=== PATIENT | female | born 1960 | race Caucasian/White ===

== ENCOUNTER 2020-09-16 17:49 | Emergency (ER) | payer MEDICARE, MEDICAID, SELFPAY ==
[2020-09-16 17:51] VITALS: BP 173/99; PULSE 93; RESP 20; TEMP 37; O2SAT 99; BMI 177.1
--- NOTE | 2020-09-16 18:15 | XR_ITS ---
PROCEDURE INFORMATION: Exam: XR Left Foot Exam date and time: 09/16/2020 6:15 PM Age: 60 years old Clinical indication: Injury or trauma; Other: Dog bite to left heel. ; Bleeding/hemorrhage and blunt trauma; Additional info: Pain TECHNIQUE: Imaging protocol: XR Left foot. Views: 3 or more views. COMPARISON: No relevant prior studies available. FINDINGS: Bones/joints: Normal anatomic alignment. There is no evidence of acutely displaced fractures. There is no evidence of dislocation. No aggressive osseous lesions. Soft tissues: There is no significant soft tissue swelling. There is no evidence of a radio-opaque foreign body. IMPRESSION: Negative for acute skeletal pathology.
--- NOTE | 2020-09-16 18:37 | HMH.EDANIB ---
ED Disposition Clinical Impression: Dog bite Qualifiers: Encounter type: initial encounter Qualified Code(s): W54.0XXA - Bitten by dog, initial encounter Disposition: Home, Self-Care Condition on Discharge: Good Instructions: Animal Bites Prescriptions: Hydrocod/Acet 5/325 mg [[place] 5/325mg tablet] 1 tab PO Q6HP PRN #6 tab PRN Reason: Moderate Pain Transmission Status: Received by [facility] #[id number] Amoxicillin/Potassium Clav [Amox-Clav 875-125 mg Tablet] 1 tab PO BID #20 tab Transmission Status: Pending to [facility] #[id number] Referrals: Alberto Carter [Primary Care Provider] - - Critical Care Critical Care Time: No Attestation: On 09/16/20, the high probability of a clinically significant, sudden or life threatening deterioration of the following system(s) required my full and direct attention, intervention and personal management. The time I documented below is in addition to time spent performing reported procedures but includes the following listed in this critical care notation. Medical Decision Making - Medical Records Medical records reviewed: Yes: I reviewed the patient's medical records. - Jose F Inquiry Pt receiving controlled substance: Yes Jose F was queried for this patient: No Reason not queried -: Emergent pt cond-no time Risks and benefits of using a controlled substance: were discussed with pt by me Vital Signs: 09/16/20 17:51 Temperature 98.6 F Temperature Source Oral Pulse Rate [Right] 93 H Respiratory Rate 20 Blood Pressure [Right Arm] 173/99 H Blood Pressure Mean [Right Arm] 123 02 Sat by Pulse Oximetry 99 Orders (Tests/Meds): ED MEDICATIONS Discontinued Medications Generic Name Dose Route Start Last Admin Trade Name Freq PRN Reason Stop Dose Admin Hydrocodone Bitart/Acetaminophen 2 tab 09/16/20 18:15 09/16/20 18:23 Hydrocodone/Apap 5/325 Mg Tablet PO 09/16/20 18:16 2 tab ONCE ONE Administration ORDERS Category Date Time Status XR foot LT min 3V Stat Exams 09/16/20 18:15 Taken - Radiology Data #1 Image(s): Foot/Toes Image Reviewed: Yes I reviewed the patient's radiology results, Yes I reviewed the patient's radiology image Preliminary Findings: Normal/NAD - Reevaluation(s) Time: 18:41 Reevaluation #1: On reevaluation patient is feeling much better. There is no evidence of foreign body. Wound was thoroughly irrigated. Patient was given strict return precautions. Verbalized understanding. Medical Decision Narrative: 60-year-old female presenting after dog bite yesterday. The dog has been observed and is fully vaccinated for rabies and other diseases. Patient is up-to-date on tetanus. Imaging obtained. Analgesics provided. Animal Bite HPI - General Chief Complaint: Animal Bite Stated Complaint: Dog Bite in left leg in heel Time Seen by Provider: 09/16/20 17:55 Mode of Arrival: Family Vehicle Limitations: No Limitations Description of Symptoms (Recalled from ER Triage Doc. by RN): PT REPORTS SHE WAS BIT BY HER NEIGHBORS DOG YESTERDAY. PT REPORTS IT IS AN INSIDE DOG AND DOGS SHOTS ARE UP TO DATE. PT REPORTS SHE WAS BIT IN HER LEFT HEEL AND HAS SOME REDNESS TO THE AREA. - History of Present Illness HPI narrative: 60-year-old female presented to the emergency department after he sustained a dog bite yesterday. Patient was bit on the heel by her neighbors dog. It was a provoked attack. The dog has been monitored and is up-to-date on all immunizations. Is been on the back of the left heel. She is complaining of some pain in the area. Patient did thoroughly irrigate the wound and has been keeping it clean. She denies any other injuries. She is up-to-date on tetanus. No chest pain or shortness of breath. No abdominal pain or vomiting. No headache or change in vision. - Related Data Previous Rx's Medication Instructions Recorded Amoxicillin/Potassium Clav 1 tab PO BID #20 tab 09/16/20 [Amox
--- NOTE | 2020-09-16 18:47 | PC.NURSE ---
DOG BITE PROCEDURE REPORTING FAXED TO THE HEALTH DEPARTMENT PER HOSPITAL POLICY
[2020-09-16 18:56] VITALS: BP 110/71; PULSE 78; RESP 18; TEMP 36.8; O2SAT 99
== END 2020-09-16 18:55 | disposition home or self-care (01) ==
PROVIDERS: Emergency Provider Emergency Medicine; PCP Pediatrics
DX: S91.332A Puncture wound without foreign body, left foot, initial encounter (principal); W54.0XXA Bitten by dog, initial encounter
CPT/HCPCS: 73630; 99282

== ENCOUNTER → 2021-04-15 15:43 | Outpatient (CLI) | payer MEDICARE, MEDICAID, SELFPAY ==
[2021-04-15 15:54] LABS: Basophils % 0.4 % (0.1-2.0); Eosinophils # 0.1 K/mm3 (0.0-0.4); Eosinophils % 0.9 % (0.1-12.0); Hematocrit 48.5 % (37.0-47.0); Hemoglobin 15.8 g/dL (12.2-16.2); Lymphocytes # 1.4 K/mm3 (0.7-4.5); Lymphocytes % 27.1 % (10-50); Mean Corpuscular HGB Conc 32.6 g/dL (31.8-35.4); Mean Corpuscular Hemoglobin 33.6 pg (27.0-31.2); Mean Corpuscular Volume 103.2 fl (81-99); Mean Platelet Volume 8.7 fl (7.4-10.4); Monocytes # 0.3 K/mm3 (0.1-1.0); Neutrophils # 3.4 K/mm3 (1.8-7.8); Neutrophils % 65.6 % (37.0-80.0); Platelet Count 344 K/mm3 (142-424); Red Cell Distribution Width 13.4 % (11.5-17.5); White Blood Count 5.2 K/mm3 (4.8-10.8)
[2021-04-15 16:26] LABS: Chloride 98 mmol/L (98-107); Potassium 4.7 mmoL/L (3.5-5.1); Sodium 138 mmol/L (136-145)
[2021-04-15 16:29] LABS: Alanine Aminotransferase 15 U/L (12-78); Albumin Level 4.9 g/dl (3.5-5.0); Albumin/Globulin Ratio 1.5 (1.1-1.8); Alkaline Phosphatase 142 U/L (38-126); Anion Gap 14.7 mEq/L (5-15); Aspartate Amino Transferase 38 U/L (14-36); Bilirubin,Total 0.2 mg/dl (0.2-1.3); Blood Urea Nitrogen 9 mg/dl (7-17); Calcium 10.9 mg/dl (8.4-10.2); Carbon Dioxide 30 mmol/L (22.0-30.0); Cholesterol 299 mg/dl (140-200); Estimated Glomerular Filt Rate 102 ml/min (>60); GFR (African American) 123 ML/MIN (>60); Globulin 3.3 g/dL (1.3-3.2); Glucose 134 mg/dl (74-100); Total Protein,Serum 8.2 g/dl (6.3-8.2); Triglycerides 96 mg/dl (30-150); VLDL Cholesterol 19 mg/dL (0-40)
[2021-04-15 16:41] LABS: Direct LDL Cholesterol 129.02 mg/dL (100-129)
[2021-04-15 16:46] LABS: Chol/HDL Ratio 1.8 (1-3.5); Free T4 (Free Thyroxine) 1.03 ng/dl (0.78-2.19); HDL Cholesterol 163 mg/dl (40-60)
[2021-04-15 16:47] LABS: 25-OH Vitamin D, Total 38.8 ng/mL (30-100)
[2021-04-15 17:00] LABS: Thyroid Stimulating Hormone 2.32 uIU/mL (0.465-4.68)
== END ==
PROVIDERS: Visit Provider Emergency Medicine
DX: R53.83 Other fatigue (principal); W54.0XXA Bitten by dog, initial encounter; E78.5 Hyperlipidemia, unspecified; E55.9 Vitamin D deficiency, unspecified
CPT/HCPCS: 80053; 80061; 82306; 84439; 84443; 85025

== ENCOUNTER → 2022-01-03 09:18 | Outpatient (CLI) | payer MEDICARE, MEDICAID, SELFPAY ==
[2022-01-03 15:30] LABS: Amphetamine/Metha Screen,Urine Negative ng/ml (<1000); Benzodiazepines Screen,Urine Negative ng/ml (<200)
[2022-01-03 15:31] LABS: Barbiturates Screen,Urine Negative ng/ml (<200)
[2022-01-03 15:32] LABS: Cannabinoid Screen,Urine Negative ng/ml (<50); Cocaine Screen,Urine Negative ng/ml (<300)
[2022-01-03 15:33] LABS: Methadone Screen,Urine Negative ng/ml (<300); Opiate Screen,Urine Negative ng/ml (<300)
[2022-01-03 15:34] LABS: Phencyclidine Screen,Urine Negative ng/ml (<25)
== END ==
PROVIDERS: PCP Emergency Medicine; Visit Provider Emergency Medicine
DX: M51.36 Other intervertebral disc degeneration, lumbar region (principal)
CPT/HCPCS: 80305

== ENCOUNTER → 2022-01-31 08:58 | Outpatient (CLI) | payer MEDICARE, MEDICAID, SELFPAY | PROVIDERS: PCP Emergency Medicine; Visit Provider Emergency Medicine | DX: Z87.891 Personal history of nicotine dependence (principal) ==

== ENCOUNTER → 2022-01-31 09:44 | Outpatient (CLI) | payer MEDICARE, MEDICAID, SELFPAY ==
--- NOTE | 2022-01-31 09:49 | CT_ITS ---
FINAL REPORT CLINICAL HISTORY: lung cancer screening smoker, 1 ppd x 40 years family hx of lung cancer FINDINGS: Low-Dose Chest CT CTDI vol (mGy): 2.90 DLP (mGy-cm): 107.33 Axial images were obtained from the lung apex to the mid abdomen by computed tomography. Low-dose protocol was utilized. FINDINGS: CHEST: There is no axillary adenopathy. There is no hilar or mediastinal adenopathy. The heart is proper size. There is no pericardial or pleural effusion. Limited images of the upper abdomen are unremarkable. Lung window images demonstrate mild scarring. There are multiple less than 5 mm bilateral pulmonary nodules. On image 28 is a 3 mm nodule in the lateral left upper lobe. On image 43 is a 3 mm nodule in the left lower lobe. A calcified granuloma is seen in the right upper lobe. IMPRESSION: Lung RADS category 2. Recommend 12 month follow-up low-dose chest CT. Reviewed, Interpreted and Dictated by Alex Heck III, MD Transcribed by Chino Garcia Authenticated and . [facility]
[2022-01-31 19:20] LABS: Amphetamine/Metha Screen,Urine Negative ng/ml (<1000)
[2022-01-31 19:21] LABS: Barbiturates Screen,Urine Negative ng/ml (<200)
[2022-01-31 19:23] LABS: Benzodiazepines Screen,Urine Negative ng/ml (<200); Cannabinoid Screen,Urine Positive ng/ml (<50)
[2022-01-31 19:24] LABS: Cocaine Screen,Urine Negative ng/ml (<300)
[2022-01-31 19:25] LABS: Methadone Screen,Urine Positive ng/ml (<300)
[2022-01-31 19:26] LABS: Opiate Screen,Urine Negative ng/ml (<300)
[2022-01-31 19:27] LABS: Phencyclidine Screen,Urine Negative ng/ml (<25)
== END ==
PROVIDERS: PCP Emergency Medicine; Visit Provider Emergency Medicine
DX: Z87.891 Personal history of nicotine dependence (principal); Z79.899 Other long term (current) drug therapy; Z12.2 Encounter for screening for malignant neoplasm of respiratory organs
CPT/HCPCS: 71271; 80305

== ENCOUNTER → 2022-07-14 10:30 | Outpatient (CLI) | payer MEDICARE, MEDICAID, SELFPAY ==
[2022-07-14 16:09] LABS: Basophils % 0.6 % (0.1-2.0); Eosinophils # 0.1 K/mm3 (0.0-0.4); Hematocrit 41.8 % (37.0-47.0); Hemoglobin 13.7 g/dL (12.2-16.2); Lymphocytes # 1.3 K/mm3 (0.7-4.5); Lymphocytes % 19.1 % (10-50); Mean Corpuscular HGB Conc 32.7 g/dL (31.8-35.4); Mean Corpuscular Hemoglobin 33.2 pg (27.0-31.2); Mean Corpuscular Volume 101.4 fl (81-99); Mean Platelet Volume 8.8 fl (7.4-10.4); Monocytes # 0.6 K/mm3 (0.1-1.0); Neutrophils % 71.4 % (37.0-80.0); Platelet Count 307 K/mm3 (142-424); Red Blood Count 4.12 M/mm3 (4.20-5.40); Red Cell Distribution Width 13.5 % (11.5-17.5)
[2022-07-14 16:22] LABS: Alanine Aminotransferase 15 U/L (12-78); Albumin Level 4.1 g/dl (3.5-5.0); Albumin/Globulin Ratio 1.4 (1.1-1.8); Alkaline Phosphatase 125 U/L (38-126); Anion Gap 6.9 mEq/L (5-15); Aspartate Amino Transferase 30 U/L (14-36); Bilirubin,Total 0.4 mg/dl (0.2-1.3); Blood Urea Nitrogen 12 mg/dl (7-17); Carbon Dioxide 28 mmol/L (22.0-30.0); Chloride 102 mmol/L (98-107); Chol/HDL Ratio 2.1 (1-3.5); Cholesterol 212 mg/dl (140-200); Estimated Glomerular Filt Rate 85 ml/min (>60); GFR (African American) 103 ML/MIN (>60); Glucose 68 mg/dl (74-100); HDL Cholesterol 103 mg/dl (40-60); Potassium 3.9 mmoL/L (3.5-5.1); Sodium 133 mmol/L (136-145); Total Protein,Serum 7.1 g/dl (6.3-8.2); Triglycerides 71 mg/dl (30-150); VLDL Cholesterol 14 mg/dL (0-40)
[2022-07-14 16:33] LABS: Direct LDL Cholesterol 77.04 mg/dL (100-129)
[2022-07-14 16:39] LABS: 25-OH Vitamin D, Total 28.2 ng/mL (30-100); Free T4 (Free Thyroxine) 1.13 ng/dl (0.78-2.19)
[2022-07-14 16:53] LABS: Thyroid Stimulating Hormone 0.93 uIU/mL (0.465-4.68)
== END ==
PROVIDERS: PCP Emergency Medicine; Visit Provider Emergency Medicine
DX: E05.90 Thyrotoxicosis, unspecified without thyrotoxic crisis or storm (principal); E66.9 Obesity, unspecified; M54.9 Dorsalgia, unspecified; E55.9 Vitamin D deficiency, unspecified
CPT/HCPCS: 80053; 80061; 82306; 84439; 84443; 85025

== ENCOUNTER 2024-05-13 14:51 | Outpatient (CLI) | payer MEDICARE, MEDICAID, SELFPAY ==
--- NOTE | 2024-05-13 14:52 | CT_ITS ---
FINAL REPORT TECHNIQUE: Axial images were obtained from the lung apex to the mid abdomen by computed tomography. This study was performed with techniques to keep radiation doses as low as reasonably achievable (ALARA). Individualized dose reduction techniques using automated exposure control or adjustment of mA and/or kV according to the patient's size were employed. CLINICAL HISTORY: lung cancer screening SMOKES 1 PK PER DAY X 50 YRS COMPARISON: 01/31/2022 FINDINGS: CHEST CT LOW DOSE CTDI vol (mGy): 2.90 DLP (mGy-cm): 105.77 There is no axillary adenopathy. There is no hilar or mediastinal adenopathy. There is moderate calcification of the aortic arch. There is significant thoracolumbar scoliosis convex to the right centered on the upper lumbar spine. The heart is normal in size. There is no pericardial or pleural effusion. Multiple noncalcified nodules are again identified. There is a 3 mm left upper lobe nodule well-seen on image 31 of series 4. There is a 3 mm anterior left upper lobe nodule seen on image 38 of series 4. There is a 3 mm nodule in the anterior left lower lobe well-seen on image 42 of series 4. There is a 3 mm nodule in the periphery of the right lower lobe well-seen on image 56 of series 4. Pulmonary nodules are all stable. Limited images of the upper abdomen are unremarkable. IMPRESSION: Stable pulmonary nodules. Lung RADS category 2. Recommend 12 month follow-up low-dose chest CT. Reviewed, Interpreted and Dictated by Colt Gonzalez MD Transcribed by Xiao Núñez Authenticated and [facility]
== END 2024-05-13 23:59 | disposition home or self-care (01) ==
LOC: RAD 14:52
PROVIDERS: PCP Family Medicine; Visit Provider Family Medicine
DX: F17.210 Nicotine dependence, cigarettes, uncomplicated (principal); R91.8 Other nonspecific abnormal finding of lung field
CPT/HCPCS: 71271

== ENCOUNTER 2024-06-27 09:38 | Emergency (ER) | payer MEDICARE, MEDICAID, SELFPAY ==
[2024-06-27] VITALS (7 sets, daily range): BP systolic 151–164; BP diastolic 78–90; PULSE 66–91; RESP 16–18; TEMP 36.6–36.8; O2SAT 97–98; BMI 18.6
--- NOTE | 2024-06-27 10:31 | HMH.EDGENADL ---
Discharge Plan Disposition Chief Complaint: Extremity Problem,Nontraumatic Prescriptions Prescriptions: No Action ibuprofen 200 mg capsule 200 mg PO Q6H PRN (Reason: Arthritis) omeprazole 40 mg capsule,delayed release(DR/EC) 40 mg PO DAILY Qty: 90 3RF ondansetron HCl 4 mg tablet 4 mg PO TID PRN (Reason: nausea and vomiting) Qty: 60 2RF naproxen [EC-Naprosyn] 500 mg tablet,delayed release (DR/EC) 500 mg PO BID Qty: 60 2RF hydrocodone-acetaminophen 5-325 mg tablet 1 tab PO BID PRN (Reason: pain) Qty: 60 0RF Referrals Follow up/Referrals: Zia Joseph MD [Primary Care Provider] - See instructions Clinical Impressions Clinical Impression: Cellulitis of leg, right Print Language Print Language: Nepali Discharge ED Provider: Johana Shane General Adult HPI General Chief complaint: Extremity Problem,Nontraumatic Stated complaint: R ankle swollen Time Seen by Provider: 06/27/24 10:23 Mode of Arrival: Ambulatory Source of Information: Patient Limitations: No Limitations Description of Symptoms (Recalled from ER Triage Doc. by RN): Pt c/o R ankle pain since Thursday. pt reports her pain is 5/10 but increases to 10/10 with weight bearing. pt states the pain starts in her R ankle and radiates distal to her foot and proximal to mid schwarz. From mid schwarz distal to the R foot it is edematous with erythema and hot. +pedal pulses. pt denies injury. pt took 600mg of ibuprofen /. History of Present Illness HPI narrative: 63-year-old female presents today with right lower extremity swelling erythema and pain. Nontraumatic no definitive skin breakdown or injury that she is aware of. No fluctuance from historical standpoint no fevers or chills or systemic illness. She denies any significant past medical history. Related Data Home Medications ?Medication ?Instructions ?Recorded ?Confirmed ibuprofen 200 mg capsule 200 mg PO Q6H PRN Arthritis 06/26/23 06/27/24 Previous Rx's ?Medication ?Instructions ?Recorded naproxen 500 mg tablet,delayed 500 mg PO BID #60 tabs 03/22/24 release (EC-Naprosyn) omeprazole 40 mg capsule,delayed 40 mg PO DAILY #90 caps 12/11/24 release ondansetron HCl 4 mg tablet 4 mg PO TID PRN nausea and 04/27/24 vomiting #60 tabs hydrocodone 5 mg-acetaminophen 325 1 tab PO BID PRN pain #60 tabs 06/02/24 mg tablet Allergies Allergy/AdvReac Type Severity Reaction Status Date / Time chocolate flavor Allergy Intermediate rash Verified 04/27/24 15:09 Penicillins Allergy Intermediate Rash Verified 04/27/24 15:09 Influenza Virus Vaccines Allergy Blister Verified 06/27/24 10:02 morphine Allergy Unknown Verified 06/27/24 10:02 allergy reaction [facility] Disclaimer: The information contained in this section may have been updated after the patient was seen, as this information can be updated by other users. Medical History GERD (gastroesophageal reflux disease) Lumbar spinal stenosis Lumbar radicular pain DDD (degenerative disc disease), lumbar Surgical History No history of previous surgery Family History No significant family history Social History Smoking Status: Current every day smoker tobacco type: cigarettes packs per day: 2 alcohol intake: current alcohol intake frequency: a few times a month substance use type: former substance user current occupational status: disabled Travel in the last 8 weeks: None Have you lived/traveled outside [place] in past 30 days?: No Contact w/someone who lives/traveled outside US past 30 days?: No Exposure to someone with infectious disease in past 14 days?: No Do you have a fever (greater than 100.4 F or 38 C)?: No Have you tested positive for COVID-19: No Exposed to someone with COVID-19 in past 14 days?: No Do you have a sore throat?: No Do you have a cough?: No Do you have any weakness?: No Do you have any diarrhea?: No Are you experiencing any unusual bleeding?: No Do you have any muscle aches/pain?: No Do you have any abdominal pain?: No Are you experiencing loss of taste or smell?: No Other Medical History Have you received the Flu Vaccine for this season: No Have you received the Pneumonia Vaccine: No ROS Obtained: Yes All systems reviewed & no additional complaints except as documented Physical Exam General General appearance: alert Respiratory Respiratory exam: Present normal lung sounds bilaterally Cardiovascular Cardiovascular exam: Present regular rate Extremities Exam Extremities exam: Present other (Erythema circumferentially around the foot ankle and tib-fib area extending up to the proximal mid tib-fib location neurovascular tact no focal fluctuance normal range of motion no skin breakdown) Neurological Exam Neurological exam: Present alert and oriented X3 Medical Decision Making Medical Records Screening: Per USPSTF and CDC recommendations, given the prevalence of disease in our region, it is our hospital?s policy to screen for HIV and viral Hepatitis for all patients aged 18 and over and those with ongoing risk factors. Jose F Inquiry Pt receiving controlled substance: No Vital Signs: 06/27/24 09:45 06/27/24 09:52 06/27/24 10:00 Temperature 98.2 F Temperature Source Oral Pulse Rate 91 H 83 Pulse Rate [Left] 86 Respiratory Rate 16 Blood Pressure 164/78 H 158/85 H Blood Pressure [Right Arm] 164/78 H Blood Pressure Mean 109 Blood Pressure Mean [Right Arm] 106 Blood Pressure Source [Right Arm] Automatic Cuff Blood Pressure Position [Right Arm] Sitting 02 Sat by Pulse Oximetry 97 97 98 Oxygen Delivery Method Room Air Room Air Room Air 06/27/24 10:22 06/27/24 11:00 Temperature Temperature Source Pulse Rate 84 Pulse Rate [Left] Respiratory Rate Blood Pressure 159/86 H 157/90 H Blood Pressure [Right Arm] Blood Pressure Mean 112 Blood Pressure Mean [Right Arm] Blood Pressure Source [Right Arm] Blood Pressure Position [Right Arm] 02 Sat by Pulse Oximetry 97 97 Oxygen Delivery Method Room Air Room Air Lab Data Lab results reviewed: Yes I reviewed the patient's lab results. Lab Results 06/27/24 10:48: WBC 8.4, RBC 4.11 L, Hgb 13.2, Hct 39.1, MCV 95.1, MCH 32.1 H, MCHC 33.8, RDW 13.7, Plt Count 238, MPV 9.7, Neut % (Auto) 74.5, Lymph % (Auto) 16.0, Marshall % (Auto) 8.2, Eos % (Auto) 0.7, Baso % (Auto) 0.2, Neut # (Auto) 6.3, Lymph # (Auto) 1.4, Marshall # (Auto) 0.7, Eos # (Auto) 0.1, Baso # (Auto) 0.0, Sodium 134 L, Potassium 3.9, Chloride 96 L, Carbon Dioxide 30, Anion Gap 11.9, BUN 17, Creatinine 0.90, Estimated Creat Clear 43, Estimated GFR 63, Est GFR ( Amer) 76, Glucose 102 H, Calcium 9.4, Total Bilirubin 0.5, AST 41 H, ALT 18, Alkaline Phosphatase 163 H, C-Reactive Protein 88.6 H, Total Protein 8.1, Albumin 4.5, Globulin 3.6 H, Albumin/Globulin Ratio 1.3 06/27/24 10:48 06/27/24 10:48 Orders (Tests/Meds): ED MEDICATIONS Discontinued Medications Generic Name Dose Route Start Last Admin Trade Name Freq PRN Reason Stop Dose Admin Dalbavancin 1,500 mg/ Dextrose 250 mls @ 500 mls/hr 06/27/24 10:29 06/27/24 10:53 IV 06/27/24 10:30 500 mls/hr ONCE ONE Administration ORDERS Category Date Time Status Ankle XR -Right minimum 3 Views [XR ankle RT min 3V] Exams 06/27/24 10:32 Completed Stat POCUS Point of Care (ER Only) Stat Exams 06/27/24 10:24 Completed CBC w/Auto Diff [Complete Blood Count Auto Diff] Stat Lab 06/27/24 10:48 Completed CMP [Comprehensive Metabolic Panel] Stat Lab 06/27/24 10:48 Completed CRP [C-Reactive Protein] Stat Lab 06/27/24 10:48 Completed HIV Combo Stat Lab 06/27/24 10:48 Received Hepatitis C Ab Qual. W/ RFX Stat Lab 06/27/24 10:48 Received Blood Culture Stat Micro 06/27/24 10:48 Received Medical Decision Narrative: 63-year-old clinically with cellulitis that is significant but systemically appears well. Limited bedside ultrasound was performed which did not demonstrate any localized fluid collection but rather is consistent with cellulitis. Given its extent we will give dalbavancin. Also get a plain film and basic blood work I do not suspect a necrotizing soft tissue infection but it is on the differential. Will reassess shortly. X-ray performed which I personally interpreted shows no evidence of subcutaneous gas. Labs show significant elevated CRP which is to be expected at this point I am not clinically concerned about necrotizing soft tissue infection. Dalbavancin has been administered return precautions emphasized patient discharged in stable condition. She is been advised to follow-up with primary care doctor in 48 to 72 hours and return with any significant worsening after that time. Procedures Miscellaneous Procedure Procedure Performed: Limited soft tissue ultrasound Indication: Soft tissue swelling and redness and pain Identified structures: Location: Right lower extremity Findings: No localize drainable fluid collection but there is extensive cobblestoning consistent with cellulitis Impression: Right lower extremity cellulitis Images were saved to permanent archive The study was technically adequate Soft Tissue CPT Codes: CPT Neck: 61455-38 CPT Upper extremity: 12614-98 CPT Axilla: 65579-93 CPT Chest wall: 34947-23 CPT Breast: 14676-82-WW/LT (complete), 60507-32-TG/LT (limited), CPT Upper Back: 38544-11 CPT Lower Back: 91545-77 CPT Abdominal Wall: 57949-59 CPT Pelvic Wall: 83235-60 CPT Lower Extremity: 41437-50 CPT Other Soft Tissue: 97591-15 This study was performed by me, and I personally interpreted all images/videos. Based on my clinical judgement, these images were adequate and did not necessitate further imaging. Critical Care Critical Care Time Critical Care Time: No
--- NOTE | 2024-06-27 10:32 | XR_ITS ---
FINAL REPORT CLINICAL HISTORY: infection, r/o gas FINDINGS: RIGHT ANKLE 3 views of the right ankle were obtained. There is no acute fracture or dislocation. The mortise is intact. Visualized joint spaces are normally aligned. There is no foreign body or gas in the soft tissues IMPRESSION: No acute bony abnormality. Reviewed, Interpreted and Dictated by Chito Madrid MD Transcribed by Iva Glass Authenticated and . [facility]
--- NOTE | 2024-06-27 10:38 | PC.NURSE ---
XR AT BEDSIDE
--- NOTE | 2024-06-27 10:39 | PC.NURSE ---
1st blood culture sent to lab
[2024-06-27] MEDS: DALBAVANCIN HCL 1,500 MG in DEXTROSE 5 % IN WATER 250 ML 500 MG IV (10:53)
[2024-06-27 11:01] LABS: Basophils % 0.2 % (0.1-2.0); Eosinophils # 0.1 K/mm3 (0.0-0.4); Eosinophils % 0.7 % (0.1-12.0); Hematocrit 39.1 % (37.0-47.0); Hemoglobin 13.2 g/dL (12.2-16.2); Lymphocytes # 1.4 K/mm3 (0.7-4.5); Mean Corpuscular HGB Conc 33.8 g/dL (31.8-35.4); Mean Corpuscular Hemoglobin 32.1 pg (27.0-31.2); Mean Corpuscular Volume 95.1 fl (81-99); Mean Platelet Volume 9.7 fl (7.4-10.4); Monocytes # 0.7 K/mm3 (0.1-1.0); Monocytes % 8.2 % (1.7-9.3); Neutrophils # 6.3 K/mm3 (1.8-7.8); Neutrophils % 74.5 % (37.0-80.0); Platelet Count 238 K/mm3 (142-424); Red Blood Count 4.11 M/mm3 (4.20-5.40); Red Cell Distribution Width 13.7 % (11.5-17.5); White Blood Count 8.4 K/mm3 (4.8-10.8)
[2024-06-27 11:12] LABS: Albumin Level 4.5 g/dl (3.5-5.0); Chloride 96 mmol/L (98-107)
[2024-06-27 11:13] LABS: Potassium 3.9 mmoL/L (3.5-5.1); Sodium 134 mmol/L (136-145)
[2024-06-27 11:15] LABS: Alanine Aminotransferase 18 U/L (12-78); Albumin/Globulin Ratio 1.3 (1.1-1.8); Alkaline Phosphatase 163 U/L (38-126); Anion Gap 11.9 mEq/L (5-15); Aspartate Amino Transferase 41 U/L (14-36); Bilirubin,Total 0.5 mg/dl (0.2-1.3); Blood Urea Nitrogen 17 mg/dl (7-17); Carbon Dioxide 30 mmol/L (22.0-30.0); Creatinine Clearance Estimated 43 mL/min (50-200); Estimated Glomerular Filt Rate 63 ml/min (>60); GFR (African American) 76 ML/MIN (>60); Globulin 3.6 g/dL (1.3-3.2); Total Protein,Serum 8.1 g/dl (6.3-8.2)
[2024-06-27 11:16] LABS: Calcium 9.4 mg/dl (8.4-10.2); Glucose 102 mg/dl (74-100)
[2024-06-27 11:21] LABS: C-Reactive Protein 88.6 mg/L (0-4)
[2024-06-27 12:12] LABS: HIV Combo NEGATIVE (Negative)
[2024-06-27 12:20] LABS: Hepatitis C Ab Qual. W/ RFX NEGATIVE (Negative)
== END 2024-06-27 12:04 | disposition home or self-care (01) ==
PROVIDERS: Emergency Provider Student in an Organized Health Care Education/Training Program; PCP Family Medicine
DX: L03.115 Cellulitis of right lower limb (principal); M25.571 Pain in right ankle and joints of right foot; M79.671 Pain in right foot; R22.41 Localized swelling, mass and lump, right lower limb; F17.210 Nicotine dependence, cigarettes, uncomplicated
CPT/HCPCS: 73610; 80053; 85025; 86140; 86803; 87040; 87389; 96374; 99284; J0875; J7060

== ENCOUNTER 2024-10-03 14:34 | Inpatient (IN) | payer MEDICARE, MEDICAID, SELFPAY ==
[2024-10-03 14:48] VITALS: BP 136/97; PULSE 88; RESP 18; TEMP 36.6; O2SAT 96; BMI 16.8
--- NOTE | 2024-10-03 15:05 | CT_ITS ---
FINAL REPORT TECHNIQUE: After the administration of intravenous contrast, axial images were obtained through the abdomen and pelvis by computed tomography. Coronal and sagittal reconstructed images were obtained and reviewed. The study was performed with techniques to keep radiation dose as low as reasonably achievable, (ALARA). Individual dose reduction techniques using automated exposure control or adjustment of mA and/or kV according to the patient's size were employed. CLINICAL HISTORY: Diffuse pain, takes 20 ibuprofen a day COMPARISON: None FINDINGS: Abdomen: The lung bases are clear. There is moderate intra and extrahepatic biliary ductal dilatation. The gallbladder appears to be present. There are multitude of fluid-filled abnormally distended loops of small bowel measuring up to 2.8 cm in diameter. The terminal ileum is difficult to identify. There is a large amount of stool throughout the colon. There are extensive vascular calcifications throughout the abdominal aorta and iliac vessels, greater than expected for the patient's age. There is significant tortuosity of the abdominal aorta. There is lumbar scoliosis measuring 30 degrees. Pelvis: The appendix is not identified. The urinary bladder is decompressed. There is no free fluid or adenopathy. IMPRESSION: Multitude of abnormally distended fluid-filled loops of small bowel, diffuse ileus versus distal small bowel obstruction. Moderate intra and extrahepatic biliary ductal dilatation without a discrete obstructing focus identified. Lumbar scoliosis. Extensive vascular calcifications. Reviewed, Interpreted and Dictated by Colt Gonzalez MD Transcribed by Minerva Garcia Authenticated and [facility]
[2024-10-03 15:12] LABS: Microscopic, Urine URINE MICROSCOPIC (MICROSCOPIC)
--- NOTE | 2024-10-03 15:13 | ED_ITS ---
Discharge Plan Disposition Patient Disposition: Admitted Chief Complaint: Abdominal Pain Prescriptions Prescriptions: No Action naproxen [EC-Naprosyn] 500 mg tablet,delayed release (DR/EC) 500 mg PO BID Qty: 60 2RF omeprazole 40 mg capsule,delayed release(DR/EC) 40 mg PO DAILY Qty: 90 3RF ibuprofen 200 mg capsule 200 mg PO Q6H PRN (Reason: Arthritis) hydrocodone-acetaminophen 5-325 mg tablet 1 tab PO BID PRN (Reason: pain) Qty: 60 0RF ondansetron HCl 4 mg tablet 4 mg PO TID PRN (Reason: nausea and vomiting) Qty: 60 2RF hydrocodone-acetaminophen 7.5-325 mg tablet 1 tab PO BID PRN (Reason: pain) Qty: 60 0RF doxycycline hyclate 100 mg tablet 100 mg PO BID Qty: 20 0RF ondansetron HCl 8 mg tablet 8 mg PO Q8H Qty: 90 0RF Referrals Follow up/Referrals: Zia Joseph MD [Primary Care Provider] - See instructions Clinical Impressions Clinical Impression: Bowel obstruction Instructions Patient Instructions: DI for Acute Abdominal Pain Print Language Print Language: Maldivian Discharge ED Provider: Griffin Dias General Adult HPI General Chief complaint: Abdominal Pain Stated complaint: abd pain bloating vomiting 7+days lightheaded Time Seen by Provider: 10/03/24 15:04 Mode of Arrival: Ambulatory Source of Information: Patient and Relative Description of Symptoms (Recalled from ER Triage Doc. by RN): Pt presents for evaluation of abdominal pain and bloating and n/v. Pt states she has progressively become more bloated over the last week, pt has not had a BM in 2 days. Pt states she drinks 1-2 beers in the evening per week. Pt states she also takes 15-20 ibuprofen per day. History of Present Illness HPI narrative: Patient is 64-year-old female with past medical history of tobacco use who presents to the emergency department for evaluation of abdominal pain. Patient takes 15-20 ibuprofen a day for her osteoarthritis. She had abdominal pain over the last week that is diffuse. She has never had endoscopy before. No abdominal surgical history. No chest pain. No vomiting although she does have some nausea. Last bowel movement 2 days ago nonbloody. No reports of dysuria. No other acute complaints at this time. Please note that above description of symptoms, in this electronic medical record under categorization of recalled from ER triage doctor by RN are reflective of an initial nursing assessment, however, is not reflective of my full history and physical exam that was personally taken and clarified. Consequentially, this preceding description of symptoms, which may include the patient's categorized chief complaint in the EMR, do not reflect my personal clinical impression, and the ultimate description of history of present illness and patient stated complaints should be deferred to this section of the note. Unless stated otherwise or congruent with this section of the note, additional signs, symptoms, or incongruence should be interpreted as inaccurate with my clinical impression. Related Data Home Medications ?Medication ?Instructions ?Recorded ?Confirmed ibuprofen 200 mg capsule 200 mg PO Q6H PRN Arthritis 06/26/23 07/04/24 Previous Rx's ?Medication ?Instructions ?Recorded hydrocodone 5 mg-acetaminophen 325 1 tab PO BID PRN pain #60 tabs 06/02/24 mg tablet naproxen 500 mg tablet,delayed 500 mg PO BID #60 tabs 07/04/24 release (EC-Naprosyn) omeprazole 40 mg capsule,delayed 40 mg PO DAILY #90 caps 07/04/24 release ondansetron HCl 4 mg tablet 4 mg PO TID PRN nausea and 08/04/24 vomiting #60 tabs hydrocodone 7.5 mg-acetaminophen 1 tab PO BID PRN pain #60 tabs 09/08/24 325 mg tablet doxycycline hyclate 100 mg tablet 100 mg PO BID #20 tabs 09/14/24 ondansetron HCl 8 mg tablet 8 mg PO Q8H #90 tabs 09/29/24 Allergies Allergy/AdvReac Type Severity Reaction Status Date / Time chocolate flavor Allergy Intermediate rash Verified 07/04/24 15:29 Penicillins Allergy Intermediate Rash Verified 07/04/24 15:29 Influenza Virus Vaccines Allergy Blister Verified 07/04/24 15:29 morphine Allergy Unknown Verified 07/04/24 15:29 allergy reaction PFSH PFSH Disclaimer: The information contained in this section may have been updated after the patient was seen, as this information can be updated by other users. Medical History GERD (gastroesophageal reflux disease) Lumbar spinal stenosis Lumbar radicular pain DDD (degenerative disc disease), lumbar Surgical History No history of previous surgery Family History Other No significant family history Social History Smoking Status: Current every day smoker tobacco type: cigarettes packs per day: 2 alcohol intake: current alcohol intake frequency: a few times a month substance use type: former substance user current occupational status: disabled Travel in the last 8 weeks?: None Have you lived/traveled outside US in past 30 days?: No Contact w/someone who lives/traveled outside US past 30 days?: No Exposure to someone with infectious disease in past 14 days?: No Do you have a fever (greater than 100.4 F or 38 C)?: No Have you tested positive for COVID-19?: No Exposed to someone with COVID-19 in past 14 days?: No Do you have a sore throat?: No Do you have a cough?: No Do you have any weakness?: No Do you have any diarrhea?: No Are you experiencing any unusual bleeding?: No Do you have any muscle aches/pain?: No Do you have any abdominal pain?: Yes Are you experiencing loss of taste or smell?: No Other Medical History Have you received the Flu Vaccine for this season: No Have you received the Pneumonia Vaccine: No ROS Obtained: Yes Systems reviewed as appropriate & no additional complaints except as documented Physical Exam General General appearance: alert and in no apparent distress Head Head exam: atraumatic and normocephalic Eye Eye exam: Present PERRL and EOMI ENT ENT exam: Present mucous membranes moist Neck Neck exam: Present normal inspection Chest Chest inspection: Present normal inspection and symmetric chest wall rise Respiratory Respiratory exam: Present normal lung sounds bilaterally; Absent respiratory distress Cardiovascular Cardiovascular exam: Present regular rate and normal rhythm Abdominal Exam Abdominal exam: Present distention (Firm abdomen but not rigid) and tenderness (Diffuse); Absent soft Extremities Exam Extremities exam: Present normal inspection Neurological Exam Neurological exam: Present alert Psychiatric Psychiatric exam: Present normal affect Skin Skin exam: Present warm and dry Medical Decision Making Medical Records Screening: Per USPSTF and CDC recommendations, given the prevalence of disease in our region, it is our hospital?s policy to screen for HIV and viral Hepatitis for all patients aged 18 and over and those with ongoing risk factors. Jose F Inquiry Pt receiving controlled substance: No Vital Signs: 10/03/24 14:48 10/03/24 16:00 Temperature 98 F Temperature Source Oral Pulse Rate 74 Pulse Rate [Right] 88 Respiratory Rate 18 Blood Pressure 148/86 H Blood Pressure [Right Arm] 136/97 H Blood Pressure Mean [Right Arm] 110 Blood Pressure Source [Right Arm] Automatic Cuff Blood Pressure Position [Right Arm] Sitting 02 Sat by Pulse Oximetry 96 97 Oxygen Delivery Method Room Air Room Air Lab Data Lab Results 10/03/24 14:48: Urine Color Dark yellow, Urine Appearance Sl cloudy, Urine pH 6.0, Ur Specific [place] 1.025, Urine Protein Trace, Urine Glucose (UA) Negative, Urine Ketones Trace, Urine Blood Negative, Urine Nitrate Negative, U rine Bilirubin 1+ A, Urine Urobilinogen 1.0, Ur Leukocyte Esterase Negative, Urine RBC None, Urine WBC 3-5, Ur Squamous Epith Cells 10-20, Urine Bacteria 3+, Urine Yeast Occasional 10/03/24 15:34: WBC 2.6 L, RBC 3.91 L, Hgb 12.3, Hct 35.7 L, MCV 91.3, MCH 31.5 H, MCHC 34.5, RDW 14.8, Plt Count 278, MPV 9.3, Neut % (Auto) 56.9, Lymph % (Auto) 28.6, [place] % (Auto) 12.6 H, Eos % (Auto) 1.5, Baso % (Auto) 0.4, Neut # (Auto) 1.5 L, Lymph # (Auto) 0.8, [place] # (Auto) 0.3, Eos # (Auto) 0.0, Baso # (Auto) 0.0, Sodium 129 L, Potassium 3.8, Chloride 88 L, Carbon Dioxide 33 H, Anion Gap 11.8, BUN 24 H, Creatinine 1.60 H, Estimated Creat Clear 24, Estimated GFR 32 L, Est GFR ( Amer) 39 L, Glucose 143 H, Calcium 9.7, Total Bilirubin 0.3, AST 45 H, ALT 21, Alkaline Phosphatase 118, Troponin I < 0.01, Total Protein 7.8, Albumin 4.4, Globulin 3.4 H, Albumin/Globulin Ratio 1.3, L ipase 21 L, Plasma/Serum Alcohol < 10 05/19/25 15:34: Plasma/Serum Alcohol < 10 10/03/24 15:34 10/03/24 15:34 Orders (Tests/Meds): ED MEDICATIONS Generic Name Dose Route Start Last Admin Trade Name Frederic PRN Reason Stop Dose Admin Ondansetron HCl 4 mg 10/03/24 18:06 Ondansetron 4mg/2ml Vial IV 11/02/24 18:05 Q6HP PRN Nausea And Vomiting Pantoprazole Sodium 40 mg 10/03/24 21:00 Pantoprazole 40mg Vial IV 11/02/24 20:59 HS YOU Discontinued Medications Generic Name Dose Route Start Last Admin Trade Name Freq PRN Reason Stop Dose Admin Hydromorphone HCl 0.5 mg 10/03/24 16:55 10/03/24 17:07 Hydromorphone 2mg/Ml Syringe IV 10/03/24 16:56 0.5 mg ONCE ONE Administration Cefepime HCl 2 gm/ Sodium 100 mls @ 200 mls/hr 10/03/24 16:29 10/03/24 16:42 Chloride IV 10/03/24 16:58 200 mls/hr ONCE ONE Administration Metronidazole 500 mg in 100 mls @ 100 mls/hr 10/03/24 16:29 10/03/24 16:41 Flagyl 500mg/100ml Ivpb IV 10/03/24 17:28 100 mls/hr ONCE ONE Administration Lactated Ringer's 1,000 mls @ 999 mls/hr 10/03/24 16:37 10/03/24 16:43 Lactated Ringer's 1000 Ml Bag IV 10/03/24 17:37 999 mls/hr .Q1H1M ONE Administration Iopamidol 75 ml 10/03/24 15:44 10/03/24 15:45 Iopamidol-370 (76%);100ml Bottle IV 10/03/24 15:45 75 ml ONCE ONE Administration Sodium Chloride 10 ml 10/03/24 15:44 10/03/24 15:45 Sodium Chloride 0.9% 10ml Syr (Rad Only) IV 10/03/24 15:45 10 ml ONCE ONE Administration Sodium Chloride 50 ml 10/03/24 15:44 10/03/24 15:45 0.9 % Sodium Chloride 50 Ml Vial IV 10/03/24 15:45 Not Given ONCE ONE ORDERS Category Date Time Status CT abdomen pelvis w con Stat Cat Scan 10/03/24 15:05 Completed Surgery Consult (on-call) [Consult to On-Call Gen'l Cons 10/04/24 07:05 Ordered Surgeon] [CONS] Routine CBC w/Auto Diff [Complete Blood Count Auto Diff] Stat Lab 10/03/24 15:34 Completed CMP [Comprehensive Metabolic Panel] Stat Lab 10/03/24 15:34 Completed Complete Blood Count Auto Diff AMLAB Lab 10/04/24 06:00 Ordered Comprehensive Metabolic Panel AMLAB Lab 10/04/24 06:00 Ordered Ethanol [Ethyl Alcohol] Stat Lab 10/03/24 15:34 Completed Ethanol [Ethyl Alcohol] Stat Lab 10/03/24 15:34 Completed Lipase Stat Lab 10/03/24 15:34 Completed Magnesium AMLAB Lab 10/04/24 06:00 Ordered Trop I [Troponin I] Stat Lab 10/03/24 15:34 Completed Urinalysis and Microscopic Stat Lab 10/03/24 14:48 Completed Urine Culture Stat Micro 10/03/24 14:48 Received ECG Data Tracing #1: Independently interpreted by me rate is 86, rhythm is regular, axis is normal, no ST elevation in anatomical contiguous leads, QTc 413. Medical Decision Narrative: In summary patient is a 64-year-old female with past medical history described above who presents emergency department for evaluation of abdominal pain. Patient is hemodynamically stable nontoxic-appearing upon arrival, firm abdomen, diffusely tender, no involuntary guarding but my concern for intra-abdominal pathology is high. Patient will go immediately to CAT scan. Workup will be conducted with hematologic labs and urinalysis as differential includes perforated hollow viscus, gastritis, atypical ACS, pancreatitis, malignancy, among others. Initial inventions include IV Tylenol, morphine, Zofran. Initial workup reviewed by me, leukopenia, hyponatremia, ADAM initial troponin undetectably low. Patient was volume resuscitated with 1 L crystalloid, sepsis bolus fluids will be deferred given that she appears intravascularly only mildly hypovolemic. Urinalysis interpreted by me and not consistent with infection. CT imaging informally visualized by me there appears to be multiple dilated loops of bowel and possible free air for which cefepime metronidazole be administered. Formal read shows diffuse ileus versus distal small bowel obstruction with extensive vascular calcifications. NG was attempted to be anchored but was unsuccessful due to nasal anatomy. I discussed case with surgery regarding management they agree observation will be beneficial. No acute surgical intervention. Case was discussed with hospital medicine who admit the patient to her service for continued evaluation at this time. Critical Care Critical Care Time Critical Care Time: No
--- NOTE | 2024-10-03 15:20 | ECG_ITS ---
APPROVED REPORT Exam: Resting ECG HR:86 bpm ECG Measurements Heart Rate 86 AXES OH 155 P 70 QRSd 97 QRS 66 QT 369 T 72 QTc 413 Conclusion SINUS RHYTHM NORMAL ECG UNCONFIRMED REPORT Electronically signed by : Socorro Castillo, 10/03/2024 17:00:01
[2024-10-03 15:22] LABS: Appearance,Urine SL CLOUDY (Clear); Blood, Urine Negative (Negative); Glucose,Urine (UA) Negative (Negative); Ketones,Urine TRACE (Negative); Leukocyte Esterase,Urine Negative (Negative); Nitrate,Urine Negative (Negative); Protein,Urine TRACE (Negative); Specific Gravity, Urine 1.025 (1.005-1.030)
[2024-10-03 15:29] LABS: Bilirubin,Urine 1+ (Negative); Color,Urine Dark Yellow (Yellow)
[2024-10-03] MEDS: SODIUM CHLORIDE 0.9% 10ML SYR (RAD ONLY) 10 ML IV (15:45)
[2024-10-03] MEDS: IOPAMIDOL-370 (76%);100ML BOTTLE 75 ML IV (15:45)
[2024-10-03 15:50] LABS: Basophils % 0.4 % (0.1-2.0); Eosinophils % 1.5 % (0.1-12.0); Hematocrit 35.7 % (37.0-47.0); Hemoglobin 12.3 g/dL (12.2-16.2); Immature Granulocytes # 0 10^3uL; Immature Granulocytes % 0 %; Lymphocytes # 0.8 K/mm3 (0.7-4.5); Lymphocytes % 28.6 % (10-50); Mean Corpuscular HGB Conc 34.5 g/dL (31.8-35.4); Mean Corpuscular Hemoglobin 31.5 pg (27.0-31.2); Mean Corpuscular Volume 91.3 fl (81-99); Mean Platelet Volume 9.3 fl (7.4-10.4); Monocytes # 0.3 K/mm3 (0.1-1.0); Monocytes % 12.6 % (1.7-9.3); Neutrophils # 1.5 K/mm3 (1.8-7.8); Neutrophils % 56.9 % (37.0-80.0); Nucleated Red Blood Cells # 0 10^3/uL; Nucleated Red Blood Cells % 0 %; Platelet Count 278 K/mm3 (142-424); Red Blood Count 3.91 M/mm3 (4.20-5.40); Red Cell Distribution Width 14.8 % (11.5-17.5); Red Cell Distribution Width-SD 49.4 fL; White Blood Count 2.6 K/mm3 (4.8-10.8)
[2024-10-03 15:53] LABS: Chloride 88 mmol/L (98-107)
[2024-10-03 15:54] LABS: Albumin Level 4.4 g/dl (3.5-5.0); Potassium 3.8 mmoL/L (3.5-5.1); Sodium 129 mmol/L (136-145)
[2024-10-03 15:57] LABS: Alanine Aminotransferase 21 U/L (12-78); Albumin/Globulin Ratio 1.3 (1.1-1.8); Alkaline Phosphatase 118 U/L (38-126); Anion Gap 11.8 mEq/L (5-15); Aspartate Amino Transferase 45 U/L (14-36); Bilirubin,Total 0.3 mg/dl (0.2-1.3); Blood Urea Nitrogen 24 mg/dl (7-17); Calcium 9.7 mg/dl (8.4-10.2); Carbon Dioxide 33 mmol/L (22.0-30.0); Creatinine Clearance Estimated 24 mL/min (50-200); Estimated Glomerular Filt Rate 32 ml/min (>60); GFR (African American) 39 ML/MIN (>60); Globulin 3.4 g/dL (1.3-3.2); Glucose 143 mg/dl (74-100); Lipase 21 U/L (23-300); Total Protein,Serum 7.8 g/dl (6.3-8.2)
[2024-10-03 15:58] LABS: Bacteria,Urine 3+ /lpf; Yeast,Urine Occasional /lpf
[2024-10-03 16:00] VITALS: BP 148/86; PULSE 74; O2SAT 97
[2024-10-03 16:04] LABS: Ethyl Alcohol < 10 mg/dl (0-10)
[2024-10-03 16:12] LABS: Troponin I < 0.01 ng/ml (0.00-0.034)
[2024-10-03] MEDS: METRONIDAZ/SOD CHL 500 MG/100 ML PIGGYBACK 100 MG IV (16:41)
[2024-10-03] MEDS: CEFEPIME HCL 2 GM in 0.9 % SODIUM CHLORIDE 100 ML IV (16:42)
[2024-10-03] MEDS: LACTATED RINGERS 1000ML 1,000 ML 999 ML IV (16:43)
[2024-10-03] MEDS: HYDROMORPHONE 2MG/ML SYRINGE 0.5 MG IV ×3 (17:07→23:56)
--- NOTE | 2024-10-03 17:23 | PC.NURSE ---
Larissa RICHMOND notified that NG is unable to be passed due to patient's anatomy
[2024-10-03 18:02] LABS: Ethyl Alcohol < 10 mg/dl (0-10)
--- NOTE | 2024-10-03 18:07 | P.HP_ITS ---
<Statement entered by Valentín Ni MD - 10/04/24 14:35> Rounded on patient shortly before nurse practitioner. Personally examined and interviewed patient. Agree with exam findings and care plan as documented. History of Present Illness *Admission Date: 10/03/24 *Reason for visit:: Abdominal pain *History of present illness: This is a 64-year-old female with a past medical history of tobacco abuse, generative disc disease, lumbar stenosis, GERD who presents emerged department with complaints of 1 week history of abdominal pain and bloating. She reports no surgical history. States that she takes up to 20 mg ibuprofen a day for osteoarthritis. She also endorses prior hydrocodone usage. She reports 2-day history of constipation. States she normally has a bowel movement every couple days and has become distended. Denies any nausea vomiting diarrhea. Emergency department workup notable for white blood cell count of 2.6, creatinine of 1.6, lipase of 21 urinalysis with +[address] imaging with abnormally distended fluid-filled loops of small bowel with diffuse ileus versus small bowel obstruction. Urinary surgery was consulted and recommended NG tube. Multiple attempts at placing NG tube unsuccessful likely secondary to patient's severe scoliosis. Per general surgery, medical management at this time but may require surgical intervention at a later date. Currently she is nontoxic-appearing. Will provide pain medicine sparingly given can cause worse bowel obstruction. She is admitted to hospital service [facility] Disclaimer: The information contained in this section may have been updated after the patient was seen, as this information can be updated by other users. Medical History GERD (gastroesophageal reflux disease) Lumbar spinal stenosis Lumbar radicular pain DDD (degenerative disc disease), lumbar Surgical History No history of previous surgery Family History Other No significant family history Social History (Updated 10/03/24 @ 21:27 by Apryl Grier RN) Smoking Status: Current every day smoker tobacco type: cigarettes packs per day: 2 alcohol intake: current alcohol intake frequency: a few times a month substance use type: former substance user current occupational status: disabled Travel in the last 8 weeks?: None Have you lived/traveled outside US in past 30 days?: No Contact w/someone who lives/traveled outside [place] past 30 days?: No Exposure to someone with infectious disease in past 14 days?: No Do you have a fever (greater than 100.4 F or 38 C)?: No Have you tested positive for COVID-19?: No Exposed to someone with COVID-19 in past 14 days?: No Do you have a sore throat?: No Do you have a cough?: No Do you have any weakness?: No Do you have any diarrhea?: No Are you experiencing any unusual bleeding?: No Do you have any muscle aches/pain?: No Do you have any abdominal pain?: Yes Are you experiencing loss of taste or smell?: No Other Medical History Have you received the Flu Vaccine for this season: No Have you received the Pneumonia Vaccine: No Review of Systems Review of Systems Review of systems:: pertinent systems reviewed and negative unless documented below Review of systems (narrative): Negative except for HPI Meds Home Medications and Allergies Home Medications ?Medication ?Instructions ?Recorded ?Confirmed ?Type ondansetron HCl 8 mg tablet 8 mg PO Q8H #90 tabs 09/29/24 10/03/24 Rx New Prescriptions to Start Prescriptions: Allergies Allergy/AdvReac Type Severity Reaction Status Date / Time chocolate flavor Allergy Intermediate rash Verified 07/04/24 15:29 Penicillins Allergy Intermediate Rash Verified 07/04/24 15:29 Influenza Virus Vaccines Allergy Blister Verified 07/04/24 15:29 morphine Allergy Unknown Verified 07/04/24 15:29 allergy reaction Exam Data for Last 24 hours Vital signs and Labs for Last 24 Hours: Temp Pulse Resp BP Pulse Ox O2 Del Method 98 F 74 18 148/86 H 97 Room Air 10/03/24 14:48 10/03/24 16:00 10/03/24 14:48 10/03/24 16:00 10/03/24 16:00 10/03/24 16:00 Laboratory Results - last 24 hr 10/03/24 14:48: Urine Color Dark yellow, Urine Appearance Sl cloudy, Urine pH 6.0, Ur Specific [place] 1.025, Urine Protein Trace, Urine Glucose (UA) Negative, Urine Ketones Trace, Urine Blood Negative, Urine Nitrate Negative, Urine Bilirubin 1+ A, Urine Urobilinogen 1.0, Ur Leukocyte Esterase Negative, Urine RBC None, Urine WBC 3-5, Ur Squamous Epith Cells 10-20, Urine Bacteria 3+, Urine Yeast Occasional 10/03/24 15:34: WBC 2.6 L, RBC 3.91 L, Hgb 12.3, Hct 35.7 L, MCV 91.3, MCH 31.5 H, MCHC 34.5, RDW 14.8, Plt Count 278, MPV 9.3, Neut % (Auto) 56.9, Lymph % (Auto) 28.6, [place] % (Auto) 12.6 H, Eos % (Auto) 1.5, Baso % (Auto) 0.4, Neut # (Auto) 1.5 L, Lymph # (Auto) 0.8, [place] # (Auto) 0.3, Eos # (Auto) 0.0, Baso # (Auto) 0.0, Sodium 129 L, Potassium 3.8, Chloride 88 L, Carbon Dioxide 33 H, Anion Gap 11.8, BUN 24 H, Creatinine 1.60 H, Estimated Creat Clear 24, Estimated GFR 32 L, Est GFR ( Amer) 39 L, Glucose 143 H, Calcium 9.7, Total Bilirubin 0.3, AST 45 H, ALT 21, Alkaline Phosphatase 118, Troponin I < 0.01, Total Protein 7.8, Albumin 4.4, Globulin 3.4 H, Albumin/Globulin Ratio 1.3, Lipase 21 L, Plasma/Serum Alcohol < 10 10/03/24 15:34: Plasma/Serum Alcohol < 10 I & O for Last 24 hours: Intake & Output 09/30/24 10/01/24 10/02/24 10/03/24 23:59 23:59 23:59 23:59 Weight 43.091 kg Constitutional Constitutional: no acute distress *Routine HEENT Exam Head: Present normocephalic Eye: Present EOMI and PERRL ENT: Present mucous membranes moist *Routine Neck Exam Neck: Present supple; Absent lymphadenopathy *Routine Respiratory Exam Respiratory: Present CTA bilaterally *Routine Cardiovascular Exam Cardiovascular: Present RRR *Routine Abdominal Exam Abdominal: Present tenderness and distended; Absent soft (Nonperitonitic but not easily compressible) or normoactive bowel sounds (Hypoactive bowel sounds) *Routine Rectal Exam Rectal:: deferred *Routine Genitalia Exam Genitalia:: deferred *Routine Extremities Exam Extremities: Absent cyanosis, clubbing or edema *Routine Skin Exam Skin: Present warm; Absent rash *Routine Neurological Exam Neurological: Present alert and oriented X3 Assessment and Plan *Assessment and plan (1) Bowel obstruction: Status: Acute Qualifiers: Intestinal obstruction type: unspecified Intestinal obstruction extent: unspecified extent Qualified Code(s): K56.609 - Unspecified intestinal obstruction, unspecified as to partial versus complete obstruction Category: Medical Code(s): K56.609 - Unspecified intestinal obstruction, unspecified as to partial versus complete obstruction (2) GERD (gastroesophageal reflux disease): Status: Acute Category: Medical Code(s): K21.9 - Gastro-esophageal reflux disease without esophagitis (3) ADAM (acute kidney injury): Status: Acute Category: Medical Code(s): N17.9 - Acute kidney failure, unspecified Plan #Bowel obstruction versus ileus General Surgery consulted, n.p.o. for now with maintenance IV fluids. Use narcotics sparingly given could potentially worsen ileus Monitor abdominal exam for worsening clinical course Low threshold for CT scan Continue empiric antibiotics with cefepime and Flagyl #ADAM Continue maintenance IV fluids, likely prerenal nature #Acute cystitis Bacteria and white blood cells noted. Continue cefepime
--- NOTE | 2024-10-03 18:30 | P.CONS_ITS ---
History of Present Illness *Admission Date: 10/03/24 *Reason for visit:: Abdominal pain *History of present illness: Patient is a 64-year-old female from [facility], BMI 16 (5 foot 3 inches, 95 pounds), with history of tobacco abuse, degenerative disc disease with lumbar spinal stenosis and radicular pain, GERD, tobacco abuse who presented to the emergency department with about a 1 week history of progressive abdominal bloating. She has never had any prior surgery. Patient takes 20 ibuprofen daily for her osteoarthritis for as long as I can remember . She takes hydrocodone, Naprosyn, and ibuprofen as stated, omeprazole, ondansetron. She has never had any prior abdominal surgery. She has a 2-day history of obstipation. Upon presentation to the emergency department patient appeared nontoxic with distended diffusely tender abdomen. She underwent thorough workup and was found to have a white blood cell count of 2600 with normal differential. She has a sodium of 129, chloride 88, BUN 24 with a creatinine of 1.6 which is up from her baseline recently of 17 and 0.9. Her AST slightly above normal at 45. ALT, alkaline phosphatase, and bilirubin are normal. CT scan revealed a multitude of abnormally distended fluid-filled loops of small bowel, diffuse ileus versus distal small bowel obstruction. Moderate intra and extrahepatic biliary ductal dilatation without a discrete obstructing focus identified. Lumbar scoliosis. Extensive vascular calcifications. There was also noted to be a large stool burden present. Attempts were made to place nasogastric tube without success. Surgery was contacted. Patient states that she did have some vomiting a couple of days ago. She has never had a prior colonoscopy. . [facility] Disclaimer: The information contained in this section may have been updated after the patient was seen, as this information can be updated by other users. Medical History GERD (gastroesophageal reflux disease) Lumbar spinal stenosis Lumbar radicular pain DDD (degenerative disc disease), lumbar Surgical History No history of previous surgery Family History Other No significant family history Social History Smoking Status: Current every day smoker tobacco type: cigarettes packs per day: 2 alcohol intake: current alcohol intake frequency: a few times a month substance use type: former substance user current occupational status: disabled Travel in the last 8 weeks?: None Have you lived/traveled outside US in past 30 days?: No Contact w/someone who lives/traveled outside US past 30 days?: No Exposure to someone with infectious disease in past 14 days?: No Do you have a fever (greater than 100.4 F or 38 C)?: No Have you tested positive for COVID-19?: No Exposed to someone with COVID-19 in past 14 days?: No Do you have a sore throat?: No Do you have a cough?: No Do you have any weakness?: No Do you have any diarrhea?: No Are you experiencing any unusual bleeding?: No Do you have any muscle aches/pain?: No Do you have any abdominal pain?: Yes Are you experiencing loss of taste or smell?: No Meds Home Medications and Allergies Home Medications ?Medication ?Instructions ?Recorded ?Confirmed ?Type ibuprofen 200 mg capsule 200 mg PO Q6H PRN Arthritis 06/26/23 07/04/24 History hydrocodone 5 mg-acetaminophen 325 1 tab PO BID PRN pain #60 tabs 06/02/24 07/04/24 Rx mg tablet naproxen 500 mg tablet,delayed 500 mg PO BID #60 tabs 07/04/24 07/04/24 Rx release (EC-Naprosyn) omeprazole 40 mg capsule,delayed 40 mg PO DAILY #90 caps 07/04/24 07/04/24 Rx release ondansetron HCl 4 mg tablet 4 mg PO TID PRN nausea and 08/04/24 Rx vomiting #60 tabs hydrocodone 7.5 mg-acetaminophen 1 tab PO BID PRN pain #60 tabs 09/08/24 Rx 325 mg tablet doxycycline hyclate 100 mg tablet 100 mg PO BID #20 tabs 09/14/24 Rx ondansetron HCl 8 mg tablet 8 mg PO Q8H #90 tabs 09/29/24 Rx New Prescriptions to Start Prescriptions: Allergies Allergy/AdvReac Type Severity Reaction Status Date / Time chocolate flavor Allergy Intermediate rash Verified 07/04/24 15:29 Penicillins Allergy Intermediate Rash Verified 07/04/24 15:29 Influenza Virus Vaccines Allergy Blister Verified 07/04/24 15:29 morphine Allergy Unknown Verified 07/04/24 15:29 allergy reaction Exam (Inpt) Vital signs and Labs for Last 24 Hours: Temp Pulse Resp BP Pulse Ox O2 Del Method 98 F 74 18 148/86 H 97 Room Air 10/03/24 14:48 10/03/24 16:00 10/03/24 14:48 10/03/24 16:00 10/03/24 16:00 10/03/24 16:00 Laboratory Results - last 24 hr 10/03/24 14:48: Urine Color Dark yellow, Urine Appearance Sl cloudy, Urine pH 6.0, Ur Specific [place] 1.025, Urine Protein Trace, Urine Glucose (UA) Negative, Urine Ketones Trace, Urine Blood Negative, Urine Nitrate Negative, U rine Bilirubin 1+ A, Urine Urobilinogen 1.0, Ur Leukocyte Esterase Negative, Urine RBC None, Urine WBC 3-5, Ur Squamous Epith Cells 10-20, Urine Bacteria 3+, Urine Yeast Occasional 10/03/24 15:34: WBC 2.6 L, RBC 3.91 L, Hgb 12.3, Hct 35.7 L, MCV 91.3, MCH 31.5 H, MCHC 34.5, RDW 14.8, Plt Count 278, MPV 9.3, Neut % (Auto) 56.9, Lymph % (Auto) 28.6, [place] % (Auto) 12.6 H, Eos % (Auto) 1.5, Baso % (Auto) 0.4, Neut # (Auto) 1.5 L, Lymph # (Auto) 0.8, [place] # (Auto) 0.3, Eos # (Auto) 0.0, Baso # (Auto) 0.0, Sodium 129 L, Potassium 3.8, Chloride 88 L, Carbon Dioxide 33 H, Anion Gap 11.8, BUN 24 H, Creatinine 1.60 H, Estimated Creat Clear 24, Estimated GFR 32 L, Est GFR ( Amer) 39 L, Glucose 143 H, Calcium 9.7, Total Bilirubin 0.3, AST 45 H, ALT 21, Alkaline Phosphatase 118, Troponin I < 0.01, Total Protein 7.8, Albumin 4.4, Globulin 3.4 H, Albumin/Globulin Ratio 1.3, L ipase 21 L, Plasma/Serum Alcohol < 10 05/19/25 15:34: Plasma/Serum Alcohol < 10 I & O for Labs for Last 24 Hours: Intake & Output 10/01/24 10/02/24 10/03/24 10/04/24 11:59 11:59 11:59 11:59 Weight 95 lb Constitutional: no acute distress and thin Head: Present normocephalic Respiratory: Present CTA bilaterally GI: Present distention and tenderness; Absent guarding or rebound Comments:: Abdomen markedly distended. Mild tenderness mostly in the left abdomen. No guarding or rebound. Results Labs 10/03/24 15:34 10/03/24 15:34 Labs: Laboratory Results - last 24 hr 10/03/24 14:48: Urine Color Dark yellow, Urine Appearance Sl cloudy, Urine pH 6.0, Ur Specific [place] 1.025, Urine Protein Trace, Urine Glucose (UA) Negative, Urine Ketones Trace, Urine Blood Negative, Urine Nitrate Negative, U rine Bilirubin 1+ A, Urine Urobilinogen 1.0, Ur Leukocyte Esterase Negative, Urine RBC None, Urine WBC 3-5, Ur Squamous Epith Cells 10-20, Urine Bacteria 3+, Urine Yeast Occasional 10/03/24 15:34: WBC 2.6 L, RBC 3.91 L, Hgb 12.3, Hct 35.7 L, MCV 91.3, MCH 31.5 H, MCHC 34.5, RDW 14.8, Plt Count 278, MPV 9.3, Neut % (Auto) 56.9, Lymph % (Auto) 28.6, [place] % (Auto) 12.6 H, Eos % (Auto) 1.5, Baso % (Auto) 0.4, Neut # (Auto) 1.5 L, Lymph # (Auto) 0.8, [place] # (Auto) 0.3, Eos # (Auto) 0.0, Baso # (Auto) 0.0, Sodium 129 L, Potassium 3.8, Chloride 88 L, Carbon Dioxide 33 H, Anion Gap 11.8, BUN 24 H, Creatinine 1.60 H, Estimated Creat Clear 24, Estimated GFR 32 L, Est GFR ( Amer) 39 L, Glucose 143 H, Calcium 9.7, Total Bilirubin 0.3, AST 45 H, ALT 21, Alkaline Phosphatase 118, Troponin I < 0.01, Total Protein 7.8, Albumin 4.4, Globulin 3.4 H, Albumin/Globulin Ratio 1.3, L ipase 21 L, Plasma/Serum Alcohol < 10 10/03/24 15:34: Plasma/Serum Alcohol < 10 Assessment and Plan *Assessment and plan (1) Bowel obstruction: Status: Acute Category: Medical Code(s): K56.609 - Unspecified intestinal obstruction, unspecified as to partial versus complete obstruction Plan Patient with findings suggestive of appreciable bowel obstruction of uncertain etiology. Recommendation for attempted nonoperative management at this time. However with her significant distention she may require surgery. I feel that the patient would benefit from nasogastric tube however, unfortunately there has been no success in placement of nasogastric tube as her stomach is markedly distended with gas with appreciable gaseous and fluid distention of proximal small bowel.
--- NOTE | 2024-10-03 20:36 | PC.NURSE ---
Patient arrived to floor via wheelchair from ED at 20:36.
[2024-10-03 20:42] VITALS: BP 00/00; PULSE 0; RESP 0; TEMP -17.7; TEMP 0; O2SAT 0
[2024-10-03 20:57] VITALS: BP 137/71; PULSE 89; RESP 17; TEMP 36.6; O2SAT 97; BMI 19.3
[2024-10-03 21:00] VITALS: O2SAT 97
[2024-10-03] MEDS: PANTOPRAZOLE 40MG VIAL 40 MG IV (21:00)
[2024-10-03] MEDS: BISACODYL 10MG SUPP 10 MG RC (23:58)
[2024-10-04] VITALS: BP 149/90; PULSE 80; RESP 16; TEMP 36.8; O2SAT 94
--- NOTE | 2024-10-04 02:06 | EXP.HP ---
History of Present Illness *Admission Date: 10/03/24 *Reason for visit:: Abdominal pain *History of present illness: Patient is a 64-year-old female from [facility], BMI 16 (5 foot 3 inches, 95 pounds), with history of tobacco abuse, degenerative disc disease with lumbar spinal stenosis and radicular pain, GERD, tobacco abuse who presented to the emergency department with about a 1 week history of progressive abdominal bloating. She has never had any prior surgery. Patient takes 20 ibuprofen daily for her osteoarthritis for as long as I can remember . She takes hydrocodone, Naprosyn, and ibuprofen as stated, omeprazole, ondansetron. She has never had any prior abdominal surgery. She has a 2-day history of obstipation. Upon presentation to the emergency department patient appeared nontoxic with distended diffusely tender abdomen. She underwent thorough workup and was found to have a white blood cell count of 2600 with normal differential. She has a sodium of 129, chloride 88, BUN 24 with a creatinine of 1.6 which is up from her baseline recently of 17 and 0.9. Her AST slightly above normal at 45. ALT, alkaline phosphatase, and bilirubin are normal. CT scan revealed a multitude of abnormally distended fluid-filled loops of small bowel, diffuse ileus versus distal small bowel obstruction. Moderate intra and extrahepatic biliary ductal dilatation without a discrete obstructing focus identified. Lumbar scoliosis. Extensive vascular calcifications. There was also noted to be a large stool burden present. Attempts were made to place nasogastric tube without success. Surgery was contacted. Patient states that she did have some vomiting a couple of days ago. She has never had a prior colonoscopy. . [facility] Disclaimer: The information contained in this section may have been updated after the patient was seen, as this information can be updated by other users. Medical History GERD (gastroesophageal reflux disease) Lumbar spinal stenosis Lumbar radicular pain DDD (degenerative disc disease), lumbar Surgical History No history of previous surgery Family History Other No significant family history Social History (Updated 10/03/24 @ 21:27 by Apryl Grier, RN) Smoking Status: Current every day smoker tobacco type: cigarettes packs per day: 2 alcohol intake: current alcohol intake frequency: a few times a month substance use type: former substance user current occupational status: disabled Travel in the last 8 weeks?: None Have you lived/traveled outside US in past 30 days?: No Contact w/someone who lives/traveled outside US past 30 days?: No Exposure to someone with infectious disease in past 14 days?: No Do you have a fever (greater than 100.4 F or 38 C)?: No Have you tested positive for COVID-19?: No Exposed to someone with COVID-19 in past 14 days?: No Do you have a sore throat?: No Do you have a cough?: No Do you have any weakness?: No Do you have any diarrhea?: No Are you experiencing any unusual bleeding?: No Do you have any muscle aches/pain?: No Do you have any abdominal pain?: Yes Are you experiencing loss of taste or smell?: No Other Medical History Have you received the Flu Vaccine for this season: No Have you received the Pneumonia Vaccine: Yes Review of Systems Review of Systems Review of systems:: pertinent systems reviewed and negative unless documented below Review of systems (narrative): Negative except for HPI Meds Home Medications and Allergies Home Medications ?Medication ?Instructions ?Recorded ?Confirmed ?Type ondansetron HCl 8 mg tablet 8 mg PO Q8H #90 tabs 09/29/24 10/03/24 Rx New Prescriptions to Start Prescriptions: Allergies Allergy/AdvReac Type Severity Reaction Status Date / Time chocolate flavor Allergy Intermediate rash Verified 07/04/24 15:29 Penicillins Allergy Intermediate Rash Verified 07/04/24 15:29 Influenza Virus Vaccines Allergy Blister Verified 07/04/24 15:29 morphine Allergy Unknown Verified 07/04/24 15:29 allergy reaction Exam Data for Last 24 hours Vital signs and Labs for Last 24 Hours: Temp Pulse Resp BP Pulse Ox O2 Del Method 98.3 F 80 16 149/90 H 94 L Room Air 10/04/24 00:00 10/04/24 00:00 10/04/24 00:00 10/04/24 00:00 10/04/24 00:00 10/04/24 00:00 Laboratory Results - last 24 hr 10/03/24 14:48: Urine Color Dark yellow, Urine Appearance Sl cloudy, Urine pH 6.0, Ur Specific [place] 1.025, Urine Protein Trace, Urine Glucose (UA) Negative, Urine Ketones Trace, Urine Blood Negative, Urine Nitrate Negative, Urine Bilirubin 1+ A, Urine Urobilinogen 1.0, Ur Leukocyte Esterase Negative, Urine RBC None, Urine WBC 3-5, Ur Squamous Epith Cells 10-20, Urine Bacteria 3+, Urine Yeast Occasional 10/03/24 15:34: WBC 2.6 L, RBC 3.91 L, Hgb 12.3, Hct 35.7 L, MCV 91.3, MCH 31.5 H, MCHC 34.5, RDW 14.8, Plt Count 278, MPV 9.3, Neut % (Auto) 56.9, Lymph % (Auto) 28.6, [place] % (Auto) 12.6 H, Eos % (Auto) 1.5, Baso % (Auto) 0.4, Neut # (Auto) 1.5 L, Lymph # (Auto) 0.8, [place] # (Auto) 0.3, Eos # (Auto) 0.0, Baso # (Auto) 0.0, Sodium 129 L, Potassium 3.8, Chloride 88 L, Carbon Dioxide 33 H, Anion Gap 11.8, BUN 24 H, Creatinine 1.60 H, Estimated Creat Clear 24, Estimated GFR 32 L, Est GFR ( Amer) 39 L, Glucose 143 H, Calcium 9.7, Total Bilirubin 0.3, AST 45 H, ALT 21, Alkaline Phosphatase 118, Troponin I < 0.01, Total Protein 7.8, Albumin 4.4, Globulin 3.4 H, Albumin/Globulin Ratio 1.3, Lipase 21 L, Plasma/Serum Alcohol < 10 10/03/24 15:34: Plasma/Serum Alcohol < 10 I & O for Last 24 hours: Intake & Output 10/01/24 10/02/24 10/03/24 10/04/24 23:59 23:59 23:59 23:59 Output Total 0 / 0 Balance 0 / 0 Weight 49.578 kg
[2024-10-04] MEDS: 0.9 % SODIUM CHLORIDE 1000ML 1,000 ML 100 ML IV (02:35)
[2024-10-04 04:00] VITALS: BP 135/78; PULSE 80; RESP 17; TEMP 37.3; O2SAT 94; BMI 19.3
[2024-10-04] MEDS: METRONIDAZ/SOD CHL 500 MG/100 ML PIGGYBACK 100 MG IV ×2 (04:02→15:59)
[2024-10-04] MEDS: HYDROMORPHONE 2MG/ML SYRINGE 0.5 MG IV (05:12)
[2024-10-04 06:57] LABS: Basophils % 0.8 % (0.1-2.0); Eosinophils # 0.1 Kmm3 (0.0-0.4); Eosinophils % 2.9 % (0.1-12.0); Hematocrit 31.2 % (37.0-47.0); Immature Granulocytes # 0 10^3uL; Immature Granulocytes % 0 %; Lymphocytes # 0.7 K/mm3 (0.7-4.5); Lymphocytes % 29.5 % (10-50); Mean Corpuscular HGB Conc 35.3 g/dL (31.8-35.4); Mean Corpuscular Hemoglobin 31.6 pg (27.0-31.2); Mean Corpuscular Volume 89.7 fl (81-99); Mean Platelet Volume 9.5 fl (7.4-10.4); Monocytes # 0.4 K/mm3 (0.1-1.0); Monocytes % 16.2 % (1.7-9.3); Neutrophils # 1.2 K/mm3 (1.8-7.8); Neutrophils % 50.6 % (37.0-80.0); Nucleated Red Blood Cells # 0 10^3/uL; Nucleated Red Blood Cells % 0 %; Platelet Count 244 K/mm3 (142-424); Red Blood Count 3.48 M/mm3 (4.20-5.40); Red Cell Distribution Width 14.6 % (11.5-17.5); Red Cell Distribution Width-SD 48.2 fL; White Blood Count 2.4 K/mm3 (4.8-10.8)
[2024-10-04 07:05] LABS: Alanine Aminotransferase 14 U/L (12-78); Albumin Level 3.6 g/dl (3.5-5.0); Albumin/Globulin Ratio 1.3 (1.1-1.8); Alkaline Phosphatase 98 U/L (38-126); Anion Gap 7.3 mEq/L (5-15); Aspartate Amino Transferase 35 U/L (14-36); Bilirubin,Total 0.4 mg/dl (0.2-1.3); Blood Urea Nitrogen 16 mg/dl (7-17); Calcium 8.7 mg/dl (8.4-10.2); Carbon Dioxide 28 mmol/L (22.0-30.0); Chloride 96 mmol/L (98-107); Creatinine Clearance Estimated 44 mL/min (50-200); Estimated Glomerular Filt Rate 72 ml/min (>60); GFR (African American) 87 ML/MIN (>60); Globulin 2.8 g/dL (1.3-3.2); Glucose 85 mg/dl (74-100); Magnesium 1.7 mg/dl (1.6-2.3); Potassium 3.3 mmoL/L (3.5-5.1); Sodium 128 mmol/L (136-145); Total Protein,Serum 6.4 g/dl (6.3-8.2)
[2024-10-04 07:07] LABS: Lactic Acid < 0.5 mmol/L (0.7-2.1)
--- NOTE | 2024-10-04 07:27 | EXP.SURG.PN ---
Subjective Patient reports: no new complaints, feels better and bowel movement Narrative: The patient states that she had a decent bowel movement last night . Per nursing she had a small bowel movement . No emesis. She remains slightly nauseous but states it is better . She remains somewhat distended but states that it is also better . Pain has improved versus emergency department evaluation. The patient states that he is extremely thirsty . Exam Data for Last 24 hours Vital signs and Labs for Last 24 Hours: Temp Pulse Resp BP Pulse Ox O2 Del Method 99.1 F 80 17 135/78 94 L Room Air 10/04/24 04:00 10/04/24 04:00 10/04/24 04:00 10/04/24 04:00 10/04/24 04:00 10/04/24 06:55 Laboratory Results - last 24 hr 10/03/24 14:48: Urine Color Dark yellow, Urine Appearance Sl cloudy, Urine pH 6.0, Ur Specific [place] 1.025, Urine Protein Trace, Urine Glucose (UA) Negative, Urine Ketones Trace, Urine Blood Negative, Urine Nitrate Negative, Urine Bilirubin 1+ A, Urine Urobilinogen 1.0, Ur Leukocyte Esterase Negative, Urine RBC None, Urine WBC 3-5, Ur Squamous Epith Cells 10-20, Urine Bacteria 3+, Urine Yeast Occasional 10/03/24 15:34: WBC 2.6 L, RBC 3.91 L, Hgb 12.3, Hct 35.7 L, MCV 91.3, MCH 31.5 H, MCHC 34.5, RDW 14.8, Plt Count 278, MPV 9.3, Neut % (Auto) 56.9, Lymph % (Auto) 28.6, [place] % (Auto) 12.6 H, Eos % (Auto) 1.5, Baso % (Auto) 0.4, Neut # (Auto) 1.5 L, Lymph # (Auto) 0.8, [place] # (Auto) 0.3, Eos # (Auto) 0.0, Baso # (Auto) 0.0, Sodium 129 L, Potassium 3.8, Chloride 88 L, Carbon Dioxide 33 H, Anion Gap 11.8, BUN 24 H, Creatinine 1.60 H, Estimated Creat Clear 24, Estimated GFR 32 L, Est GFR ( Amer) 39 L, Glucose 143 H, Calcium 9.7, Total Bilirubin 0.3, AST 45 H, ALT 21, Alkaline Phosphatase 118, Troponin I < 0.01, Total Protein 7.8, Albumin 4.4, Globulin 3.4 H, Albumin/Globulin Ratio 1.3, Lipase 21 L, Plasma/Serum Alcohol < 10 10/03/24 15:34: Plasma/Serum Alcohol < 10 10/04/24 06:27: Sodium 128 L, Potassium 3.3 L, Chloride 96 L, Carbon Dioxide 28, Anion Gap 7.3, BUN 16 D, Creatinine 0.80 D, Estimated Creat Clear 44, Estimated GFR 72, Est GFR ( Amer) 87 D, Glucose 85 D, Lactate < 0.5 L, Calcium 8.7, Magnesium 1.7, Total Bilirubin 0.4, AST 35, ALT 14 D, Alkaline Phosphatase 98, Total Protein 6.4, Albumin 3.6 D, Globulin 2.8, Albumin/Globulin Ratio 1.3 I & O for Last 24 hours: Intake & Output 10/01/24 10/02/24 10/03/24 10/04/24 11:59 11:59 11:59 11:59 Intake Total 1200 / 1200 Output Total 0 / 0 Balance 1200 / 1200 Weight 109 lb 4.8 oz Constitutional Constitutional: no acute distress *Routine Respiratory Exam Respiratory: Absent respiratory distress *Routine Cardiovascular Exam Cardiovascular: Absent tachycardia *Routine Abdominal Exam Abdominal: Present soft, tenderness (Somewhat tender globally but better per patient) and distended (Fairly significant distention but better per patient) Progress Note: A&P Assessment and plan (1) Bowel obstruction: Status: Acute Assessment and plan: Bowel movement overnight per patient (confirmed by nursing). Patient reports improvement but remains somewhat distended. Very limited clear liquids as directed per nursing (no tray) Continue serial abdominal exams
--- NOTE | 2024-10-04 07:34 | PC.NURSE ---
Pt. was admitted overnight for possible bowel obstruction. Pt. c/o abdominal pain and bloating. Abd. is distended and tender to palpate. Pt. refused NG tube. Pt. is alert and orientated x 4. Pt. on room air. Pt. medicated x 3 for abd. pain. IV fluids infusing. Pt. NPO and has been requesting something to drink. It was explained to pt. reason why NPO until the surgeon evaluates her. Pt. has a Ducolax suppistory and had a small formed BM. Pt. feels a little better. Pt. told this RN if she was not allowed to drink she would call her son and have him sneek in something for her to drink. she did not care that this could worsen her condition. Personal item and call couch in reach.
[2024-10-04 07:46] LABS: Hemoglobin 11.1 g/dL (12.2-16.2)
[2024-10-04 08:00] VITALS: BP 149/91; PULSE 80; RESP 16; TEMP 37.1; O2SAT 96
[2024-10-04] MEDS: CEFEPIME HCL 2 GM in 0.9 % SODIUM CHLORIDE 100 ML IV (10:13)
--- NOTE | 2024-10-04 13:55 | PC.NURSE ---
Addendum entered by Kym Calderon RN 10/04/24 14:05: PT CAME OUT OF THE ROOM AND STATED SHE WOULD TAKE A NICOTINE PATCH. Original Note: PT'S SON CALLED AND STATED HE FELT LIKE PT WAS IN PAIN AND WAS NOT SAYING ANYTHING TO THE NURSES AND WANTED TO MAKE SURE THAT HIS MOTHERS PAIN IS BEING TAKEN CARE OF. PT WAS ASKED FROM NURSING STAFF IF SHE WAS IN PAIN AND SHE STATED I AM NOT IN ANY PAIN . PT MENTIONED THAT SHE HAS ALREADY HAD 2 BOWEL MOVEMENTS AND FEELS IF SHE IS GETTING BETTER AND DOES NOT WANT ANY PAIN MEDICATION. PT STATED SHE WANTED TO GO HOME AND SHE HAS INSISTED ON LEAVING THE FLOOR TO SMOKE. PT HAS BEEN OFFERED A NICOTINE PATCH AND RESPECTIVELY REFUSED.
[2024-10-04] MEDS: NICOTINE 21MG/24HR PATCH 21 MG TD (14:30)
[2024-10-04 16:00] VITALS: BP 145/82; PULSE 71; RESP 16; TEMP 36.8; O2SAT 100
--- NOTE | 2024-10-04 17:17 | EXP.PN ---
Subjective *Date: 10/04/24 *Time: 17:17 Interval history: Patient feeling significant better today, has had 2 bowel movements. Distention improved. Surgery started on clear limited clear liquid diet. Exam Data for Last 24 hours Vital signs and Labs for Last 24 Hours: Temp Pulse Resp BP Pulse Ox O2 Del Method 98.8 F 80 16 149/91 H 96 Room Air 10/04/24 08:00 10/04/24 08:00 10/04/24 08:00 10/04/24 08:00 10/04/24 08:00 10/04/24 16:58 Laboratory Results - last 24 hr 10/03/24 15:34: Plasma/Serum Alcohol < 10 10/04/24 06:27: WBC 2.4 L, RBC 3.48 L, Hgb 11.1 L, Hct 31.2 L, MCV 89.7, MCH 31.6 H, MCHC 35.3, RDW 14.6, Plt Count 244, MPV 9.5, Neut % (Auto) 50.6, Lymph % (Auto) 29.5, [place] % (Auto) 16.2 H, Eos % (Auto) 2.9, Baso % (Auto) 0.8, Neut # (Auto) 1.2 L, Lymph # (Auto) 0.7, [place] # (Auto) 0.4, Eos # (Auto) 0.1, Baso # (Auto) 0.0, Sodium 128 L, Potassium 3.3 L, Chloride 96 L, Carbon Dioxide 28, Anion Gap 7.3, BUN 16 D, Creatinine 0.80 D, Estimated Creat Clear 44, Estimated GFR 72, Est GFR ( Amer) 87 D, Glucose 85 D, Lactate < 0.5 L, Calcium 8.7, Magnesium 1.7, Total Bilirubin 0.4, AST 35, ALT 14 D, Alkaline Phosphatase 98, Total Protein 6.4, Albumin 3.6 D, Globulin 2.8, Albumin/Globulin Ratio 1.3 I & O for Last 24 hours: Intake & Output 10/01/24 10/02/24 10/03/24 10/04/24 23:59 23:59 23:59 23:59 Intake Total 2296 / 2297 Output Total 0 / 0 0 / 0 Balance 0 / 1200 7 / 229 Weight 49.578 kg 49.578 kg Constitutional Constitutional: no acute distress *Routine HEENT Exam Head: Present normocephalic Eye: Present EOMI and PERRL ENT: Present mucous membranes moist *Routine Neck Exam Neck: Present supple; Absent lymphadenopathy *Routine Respiratory Exam Respiratory: Present CTA bilaterally *Routine Cardiovascular Exam Cardiovascular: Present RRR *Routine Abdominal Exam Abdominal: Present soft, normoactive bowel sounds and distended; Absent tenderness *Routine Extremities Exam Extremities: Absent cyanosis, clubbing or edema *Routine Skin Exam Skin: Present warm; Absent rash *Routine Neurological Exam Neurological: Present alert and oriented X3 Assessment and Plan *Assessment and plan (1) Bowel obstruction: Status: Acute Qualifiers: Intestinal obstruction extent: unspecified extent Intestinal obstruction type: unspecified Qualified Code(s): K56.609 - Unspecified intestinal obstruction, unspecified as to partial versus complete obstruction Category: Medical Code(s): K56.609 - Unspecified intestinal obstruction, unspecified as to partial versus complete obstruction (2) GERD (gastroesophageal reflux disease): Status: Acute Category: Medical Code(s): K21.9 - Gastro-esophageal reflux disease without esophagitis (3) ADAM (acute kidney injury): Status: Acute Category: Medical Code(s): N17.9 - Acute kidney failure, unspecified Plan Ginette Salazar is a 64-year-old female who presented with abdominal pain, distention and was admitted for concern of SBO versus ileus. #Partial SBO versus ileus ? SBO versus ileus seen on CT abdomen/pelvis on admission. ? Patient has had 2 bowel movements since admission. Distention has improved. ? General Surgery following, recommended advancing diet to limited clear liquid today which patient is tolerating well. ? Anticipate further advancement in diet if patient continues to be stable tomorrow. ? Continue IV NS at 100 ml/h. ? Of note, patient has recently been started on hydrocodone for chronic low back pain. Potential culprit in ileus versus SBO. May benefit from localized therapy including spinal stimulation, pain pump, etc. Will refer to pain management clinic on discharge. ? Discontinued cefepime, Flagyl as low concern for infection. #Intra-/extrahepatic ductal dilatation ? Follow-up RUQ in the morning. LFTs normal. #UTI ? UA grossly abnormal, UCx pending. ? Continue ceftriaxone daily pending cultures. #ADAM ? Initial creatinine 1.6, improved to 0.8 with IV fluid resuscitation. Full code DVT prophylaxis: Lovenox 40 mg
[2024-10-04] MEDS: ONDANSETRON 4MG/2ML VIAL 4 MG IV (18:39)
[2024-10-04 19:41] VITALS: BP 137/86; PULSE 71; RESP 18; TEMP 36.8; O2SAT 99
[2024-10-04] MEDS: PANTOPRAZOLE 40MG VIAL 40 MG IV (20:14)
[2024-10-04] MEDS: KETOROLAC 30MG/ML VIAL 30 MG IV (20:15)
[2024-10-05] VITALS: BP 158/87; PULSE 73; RESP 16; TEMP 37; O2SAT 97
[2024-10-05 04:00] VITALS: BP 149/92; PULSE 77; RESP 16; TEMP 36.8; O2SAT 95; BMI 19.7
[2024-10-05] MEDS: ONDANSETRON 4MG/2ML VIAL 4 MG IV ×2 (04:51→17:45)
--- NOTE | 2024-10-05 05:08 | PC.NURSE ---
Pt A&OX4 and has tolerated room air. Lung sounds clear and bowel sounds active. Abdomen tender and distended. She has complained of nausea once and back pain and was medicated per MAR. She has ambulated room independently. No complaints at this time, call light within reach.
[2024-10-05] MEDS: KETOROLAC 30MG/ML VIAL 30 MG IV ×2 (05:14→17:45)
--- NOTE | 2024-10-05 06:00 | US_ITS ---
FINAL REPORT TECHNIQUE: Multiple transverse and longitudinal images CLINICAL HISTORY: Ductal dilatation on CT FINDINGS: The gallbladder shows no wall thickening, distention or stone disease. There is biliary ductal dilatation measuring 8 mm. Trace free fluid is seen. Limited portions of the right liver are unremarkable. Limited portions of the right kidney are unremarkable. IMPRESSION: Unremarkable appearance of the liver. Mild biliary ductal dilatation. Consider MRCP follow-up. Trace free fluid. Reviewed, Interpreted and Dictated by Chito Madrid MD Transcribed by Xiao Núñez Authenticated and [facility]
[2024-10-05 08:00] VITALS: BP 86/64; PULSE 108; RESP 25; TEMP 36.5; O2SAT 95
--- NOTE | 2024-10-05 08:15 | XR_ITS ---
FINAL REPORT CLINICAL HISTORY: Ileus versus SBO COMPARISON: CT dated 10/03/2024 FINDINGS: The lungs are grossly clear. There is no evidence of effusion, pneumothorax or other significant pleural disease. The mediastinum is unremarkable. The heart size is normal. There is moderate diffuse small bowel distention. Gastric distention is also identified. The overall pattern is similar to recent CT topogram. There is minimal gas in large bowel. No free air is identified. IMPRESSION: Stable small bowel distention which could be due to distal small bowel obstruction or ileus. No free air. Reviewed, Interpreted and Dictated by Chito Madrid MD Transcribed by Xiao Núñez Authenticated and [facility]
[2024-10-05] MEDS: HYDROMORPHONE 2MG/ML SYRINGE 1 MG IV (08:16)
--- NOTE | 2024-10-05 08:30 | EXP.SURG.PN ---
Subjective Patient reports: still having pain and flatus Narrative: She states that she feels about the same . She is currently undergoing right upper quadrant ultrasound as ordered per primary service. She states that she has not had an additional bowel movement since yesterday morning but does note passing a lot of gas overnight . Exam Data for Last 24 hours Vital signs and Labs for Last 24 Hours: Temp Pulse Resp BP Pulse Ox O2 Del Method 98.3 F 77 16 149/92 H 95 Room Air 10/05/24 04:00 10/05/24 04:00 10/05/24 04:00 10/05/24 04:00 10/05/24 04:00 10/05/24 06:41 I & O for Last 24 hours: Intake & Output 10/02/24 10/03/24 10/04/24 10/05/24 11:59 11:59 11:59 11:59 Intake Total 1200 / 1200 1197 / 1197 Output Total 0 / 0 0 / 0 Balance 1200 / 1200 1197 / 1197 Weight 109 lb 4.8 oz 111 lb 3 oz Constitutional Constitutional: no acute distress *Routine Respiratory Exam Respiratory: Absent respiratory distress *Routine Cardiovascular Exam Cardiovascular: Absent tachycardia *Routine Abdominal Exam Comments: Deferred (patient undergoing ultrasound) Progress Note: A&P Assessment and plan (1) Bowel obstruction: Status: Acute Assessment and plan: Bowel movement yesterday and significant flatus overnight per patient. Cautiously advance to clear liquids without carbonation Continue serial abdominal exams
[2024-10-05] MEDS: CEFTRIAXONE 1 GM 1 GM in 0.9 % SODIUM CHLORIDE 50 ML IV (08:51)
[2024-10-05] MEDS: NICOTINE 21MG/24HR PATCH 21 MG TD (10:01)
[2024-10-05] MEDS: APAP/HYDROCODONE 325MG/7.5MG TAB 1 TAB PO ×2 (10:02→21:20)
[2024-10-05] MEDS: 0.9 % SODIUM CHLORIDE 1000ML 1,000 ML 100 ML IV (11:14)
[2024-10-05 12:00] VITALS: BP 112/85; PULSE 98; RESP 18; O2SAT 99
[2024-10-05 16:00] VITALS: BP 98/74; PULSE 104; RESP 26; TEMP 36.6; O2SAT 98
--- NOTE | 2024-10-05 18:13 | PC.NURSE ---
notified of blood pressure 86/64 at 0800, no new orders. blood pressure improved through out shift
--- NOTE | 2024-10-05 19:02 | EXP.PN ---
Subjective *Date: 10/05/24 *Time: 19:02 Interval history: Patient states she is doing well today, but became emotional after not being able to see her dog at home. Wanted to leave AMA initially. Her service dog was brought in for a few hours by son, patient was a lot more content. Having bowel movements, passing flatus. Distention slightly improving. Having bowel sounds. Advanced to clear liquid diet. Exam Data for Last 24 hours Vital signs and Labs for Last 24 Hours: Temp Pulse Resp BP Pulse Ox O2 Del Method 97.9 F 104 H 26 H 98/74 L 98 Room Air 10/05/24 16:00 10/05/24 16:00 10/05/24 16:00 10/05/24 16:00 10/05/24 16:00 10/05/24 18:42 I & O for Last 24 hours: Intake & Output 10/02/24 10/03/24 10/04/24 10/05/24 23:59 23:59 23:59 23:59 Intake Total 2297 / 2397 460 / 460 Output Total 0 / 0 0 / 0 0 / 0 Balance 0 / 1200 2297 / 2397 460 / 460 Weight 49.578 kg 49.578 kg 50.434 kg Microbiology Reports for the Last 24 Hours: Microbiology 10/03/24 14:48 Urine,Clean Catch Urine Culture - Final Multiple organisms, suggests contamination. Constitutional Constitutional: no acute distress *Routine Respiratory Exam Respiratory: Absent respiratory distress *Routine Cardiovascular Exam Cardiovascular: Absent tachycardia *Routine Abdominal Exam Comments: Deferred (patient undergoing ultrasound) Assessment and Plan *Assessment and plan (1) Bowel obstruction: Status: Acute Qualifiers: Intestinal obstruction extent: unspecified extent Intestinal obstruction type: unspecified Qualified Code(s): K56.609 - Unspecified intestinal obstruction, unspecified as to partial versus complete obstruction Category: Medical Code(s): K56.609 - Unspecified intestinal obstruction, unspecified as to partial versus complete obstruction (2) GERD (gastroesophageal reflux disease): Status: Acute Category: Medical Code(s): K21.9 - Gastro-esophageal reflux disease without esophagitis (3) ADAM (acute kidney injury): Status: Acute Category: Medical Code(s): N17.9 - Acute kidney failure, unspecified Plan Ginette Salazar is a 64-year-old female who presented with abdominal pain, distention and was admitted for concern of SBO versus ileus. #Partial SBO versus ileus ? SBO versus ileus seen on CT abdomen/pelvis on admission. ? Patient has had 2 bowel movements since admission. No bowel movement today. Distention is slowly improving ? General Surgery following, recommended advancing diet to clear liquid today which patient is tolerating well. ? Anticipate further advancement in diet if patient continues to be stable tomorrow. ? Continue IV NS at 100 ml/h. ? Of note, patient has recently been started on hydrocodone for chronic low back pain. Potential culprit in ileus versus SBO. May benefit from localized therapy including spinal stimulation, pain pump, etc. Will refer to pain management clinic on discharge. ? Discontinued cefepime, Flagyl as low concern for infection. #Intra-/extrahepatic ductal dilatation ? RUQ ultrasound shows mild biliary ductal dilatation. Will need further evaluation outpatient. LFTs normal. #UTI ? UA grossly abnormal, UCx pending. ? Continue ceftriaxone daily pending cultures. #ADAM ? Initial creatinine 1.6, improved to 0.8 with IV fluid resuscitation. Full code DVT prophylaxis: Lovenox 40 mg
[2024-10-05 20:00] VITALS: BP 133/84; PULSE 94; RESP 16; TEMP 37; O2SAT 96
[2024-10-05] MEDS: GLYCERIN ADULT 3GM SUPP 3 GM RC (20:06)
[2024-10-05] MEDS: PANTOPRAZOLE 40MG VIAL 40 MG IV (21:11)
[2024-10-05] MEDS: hydrOXYzine pamoate 25MG CAPSULE 50 MG PO (22:09)
[2024-10-05] MEDS: OLANZapine 5 MG ODT TABLET 10 MG SL (22:10)
[2024-10-06] VITALS: BP 103/43; BP 142/79; PULSE 68; PULSE 86; RESP 16; TEMP 36.4; TEMP 36.6; O2SAT 90; O2SAT 96; BMI 19.7
[2024-10-06 04:09] VITALS: BMI 19.5
[2024-10-06 04:14] VITALS: BP 146/81; PULSE 69; RESP 16; TEMP 36.4; O2SAT 95
--- NOTE | 2024-10-06 05:28 | PC.NURSE ---
Pt. is alert and orientated x 4. Pt. is on room air. Pt. very anxious the beginning of the shift. Pt. having disagreements with her son while on the phone. Pt. having abdominal pain. She requested a suppistory . Glycerine suppistory given. Pt. up pacing around the room. Pt. crying and upset, Kameron Hamilton APRN was notified and pt was medicated for anxiety and something for sleep. Pt. was medicated x 1 for abdominal pain. Pt. refused IV fluids overnight. She was off fluids while pacing in the room. Post medicating pt. for anxiety and sleep. Pt. slept well. Pt. arouses with vitals but goes back to sleep. Abdomen has some mild distension and feels tense. pt. states she has had a small BM. Personal items and call couch in reach.
--- NOTE | 2024-10-06 07:03 | EXP.SURG.PN ---
Subjective Patient reports: flatus and bowel movement Narrative: The patient states that she feels better and wants to go home . Exam Data for Last 24 hours Vital signs and Labs for Last 24 Hours: Temp Pulse Resp BP Pulse Ox O2 Del Method 97.5 F L 69 16 146/81 H 95 Room Air 10/06/24 04:14 10/06/24 04:14 10/06/24 04:14 10/06/24 04:14 10/06/24 04:14 10/06/24 06:50 I & O for Last 24 hours: Intake & Output 10/03/24 10/04/24 10/05/24 10/06/24 11:59 11:59 11:59 11:59 Intake Total 1200 / 1200 1197 / 1197 674 / 674 Output Total 0 / 0 0 / 0 0 / 0 Balance 1200 / 1200 1197 / 1197 674 / 674 Weight 109 lb 4.8 oz 111 lb 3 oz 110 lb 7 oz Microbiology Reports for the Last 24 Hours: Microbiology 10/03/24 14:48 Urine,Clean Catch Urine Culture - Final Multiple organisms, suggests contamination. Constitutional Constitutional: no acute distress *Routine Respiratory Exam Respiratory: Absent respiratory distress *Routine Cardiovascular Exam Cardiovascular: Absent tachycardia *Routine Abdominal Exam Abdominal: Present soft and distended Comments: Fairly significant distention remains; however, improved versus prior Progress Note: A&P Assessment and plan (1) Bowel obstruction: Status: Acute Assessment and plan: The patient continues to pass flatus and has continued to have bowel movements; however, she remains fairly distended. She has expressed significant interest in being discharged home. Full liquid diet ordered Possibly discharge home soon with instructions for slow advancement of diet at home and close outpatient follow-up (2) GERD (gastroesophageal reflux disease): Status: Acute (3) ADAM (acute kidney injury): Status: Acute
[2024-10-06] MEDS: APAP/HYDROCODONE 325MG/7.5MG TAB 1 TAB PO (07:30)
[2024-10-06] MEDS: ONDANSETRON 4MG/2ML VIAL 4 MG IV (07:30)
[2024-10-06] MEDS: CEFTRIAXONE 1 GM 1 GM in 0.9 % SODIUM CHLORIDE 50 ML IV (07:33)
[2024-10-06] MEDS: NICOTINE 21MG/24HR PATCH 21 MG TD (07:42)
[2024-10-06 08:00] VITALS: BP 129/74; PULSE 79; RESP 14; TEMP 37; O2SAT 93
--- NOTE | 2024-10-06 08:13 | EXP.DC.SUM ---
General Admission date:: 10/03/24 Discharge date: 10/06/24 HPI HPI HPI: This is a 64-year-old female with a past medical history of tobacco abuse, generative disc disease, lumbar stenosis, GERD who presents emerged department with complaints of 1 week history of abdominal pain and bloating. She reports no surgical history. States that she takes up to 20 mg ibuprofen a day for osteoarthritis. She also endorses prior hydrocodone usage. She reports 2-day history of constipation. States she normally has a bowel movement every couple days and has become distended. Denies any nausea vomiting diarrhea. Emergency department workup notable for white blood cell count of 2.6, creatinine of 1.6, lipase of 21 urinalysis with +[address] imaging with abnormally distended fluid-filled loops of small bowel with diffuse ileus versus small bowel obstruction. Urinary surgery was consulted and recommended NG tube. Multiple attempts at placing NG tube unsuccessful likely secondary to patient's severe scoliosis. Per general surgery, medical management at this time but may require surgical intervention at a later date. Currently she is nontoxic-appearing. Will provide pain medicine sparingly given can cause worse bowel obstruction. She is admitted to hospital service Hospital Course Hospital Course Hospital Course: Ginette Salazar is a 64-year-old female who presented with abdominal pain, distention and was admitted for concern of SBO versus ileus. Showed gradual improvement. Began passing gas and having bowel movements. Able to advance to full liquid diet. Multiple bowel movements on day of discharge after MiraLAX and an enema. [place] much better with improvement in distention. Stable discharge home with close follow-up as an outpatient. Problems addressed as follows: #Partial SBO versus ileus ? SBO versus ileus seen on CT abdomen/pelvis on admission. Medicine consulted for admission. Admitted with bowel rest. Surgery evaluated, proceeded with conservative management. Had 2 bowel movements since admission, passing gas. Able to advance diet to full liquids. Given her improvement, stable to discharge home. Of note, patient has recently been started on hydrocodone for chronic low back pain. Potential culprit in ileus versus SBO. May benefit from localized therapy including spinal stimulation, pain pump, etc. consider referral to pain management as an outpatient. In the meantime, initiate bowel regimen with MiraLAX and senna daily. Conservative use of pain medication. #Intra-/extrahepatic ductal dilatation ? RUQ ultrasound shows mild biliary ductal dilatation. Will need further evaluation outpatient. LFTs normal. #UTI, ruled out ? UA grossly abnormal, UCx negative. Had mixed raquel concerning for contamination. Treated with ceftriaxone during admission. No indication for further antibiotics at discharge #ADAM ? Initial creatinine 1.6, improved to 0.8 with IV fluid resuscitation. Total time spent on discharge 32 minutes in counseling, documentation, chart review, and direct care with patient. Exam Data for Last 24 hours Vital signs and Labs for Last 24 Hours: Temp Pulse Resp BP Pulse Ox O2 Del Method 97.5 F L 69 16 146/81 H 95 Room Air 10/06/24 04:14 10/06/24 04:14 10/06/24 04:14 10/06/24 04:14 10/06/24 04:14 10/06/24 06:50 I & O for Last 24 hours: Intake & Output 10/03/24 10/04/24 10/05/24 10/06/24 23:59 23:59 23:59 23:59 Intake Total 2297 / 2397 460 / 774 314 / 314 Output Total 0 / 0 0 / 0 0 / 0 0 / 0 Balance 0 / 1200 2297 / 2397 460 / 774 314 / 314 Weight 49.578 kg 49.578 kg 50.434 kg 50.094 kg Microbiology Reports for the Last 24 Hours: Microbiology 10/03/24 14:48 Urine,Clean Catch Urine Culture - Final Multiple organisms, suggests contamination. Constitutional Constitutional: no acute distress, thin, chronically ill appearing and cooperative *Routine Neck Exam Neck: Absent supple Comments: Head leans to the right secondary to scoliosis *Routine Respiratory Exam Respiratory: Absent respiratory distress, rhonchi, wheezes or crackles *Routine Cardiovascular Exam Cardiovascular: Present RRR; Absent tachycardia *Routine Abdominal Exam Abdominal: Present soft, normoactive bowel sounds, tenderness (Improving, nonfocal) and distended; Absent rebound or guarding Comments: Deferred (patient undergoing ultrasound) *Routine Rectal Exam Patient deferred: visual exam *Routine Exam Patient deferred: external exam *Routine Extremities Exam Extremities: Absent cyanosis, clubbing or edema *Routine Skin Exam Skin: Present intact *Routine Neurological Exam Neurological: Present alert, oriented X3 and moving all extremities; Absent altered mental status DS: Diagnosis Discharge Diagnosis (1) Bowel obstruction: Status: Acute Code(s): K56.609 - Unspecified intestinal obstruction, unspecified as to partial versus complete obstruction Qualifiers: Intestinal obstruction extent: unspecified extent Intestinal obstruction type: unspecified Qualified Code(s): K56.609 - Unspecified intestinal obstruction, unspecified as to partial versus complete obstruction (2) GERD (gastroesophageal reflux disease): Status: Acute Code(s): K21.9 - Gastro-esophageal reflux disease without esophagitis (3) ADAM (acute kidney injury): Status: Acute Code(s): N17.9 - Acute kidney failure, unspecified Meds Home Medications and Allergies Home Medications ?Medication ?Instructions ?Recorded ?Confirmed ?Type ondansetron HCl 4 mg tablet 4 mg PO TIDP PRN Nausea 10/04/24 10/04/24 History hydrocodone 7.5 mg-acetaminophen 1 tab PO BIDP PRN Moderate Pain 10/05/24 10/05/24 History 325 mg tablet (Scale Score 5-6) polyethylene glycol 3350 17 gram 17 g PO DAILY 30 days #30 ea 10/06/24 Rx oral powder packet (HealthyLax) sennosides 8.6 mg tablet (Senna 8.6 mg PO HS #30 tabs 10/06/24 Rx Lax) New Prescriptions to Start Prescriptions: polyethylene glycol 3350 [HealthyLax] Valentín Ni sennosides [Senna Lax] Valentín Ni Allergies Allergy/AdvReac Type Severity Reaction Status Date / Time chocolate flavor Allergy Intermediate rash Verified 07/04/24 15:29 Penicillins Allergy Intermediate Rash Verified 07/04/24 15:29 Influenza Virus Vaccines Allergy Blister Verified 07/04/24 15:29 morphine Allergy Unknown Verified 07/04/24 15:29 allergy reaction Discharge Plan Disposition Patient Disposition: Home, Self-Care Condition: Fair Discharge Order Discharge Orders: Discharge Order (Routine); Ordered 10/06/24 Ordered By: Valentín Ni Follow up Plan Follow up with: Zia Joseph MD [Primary Care Provider] - 10/14/24 11:20 am Zen Cintron MD [Staff Physician] - 10/19/24 9:15 am Prescriptions/Medication Reconciliation: New polyethylene glycol 3350 [HealthyLax] 17 gram Powder In Packet 17 g PO DAILY 30 Days Qty: 30 0RF sennosides [Senna Lax] 8.6 mg tablet 8.6 mg PO HS Qty: 30 0RF Continued ondansetron HCl 4 mg tablet 4 mg PO TIDP PRN (Reason: Nausea) hydrocodone-acetaminophen 7.5-325 mg tablet 1 tab PO BIDP PRN (Reason: Moderate Pain (Scale Score 5-6)) Patient Comments: TAKE 1 TABLET BY MOUTH TWICE DAILY NEEDED FOR PAIN. Problem Reconciliation Problems Reviewed?: Yes Patient Discharge Instructions ACTIVITY: Continue current activity and Ambulate as tolerated DIET: continue same diet and advance to your usual diet Patient Instructions: DI for Small Bowel Obstruction Print Language: Dutch Providers Primary Care Provider: Zia Joseph Admit Provider: Valentín Ni Attending Provider: Valentín Ni
[2024-10-06 08:59] LABS: Basophils % 0.9 % (0.1-2.0); Eosinophils # 0.1 Kmm3 (0.0-0.4); Eosinophils % 1.7 % (0.1-12.0); Hematocrit 37.7 % (37.0-47.0); Hemoglobin 12.9 g/dL (12.2-16.2); Immature Granulocytes # 0.02 10^3uL; Immature Granulocytes % 0.4 %; Lymphocytes # 0.9 K/mm3 (0.7-4.5); Lymphocytes % 20.3 % (10-50); Mean Corpuscular HGB Conc 34.2 g/dL (31.8-35.4); Mean Corpuscular Hemoglobin 30.9 pg (27.0-31.2); Mean Corpuscular Volume 90.4 fl (81-99); Mean Platelet Volume 9.1 fl (7.4-10.4); Monocytes # 0.8 K/mm3 (0.1-1.0); Monocytes % 17.2 % (1.7-9.3); Neutrophils # 2.7 K/mm3 (1.8-7.8); Neutrophils % 59.5 % (37.0-80.0); Nucleated Red Blood Cells # 0 10^3/uL; Nucleated Red Blood Cells % 0 %; Platelet Count 297 K/mm3 (142-424); Red Blood Count 4.17 M/mm3 (4.20-5.40); Red Cell Distribution Width 14.5 % (11.5-17.5); Red Cell Distribution Width-SD 48.5 fL; White Blood Count 4.6 K/mm3 (4.8-10.8)
[2024-10-06] MEDS: POLYETHYLENE GLYCOL 3350 17 GM PACKET PO (09:24)
[2024-10-06 10:28] LABS: Albumin Level 4.2 g/dl (3.5-5.0); Chloride 91 mmol/L (98-107); Potassium 3.6 mmoL/L (3.5-5.1); Sodium 130 mmol/L (136-145)
[2024-10-06 10:30] LABS: Blood Urea Nitrogen 22 mg/dl (7-17); Creatinine Clearance Estimated 40 mL/min (50-200); Estimated Glomerular Filt Rate 50 ml/min (>60); GFR (African American) 60 ML/MIN (>60)
[2024-10-06 10:31] LABS: Alanine Aminotransferase 17 U/L (12-78); Albumin/Globulin Ratio 1.4 (1.1-1.8); Alkaline Phosphatase 103 U/L (38-126); Anion Gap 13.6 mEq/L (5-15); Aspartate Amino Transferase 43 U/L (14-36); Bilirubin,Total 0.4 mg/dl (0.2-1.3); Calcium 10.3 mg/dl (8.4-10.2); Carbon Dioxide 29 mmol/L (22.0-30.0); Globulin 2.9 g/dL (1.3-3.2); Glucose 112 mg/dl (74-100); Total Protein,Serum 7.1 g/dl (6.3-8.2)
[2024-10-06] MEDS: KETOROLAC 30MG/ML VIAL 30 MG IV (11:02)
[2024-10-06 12:00] VITALS: BP 124/77; PULSE 72; RESP 16; TEMP 37.1; O2SAT 97
[2024-10-06] MEDS: SODIUM PHOS/BIPHOSPHATE FLEET 133ML ENEMA 133 ML RC (12:50)
--- NOTE | 2024-10-11 14:17 | CARE MANAGER ---
Patient states she is fine. She is weak, but is having bowel movements. She is aware of follow up appointments, but is in a keys to get off the phone. MARY Pabon
== END 2024-10-06 13:58 | disposition home or self-care (01) | DRG 389 ==
LOC: ER 18:18 → 2ND 20:04
PROVIDERS: Nurse Practitioner Acute Care; Student in an Organized Health Care Education/Training Program; Admitting Provider Internal Medicine Adolescent Medicine; Emergency Provider Emergency Medicine; PCP Family Medicine; Visit Provider Internal Medicine Adolescent Medicine
DX: K56.609 Unspecified intestinal obstruction, unspecified as to partial versus complete obstruction (principal); N17.9 Acute kidney failure, unspecified; K56.7 Ileus, unspecified; K83.8 Other specified diseases of biliary tract; M54.16 Radiculopathy, lumbar region; M48.061 Spinal stenosis, lumbar region without neurogenic claudication; M19.90 Unspecified osteoarthritis, unspecified site; F17.210 Nicotine dependence, cigarettes, uncomplicated; M41.9 Scoliosis, unspecified; K21.9 Gastro-esophageal reflux disease without esophagitis; Z91.018 Allergy to other foods; Z88.5 Allergy status to narcotic agent; Z88.0 Allergy status to penicillin; Z88.7 Allergy status to serum and vaccine; Z79.899 Other long term (current) drug therapy; Z79.891 Long term (current) use of opiate analgesic
CPT/HCPCS: 36415; 74021; 74177; 76705; 80053; 80320; 81001; 83605; 83690; 83735; 84484; 85025; 87086; 93005; 99285; J0696; J1171; J1885; J2405; J2470; J7030; J7120; Q9967

== ENCOUNTER 2024-10-13 14:43 | Inpatient (IN) | payer MEDICARE, MEDICAID, SELFPAY ==
[2024-10-13] VITALS (17 sets, daily range): BP systolic 122–165; BP diastolic 66–136; PULSE 58–76; RESP 9–18; TEMP 36.8–37; O2SAT 93–98; BMI 17.6; BMI 18.9
--- NOTE | 2024-10-13 14:47 | ECG_ITS ---
APPROVED REPORT Exam: Resting ECG HR:76 bpm ECG Measurements Heart Rate 76 AXES UT 174 P 47 QRSd 90 QRS 34 QT 393 T 44 QTc 424 Conclusion SINUS RHYTHM NORMAL ECG Electronically signed by : ADDIE DONOVAN, 10/15/2024 13:20:09
--- NOTE | 2024-10-13 15:02 | CT_ITS ---
FINAL REPORT TECHNIQUE: Postcontrast images of the pelvis and extremities were performed by computed tomography. Extensive 3-D reconstruction images were performed. A CTA was performed. This study was performed with techniques to keep radiation doses as low as reasonably achievable (ALARA). Individualized dose reduction techniques using automated exposure control or adjustment of mA and/or kV according to the patient''s size were employed. CLINICAL HISTORY: cold LLE, doppled pulses only pt states right lower extremity weakness FINDINGS: The abdomen is not completely imaged on this exam. The gallbladder is present. There is a relative lack of intra-abdominal fat. The bowel loops are closely opposed. There is a large amount of stool throughout the colon. CTA: Dense vascular calcifications are noted of the abdominal aortic and iliac vessels. There is stenosis of the origin of the right common iliac artery measuring less than 50%. There is also stenosis of the origin of the left common iliac artery measuring less than 50%. The iliac arteries are otherwise patent. RIGHT lower extremity: States vascular calcifications in the right common femoral artery with stenosis measuring less than 50%. The SFA is patent. There is mild calcification at the adductor canal. The popliteal artery is patent. There is three-vessel runoff to the foot. Posterior tibial artery is the dominant runoff vessel. LEFT lower extremity: There is vascular calcification at the common femoral artery with stenosis measuring approximately 60%, best seen on image 78 of series 8. There is scattered calcification within the adductor canal. The popliteal artery is continuous and patent. There is a patent trifurcation. Three-vessel runoff is noted to the foot. The posterior tibial is dominant runoff vessel. Incidental note is made of a right popliteal cyst measuring 7 cm in craniocaudal dimension. There are advanced changes of degenerative disc disease at L5-S1 with high-grade bilateral neuroforaminal narrowing. 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 Three-vessel runoff to both feet. Relative absence of abdominal fat. Advanced changes of degenerative disc disease lower lumbar spine. Reviewed, Interpreted and Dictated by Colt Gonzalez MD Transcribed by Jackie Escalera Authenticated and . [facility]
--- NOTE | 2024-10-13 15:13 | ED_ITS ---
Discharge Plan Disposition Patient Disposition: Admitted Clinical Impressions Clinical Impression: Right leg weakness, Acute lacunar stroke Vazquez cyst Qualifiers: Laterality: right Qualified Code(s): M71.21 - Synovial cyst of popliteal space [Vazquez], right knee Discharge ED Provider: Wang Quintana General Adult HPI <Madison Ambrosenarda, FUNMILAYO - Last Filed: 10/13/24 19:40> General Chief complaint: Weakness Stated complaint: Poss stroke Time Seen by Provider: 10/13/24 14:54 History of Present Illness HPI narrative: Ginette Salazar is a 64-year-old female who has a past medical history significant for GERD, tobacco usewho present emergency room today with complaints of questionable right-sided weakness and lethargy. LKW was 0800 this morning. Ms. Salazar's son is at bedside and reports that she woke up this morning around 8 AM and appeared to not be using her right side normally. He reports that she had some right-sided weakness. Patient tells me that she has no right-sided weakness. Denies any facial droop, no unilateral weakness, numbness, tingling. Patient able to move all 4 extremities symmetrically. No confusion reported by either constitution party in the room. Patient told me that she was just admitted last week for a bowel obstruction. Bowel obstruction was resolved without surgical intervention. Did have a mild ADAM as well at time of admission but resolved with IV fluid resuscitation. Patient does not take any blood thinners. No history of stents anywhere in her body. No history of blood clots or DVTs in her lower extremities. No history of clotting disorders. No complaints at this time Please note that the above description of symptoms, and this electronic medical record under categorization of recalled from ER triage doctor by RN are reflective of an initial nursing assessment, however, is not reflective of my full history and physical exam that was personally taken and clarified. Consequentially, this proceeding description of symptoms, which may include the patient's cauterized chief complaint in the EMR, do not reflect my personal clinical impression, and the ultimate description of the history of present illness stated complaints should be deferred to this section of this note. Unless stated otherwise were congruent with the section of the note, additional signs, symptoms, or incongruence can be interpreted as in or accurate with my clinical impression. Related Data Home Medications ?Medication ?Instructions ?Recorded ?Confirmed ondansetron HCl 4 mg tablet 4 mg PO TIDP PRN Nausea 10/07/24 Previous Rx's ?Medication ?Instructions ?Recorded polyethylene glycol 3350 17 gram 17 g PO DAILY 30 days #30 ea 10/06/24 oral powder packet (HealthyLax) gabapentin 300 mg capsule 300 mg PO BID #60 caps 10/07 hydrocodone 7.5 mg-acetaminophen 1 tab PO ONCE PRN Mod erate Pain 10/07/24 325 mg tablet (Scale Score 5-6) #30 tabs sennosides 8.6 mg tablet (Senna 8.6 mg PO HS #30 tabs 10/07/24 Lax) Allergies Allergy/AdvReac Type Severity Reaction Status Date / Time chocolate flavor Allergy Intermediate rash Verified 10/07/24 13:49 Penicillins Allergy Intermediate Rash Verified 10/07/24 13:49 Influenza Virus Vaccines Allergy Blister Verified 10/07/24 13:49 morphine Allergy Unknown Verified 10/07/24 13:49 allergy reaction [facility] <Madison Campos, [employer]ER - Last Filed: 10/13/24 19:40> [facility] Disclaimer: The information contained in this section may have been updated after the patient was seen, as this information can be updated by other users. Medical History (Updated 10/13/24 @ 22:04 by Teresa Gee RN) Fibromyalgia GERD (gastroesophageal reflux disease) Lumbar spinal stenosis Lumbar radicular pain DDD (degenerative disc disease), lumbar Surgical History No history of previous surgery Family History Other No significant family history Social History Smoking Status: Current every day smoker tobacco type: cigarettes packs per day: 2 alcohol intake: current alcohol intake frequency: a few times a month substance use type: former substance user current occupational status: disabled Travel in the last 8 weeks?: None Have you lived/traveled outside [place] in past 30 days?: No Contact w/someone who lives/traveled outside US past 30 days?: No Exposure to someone with infectious disease in past 14 days?: No Do you have a fever (greater than 100.4 F or 38 C)?: No Have you tested positive for COVID-19?: No Exposed to someone with COVID-19 in past 14 days?: No Do you have a sore throat?: No Do you have a cough?: No Do you have any weakness?: No Do you have any diarrhea?: No Are you experiencing any unusual bleeding?: No Do you have any muscle aches/pain?: No Do you have any abdominal pain?: No Are you experiencing loss of taste or smell?: No Other Medical History Have you received the Flu Vaccine for this season: No Have you received the Pneumonia Vaccine: No <Madison Campos APRN - Last Filed: 10/13/24 19:40> ROS Obtained: Yes Systems reviewed as appropriate & no additional complaints except as documented Physical Exam <Madison Campos APRN - Last Filed: 10/13/24 19:40> General General appearance: alert and in no apparent distress Head Head exam: atraumatic and normocephalic Eye Eye exam: Present PERRL and EOMI Chest Chest inspection: Present symmetric chest wall rise Respiratory Respiratory exam: Present normal lung sounds bilaterally Cardiovascular Cardiovascular exam: Present regular rate and normal rhythm Abdominal Exam Abdominal exam: Present soft and normal bowel sounds; Absent tenderness Extremities Exam Extremities exam: Present full ROM Expanded Lower Extremity Exam Right: Comment: Right lower extremity below the knee is significantly cooler to the touch than the left side, pulses are not palpable, were able to Doppler PT and DP pulses. Foot is more pale than the left foot. Sensation intact Neurological Exam Neurological exam: Present alert and oriented X3 Skin Skin exam: Present warm, dry and intact <Wang Quintana MD - Last Filed: 10/13/24 23:26> Extremities Exam Extremities exam: Present other (2+ pitting edema of right lower extremity below the knee. Dopplerable bilateral DP and PT pulses. Right lower extremity appeals more cool compared to the left. Sensation intact. Motor function intact.) Medical Decision Making <Madison Campos APRN - Last Filed: 10/13/24 19:40> Medical Records Screening: Per USPSTF and CDC recommendations, given the prevalence of disease in our region, it is our hospital?s policy to screen for HIV and viral Hepatitis for all patients aged 18 and over and those with ongoing risk factors. Jose F Inquiry Pt receiving controlled substance: No Vital Signs: 10/13/24 14:48 10/13/24 15:03 10/13/24 15:05 Temperature 98.6 F Temperature Source Oral Pulse Rate 60 62 Pulse Rate [Left] 62 Respiratory Rate 13 18 18 Blood Pressure 157/98 H 137/80 Blood Pressure [Left Arm] 137/80 Blood Pressure Mean Blood Pressure Mean [Left Arm] 99 02 Sat by Pulse Oximetry 95 96 94 L Oxygen Delivery Method Room Air Room Air Room Air 10/13/24 15:45 10/13/24 16:30 10/13/24 16:59 Temperature Temperature Source Pulse Rate 68 68 59 L Pulse Rate [Left] Respiratory Rate 16 Blood Pressure 162/89 H 152/84 H 164/88 H Blood Pressure [Left Arm] Blood Pressure Mean 106 Blood Pressure Mean [Left Arm] 02 Sat by Pulse Oximetry 93 L 96 94 L Oxygen Delivery Method Room Air Room Air Room Air 10/13/24 17:00 10/13/24 18:00 10/13/24 18:30 Temperature Temperature Source Pulse Rate 58 L 58 L 68 Pulse Rate [Left] Respiratory Rate Blood Pressure 122/105 H 143/75 H 149/85 H Blood Pressure [Left Arm] Blood Pressure Mean Blood Pressure Mean [Left Arm] 02 Sat by Pulse Oximetry 94 L 96 95 Oxygen Delivery Method Room Air Room Air Room Air 10/13/24 19:00 10/13/24 19:04 10/13/24 19:31 Temperature Temperature Source Pulse Rate 69 64 Pulse Rate [Left] Respiratory Rate 13 Blood Pressure 162/104 H 165/92 H 157/68 H Blood Pressure [Left Arm] Blood Pressure Mean 116 Blood Pressure Mean [Left Arm] 02 Sat by Pulse Oximetry 95 95 Oxygen Delivery Method Room Air 10/13/24 20:00 10/13/24 20:30 10/13/24 20:43 Temperature Temperature Source Pulse Rate 76 Pulse Rate [Left] Respiratory Rate 11 L 9 L 16 Blood Pressure 154/136 H 152/89 H 134/66 Blood Pressure [Left Arm] Blood Pressure Mean Blood Pressure Mean [Left Arm] 02 Sat by Pulse Oximetry 97 Oxygen Delivery Method Lab Data Lab Results 10/13/24 14:22: WBC 8.8, RBC 3.60 L, Hgb 11.1 L, Hct 33.4 L, MCV 92.8, MCH 30.8, MCHC 33.2, RDW 15.2, Plt Count 347, MPV 9.2, Neut % (Auto) 61.6, Lymph % (Auto) 26.7, [place] % (Auto) 9.5 H, Eos % (Auto) 1.6, Baso % (Auto) 0.3, Neut # (Auto) 5.4, Lymph # (Auto) 2.3, [place] # (Auto) 0.8, Eos # (Auto) 0.1, Baso # (Auto) 0.0, Sodium 134 L, Potassium 3.8, Chloride 98, Carbon Dioxide 33 H, Anion Gap 6.8, BUN 13, Creatinine 0.70, Estimated Creat Clear 40, Estimated GFR 84, Est GFR ( Amer) 102, Glucose 84, Calcium 8.8, Total Bilirubin 0.3, AST 39 H, ALT 20, Alkaline Phosphatase 93, Total Protein 6.7, Albumin 3.6, Globulin 3.1, Albumin/Globulin Ratio 1.2 10/13/24 16:51: Urine Color Yellow, Urine Appearance Clear, Urine pH 7.0, Ur Specific [place] 1.010, Urine Protein Negative, Urine Glucose (UA) Negative, Urine Ketones Negative, Urine Blood Negative, Urine Nitrate Negative, Urine Bilirubin Negative, Urine Urobilinogen 0.2, Ur Leukocyte Esterase Negative, Urine RBC Occasional, Urine WBC Occasional, Ur Squamous Epith Cells 10-20, Urine Bacteria 1+ 10/13/24 14:22 10/13/24 21:43 Orders (Tests/Meds): ED MEDICATIONS Generic Name Dose Route Start Last Admin Trade Name Freq PRN Reason Stop Dose Admin Acetaminophen 650 mg 10/13/24 19:40 Acetaminophen 325mg Tab PO 11/12/24 19:39 Q4HP PRN Fever or Mild Pain (1-3) Hydrocodone Bitart/Acetaminophen 1 tab 10/13/24 19:40 10/13/24 21:29 Hydrocodone/Apap 5/325 Mg Tablet PO 11/12/24 19:39 1 tab Q4HP PRN Administration Mild to Moderate Pain (1-6) Aspirin 325 mg 10/13/24 20:40 10/13/24 21:29 Aspirin 325mg Tablet PO 10/13/24 20:41 325 mg ONCE ONE Administration Aspirin 81 mg 10/14/24 09:00 Aspirin 81mg Chewable Tablet PO 11/13/24 08:59 DAILY YOU Atorvastatin Calcium 80 mg 10/13/24 21:00 10/13/24 21:29 Atorvastatin 40mg Tablet PO 11/12/24 20:59 80 mg HS YOU Administration Clopidogrel Bisulfate 75 mg 10/14/24 09:00 Clopidogrel 75mg Tab PO 11/13/24 08:59 DAILY YOU Lorazepam 1 mg 10/13/24 23:17 Lorazepam 2mg/Ml Vial IV 11/12/24 23:16 Q4HP PRN Anxiety Ondansetron HCl 4 mg 10/13/24 19:40 Ondansetron 4mg/2ml Vial IV 11/12/24 19:39 Q8HP PRN Nausea Pantoprazole Sodium 40 mg 10/13/24 19:40 Pantoprazole 40mg Tablet PO 11/12/24 20:59 HS PRN Acid Reflux Discontinued Medications Generic Name Dose Route Start Last Admin Trade Name Freq PRN Reason Stop Dose Admin Sodium Chloride 1,000 mls @ 999 mls/hr 10/13/24 17:04 10/13/24 17:41 Sod Chlor 0.9% 1000ml Bag IV 10/13/24 18:04 999 mls/hr .Q1H1M ONE Administration Iopamidol 120 ml 10/13/24 15:27 10/13/24 15:29 Iopamidol-370 (76%);100ml Bottle IV 10/13/24 15:28 120 ml ONCE ONE Administration Iopamidol 70 ml 10/13/24 17:24 10/13/24 17:24 Iopamidol-370 (76%);100ml Bottle IV 10/13/24 17:25 70 ml ONCE ONE Administration Ketorolac Tromethamine 15 mg 10/13/24 19:28 10/13/24 19:39 Ketorolac 30mg/Ml Vial IV 10/13/24 19:29 15 mg ONCE ONE Administration Sodium Chloride 10 ml 10/13/24 15:27 10/13/24 15:28 Sodium Chloride 0.9% 10ml Syr (Rad Only) IV 10/13/24 15:28 10 ml ONCE ONE Administration Sodium Chloride 100 ml 10/13/24 15:27 10/13/24 15:28 0.9 % Sodium Chloride 50 Ml Vial IV 10/13/24 15:28 100 ml ONCE ONE Administration Sodium Chloride 10 ml 10/13/24 17:24 10/13/24 17:24 Sodium Chloride 0.9% 10ml Syr (Rad Only) IV 10/13/24 17:25 10 ml ONCE ONE Administration Sodium Chloride 50 ml 10/13/24 17:24 10/13/24 17:24 0.9 % Sodium Chloride 50 Ml Vial IV 10/13/24 17:25 50 ml ONCE ONE Administration ORDERS Category Date Time Status CT angio LE BI Stat Cat Scan 10/13/24 15:[address] angio head Stat Cat Scan 10/13/24 17:[address] angio neck Stat Cat Scan 10/13/24 17:[address] head/brain wo con Stat Cat Scan 10/13/24 17:[address] lumbar spine wo con Stat Cat Scan 10/13/24 17:03 Completed Consult to Case Management [CONS] Routine Cons 10/13/24 19:40 Active CBC w/Auto Diff [Complete Blood Count Auto Diff] Stat Lab 10/13/24 14:22 Completed CMP [Comprehensive Metabolic Panel] Stat Lab 10/13/24 14:22 Completed Complete Blood Count Auto Diff AMLAB Lab 10/14/24 06:00 Ordered Hemoglobin A1C AMLAB Lab 10/14/24 06:00 Ordered Lipid Panel AMLAB Lab 10/14/24 06:00 Ordered Magnesium AMLAB Lab 10/14/24 06:00 Ordered Phosphorous AMLAB Lab 10/14/24 06:00 Ordered Prothrombin Time INR AMLAB Lab 10/14/24 06:00 Ordered UA [Urinalysis and Microscopic] Stat Lab 10/13/24 16:51 Completed CARLITOS [US Art. Lower Ext Rest (CARLITOS)] Routine Ultrasound 10/13/24 20:49 Ordered CA echo doppler complete Routine Y 10/13/24 19:40 Ordered CA venous doppler LE RT Stat Y 10/13/24 15:35 Completed Medical Decision Narrative: In summary patient is an 64-year-old female who presents emergency department for evaluation of questionable right-sided weakness and a cool right lower extremity. Patient is accompanied by her son who is at bedside. Son states that she woke up at 8:00 this morning and he thought she was having some weakness on the right. Patient was seen and examined by myself at 14:55. Last known well was at 8:00 this morning. Patient reports that she is not having any right-sided weakness at this time. Reports no facial droop, no difficulty with speech, no blurred or double vision. Patient is hemodynamically stable upon arrival, afebrile. Physical exam remarkable for some very mild right lower extremity weakness. Patient without drift in her upper extremities. No sensory changes, no facial droop, able to answer questions and follow commands appropriately. Right lower extremity does appear a bit weaker but patient is able to hold her right lower extremity off the bed without drift. Patient does have a cool right lower extremity, significantly different than her left lower extremity below the knee and foot. Pulses are nonpalpable, DP and PT pulses are dopplerable. Differential diagnosis includes DVT, arterial clot, CVA. Initial workup will be conducted with hematologic labs, CT angio of the lower extremities, Doppler of the lower extremity to rule out DVT. Patient and son called myself back into the room to discuss the patient has indeed been having some right-sided weakness. Again last known well was 8:00 this morning. Patient states that she fell 3-4 times earlier at home before presenting to the emergency room. Patient now appears to have a bit of worsening right lower extremity weakness. Strength is a 3/5 in her hip flexion and knee flexion, 5/5 with knee extension, dorsiflexion, EHL. She was a max to assist to get up to the bedside commode. Will order a CT angio of the head and neck as well as a CT of the lumbar spine without. Will give her some IV fluids and she will have a another dose of contrast. Initial workup reviewed by me For patient was a max to assist CTA of the lower extremities showed a 60% stenosis of the left common femoral artery. Ultrasound of the right lower extremity was negative for DVT, did show a Vazquez's cyst at the knee. CTA of the head and neck did not show any LVO. CT of the L-spine was essentially unremarkable. CT of the head without was nonactionable. Upon repeat evaluation, Patient was a max two-person assist to get up to the bedside commode. Patient and son are adamant that they do not feel safe taking her home as she is unable to walk. Given this hospitalist contacted for admission, gracious separate consult for management of this patient. <Wang Quintana MD - Last Filed: 10/13/24 23:26> Vital Signs: 10/13/24 14:48 10/13/24 15:03 10/13/24 15:05 Temperature 98.6 F Temperature Source Oral Pulse Rate 60 62 Pulse Rate [Left] 62 Respiratory Rate 13 18 18 Blood Pressure 157/98 H 137/80 Blood Pressure [Left Arm] 137/80 Blood Pressure Mean Blood Pressure Mean [Left Arm] 99 02 Sat by Pulse Oximetry 95 96 94 L Oxygen Delivery Method Room Air Room Air Room Air 10/13/24 15:45 10/13/24 16:30 10/13/24 16:59 Temperature Temperature Source Pulse Rate 68 68 59 L Pulse Rate [Left] Respiratory Rate 16 Blood Pressure 162/89 H 152/84 H 164/88 H Blood Pressure [Left Arm] Blood Pressure Mean 106 Blood Pressure Mean [Left Arm] 02 Sat by Pulse Oximetry 93 L 96 94 L Oxygen Delivery Method Room Air Room Air Room Air 10/13/24 17:00 10/13/24 18:00 10/13/24 18:30 Temperature Temperature Source Pulse Rate 58 L 58 L 68 Pulse Rate [Left] Respiratory Rate Blood Pressure 122/105 H 143/75 H 149/85 H Blood Pressure [Left Arm] Blood Pressure Mean Blood Pressure Mean [Left Arm] 02 Sat by Pulse Oximetry 94 L 96 95 Oxygen Delivery Method Room Air Room Air Room Air 10/13/24 19:00 10/13/24 19:04 10/13/24 19:31 Temperature Temperature Source Pulse Rate 69 64 Pulse Rate [Left] Respiratory Rate 13 Blood Pressure 162/104 H 165/92 H 157/68 H Blood Pressure [Left Arm] Blood Pressure Mean 116 Blood Pressure Mean [Left Arm] 02 Sat by Pulse Oximetry 95 95 Oxygen Delivery Method Room Air 10/13/24 20:00 10/13/24 20:30 10/13/24 20:43 Temperature Temperature Source Pulse Rate 76 Pulse Rate [Left] Respiratory Rate 11 L 9 L 16 Blood Pressure 154/136 H 152/89 H 134/66 Blood Pressure [Left Arm] Blood Pressure Mean Blood Pressure Mean [Left Arm] 02 Sat by Pulse Oximetry 97 Oxygen Delivery Method Lab Data Lab Results 10/13/24 14:22: WBC 8.8, RBC 3.60 L, Hgb 11.1 L, Hct 33.4 L, MCV 92.8, MCH 30.8, MCHC 33.2, RDW 15.2, Plt Count 347, MPV 9.2, Neut % (Auto) 61.6, Lymph % (Auto) 26.7, [place] % (Auto) 9.5 H, Eos % (Auto) 1.6, Baso % (Auto) 0.3, Neut # (Auto) 5.4, Lymph # (Auto) 2.3, [place] # (Auto) 0.8, Eos # (Auto) 0.1, Baso # (Auto) 0.0, Sodium 134 L, Potassium 3.8, Chloride 98, Carbon Dioxide 33 H, Anion Gap 6.8, BUN 13, Creatinine 0.70, Estimated Creat Clear 40, Estimated GFR 84, Est GFR ( Amer) 102, Glucose 84, Calcium 8.8, Total Bilirubin 0.3, AST 39 H, ALT 20, Alkaline Phosphatase 93, Total Protein 6.7, Albumin 3.6, Globulin 3.1, Albumin/Globulin Ratio 1.2 10/13/24 16:51: Urine Color Yellow, Urine Appearance Clear, Urine pH 7.0, Ur Specific [place] 1.010, Urine Protein Negative, Urine Glucose (UA) Negative, Urine Ketones Negative, Urine Blood Negative, Urine Nitrate Negative, Urine Bilirubin Negative, Urine Urobilinogen 0.2, Ur Leukocyte Esterase Negative, Urine RBC Occasional, Urine WBC Occasional, Ur Squamous Epith Cells 10-20, Urine Bacteria 1+ Orders (Tests/Meds): ED MEDICATIONS Generic Name Dose Route Start Last Admin Trade Name Kashmirq PRN Reason Stop Dose Admin Acetaminophen 650 mg 10/13/24 19:40 Acetaminophen 325mg Tab PO 11/12/24 19:39 Q4HP PRN Fever or Mild Pain (1-3) Hydrocodone Bitart/Acetaminophen 1 tab 10/13/24 19:40 10/13/24 21:29 Hydrocodone/Apap 5/325 Mg Tablet PO 11/12/24 19:39 1 tab Q4HP PRN Administration Mild to Moderate Pain (1-6) Aspirin 325 mg 10/13/24 20:40 10/13/24 21:29 Aspirin 325mg Tablet PO 10/13/24 20:41 325 mg ONCE ONE Administration Aspirin 81 mg 10/14/24 09:00 Aspirin 81mg Chewable Tablet PO 11/13/24 08:59 DAILY YOU Atorvastatin Calcium 80 mg 10/13/24 21:00 10/13/24 21:29 Atorvastatin 40mg Tablet PO 11/12/24 20:59 80 mg HS YOU Administration Clopidogrel Bisulfate 75 mg 10/14/24 09:00 Clopidogrel 75mg Tab PO 11/13/24 08:59 DAILY YOU Lorazepam 1 mg 10/13/24 23:17 Lorazepam 2mg/Ml Vial IV 11/12/24 23:16 Q4HP PRN Anxiety Ondansetron HCl 4 mg 10/13/24 19:40 Ondansetron 4mg/2ml Vial IV 11/12/24 19:39 Q8HP PRN Nausea Pantoprazole Sodium 40 mg 10/13/24 19:40 Pantoprazole 40mg Tablet PO 11/12/24 20:59 HS PRN Acid Reflux Discontinued Medications Generic Name Dose Route Start Last Admin Trade Name Freq PRN Reason Stop Dose Admin Sodium Chloride 1,000 mls @ 999 mls/hr 10/13/24 17:04 10/13/24 17:41 Sod Chlor 0.9% 1000ml Bag IV 10/13/24 18:04 999 mls/hr .Q1H1M ONE Administration Iopamidol 120 ml 10/13/24 15:27 10/13/24 15:29 Iopamidol-370 (76%);100ml Bottle IV 10/13/24 15:28 120 ml ONCE ONE Administration Iopamidol 70 ml 10/13/24 17:24 10/13/24 17:24 Iopamidol-370 (76%);100ml Bottle IV 10/13/24 17:25 70 ml ONCE ONE Administration Ketorolac Tromethamine 15 mg 10/13/24 19:28 10/13/24 19:39 Ketorolac 30mg/Ml Vial IV 10/13/24 19:29 15 mg ONCE ONE Administration Sodium Chloride 10 ml 10/13/24 15:27 10/13/24 15:28 Sodium Chloride 0.9% 10ml Syr (Rad Only) IV 10/13/24 15:28 10 ml ONCE ONE Administration Sodium Chloride 100 ml 10/13/24 15:27 10/13/24 15:28 0.9 % Sodium Chloride 50 Ml Vial IV 10/13/24 15:28 100 ml ONCE ONE Administration Sodium Chloride 10 ml 10/13/24 17:24 10/13/24 17:24 Sodium Chloride 0.9% 10ml Syr (Rad Only) IV 10/13/24 17:25 10 ml ONCE ONE Administration Sodium Chloride 50 ml 10/13/24 17:24 10/13/24 17:24 0.9 % Sodium Chloride 50 Ml Vial IV 10/13/24 17:25 50 ml ONCE ONE Administration ORDERS Category Date Time Status CT angio LE BI Stat Cat Scan 10/13/24 15:[address] angio head Stat Cat Scan 10/13/24 17:[address] angio neck Stat Cat Scan 10/13/24 17:[address] head/brain wo con Stat Cat Scan 10/13/24 17:[address] lumbar spine wo con Stat Cat Scan 10/13/24 17:03 Completed Consult to Case Management [CONS] Routine Cons 10/13/24 19:40 Active CBC w/Auto Diff [Complete Blood Count Auto Diff] Stat Lab 10/13/24 14:22 Completed CMP [Comprehensive Metabolic Panel] Stat Lab 10/13/24 14:22 Completed Complete Blood Count Auto Diff AMLAB Lab 10/14/24 06:00 Ordered Hemoglobin A1C AMLAB Lab 10/14/24 06:00 Ordered Lipid Panel AMLAB Lab 10/14/24 06:00 Ordered Magnesium AMLAB Lab 10/14/24 06:00 Ordered Phosphorous AMLAB Lab 10/14/24 06:00 Ordered Prothrombin Time INR AMLAB Lab 10/14/24 06:00 Ordered UA [Urinalysis and Microscopic] Stat Lab 10/13/24 16:51 Completed CARLITOS [US Art. Lower Ext Rest (CARLITOS)] Routine Ultrasound 10/13/24 20:49 Ordered CA echo doppler complete Routine Y 10/13/24 19:40 Ordered CA venous doppler LE RT Stat Y 10/13/24 15:35 Completed ECG Data Tracing #1: I reviewed this ECG and interpreted as documented below: Normal sinus rhythm at a rate of 76, normal axis, QTc 424, no STEMI Medical Decision Narrative: In summary patient is an 64-year-old female who presents emergency department for evaluation of questionable right-sided weakness and a cool right lower extremity. Patient is accompanied by her son who is at bedside. Son states that she woke up at 8:00 this morning and he thought she was having some weakness on the right. Patient was seen and examined by myself at 14:55. Last known well was at 8:00 this morning. Patient reports that she is not having any right-sided weakness at this time. Reports no facial droop, no difficulty with speech, no blurred or double vision. Patient is hemodynamically stable upon arrival, afebrile. Physical exam remarkable for some very mild right lower extremity weakness. Patient without drift in her upper extremities. No sensory changes, no facial droop, able to answer questions and follow commands appropriately. Right lower extremity does appear a bit weaker but patient is able to hold her right lower extremity off the bed without drift. Patient does have a cool right lower extremity, significantly different than her left lower extremity below the knee and foot. Pulses are nonpalpable, DP and PT pulses are dopplerable. Differential diagnosis includes DVT, arterial clot, CVA. Initial workup will be conducted with hematologic labs, CT angio of the lower extremities, Doppler of the lower extremity to rule out DVT. Patient and son called myself back into the room to discuss the patient has indeed been having some right-sided weakness. Again last known well was 8:00 this morning. Patient states that she fell 3-4 times earlier at home before presenting to the emergency room. Patient now appears to have a bit of worsening right lower extremity weakness. Strength is a 3/5 in her hip flexion and knee flexion, 5/5 with knee extension, dorsiflexion, EHL. She was a max to assist to get up to the bedside commode. Will order a CT head, CT angio of the head and neck as well as a CT of the lumbar spine without. Will give her some IV fluids and she will have a another dose of contrast. Initial workup reviewed by me For patient was a max to assist CTA of the lower extremities showed a 60% stenosis of the left common femoral artery. Ultrasound of the right lower extremity was negative for DVT, did show a Vazquez's cyst at the knee. CTA of the head and neck did not show any LVO. CT of the L-spine was essentially unremarkable. CT of the head without was nonactionable. Upon repeat evaluation, Patient was a max two-person assist to get up to the bedside commode. Patient and son are adamant that they do not feel safe taking her home as she is unable to walk. Given this hospitalist contacted for admission, gracious separate consult for management of this patient. JAXOSN attestation I was consulted by the JAXSON, and we discussed the complexity of problems being addressed. I approved the treatment and management plan for this patient's care in the emergency department, thus performing a substantial portion of the medical decision making. I also personally examined the patient at bedside. On my initial examination, she did not have any objective weakness to her right lower extremity however it was more cool compared to the left and edematous. Primary concern was DVT. Venous duplex of right lower extremity ultrasound was independently interpreted by me revealing no evidence of DVT however she did have a Vazquez's cyst which was likely compressing her venous return resulting in edema. CTA of her bilateral lower extremities was also independently interpreted by me revealing of intact signals throughout bilateral lower extremities. I was then notified that patient was having difficulty with standing due to weakness in her right lower extremity as described above. She was significantly weak with flexion at the hip and flexion at the knee. CT head and CTAs of the head and neck were obtained at this time revealing of a possible lacunar infarct. No large vessel occlusion. Noninterventional possible stroke. Patient was ultimately admitted to the hospital for MRI and PT/OT. Wang Quintana MD Critical Care <Madison Campos APRN - Last Filed: 10/13/24 19:40> Critical Care Time Critical Care Time: No
[2024-10-13 15:23] LABS: Basophils % 0.3 % (0.1-2.0); Eosinophils # 0.1 Kmm3 (0.0-0.4); Eosinophils % 1.6 % (0.1-12.0); Hematocrit 33.4 % (37.0-47.0); Hemoglobin 11.1 g/dL (12.2-16.2); Immature Granulocytes # 0.03 10^3uL; Immature Granulocytes % 0.3 %; Lymphocytes # 2.3 K/mm3 (0.7-4.5); Lymphocytes % 26.7 % (10-50); Mean Corpuscular HGB Conc 33.2 g/dL (31.8-35.4); Mean Corpuscular Hemoglobin 30.8 pg (27.0-31.2); Mean Corpuscular Volume 92.8 fl (81-99); Mean Platelet Volume 9.2 fl (7.4-10.4); Monocytes # 0.8 K/mm3 (0.1-1.0); Monocytes % 9.5 % (1.7-9.3); Neutrophils # 5.4 K/mm3 (1.8-7.8); Neutrophils % 61.6 % (37.0-80.0); Nucleated Red Blood Cells # 0 10^3/uL; Nucleated Red Blood Cells % 0 %; Platelet Count 347 K/mm3 (142-424); Red Cell Distribution Width 15.2 % (11.5-17.5); Red Cell Distribution Width-SD 51.6 fL; White Blood Count 8.8 K/mm3 (4.8-10.8)
[2024-10-13 15:26] LABS: Alanine Aminotransferase 20 U/L (12-78); Albumin Level 3.6 g/dl (3.5-5.0); Albumin/Globulin Ratio 1.2 (1.1-1.8); Alkaline Phosphatase 93 U/L (38-126); Anion Gap 6.8 mEq/L (5-15); Aspartate Amino Transferase 39 U/L (14-36); Bilirubin,Total 0.3 mg/dl (0.2-1.3); Blood Urea Nitrogen 13 mg/dl (7-17); Calcium 8.8 mg/dl (8.4-10.2); Carbon Dioxide 33 mmol/L (22.0-30.0); Chloride 98 mmol/L (98-107); Creatinine Clearance Estimated 40 mL/min (50-200); Estimated Glomerular Filt Rate 84 ml/min (>60); GFR (African American) 102 ML/MIN (>60); Globulin 3.1 g/dL (1.3-3.2); Glucose 84 mg/dl (74-100); Potassium 3.8 mmoL/L (3.5-5.1); Sodium 134 mmol/L (136-145); Total Protein,Serum 6.7 g/dl (6.3-8.2)
[2024-10-13] MEDS: SODIUM CHLORIDE 0.9% 10ML SYR (RAD ONLY) 10 ML IV ×2 (15:28→17:24)
[2024-10-13] MEDS: 0.9 % SODIUM CHLORIDE 50 ML VIAL 100 ML IV (15:28)
[2024-10-13] MEDS: IOPAMIDOL-370 (76%);100ML BOTTLE 120 ML IV (15:29)
--- NOTE | 2024-10-13 15:31 | PC.NURSE ---
PT ARRIVED BACK TO ROOM
--- NOTE | 2024-10-13 15:31 | PC.NURSE ---
Pt returns from CT
--- NOTE | 2024-10-13 15:35 | CA_ITS ---
FINAL REPORT TECHNIQUE: Multiple transverse and longitudinal images were performed of the right femoral-popliteal deep venous system with augmentation and compression maneuvers. CLINICAL HISTORY: PAIN RLE,DECREASED PULSES RLE,COLOR CHANGE RLE FINDINGS: Right lower extremity duplex ultrasound demonstrates normal flow in the deep venous system. There is no abnormal echogenicity to suggest thrombus. There is normal compression and augmentation. There is a popliteal cyst measuring 3.5 cm in greatest dimension. IMPRESSION: No evidence of right DVT. Reviewed, Interpreted and Dictated by Colt Gonzalez MD Transcribed by Xiao Núñez Authenticated and [facility]
--- NOTE | 2024-10-13 16:38 | PC.NURSE ---
PT called out for needs to use the restroom. [place] in place. PT denies further needs or concerns at this time.
[2024-10-13 17:02] LABS: Microscopic, Urine URINE MICROSCOPIC (MICROSCOPIC)
--- NOTE | 2024-10-13 17:03 | CT_ITS ---
PROCEDURE INFORMATION: Exam: CTA Neck With Contrast Exam date and time: 10/13/2024 5:23 PM Age: 64 years old Clinical indication: Pain; Other: Lle weakness TECHNIQUE: Imaging protocol: Computed tomographic angiography of the neck with contrast. Exam focused on the cervical segments of the vasculature. 3D rendering (Not supervised by radiologist): MIP and/or 3D reconstructed images were created by the technologist. Radiation optimization: All CT scans at this facility use at least one of these dose optimization techniques: automated exposure control; mA and/or kV adjustment per patient size (includes targeted exams where dose is matched to clinical indication); or iterative reconstruction. Contrast material: ISOVUE; Contrast volume: 70 ml; Contrast route: INTRAVENOUS (IV); COMPARISON: CT LUNG SCREENING 05/13/2024 2:55 PM FINDINGS: Right common carotid artery: Distal right common carotid artery calcified atherosclerosis causing mild, approximate 30-40% stenosis. Right internal carotid artery: Mild proximal right ICA calcified atherosclerosis does not contribute to stenosis. Right external carotid artery: Proximal right ECA calcified atherosclerosis causing mild stenosis. Left common carotid artery: Mild distal left common carotid artery atherosclerosis does not contribute to stenosis. Left internal carotid artery: Proximal left ICA calcified atherosclerosis does not contribute to stenosis. Left external carotid artery: Calcified atherosclerosis at the origin of the left ECA does not contribute to significant stenosis. Right vertebral artery: No stenosis. No dissection or occlusion. Left vertebral artery: No stenosis. No dissection or occlusion. Thyroid: An 8 mm right thyroid nodule. Teeth: The patient is edentulous. Soft tissues: See Bones/joints finding. Bones/joints: A fracture dislocation of the right mandible, presumably chronic. Reversal of the cervical lordosis. Levoconvex scoliosis. Grade 1 degenerative anterolisthesis of C3 on C4, C4 on C5 and C5 on C6. Severe cervical spine degenerative changes, in particular degenerative disc disease from C3-C4 through C6-C7 and advanced multilevel facet arthropathy. There are erosive changes in the right C3-C4 and C4-C5 articular facets. Prominent adjacent soft tissue density is present. Findings could reflect advanced osteoarthritis, inflammatory arthropathy or septic facet joint synovitis. Moderate central spinal canal stenosis at C3-C4. Multilevel foraminal stenoses due to uncovertebral and facet arthropathy, high-grade at multiple levels. Lungs: A calcified granuloma in the right upper lobe. IMPRESSION: 1. Distal right common carotid artery calcified atherosclerosis causing mild, approximate 30-40% stenosis. 2. 0% right ICA stenosis. 3. 0% left ICA stenosis. 4. Patent cervical vertebral arteries. 5. Severe cervical spine degenerative changes. There are right C3-C4 and C4-C5 articular facet erosions with suspected periarticular pannus/edema. Please correlate with the clinical scenario. The appearance could reflect advanced facet arthropathy, inflammatory arthropathy or facet joint synovitis. COMMENTS: Consistent with the [employer]'s Incidental Findings Committee white paper (J Am Baylee Radiol 2015): In patients aged 35 years and older with an incidental thyroid nodule equal to or greater than 1.[address], MRI or extrathyroidal US, further evaluation with dedicated thyroid US is recommended for patients with normal life expectancy and without comorbidities. For smaller nodules without suspicious features, no further evaluation or follow up is recommended. REFERENCES: NASCET CRITERIA. The degree of stenosis in the cervical segment of the internal carotid artery is based on NASCET criteria. Normal is no stenosis. Mild is less than 50% stenosis. Moderate is 50-69% stenosis. Severe is 70% to 99% stenosis. Total occlusion is no detectable patent lumen.
--- NOTE | 2024-10-13 17:03 | CT_ITS ---
PROCEDURE INFORMATION: Exam: CTA Head With Contrast, Arteriography Exam date and time: 10/13/2024 5:23 PM Age: 64 years old Clinical indication: Pain; Other: Rle weakness TECHNIQUE: Imaging protocol: Computed tomographic angiography of the head with contrast. Exam focused on the arteries. 3D rendering (Not supervised by radiologist): MIP and/or 3D reconstructed images were created by the technologist. Radiation optimization: All CT scans at this facility use at least one of these dose optimization techniques: automated exposure control; mA and/or kV adjustment per patient size (includes targeted exams where dose is matched to clinical indication); or iterative reconstruction. Contrast material: ISOVUE; Contrast volume: 70 ml; Contrast route: INTRAVENOUS (IV); COMPARISON: CT ANGIO NECK 10/13/2024 5:23 PM FINDINGS: ANTERIOR CIRCULATION: Right internal carotid artery: The right ICA demonstrates calcified atherosclerosis not contributing to significant stenosis. No aneurysm. Right middle cerebral artery: No occlusion or significant stenosis. No aneurysm. Right anterior cerebral artery: No occlusion or significant stenosis. No aneurysm. Left internal carotid artery: The left ICA demonstrates calcified atherosclerosis not contributing to significant stenosis. No aneurysm. Left middle cerebral artery: No occlusion or significant stenosis. No aneurysm. Left anterior cerebral artery: No occlusion or significant stenosis. No aneurysm. POSTERIOR CIRCULATION: Right vertebral artery: No occlusion or significant stenosis. No aneurysm. Left vertebral artery: No occlusion or significant stenosis. No aneurysm. Basilar artery: No occlusion or significant stenosis. No aneurysm. Right posterior cerebral artery: No occlusion or significant stenosis. No aneurysm. Left posterior cerebral artery: No occlusion or significant stenosis. No aneurysm. Brain: No precontrast study is available for review. The brain demonstrates diffuse volume loss. White matter hypodensities most consistent with chronic small vessel ischemic change. No visible evolving territorial infarct. No obvious hemorrhage. Bilateral thalamic lacunar infarcts, probably chronic. Cerebral ventricles: The ventricles are enlarged in keeping with volume loss. Bones/joints: Unremarkable. No acute fracture. Soft tissues: Unremarkable. IMPRESSION: No proximal intracranial arterial occlusion seen.
--- NOTE | 2024-10-13 17:03 | CT_ITS ---
PROCEDURE INFORMATION: Exam: CT Lumbar Spine Without Contrast Exam date and time: 10/13/2024 5:21 PM Age: 64 years old Clinical indication: Low back pain; Additional info: Lle weakness TECHNIQUE: Imaging protocol: Computed tomography of the lumbar spine without contrast. Radiation optimization: All CT scans at this facility use at least one of these dose optimization techniques: automated exposure control; mA and/or kV adjustment per patient size (includes targeted exams where dose is matched to clinical indication); or iterative reconstruction. COMPARISON: CT ABDOMEN PELVIS W CON 10/03/2024 3:45 PM FINDINGS: Bones/joints: No evidence of acute fracture or traumatic subluxation. Mild-moderate SI joint osteoarthritic change bilaterally. T12-L1: No change. Severe disc space narrowing and vacuum disc formation with moderate endplate sclerosis and erosive changes. Moderate anterior spurring. Broad-based posterior annular disc bulge and spondylotic ridge with chronic right paracentral to foraminal annular protrusion measuring 5 mm AP with moderate right foraminal stenosis. L1-L2: No change. Severe disc space narrowing and vacuum disc formation with moderate endplate sclerosis and marginal spurring. 5 mm left lateral listhesis and slight retrolisthesis. Broad-based posterior annular disc bulge measuring up to 4.5 mm AP. Mild central canal stenosis. Moderate left and mild-moderate right foraminal stenosis. L2-L3: No change. Severe disc space narrowing and vacuum disc formation with moderate marginal spurring and endplate sclerosis/erosion. 7 mm left lateral listhesis. Slight retrolisthesis. Posterior annular disc bulge and spondylotic ridge measuring 4 mm AP. Severe left and mild right osteoarthritic facet hypertrophy. Severe left lateral recess stenosis. Severe left foraminal stenosis. Mild right foraminal stenosis. L3-L4: No change. Severe disc space narrowing and vacuum disc formation with endplate sclerosis/erosion and moderate marginal spurring. 6 mm rightward lateral listhesis and 3 mm anterolisthesis. Severe left and moderate right osteoarthritic facet hypertrophy. Broad-based posterior annular disc bulge and spondylotic ridge measuring up to 5 mm AP. Mild-moderate central canal stenosis. Severe left and mild right lateral recess stenosis. Severe left foraminal stenosis. Left-sided broad extraforaminal annular protrusion produces mass effect on the extraforaminal L3 root. L4-L5: No change. Moderate disc space narrowing. Vacuum disc formation. 6 mm rightward lateral listhesis. Mild marginal spurring. Broad-based annular disc bulge measuring 4 mm AP. Moderate-severe bilateral osteoarthritic facet hypertrophy. Mild-moderate central canal stenosis. Severe right and moderate left lateral recess stenosis. Moderate bilateral foraminal stenosis. L5-S1: No change. Severe disc space narrowing and vacuum disc formation. Endplate sclerosis and erosive changes. Moderate marginal spurring. 5 mm disc bulge. Moderate bilateral osteoarthritic facet hypertrophy. No canal stenosis. Moderate left and moderate-severe right foraminal stenosis. Vasculature: Severe calcific atherosclerosis. Soft tissues: Visualized paraspinal soft tissues are normal. IMPRESSION: 1. No evidence of acute fracture or traumatic subluxation. No gross change from recent CT 10/03/2024. 2. Osteopenia and osteoarthritic changes with canal and foraminal stenoses detailed above.
[2024-10-13 17:11] LABS: Appearance,Urine CLEAR (Clear); Bilirubin,Urine Negative (Negative); Blood, Urine Negative (Negative); Color,Urine YELLOW (Yellow); Glucose,Urine (UA) Negative (Negative); Ketones,Urine Negative (Negative); Leukocyte Esterase,Urine Negative (Negative); Nitrate,Urine Negative (Negative); Protein,Urine Negative (Negative); Urobilinogen,Urine 0.2 EU/dl (0.2)
[2024-10-13] MEDS: 0.9 % SODIUM CHLORIDE 50 ML VIAL IV (17:24)
[2024-10-13] MEDS: IOPAMIDOL-370 (76%);100ML BOTTLE 70 ML IV (17:24)
[2024-10-13 17:30] LABS: Bacteria,Urine 1+ /lpf; RBC,Urine Occasional #/hpf (0-3); WBC,Urine Occasional #/hpf (0-3)
[2024-10-13] MEDS: 0.9 % SODIUM CHLORIDE 1000ML 1,000 ML 999 ML IV (17:41)
--- NOTE | 2024-10-13 17:46 | CT_ITS ---
PROCEDURE INFORMATION: Exam: CT Head Without Contrast Exam date and time: 10/13/2024 6:09 PM Age: 64 years old Clinical indication: Other: Stroke eval TECHNIQUE: Imaging protocol: Computed tomography of the head without contrast. Radiation optimization: All CT scans at this facility use at least one of these dose optimization techniques: automated exposure control; mA and/or kV adjustment per patient size (includes targeted exams where dose is matched to clinical indication); or iterative reconstruction. COMPARISON: CT ANGIO HEAD 10/13/2024 5:[address] ANGIO NECK 10/13/2024 5:23 PM FINDINGS: Brain: The brain demonstrates diffuse volume loss. White matter hypodensities most consistent with chronic small vessel ischemic change. No visible evolving territorial infarct. No hemorrhage. Bilateral thalamic lacunar infarcts are probably chronic. A small focus of left thalamus capsular enhancement, image 49 series 3, image 38 series 1001, possibly a subacute lacunar infarct. Cerebral ventricles: The ventricles are enlarged in keeping with volume loss. Paranasal sinuses: Trace right ethmoid fluid. Mastoid air cells: Visualized mastoid air cells are well aerated. Bones: Unremarkable. No acute fracture. Soft tissues: Unremarkable. IMPRESSION: 1. Limited sensitivity of the study for detecting recent infarct or bleed given the presence of contrast from a recent CTA exam. 2. No obvious recent transcortical territorial infarct or bleed. 3. A focus of left thalamocapsular enhancement, potentially a subacute lacunar infarct. An MRI of the brain could be obtained for further characterization, as needed.
--- NOTE | 2024-10-13 19:28 | PC.NURSE ---
PT called out to use the restroom. PT continent of urine. Transfer x2 to bed side commode.
[2024-10-13] MEDS: KETOROLAC 30MG/ML VIAL 15 MG IV (19:39)
--- NOTE | 2024-10-13 19:47 | EXP.HP ---
History of Present Illness *Admission Date: 10/13/24 *Reason for visit:: leg weakness *History of present illness: 64-year-old female present emergency room today with complaints of questionable right-sided weakness and lethargy. LKW was 0800 this morning. son is at bedside and reports that she woke up this morning around 8 AM and appeared to not be using her right side normally. He reports that she had some right-sided weakness. denies any facial droop, no unilateral weakness, numbness, tingling. No confusion . Patient told me that she was just admitted last week for a bowel obstruction. Bowel obstruction was resolved without surgical intervention. Did have a mild ADAM as well at time of admission but resolved with IV fluid resuscitation. No history of blood clots or DVTs in her lower extremities. No history of clotting disorders. EKG normal sinus. Mildly hypertensive in the emergency department systolics 150s. CTA head with no proximal artery occlusion. CTA neck Distal right common carotid artery calcified atherosclerosis causing mild, approximate 30-40% stenosis. CT head A focus of left thalamocapsular enhancement, potentially a subacute lacunar infarct. Discussed admission for further evaluation with MRI and additionally further diagnostic testing for secondary prevention. Patient is agreeable. Does not take any medications. History independently obtained. Diagnostic and laboratory evaluations independently interpreted. Prior records reviewed. Discussed case with ER physician. [facility] Disclaimer: The information contained in this section may have been updated after the patient was seen, as this information can be updated by other users. Medical History GERD (gastroesophageal reflux disease) Lumbar spinal stenosis Lumbar radicular pain DDD (degenerative disc disease), lumbar Surgical History No history of previous surgery Family History Other No significant family history Social History Smoking Status: Current every day smoker tobacco type: cigarettes packs per day: 2 alcohol intake: current alcohol intake frequency: a few times a month substance use type: former substance user current occupational status: disabled Travel in the last 8 weeks?: None Have you lived/traveled outside [place] in past 30 days?: No Contact w/someone who lives/traveled outside US past 30 days?: No Exposure to someone with infectious disease in past 14 days?: No Do you have a fever (greater than 100.4 F or 38 C)?: No Have you tested positive for COVID-19?: No Exposed to someone with COVID-19 in past 14 days?: No Do you have a sore throat?: No Do you have a cough?: No Do you have any weakness?: No Do you have any diarrhea?: No Are you experiencing any unusual bleeding?: No Do you have any muscle aches/pain?: No Do you have any abdominal pain?: No Are you experiencing loss of taste or smell?: No Other Medical History Have you received the Flu Vaccine for this season: No Have you received the Pneumonia Vaccine: No Review of Systems Review of Systems Review of systems:: pertinent systems reviewed and negative unless documented below Constitutional Constitutional: Reports system reviewed and no additional complaints, except as documented Eyes Eyes: Reports system reviewed and no additional complaints, except as documented ENT Ears, Nose, Mouth, and Throat: Reports system reviewed and no additional complaints, except as documented *Cardiovascular Cardiovascular: Reports system reviewed and no additional complaints, except as documented *Respiratory Respiratory: Reports system reviewed and no additional complaints, except as documented *Gastrointestinal Gastrointestinal: Reports system reviewed and no additional complaints, except as documented *Genitourinary Genitourinary: Reports system reviewed and no additional complaints, except as documented *Musculoskeletal Musculoskeletal: Reports system reviewed and no additional complaints, except as documented *Neurologic Neurologic: Reports as per [facility] Meds Home Medications and Allergies Home Medications ?Medication ?Instructions ?Recorded ?Confirmed ?Type ondansetron HCl 4 mg tablet 4 mg PO TIDP PRN Nausea 10/04/24 10/07/24 History polyethylene glycol 3350 17 gram 17 g PO DAILY 30 days #30 ea 10/06/24 10/07/24 Rx oral powder packet (HealthyLax) gabapentin 300 mg capsule 300 mg PO BID #60 caps 10/07/24 10/07/24 Rx hydrocodone 7.5 mg-acetaminophen 1 tab PO ONCE PRN Moderate Pain 10/07/24 10/07/24 Rx 325 mg tablet (Scale Score 5-6) #30 tabs sennosides 8.6 mg tablet (Senna 8.6 mg PO HS #30 tabs 10/07/24 10/07/24 Rx Lax) New Prescriptions to Start Prescriptions: Allergies Allergy/AdvReac Type Severity Reaction Status Date / Time chocolate flavor Allergy Intermediate rash Verified 10/07/24 13:49 Penicillins Allergy Intermediate Rash Verified 10/07/24 13:49 Influenza Virus Vaccines Allergy Blister Verified 10/07/24 13:49 morphine Allergy Unknown Verified 10/07/24 13:49 allergy reaction Exam Data for Last 24 hours Vital signs and Labs for Last 24 Hours: Temp Pulse Resp BP Pulse Ox O2 Del Method 98.6 F 69 16 165/92 H 95 Room Air 10/13/24 15:05 10/13/24 19:00 10/13/24 15:45 10/13/24 19:04 10/13/24 19:00 10/13/24 19:00 Laboratory Results - last 24 hr 10/13/24 14:22: WBC 8.8, RBC 3.60 L, Hgb 11.1 L, Hct 33.4 L, MCV 92.8, MCH 30.8, MCHC 33.2, RDW 15.2, Plt Count 347, MPV 9.2, Neut % (Auto) 61.6, Lymph % (Auto) 26.7, [place] % (Auto) 9.5 H, Eos % (Auto) 1.6, Baso % (Auto) 0.3, Neut # (Auto) 5.4, Lymph # (Auto) 2.3, [place] # (Auto) 0.8, Eos # (Auto) 0.1, Baso # (Auto) 0.0, Sodium 134 L, Potassium 3.8, Chloride 98, Carbon Dioxide 33 H, Anion Gap 6.8, BUN 13, Creatinine 0.70, Estimated Creat Clear 40, Estimated GFR 84, Est GFR ( Amer) 102, Glucose 84, Calcium 8.8, Total Bilirubin 0.3, AST 39 H, ALT 20, Alkaline Phosphatase 93, Total Protein 6.7, Albumin 3.6, Globulin 3.1, Albumin/Globulin Ratio 1.2 10/13/24 16:51: Urine Color Yellow, Urine Appearance Clear, Urine pH 7.0, Ur Specific [place] 1.010, Urine Protein Negative, Urine Glucose (UA) Negative, Urine Ketones Negative, Urine Blood Negative, Urine Nitrate Negative, Urine Bilirubin Negative, Urine Urobilinogen 0.2, Ur Leukocyte Esterase Negative, Urine RBC Occasional, Urine WBC Occasional, Ur Squamous Epith Cells 10-20, Urine Bacteria 1+ I & O for Last 24 hours: Intake & Output 10/10/24 10/11/24 10/12/24 10/13/24 23:59 23:59 23:59 23:59 Weight 45.359 kg Constitutional Constitutional: no acute distress *Routine HEENT Exam Head: Present normocephalic Eye: Present EOMI and PERRL ENT: Present mucous membranes moist *Routine Neck Exam Neck: Present supple; Absent lymphadenopathy *Routine Respiratory Exam Respiratory: Present CTA bilaterally *Routine Cardiovascular Exam Cardiovascular: Present RRR *Routine Abdominal Exam Abdominal: Present soft and normoactive bowel sounds; Absent tenderness *Routine Rectal Exam Rectal:: deferred *Routine Genitalia Exam Genitalia:: deferred *Routine Extremities Exam Extremities: Absent cyanosis, clubbing or edema *Routine Skin Exam Skin: Present warm; Absent rash *Routine Neurological Exam Neurological: Present alert, oriented X3, motor deficit and normal tone; Absent altered mental status Comments: Bilateral lower extremity weakness, right worse than left. Assessment and Plan *Assessment and plan (1) Acute lacunar stroke: Status: Acute Category: Medical Code(s): I63.81 - Other cerebral infarction due to occlusion or stenosis of small artery (2) Vazquez cyst: Status: Acute Qualifiers: Laterality: right Qualified Code(s): M71.21 - Synovial cyst of popliteal space [Vazquez], right knee Category: Medical Code(s): M71.20 - Synovial cyst of popliteal space [Vazquez], unspecified knee (3) GERD (gastroesophageal reflux disease): Status: Acute Category: Medical Code(s): K21.9 - Gastro-esophageal reflux disease without esophagitis (4) Hypertension: Status: Acute Category: Medical Code(s): I10 - Essential (primary) hypertension Plan Acute lacunar stroke - Echo - Continuous telemetry - Brain MRI with and without - High intensity statin, atorvastatin 80 mg now - Antiplatelet therapy: Aspirin 325 now, 81 daily, clopidogrel 90 days - Risk factor modification for secondary prevention - Lipid panel LDL goal less than 55 - lp(a) can be done outpatient as it appears to be send out - High-sensitivity CRP, can be done outpatient as it appears to be send out - Smoking cessation PAD - severe aortic calcification on LDCT - no observable CAC - CARLITOS prior to discharge ( class 1 rec asymptomatic pt >65 with >1risk factors) - Risk factor modification for secondary prevention Incidental osteopenia - Osteopenia and osteoarthritic changes with canal and foraminal stenoses per CT report - Outpatient eval normocytic anemia - monitor
--- NOTE | 2024-10-13 20:45 | PC.NURSE ---
called report at 2010 to MARY Velazquez. Follow up call for report at 2044.
--- NOTE | 2024-10-13 20:59 | PC.NURSE ---
Patient arrived to floor via wheelchair from ED at 20:56.
[2024-10-13] MEDS: ASPIRIN 325MG TABLET 325 MG PO (21:29)
[2024-10-13] MEDS: HYDROCODONE/APAP 5/325 MG TABLET 1 TAB PO (21:29)
[2024-10-13] MEDS: ATORVASTATIN 40MG TABLET 80 MG PO (21:29)
[2024-10-13 22:02] LABS: Chloride 101 mmol/L (98-107); Potassium 3.6 mmoL/L (3.5-5.1); Sodium 137 mmol/L (136-145)
[2024-10-13 22:05] LABS: Anion Gap 12.6 mEq/L (5-15); Blood Urea Nitrogen 11 mg/dl (7-17); Carbon Dioxide 27 mmol/L (22.0-30.0); Creatinine Clearance Estimated 40 mL/min (50-200); Estimated Glomerular Filt Rate 100 ml/min (>60); GFR (African American) 121 ML/MIN (>60); Glucose 114 mg/dl (74-100)
[2024-10-13] MEDS: LORazepam 2MG/ML VIAL 1 MG IV (23:22)
[2024-10-14] VITALS: PULSE 50
[2024-10-14 04:00] VITALS: BP 143/84; PULSE 50; PULSE 60; RESP 16; TEMP 36.8; O2SAT 93
--- NOTE | 2024-10-14 06:00 | CA_ITS ---
APPROVED REPORT EXAM: Comprehensive 2D, Doppler, and color-flow Echocardiogram News Cameraman: FRANCK Zee, RVS Ht: 5 ft 2 in Wt: 108lbs BSA: 1.47 BP: 165/92 mmHg Indications: TIA? Smoker, pad, Fibromyalgia, Spinal stenosis, DDD, GERD, Murmur 2D Dimensions Left Atrium 3.56 cm LA Volume 60.80 mL LA Volume Index [id number] mL/m2 (M/F) 16-34 M-Mode Dimensions RVDd 2.77 cm (0.9-2.6) LA Diam 4.27 cm (1.9-4.0) LVDd 4.63 cm (3.5-5.7) LVDs 2.81 cm (3.5-5.7) IVSd 0.87 cm (0.6-1.1) PWd 0.83 cm (0.6-1.1) EF (Teich) 69.80% EPSs 0.34 cm FS 39.30% EDV (Teich) 98.80 mL TAPSE 2.18 (<1.7) ESV (Teich) 29.80 mL LV Diastology E Decel Time 267 (160-240 msec) E/A Ratio 0.77 MED A' 10.60 cm/s LAT A' 13.10 cm/s Aortic Valve NEYMAR Index 1.52 cm2/m2 AoV Peak Igor. 116.0 (50-130 cm/s) AO Peak GR. 5.40 mmHg AO Mean GR. 2.70 (<5 mmHg) AO VTI 26.4 (18-25 cm) NEYMAR (VTI) 2.30 (2.5-4.5 cm2) Mitral Valve MV A Velocity 65.0 (40-130 cm/s) E/A Ratio 0.77 Tricuspid Valve TR P. Velocity 257.00 cm/s RAP Estimate 10.00 mmHg RVSP 36.50 mmHg Left Ventricle The left ventricle is normal size. The left ventricular systolic function is normal. The left ventricular ejection fraction is within the normal range. Proximal septal thickening is present. There is normal LV segmental wall motion. Diastolic function is indeterminate. LVEF is 55%. Right Ventricle The right ventricle is normal size. The right ventricular systolic function is normal. Atria Left atrium is mildly dilated. The right atrium size is normal. There is no Doppler evidence of interatrial shunt. Aortic Valve The aortic valve is mildly thickened. There is no aortic valvular stenosis. Trace aortic regurgitation. Mitral Valve The mitral valve is normal in structure. No evidence of mitral valve stenosis. Trace mitral regurgitation. Tricuspid Valve Tricuspid valve is grossly normal in structure and function. Mild to moderate tricuspid regurgitation. RVSP is 25-30 mmHg. Pulmonic Valve The pulmonary valve is normal in structure. Trace pulmonic regurgitation. Great Vessels The aortic root is normal in size. IVC is normal in size and collapses >50% with inspiration. Pericardium There is no pericardial effusion. Other Information Study Quality: Fair Conclusion Normal biventricular systolic function. Mild LA dilation. Mild to moderate TR. Electronically signed by : Diana Hewitt MD 10/15/2024 20:44:26
--- NOTE | 2024-10-14 06:30 | MR_ITS ---
FINAL REPORT CLINICAL HISTORY: cva vs tia R/O STROKE RIGHT SIDED WEAKNESS COMPARISON: None FINDINGS: Multiplanar MR imaging of the brain was performed without and with contrast. The midline structures are intact. There is mild atrophy. Multiple foci of abnormal signal are seen throughout the periventricular white matter. There is a localized focal abnormality of restricted diffusion in the superior thalamus seen on image 19 of series 3.2 consistent with localized acute ischemia. No abnormal contrast enhancement is seen. There is moderate abnormal signal in the mastoid air cells bilaterally consistent with chronic mastoiditis. IMPRESSION: Acute ischemic lacunar infarct superior left thalamus. Deep white matter signal changes greater than expected for patient age. Reviewed, Interpreted and Dictated by Colt Gonzalez MD Transcribed by Jackie Escalera Authenticated and [facility]
[2024-10-14 06:47] LABS: Basophils % 0.5 % (0.1-2.0); Eosinophils # 0.2 Kmm3 (0.0-0.4); Eosinophils % 2.9 % (0.1-12.0); Hematocrit 33.6 % (37.0-47.0); Hemoglobin 11.3 g/dL (12.2-16.2); Immature Granulocytes # 0.02 10^3uL; Immature Granulocytes % 0.3 %; Lymphocytes # 1.3 K/mm3 (0.7-4.5); Lymphocytes % 16.4 % (10-50); Mean Corpuscular HGB Conc 33.6 g/dL (31.8-35.4); Mean Corpuscular Hemoglobin 31.4 pg (27.0-31.2); Mean Corpuscular Volume 93.3 fl (81-99); Monocytes # 0.7 K/mm3 (0.1-1.0); Neutrophils # 5.6 K/mm3 (1.8-7.8); Neutrophils % 70.9 % (37.0-80.0); Nucleated Red Blood Cells # 0 10^3/uL; Nucleated Red Blood Cells % 0 %; Platelet Count 359 K/mm3 (142-424); Red Cell Distribution Width 15.6 % (11.5-17.5); Red Cell Distribution Width-SD 53.3 fL; White Blood Count 7.9 K/mm3 (4.8-10.8)
[2024-10-14 06:54] LABS: INR 1.02 (0.9-1.1); Prothrombin Time 11.3 seconds (10.1-12.5)
[2024-10-14 06:56] LABS: Chol/HDL Ratio 1.8 (1-3.5); Cholesterol 122 mg/dl (140-200); HDL Cholesterol 67 mg/dl (40-60); Magnesium 1.6 mg/dl (1.6-2.3); Phosphorous 3.5 mg/dl (2.5-4.5); Triglycerides 81 mg/dl (30-150); VLDL Cholesterol 16 mg/dL (0-40)
[2024-10-14 07:06] LABS: Direct LDL Cholesterol 50.11 mg/dL (100-129)
[2024-10-14 08:00] VITALS: PULSE 70
[2024-10-14] MEDS: CLOPIDOGREL 75MG TAB 75 MG PO (08:33)
[2024-10-14] MEDS: ASPIRIN 81MG CHEWABLE TABLET 81 MG PO (08:34)
[2024-10-14] MEDS: HYDROCODONE/APAP 5/325 MG TABLET 1 TAB PO ×2 (08:54→13:07)
[2024-10-14] MEDS: SODIUM CHLORIDE 0.9% 10ML SYR (RAD ONLY) 10 ML IV (09:19)
[2024-10-14] MEDS: GADOTERIDOL INJ 10ML SYRINGE 10 ML IV (09:19)
[2024-10-14 10:06] LABS: Hemoglobin A1C 4.8 % (4.0-6.0)
--- NOTE | 2024-10-14 10:41 | HMH.PTEV ---
Physical Therapy Evaluation Rehab PT IP Evaluation Start: 10/13/24 19:40 Freq: ONCE Status: Active Protocol: Document 10/14/24 10:33 ZAKI (Rec: 10/14/24 10:41 ZAKI [id number]) Subjective/History History History Per H&P: 64-year-old female present emergency room today with complaints of questionable right-sided weakness and lethargy. LKW was 0800 this morning. son is at bedside and reports that she woke up this morning around 8 AM and appeared to not be using her right side normally. He reports that she had some right-sided weakness. denies any facial droop, no unilateral weakness, numbness, tingling. No confusion. Subjective Subjective Despite verbal cueing, sternal rub, and encouragement, pt did not wake for PT evaluation. Pt unable to follow commands or answer questions despite max cueing. Confirm social history with CM. New diagnosis of No cancer in past 12 months? [facility] How much help from another person do you currently need... Turning from your Total back to your side while in a flat bed without using bedrails? Moving from lying on Total back to sitting on the side of a flat bed without using bedrails? Moving to and from a Total bed to a chair ( including a wheelchair)? Standing up from a Total chair using your arms? (e.g., wheelchair, bedside chair) Walking in hospital Total room? Climbing 3-5 steps Total with a railing? Mobility Score 6 Mobility Level [facility] Mobility 2 Bed activities/dependent transfer Mobility Calculator Rehab PT IP Eval Objective Appearance Patient Behavior Fatigued,Asleep Difficulty following moderate instructions Speech Pattern Delayed Ambulation Patient Able to No Ambulate Balance Ability to Arise Unable Sitting Balance Leans or slides in chair Rehab PT IP prob,goals,plan Problems Date of Evaluation: 10/14/24 PT IP Problems Bed Mobility,Transfers,Gait,Balance,Self care,Safety Rehab Potential Rehab Potential Fair Plan PT Intervention Plan Bed Mobility,Transfers,Gait,Balance,Self care,Safety, Therapeutic Exercise Other Intervention 1-2 times Plan PT Plan Frequency Daily Duration LOS Discharge Goals Bed Transfer Ability Moderate x 1 (50% assist) Sit to Stand Chair Maximum x 1 (75% assist) Transfer Ability Discharge Plan PT Discharge Plan Initial physical therapy evaluation performed. Patient presents below baseline at this time in functional mobility, transfers, and strength. Pt was DEP assist for supine<>sit EOB and for static sitting balance at this time. When requesting for pt to sit up, pt reports I am however was not able to hold self up when assistance was removed. Pt not safe to return home at this time d/t current level of functional mobility. PT recommending short-term rehabilitation stay upon d/c from [facility]. Pt would benefit from skilled PT while at [facility] to prevent further functional decline and maximize safety with mobility. Eval Complexity Eval Charge Codes 68197 - Moderate Complexity PHYSICIAN CERTIFICATION: I certify the specified therapy services for Ginette Salazar are required, authorized, and reviewed every 30 days.
[2024-10-14 12:00] VITALS: BP 136/80; PULSE 66; RESP 18; TEMP 37.1; O2SAT 94
--- NOTE | 2024-10-14 12:32 | PC.NURSE ---
pt is insistent on sitting on the side of the bed, despite being educated on her safety and fall risk related to right sided weakness. pt also refuses to have her door left open for closer monitoring. pt angry at this time, being resistive to care and cursing at staff members.
--- NOTE | 2024-10-14 12:45 | EXP.DC.SUM ---
General Admission date:: 10/13/24 Discharge date: 10/14/24 HPI HPI HPI: 64-year-old female present emergency room today with complaints of questionable right-sided weakness and lethargy. LKW was 0800 this morning. son is at bedside and reports that she woke up this morning around 8 AM and appeared to not be using her right side normally. He reports that she had some right-sided weakness. denies any facial droop, no unilateral weakness, numbness, tingling. No confusion . Patient told me that she was just admitted last week for a bowel obstruction. Bowel obstruction was resolved without surgical intervention. Did have a mild ADAM as well at time of admission but resolved with IV fluid resuscitation. No history of blood clots or DVTs in her lower extremities. No history of clotting disorders. EKG normal sinus. Mildly hypertensive in the emergency department systolics 150s. CTA head with no proximal artery occlusion. CTA neck Distal right common carotid artery calcified atherosclerosis causing mild, approximate 30-40% stenosis. CT head A focus of left thalamocapsular enhancement, potentially a subacute lacunar infarct. Discussed admission for further evaluation with MRI and additionally further diagnostic testing for secondary prevention. Patient is agreeable. Does not take any medications. History independently obtained. Diagnostic and laboratory evaluations independently interpreted. Prior records reviewed. Discussed case with ER physician. Hospital Course Hospital Course Hospital Course: Ginette Salazar is a 64-year-old female who presented with weakness on her right side. Found to have glucose in our stroke on CT and MRI. Admitted for management overnight and imaging. Therapy evaluated, recommended placement. Patient right refused placement and home health. Will discharge home with son. Initiated on goal-directed therapy. Problems addressed as follows: Acute lacunar stroke Right-sided deficit -Presented with acute onset of right sided deficits. Present for about 12 hours. Outside the window for intervention. CT gave concern for possible lacunar infarct but contrast impacted quality of the image. Admitted for monitoring overnight along with PT and OT evals. MRI obtained in the morning. MRI with acute ischemic lacunar infarct in the superior left thalamus. Deep white matter signal changes greater than expected for age. Echo obtained with preserved EF. Still awaiting formal read on possible PFO. Not appreciated initially on preliminary read however. Initiated on high intensity statin with Lipitor 80 mg daily. Continue aspirin 81 mg daily. Will initiate Plavix 75 mg for dual antiplatelet therapy for 21 days. Continue aspirin daily thereafter. - Encouraged smoking cessation. Recommended speech eval, patient declined and bedside eval by nursing was performed with no difficulty. Tolerating regular food. PAD: severe aortic calcification on LDCT. no observable CAC. Continue risk factor modification with smoking cessation, high intensity statin. Incidental osteopenia: Osteopenia and osteoarthritic changes with canal and foraminal. Stenoses per CT report. Recommend outpatient evaluation and treatment. normocytic anemia: Hemoglobin stable at 11.3. Chronic pain: Resume home medications of gabapentin 300 mg twice daily, hydrocodone 1 tab daily as needed. Continue medication for constipation likely due to pain medication including MiraLAX and senna. Total time spent on discharge 35 minutes in counseling, documentation, chart review, and direct care with patient. Exam Data for Last 24 hours Vital signs and Labs for Last 24 Hours: Temp Pulse Resp BP Pulse Ox O2 Del Method 98.7 F 66 18 136/80 94 L Room Air 10/14/24 12:00 10/14/24 12:00 10/14/24 12:00 10/14/24 12:00 10/14/24 12:00 10/14/24 12:00 Laboratory Results - last 24 hr 10/13/24 14:22: WBC 8.8, RBC 3.60 L, Hgb 11.1 L, Hct 33.4 L, MCV 92.8, MCH 30.8, MCHC 33.2, RDW 15.2, Plt Count 347, MPV 9.2, Neut % (Auto) 61.6, Lymph % (Auto) 26.7, [place] % (Auto) 9.5 H, Eos % (Auto) 1.6, Baso % (Auto) 0.3, Neut # (Auto) 5.4, Lymph # (Auto) 2.3, [place] # (Auto) 0.8, Eos # (Auto) 0.1, Baso # (Auto) 0.0, Sodium 134 L, Potassium 3.8, Chloride 98, Carbon Dioxide 33 H, Anion Gap 6.8, BUN 13, Creatinine 0.70, Estimated Creat Clear 40, Estimated GFR 84, Est GFR ( Amer) 102, Glucose 84, Calcium 8.8, Total Bilirubin 0.3, AST 39 H, ALT 20, Alkaline Phosphatase 93, Total Protein 6.7, Albumin 3.6, Globulin 3.1, Albumin/Globulin Ratio 1.2 10/13/24 16:51: Urine Color Yellow, Urine Appearance Clear, Urine pH 7.0, Ur Specific [place] 1.010, Urine Protein Negative, Urine Glucose (UA) Negative, Urine Ketones Negative, Urine Blood Negative, Urine Nitrate Negative, Urine Bilirubin Negative, Urine Urobilinogen 0.2, Ur Leukocyte Esterase Negative, Urine RBC Occasional, Urine WBC Occasional, Ur Squamous Epith Cells 10-20, Urine Bacteria 1+ 10/13/24 21:43: Sodium 137, Potassium 3.6, Chloride 101, Carbon Dioxide 27, Anion Gap 12.6, BUN 11, Creatinine 0.60, Estimated Creat Clear 40, Estimated GFR 100, Est GFR ( Amer) 121, Glucose 114 H D, Calcium 9.0 10/14/24 06:20: WBC 7.9, RBC 3.60 L, Hgb 11.3 L, Hct 33.6 L, MCV 93.3, MCH 31.4 H, MCHC 33.6, RDW 15.6, Plt Count 359, MPV 9.0, Neut % (Auto) 70.9, Lymph % (Auto) 16.4, [place] % (Auto) 9.0, Eos % (Auto) 2.9, Baso % (Auto) 0.5, Neut # (Auto) 5.6, Lymph # (Auto) 1.3, [place] # (Auto) 0.7, Eos # (Auto) 0.2, Baso # (Auto) 0.0, PT 11.3, INR 1.02, Hemoglobin A1c 4.8, Phosphorus 3.5, Magnesium 1.6, Triglycerides 81, Cholesterol 122 L, LDL Cholesterol Direct 50.11 L, VLDL Cholesterol 16, HDL Cholesterol 67 H, Cholesterol/HDL Ratio 1.8 I & O for Last 24 hours: Intake & Output 10/11/24 10/12/24 10/13/24 10/14/24 23:59 23:59 23:59 23:59 Intake Total 900 / 900 Output Total 0 / 0 Balance 900 / 900 Weight 48.534 kg 51.256 kg Constitutional Constitutional: no acute distress, thin, chronically ill appearing and cooperative *Routine HEENT Exam Head: Present normocephalic and atraumatic Eye: Present EOMI ENT: Present mucous membranes moist *Routine Neck Exam Neck: Absent supple Comments: Head leans to the right secondary to scoliosis *Routine Respiratory Exam Respiratory: Absent respiratory distress, rhonchi, wheezes or crackles *Routine Cardiovascular Exam Cardiovascular: Present RRR; Absent tachycardia *Routine Abdominal Exam Abdominal: Present soft, normoactive bowel sounds, tenderness (Improving, nonfocal) and distended; Absent rebound or guarding Comments: Deferred (patient undergoing ultrasound) *Routine Rectal Exam Patient deferred: visual exam *Routine Exam Patient deferred: external exam *Routine Extremities Exam Extremities: Absent cyanosis, clubbing or edema *Routine Skin Exam Skin: Present intact *Routine Neurological Exam Neurological: Present alert, oriented X3, motor deficit and moving all extremities; Absent altered mental status Comments: Weak in the right arm with pronation and elevation of right arm. Weak in right leg. Strength 4/5 in right upper and lower extremities. Results Data Completed and Pending Labs on day of discharge: Labs from last 24 hours 10/14/24 10/13/24 10/13/24 06:20 21:43 16:51 WBC 7.9 RBC 3.60 L Hgb 11.3 L Hct 33.6 L MCV 93.3 MCH 31.4 H MCHC 33.6 RDW 15.6 Plt Count 359 MPV 9.0 Neut % (Auto) 70.9 Lymph % (Auto) 16.4 [place] % (Auto) 9.0 Eos % (Auto) 2.9 Baso % (Auto) 0.5 Neut # (Auto) 5.6 Lymph # (Auto) 1.3 [place] # (Auto) 0.7 Eos # (Auto) 0.2 Baso # (Auto) 0.0 PT 11.3 INR 1.02 Sodium 137 Potassium 3.6 Chloride 101 Carbon Dioxide 27 Anion Gap 12.6 BUN 11 Creatinine 0.60 Estimated Creat Clear 40 Estimated GFR 100 Est GFR ( Amer) 121 Glucose 114 H D Hemoglobin A1c 4.8 Calcium 9.0 Phosphorus 3.5 Magnesium 1.6 Total Bilirubin AST ALT Alkaline Phosphatase Total Protein Albumin Globulin Albumin/Globulin Ratio Triglycerides 81 Cholesterol 122 L LDL Cholesterol Direct 50.11 L VLDL Cholesterol 16 HDL Cholesterol 67 H Cholesterol/HDL Ratio 1.8 Urine Color Yellow Urine Appearance Clear Urine pH 7.0 Ur Specific [place] 1.010 Urine Protein Negative Urine Glucose (UA) Negative Urine Ketones Negative Urine Blood Negative Urine Nitrate Negative Urine Bilirubin Negative Urine Urobilinogen 0.2 Ur Leukocyte Esterase Negative Urine RBC Occasional Urine WBC Occasional Ur Squamous Epith Cells 10-20 Urine Bacteria 1+ 10/13/24 14:22 WBC 8.8 RBC 3.60 L Hgb 11.1 L Hct 33.4 L MCV 92.8 MCH 30.8 MCHC 33.2 RDW 15.2 Plt Count 347 MPV 9.2 Neut % (Auto) 61.6 Lymph % (Auto) 26.7 [place] % (Auto) 9.5 H Eos % (Auto) 1.6 Baso % (Auto) 0.3 Neut # (Auto) 5.4 Lymph # (Auto) 2.3 [place] # (Auto) 0.8 Eos # (Auto) 0.1 Baso # (Auto) 0.0 PT INR Sodium 134 L Potassium 3.8 Chloride 98 Carbon Dioxide 33 H Anion Gap 6.8 BUN 13 Creatinine 0.70 Estimated Creat Clear 40 Estimated GFR 84 Est GFR ( Amer) 102 Glucose 84 Hemoglobin A1c Calcium 8.8 Phosphorus Magnesium Total Bilirubin 0.3 AST 39 H ALT 20 Alkaline Phosphatase 93 Total Protein 6.7 Albumin 3.6 Globulin 3.1 Albumin/Globulin Ratio 1.2 Triglycerides Cholesterol LDL Cholesterol Direct VLDL Cholesterol HDL Cholesterol Cholesterol/HDL Ratio Urine Color Urine Appearance Urine pH Ur Specific [place] Urine Protein Urine Glucose (UA) Urine Ketones Urine Blood Urine Nitrate Urine Bilirubin Urine Urobilinogen Ur Leukocyte Esterase Urine RBC Urine WBC Ur Squamous Epith Cells Urine Bacteria DS: Diagnosis Discharge Diagnosis (1) Acute lacunar stroke: Status: Acute Code(s): I63.81 - Other cerebral infarction due to occlusion or stenosis of small artery (2) Vazquez cyst: Status: Acute Code(s): M71.20 - Synovial cyst of popliteal space [Vazquez], unspecified knee Qualifiers: Laterality: right Qualified Code(s): M71.21 - Synovial cyst of popliteal space [Vazquez], right knee (3) GERD (gastroesophageal reflux disease): Status: Acute Code(s): K21.9 - Gastro-esophageal reflux disease without esophagitis (4) Hypertension: Status: Acute Code(s): I10 - Essential (primary) hypertension Meds Home Medications and Allergies Home Medications ?Medication ?Instructions ?Recorded ?Confirmed ?Type polyethylene glycol 3350 17 gram 17 g PO DAILY 30 days #30 ea 05/22/25 05/30/25 Rx oral powder packet (HealthyLax) gabapentin 300 mg capsule 300 mg PO BID #60 caps 10/07/24 10/14/24 Rx sennosides 8.6 mg tablet (Senna 8.6 mg PO HS #30 tabs 10/07/24 10/14/24 Rx Lax) aspirin 81 mg chewable tablet 81 mg PO DAILY 30 days #30 tabs 10/14/24 Rx atorvastatin 40 mg tablet 80 mg (2 x 40 mg) PO HS 30 days 10/14/24 Rx #60 tabs clopidogrel 75 mg tablet 75 mg PO DAILY 21 days #21 tabs 10/14/24 Rx hydrocodone 7.5 mg-acetaminophen 1 tab PO DAILYP PRN Moderate Pain 10/14/24 10/14/24 History 325 mg tablet (Scale Score 5-6) New Prescriptions to Start Prescriptions: aspirin Last,Valentín atorvastatin Last,Valentín clopidogrel Last,Valentín Allergies Allergy/AdvReac Type Severity Reaction Status Date / Time chocolate flavor Allergy Intermediate rash Verified 10/07/24 13:49 Penicillins Allergy Intermediate Rash Verified 10/07/24 13:49 Influenza Virus Vaccines Allergy Blister Verified 10/07/24 13:49 morphine Allergy Unknown Verified 10/07/24 13:49 allergy reaction Discharge Plan Disposition Patient Disposition: Home Health Service Condition: Fair Discharge Order Discharge Orders: Discharge Order (Routine); Ordered 10/14/24 Ordered By: Valentín Ni Follow up Plan Prescriptions/Medication Reconciliation: New atorvastatin 40 mg Tablet 80 mg PO HS 30 Days Qty: 60 0RF clopidogrel 75 mg Tablet 75 mg PO DAILY 21 Days Qty: 21 0RF aspirin 81 mg Tablet,Chewable 81 mg PO DAILY 30 Days Qty: 30 0RF Continued sennosides [Senna Lax] 8.6 mg tablet 8.6 mg PO HS Qty: 30 10RF gabapentin 300 mg capsule 300 mg PO BID Qty: 60 3RF hydrocodone-acetaminophen 7.5-325 mg tablet 1 tab PO DAILYP PRN (Reason: Moderate Pain (Scale Score 5-6)) polyethylene glycol 3350 [HealthyLax] 17 gram Powder In Packet 17 g PO DAILY 30 Days Qty: 30 0RF Problem Reconciliation Problems Reviewed?: Yes Patient Discharge Instructions ACTIVITY: Continue current activity DIET: continue same diet Patient Instructions: Strokes: Prevention (Alternative Therapy), DI for Stroke-Ischemic Print Language: German Providers Primary Care Provider: Zia Joseph Admit Provider: Valentín Ni Attending Provider: Valentín Ni
--- NOTE | 2024-10-14 12:48 | SW/DCPLANNER ---
Addendum entered by Nereyda Jolly RN 10/17/24 07:38: [facility] has accepted the patient for services. Addendum entered by Nereyda Jolyl RN 10/14/24 15:56: Patient's home address in actually in [facility]. Referral packet faxed to [facility] as well. Awaiting reply. Addendum entered by Radha Salcedo 10/14/24 15:31: Una michelle/ [facility] accepted patient for services. Addendum entered by Nereyda Jolly RN 10/14/24 15:05: I spoke with patient and her son regarding discharge planning. Both are agreeable to Home Health services and a quad cane. Patient Choice signed for no preference for and [facility]. La plans to deliver cane to bedside prior to discharge home today. Referral faxed to [facility] . Original Note: I spoke w/ patient and her son regarding plans once medically stable for discharge. PT evaluated patient and recommended SNF level of care. I attempted to speak w/ patient regarding placement and she stated don't you ever mention rehab placement to me again . Patient also stated that she is not interested in home health or outpatient therapy at this time. I informed patient that CM will be completing a follow up phone call after discharge and ask if she is interested in services. Per MD patient will discharge home today.
--- NOTE | 2024-10-14 13:46 | PC.NURSE ---
pt discharge order was placed. when entering the pt room to do discharge education, pt and son in an argument. son verbalized that he would not be able to care for her at home and that she was not ready to be discharged. . zheng the family welfare social work professor talked extensively with son and pt about plans for discharge earlier today and pt refused any home health or rehab. pt now saying that she is agreeable to [facility] home or home health. spoke to fuad in care management to update about pt thoughts about discharge. requested for zheng to come see pt again in regards to dc plan. pt and son updated.
--- NOTE | 2024-10-14 14:15 | PC.NURSE ---
found pt lying in her bed frantically patting the sheets and reaching at the bedside table. asked the pt what she was looking for and she stated, there is a little medicine bottle that is clear in here that my son brought. i need my pain medicine . educated pt that she cannot have any outside medications unless they have been ordered by the provider and approved by pharmacy. pt has been treated per mar with pain medication this shift. this rn spoke with the son about not being able to bring in any outside medication. son denies bringing any medication into the hospital. no medication bottle was found in the pt bed, on the side table, or in the room.
--- NOTE | 2024-10-14 15:47 | HMH.OTEV ---
OT Inpatient Evaluation Rehab OT IP Evaluation Start: 10/14/24 07:05 Freq: ONCE Status: Discharge Protocol: Document 10/14/24 15:36 KHADRA (Rec: 10/14/24 15:47 KHADRA [id number]) Rehab OT IP Assessment Subjective History 64-year-old female present emergency room today with complaints of questionable right-sided weakness and lethargy. LKW was 0800 this morning. son is at bedside and reports that she woke up this morning around 8 AM and appeared to not be using her right side normally. He reports that she had some right-sided weakness. denies any facial droop, no unilateral weakness, numbness, tingling. No confusion . Subjective Pt unable to actively engage due to lethargic state; difficult to arouse. Pt poor historian at this time, not answering any questions. Just leave me alone. i am sitting up. Objective Right Upper Not Tested Extremity Gross ROM Left Upper Extremity Not Tested Gross ROM Bed Mobility bed mobility - supine/sit Assist Level Total/Dependent (100%) Bathing Ability Unable/dependent Decrease in Yes Endurance Rehab OT IP prob,goals,plan Problems Date of Evaluation: 10/14/24 OT IP Problems Bed Mobility,Transfers,Gait,Balance,Self care,Safety, Other Rehab Potential Rehab Potential Good Plan OT intervention Plan Bed Mobility,Transfers,Gait,Balance,Self care,Safety, Therapeutic Exercise,Other OT Plan Frequency Daily Duration LOS Discharge Goals Bed Mobility Ability Assistance x1,Total Dependance Sit to Stand Chair Maximum x 1 (75% assist) Transfer Ability Chair Transfer Maximum x 1 (75% assist) Ability Chair Transfer Rolling Walker Assistive Devices Feeding Ability Assist with Tray Set Up Lower Body Dressing Moderate Assistance Ability Upper Body Dressing Moderate Assistance Ability Performing Toilet Moderate Assistance Hygiene Ability Overall Commode/ Moderate Assistance Toilet Transfer Ability Discharge Plan OT Discharge Plan Initial OT eval performed; pt is most appropriate for rehab placement due to current functional impairment with ADL. She would greatly benefit from skilled OT services in order to address the aforementioned areas of deficit. Eval Complexity Eval Charge Codes 03069 - Moderate Complexity PHYSICIAN CERTIFICATION: I certify the specified therapy services for Ginette Salazar are required, authorized, and reviewed every 30 days.
[2024-10-14 16:57] LABS: POC Glucose,Bedside 148 (70-110)
--- NOTE | 2024-10-14 20:49 | US_ITS ---
FINAL REPORT CLINICAL HISTORY: > 64 with risk factors, Smoker, PAD-CTA 10/13/24 FINDINGS: COMPLETE ANKLE/BRACHIAL INDICES BILATERAL Ankle-brachial indices was obtained bilaterally. The right CARLITOS is 1.1. The left CARLITOS is 1.0. IMPRESSION: ABIs are within normal limits. Reviewed, Interpreted and Dictated by Colt Gonzalez MD Transcribed by Xiao Núñez Authenticated and . [facility]
--- NOTE | 2024-10-17 14:59 | CARE MANAGER ---
Spoke with son as patient is staying with her sister. He states she is ok, but continues to have issues with mobility. Home health has called, but he hasn't called them back but he states he will. He denies any other questions at this time.
== END 2024-10-14 15:35 | disposition home or self-care (01) | DRG 65 ==
LOC: ER 19:40 → 2ND 19:58
PROVIDERS: Nurse Practitioner Acute Care; Student in an Organized Health Care Education/Training Program; Admitting Provider Internal Medicine Adolescent Medicine; Emergency Provider Student in an Organized Health Care Education/Training Program; PCP Family Medicine; Visit Provider Internal Medicine Adolescent Medicine
DX: I63.81 Other cerebral infarction due to occlusion or stenosis of small artery (principal); G81.91 Hemiplegia, unspecified affecting right dominant side; M71.21 Synovial cyst of popliteal space [Baker], right knee; K21.9 Gastro-esophageal reflux disease without esophagitis; I10 Essential (primary) hypertension; M85.80 Other specified disorders of bone density and structure, unspecified site; M79.7 Fibromyalgia; F17.210 Nicotine dependence, cigarettes, uncomplicated; M48.061 Spinal stenosis, lumbar region without neurogenic claudication; M51.16 Intervertebral disc disorders with radiculopathy, lumbar region; Z79.899 Other long term (current) drug therapy
CPT/HCPCS: 36415; 70450; 70496; 70498; 70553; 72131; 73706; 80048; 80053; 80061; 81001; 82962; 83036; 83735; 84100; 85025; 85610; 93005; 93306; 93923; 93971; 97162; 97166; 99285; A9576; J1885; J2060; J7030; Q9967

== ENCOUNTER 2024-10-30 15:56 | Emergency (ER) | payer MEDICARE, MEDICAID, SELFPAY ==
--- OUTSIDE RECORDS SUMMARY | 2024-10-22 20:00 | XMS_ITS | Clinical Summary ---
Author Organization Unknown Care Team Providers Care Boring Machine Set Up Operator Jig Name Role Phone SOFIYA RICHMOND, NICHO Unavailable Unavailable ARIANNE PT, ADILSON Unavailable Unavailable NICHOLAS INSTRUMENT MAN, AMANDA Unavailable Unavailable CLOS OT, RJ Unavailable Unavailable EGLIAN LAURA/PIERCE, NGUYEN Unavailable Unavaila ble Payers Payer Name Policy Type Policy Number Effective Date Expira tion Date CARELON.RITIKA.NARENDRAAUTH [id number] KEVEN.NARENDRAAUTH [id number] Problems Condition Name Condition Details Condition Category Status Onset Date Resolution Date Last Treatment Date Treating Clinician Comments 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 Active 10-13 00:00: 00 Allergies, Adverse Reactions, Alerts Allergy Name Allergy Type Status Severity Reaction(s) Onset Date Inactive Date Treating Clinician Comments PENICILLINS Propensity to adverse reactions Active 10-18 21:09: 38 Vital Signs Vital Name Observation Time Observation Value Commen ts Temperature 2024-10-18 11:18:00.000 97.4 [degF] BMI (%) 2024-10-18 11:18:00.000 17 kg/m2 Height 2024-10-18 11:18:00.000 63 [in_us] Pulse 2024-10-18 11:18:00.000 76 /min Respirations 2024-10-18 11:18:00.000 17 /min Weight (lbs) 2024-10-18 11:18:00.000 97 [lb_av] Systolic Blood Pressure 2024-10-18 11:18:00.000 138 mm [Hg] Diastolic Blood Pressure 2024-10-18 11:18:00.000 86 mm [Hg] Plan of Treatment Planned Activity Planned Date Details Comments Future Scheduled Test AGENCY MAY PERFORM A RESUMPTION OF CARE VISIT FOLLOWING ANY HOSPITAL ADMISSION. OT TO EVALUATE, OBSERVE / ASSESS, AND MONITOR, LAURA TO OBSERVE AND MONITOR, PROVIDE SKILLED THERAPEUTIC INTERVENTION, ACTIVITY, EDUCATION, AND TRAINING TO ADDRESS; [code = AGENCY MAY PERFORM A RESUMPTION OF CARE VISIT FOLLOWING ANY HOSPITAL ADMISSION. OT TO EVALUATE, OBSERVE / ASSESS, AND MONITOR, [employer] RE[employer]UE OFFICER TO OBSERVE AND MONITOR, PROVIDE SKILLED THERAPEUTIC INTERVENTION, ACTIVITY, EDUCATION, AND TRAINING TO ADDRESS;] Future Scheduled Test ACTIVITIES OF DAILY LIVING (OT/LAURA) [code = ACTIVITIES OF DAILY LIVING (OT/[employer] REVENUE OFFICER)] Future Scheduled Test MEAL PREPA RATION AND CLEANUP (OT/U[employer] REVENUE OFFICER) [code = MEAL PREPARATION AND CLEANUP (OT/LAURA)] Future Scheduled Test TOILET TRA NSFER (OT/LAURA) [code = TOILET TRANSFER (OT/U[employer] REVENUE OFFICER)] Future Scheduled Test BATH/SHOWE R TRANSFER (OT/LAURA) [code = BATH/SHOWER TRANSFER (OT/[employer] REVENUE OFFICER)] Future Scheduled Test ADAPTIVE E QUIPMENT/DURABLE MEDICAL EQUIPMENT MANAGEMENT(OT/U[employer] REVENUE OFFICER) [code = ADAPTIVE EQUIPMENT/DURABLE MEDICAL EQUIPMENT MANAGEMENT(OT/U[employer] REVENUE OFFICER)] Future Scheduled Test POSTURAL C ONTROL/BALANCE (OT/LAURA) [code = POSTURAL CONTROL/BALANCE (OT/LAURA)] Future Scheduled Test THERAPEUTI C EXERCISE (OT/LAURA) [code = THERAPEUTIC EXERCISE (OT/LAURA)] Future Scheduled Test OT / LAURA T O IDENTIFY FALL RISK FACTORS; EDUCATE THE PATIENT/CAREGIVER ON WAYS TO REDUCE FALL RISK FACTORS AND ESTABLISH HOME EXERCISE PROGRAM TO MINIMIZE FALL RISK. MAY TEACH THE PATIENT FLOOR RECOVERY WHEN CLINICALLY APPROPRIATE. [code = OT / [employer] REVENUE OFFICER TO IDENTIFY FALL RISK FACTORS; EDUCATE THE PATIENT/CAREGIVER ON WAYS TO REDUCE FALL RISK FACTORS AND ESTABLISH HOME EXERCISE PROGRAM TO MINIMIZE FALL RISK. MAY TEACH THE PATIENT FLOOR RECOVERY WHEN CLINICALLY APPROPRIATE.] Future Scheduled Test OT / LAURA T O EDUCATE ON CVA SELF-MANAGEMENT [code = OT / LAURA TO EDUCATE ON CVA SELF-MANAGEMENT] Future Scheduled Test OT/[employer] REVENUE OFFICER TO MONITOR FOR SIGNS AND SYMPTOMS OF UTI AND EDUCATE PATIENT/CAREGIVER TO MINIMIZE RISK OF DEVELOPING A UTI. [code = OT/LAURA TO MONITOR FOR SIGNS AND SYMPTOMS OF UTI AND EDUCATE PATIENT/CAREGIVER TO MINIMIZE RISK OF DEVELOPING A UTI.] Future Scheduled Test OT/U[employer] REVENUE OFFICER TO INSTRUCT PATIENT/CAREGIVER ON RISK FOR HOSPITALIZATION/EMERGENCY ROOM VISITS, TEACH SIGNS AND SYMPTOMS THAT PUT PATIENT AT RISK, WHEN TO NOTIFY NURSE/PHYSICIAN OF COMPLICATIONS/DECLINE, AND WHEN TO CALL 911. [code = OT/LAURA TO INSTRUCT PATIENT/CAREGIVER ON RISK FOR HOSPITALIZATION/EMERGENCY ROOM VISITS, TEACH SIGNS AND SYMPTOMS THAT PUT PATIENT AT RISK, WHEN TO NOTIFY NURSE/PHYSICIAN OF COMPLICATIONS/DECLINE, AND WHEN TO CALL 911.] Goal 2024-10-23 Patient Goal - T O TAKE CARE OF SELF AND GET BACK TO NORMAL Goal Provider Goal - OPTIMIZE SAFETY AND IND WITH ADLS AND SELF CARE MGMT TASK DUE TO DECLINE THROUGH DME AND AE NEEDS AND TRAINING, FUNCTIONAL BALANCE TRAINING, NEURO RE EDU, UB STRENGTHENING AND HEP, CVA EDU, AND FALL RISK REDUCTION EDU Goal Provider Goal - OT LTG: PATIENT WILL DEMONSTRATE IMPROVEMENT IN MODIFIED NOAM INDEX SCORE FROM 51 TO 72 INDICATING DECREASED DEPENDENCY ON CAREGIVER ASSISTANCE WITH ACTIVITIES OF DAILY LIVING WITHIN 9 WKS Goal Provider Goal - OT STG: PATIENT WILL DEMONSTRATE SAFE ITEM RETRIEVAL FROM CABINETS , DRAWERS AND REFRIGERATOR IN KITCHEN FROM UNABLE TO MIN A AND MIN VCS WITHIN 5 WEEKS. OT LTG: PATIENT WILL DEMONSTRATE THE ABILITY TO COMPLETE MEAL PREPARATION AND CLEANUP TO REDUCE CAREGIVER BURDEN FROM UNABLE TO SUP AND OCCASIONAL SAFETY REMINDERS WITHIN 9 WEEKS. Goal Provider Goal - OT STG: PATIENT WILL DEMONSTRATE IMPROVED SAFETY WITH TOILET TXR FROM MOD A TO SBA WITHIN 5 WEEKS. OT LTG: PATIENT WILL DEMONSTRATE IMPROVED ABILITY TO PERFORM TOILET TRANSFERS TO REDUCE FALL RISK AND RISK OF INCONTINENCE AND UTI DEVELOPMENT FROM MOD A TO MODIFED IND WITHIN 8 WKS Goal Provider Goal - OT LTG: PATIENT WILL DEMONSTRATE IMPROVED ABILITY AND SAFETY TO PERFORM BATH/SHOWER TRANSFER FROM UNABLE TO CGA WITHIN 6 WKS. Goal Provider Goal - OT LTG: PATIENT WILL DEMONSTRATE IMPROVED ABILITY TO MANAGE DME, AD, AND AE DURING SELF-CARE FROM MAX A TO SUP AND OCCASIONAL REMINDERS WITHIN 9 WKS IN ORDER TO IMPROVE SAFETY AND IND. Goal Provider Goal - OT LTG: PATIENT WILL DEMONSTRATE IMPROVED POSTURAL CONTROL AND DECREASED FALL RISK EVIDENCED BY AN IMPROVEMENT IN FUNCTIONAL REACH SCORE FROM UNABLE TO 8 INCHES WITHIN 8 WKS Goal Provider Goal - OT LTG: PATIENT WILL DEMONSTRATE IMPROVED RUE MUSCLE STRENGTH EVIDENCED BY AN IMPROVEMENT IN MMT/FUNCTIONAL STRENGTH FROM 3+/5 TO 4/5 WITHIN 9 WKS Goal Provider Goal - OT LTG: PATIENT/CAREGIVER WILL BE ABLE TO IMPLEMENT RECOMMENDATIONS SPECIFIC TO FALL REDUCTION FOR IMPROVED ADL/IADL COMPLETION AND HOME SAFETY BY END OF EPISODE. OT LTG: PATIENT WILL BE INDEPENDENT WITH IMPLEMENTATION OF HEP WITHIN 9 WKS Goal Provider Goal - OT GOAL: PATIENT/CAREGIVER WILL BE VERBALIZE UNDERSTANDING OF A CVA, SIGNS/SYMPTOMS TO REPORT, WELL SELF-MANAGEMENT AND LIFE-STYLE CHANGES BY END OF EPISODE. Goal Provider Goal - OT GOAL: PATIENT WILL NOT EXHIBIT SIGNS AND SYMPTOMS OF UTI THROUGHOUT THE EPISODE OF CARE. Goal Provider Goal - PATIENT/CAREGIVER WILL VERBALIZE UNDERSTANDING OF SIGNS AND SYMPTOMS THAT PUT THE PATIENT AT RISK FOR HOSPITALIZATION /EMERGENCY ROOM VISITS, WHEN TO NOTIFY NURSE/PHYSICIAN OF COMPLICATIONS/DECLINE AND WHEN TO CALL 911. Reason for Visit ACQUSITION - TRANSFER TO [facility] Encounters Start Date/Time End Date/Time Encounter Type Admission Type Attending [facility] Care Department Encounter ID Discharge Date Discharge Status Discharge Condition Discharge Reason Percent Goals Met 2024-10-18 00:00:00 2024-10-23 00:00:00 Outpatient NEW ADMISSION ADILSON ACU[facility] [id number] 2024-10-23 00:00:00 DISCHARGE TO HOME OR SELF CARE ACQUSITION - TRANSFER TO [facility] HH ONLY - OTHER (PROVIDE DETAILS IN COORD NOTE)
--- OUTSIDE RECORDS SUMMARY | 2024-10-30 16:09 | XMS_ITS | Clinical Summary ---
Author Organization [facility] Address [address] [place] [address] Phone Care Team Providers Care Facsimile Operator Name Role Phone Unavailable Unavailable Conditions or Problems No information available. Medications No information available. Medications Administered No information available. Allergies, Adverse Reactions, Alerts No information available. Results No information available. Plan of Care No information available. Procedures No information available. Vital Signs No information available. Immunizations No information available. Advance Directives No information available.
--- OUTSIDE RECORDS SUMMARY | 2024-10-30 16:09 | XMS_ITS | Clinical Summary ---
Author Organization [facility] Address [address] [place] [address] Phone Care Team Providers Care Lunchroom Attendant Name Role Phone Maximo Leos MD Unavailable Andre Tanner MD Unavailable Allergies Active Allergy Reactions Criticality Noted Date Comments Chocolate Flavor Codeine Duloxetine 03/31/2014 Penicillins Promethazine Medications * This document contains information received from the source organization and may not represent a complete record from that organization. cariprazine (VRAYLAR) 1.5 mg Oral CapsuleIndicatio ns:Bipolar disorder, in full remission, most recent episode manic Take 1 Cap by mouth daily. 21 Cap 12/11/2020 Active ibuprofen (ADVIL;MOTRIN) 800 mg Oral Tablet TAKE 1 TAB BY MOUTH EVERY 8 HOURS NEEDED FOR PAIN. 90 Tablet 2 03/06/2021 Active omeprazole (PRILOSEC) 40 mg Oral Capsule, Delayed Release(E.C.)Ind ications:Gastroe sophageal reflux disease with esophagitis without hemorrhage Take 1 Capsule by mouth daily. 30 Capsule 2 03/29/2021 Active gabapentin (NEURONTIN) 300 mg Oral CapsuleIndicatio ns:Chronic bilateral low back pain with bilateral sciatica Take 1 Capsule by mouth 3 times daily. 90 Capsule 2 03/29/2021 Active nabumetone (RELAFEN) 750 mg Oral Tablet Take 1 Tablet by mouth daily. 30 Tablet 2 03/29/2021 Active Active Problems Patient Care Coordination No te Formatting of this note migh t be different from the original. SWITCHED PCP NO LONGER AT [facility] 04/15/2021 Problem Noted Date Diagnosed Date Narcotic dependence 12/11/2020 Assessment & Plan (03/29/2021 11:41 AM EST): Requested pain medication today. Informed her that I am happy to try gabapentin, but would not recommend she take narcotics in the future. Inflammation of left sacroiliac joint 03/30/2018 Assessment & Plan (03/29/2021 11:41 AM EST): Chronic, inflamed. Underlying known arthritis of back/ddd. Will recheck MRI as she is interested in seeing a surgeon if back pain continues. Assessment & Plan (08/06/2020 2:13 PM EDT): Walks bent forward due to pain, radiates from left hip down leg. On chronic pain medication, check UDS today. Bipolar disorder 08/15/2010 Assessment & Plan (03/29/2021 11:41 AM EST): Frequent Manic spells. Will not see psychiatry. Assessment & Plan (12/11/2020 9:07 AM EDT): Underlying bipolar disorder with more issues related to the manic phase. She was given samples today of Vraylar 1.5 mg. She is very concerned about tar dive dyskinesia as she had an adverse effect to Phenergan in the past. She does not want to take anything that might cause this problem again. Explained to them that any medication for psychiatric issues could potentially cause this problem but will try to pick safer medications as much as possible. She was given 3 weeks worth of samples to try the Vraylar and see if it is effective for her. If it is we will try to get this prior authorized through her insurance plan. Assessment & Plan (08/06/2020 2:13 PM EDT): Hypomania. Appears to be losing weight. Stressors include husbands decline and son who lives with them. No change in medication, would benefit from psychiatry but unwilling to go. Assessment & Plan (07/26/2019 2:20 PM EDT): Manic behaviors today. Declines referral to psychiatry. Refuses further medication. Assessment & Plan (12/21/2018 1:42 PM EDT): Stable on current treatment. Does not want new medications. Assessment & Plan (07/06/2018 1:27 PM EST): Stable. Anxiety disorder CTS (carpal tunnel syndrome) Back pain Assessment & Plan (03/22/2019 2:01 PM EST): Continue current treatment plan. Up to date on HB 1 requirements. Immunizations Immunization Administration Dates Next Due Tdap 04/10/2015 Medical History Medical History Date Comments Arthritis of left sacroiliac joint 03/30/2018 Anxiety disorder Social History Tobacco Use Types Packs/Day Years Used Date Smoking Tobacco: Every Day Cigarettes Smokeless Tobacco: Never Tobacco Cessation:Ready to Q uit: No; Counseling Given: Yes Alcohol Use Standard Drinks/Week Comments Yes 0 (1 standard drink = 0.6 oz pur e alcohol) daily PHQ-2 Answer Date Recorded PHQ-2 Total Score 0 08/06/2020 Sexually Active Control Partners Comments Not Currently Comments No Sex and Gender Information Value Date Recorded Sex Assigned at Not on file Legal Sex Female 4:16 PM EDT Gender Identity Not on file Sexual Orientation Not on file Obstetrics History Last Filed Vital Signs Vital Sign Reading Time Taken Comments Blood Pressure 124/80 03/29/2021 11:09 AM EST Pulse 78 03/29/2021 11:09 AM EST Temperature 36.4 C (97.6 F) 03/29/2021 11:09 AM EST Respiratory Rate 18 03/29/2021 11:09 AM EST Oxygen Saturation 97% 03/29/2021 11:09 AM EST Inhaled Oxygen Concentration - - Weight 46.3 kg (102 lb) 03/29/2021 11:09 AM EST Height 160 cm (5' 3 ) 03/29/2021 11:09 AM EST Body Mass Index 18.07 03/29/2021 11:09 AM EST Plan of Treatment Health Maintenance Due Date Last Done Comments Wellness Exam Medicare 07/17/1962 Hepatitis C Screening 07/17/1977 HPV/Pap Cotest 07/17/1989 Colonoscopy 07/17/2004 FIT 07/17/2004 Sigmoidoscopy 07/17/2004 Virtual Colonography 07/17/2004 Pneumococcal Vaccine 50+ (1 of 1 - PCV) 07/17/2009 Zoster (1 of 2) 07/17/2009 Cervical Cancer Screening 11/10/2014 Pap Smear 11/10/2014 11/11/2011 (Not Entered) Breast Cancer Screening 06/11/2018 06/11/19 17 (Declined), 01/28/2013 Cologuard 12/09/2021 12/09/2018 Colon Cancer Screening 12/09/2021 COVID-19 Vaccine (3 - 2023-2 5 season) 2024 09/17/2020, 07/17/2020 Bone Density Screening 07/17/2024 Influenza Vaccine (Season Ended) 2025 02/19/2016 (Declined), 04/10/2015 (Declined) DTaP/TDaP/Td (2 - Td or Tdap) 04/10/2025, 07/23/1996 Hepatitis B Vaccine Aged Out No longe r eligible based on patient's age to complete this topic Meningococcal B Vaccine Aged Out No l onger eligible based on patient's age to complete this topic Goals Goal Patient Goal Type Associated Problems Recent Progress Patient-Stated? Author Eat better, exercise, reach an ideal body weight General No Monserrat Chaves CCMA Stay Tobacco Free Lifestyle No Monserrat Chaves CCMA Procedures Procedure Name Priority Date/Time Associated Diagnosis Comments COLOGUARD Routine 12/09/2018 1:55 PM EDT Screening for colon cancer MM MOBILE MAMMO DIGITAL SCREEN W CAD KRISTIN Routine 01/28/2013 2:40 PM EDT Other screening mammogram from Last 3 Months or Most Recently Relevant to Health Maintenance Results * COLOGUARD (12/09/2018 1:55 PM EDT) COLOGUARD CLINICAL REPORT Negative Not Applicable [employer] [facility] Comment: A negative result indicates a low likelihood that a colorectal cancer (CRC) or an advanced adenoma (adenomatous polyps with more advanced pre-malignant features) is present. The chance that a person with a negative Cologuard test has a colorectal cancer is less than 1 in 1500 (negative predictive value >99.9%) or has an advanced adenoma is less than 5.3% (negative predictive value 94.7%). These data are based on a prospective cross-sectional screening study of 10,000 individuals at average risk for colorectal cancer who were screened with both Cologuard and colonoscopy. (Rashid Maldonado al, N Engl J Med 2014;370(14):6304-6484) COLOGUARD RE-SCREENING RECOMMENDATION: Periodic routine colorectal cancer screening is an important part of preventive healthcare for asymptomatic persons at average risk for colorectal cancer. Following a negative Cologuard result, the [place] [employer] Society and U.S. Multi-Society Task Force screening guidelines recommend a Cologuard re-screening interval of 3 years. References: [place] Society (ACS). Colorectal cancer prevention and early detection. [place], [place]: [place]; [updated 2015Sep 08]. https://www.cancer.org/cancer/nhfbc-xvbaou-nljley/hpqizznuu-oeptqglon-jqufcob/ac s-rec ommendations.html. Accessed January 15, 2018; Alexx DK, Dalila OSUNA, Wilber VaughnK, Colorectal Cancer Screening: Recommendations for Physicians and Patients from the U.S. Multi-Society Task Force on Colorectal Cancer Screening, Am J Gastroenterology 2017; 112:7414-5738. Test Type: Composite algorithmic analysis of stool DNA-biomarkers with hemoglobin immunoassay. Quantitative values of individual biomarkers are not reportable and are not associated with individual biomarker result reference ranges. Precautions and Limitations: Cologuard is intended for colorectal cancer screening of adults of either sex, 50 years or older, who are at typical average-risk for colorectal cancer. A negative Cologuard test result does not guarantee the absence of colorectal cancer or advanced adenoma (pre-cancer). Patients with a negative Cologuard test result should be advised to continue participating in a colorectal cancer screening program. Cologuard may produce a positive result, even though a colonoscopy may not find colorectal cancer or precancerous polyps. The performance of Cologuard has been established in a cross sectional study (i.e., single point in time). Performance has not been evaluated in adults who have been previously tested with Cologuard or in patients less than 50 years of age. Cologuard has been approved for use by the U.S. FDA. Cologuard performance data in a 10,000 patient pivotal study using colonoscopy as the reference method can be accessed at the following location: www.[employer]/results. Additional description of the Cologuard test process, warnings and precautions can be found at www.cologuardtest.com. Rx Only. Stool specimen (specimen) 12/09/2018 1:55 PM EDT 12/10/2018 11:30 PM EDT us Alberto Carter MD [employer] [facility] - ORDERABLES Fin al Result [facility] [address] [place] [address], [facility] [place] [address] * MM MOBILE MAMMO DIGITAL SCREEN W CAD KRISTIN (01/28/2013 2:40 PM EDT) Anatomical Region Laterality Modality Breast Mammography 01/31/2013 8:48 AM EDT Impressions 01/31/2013 4:26 PM EDT : Negative ([id number]) ~ RECOMMENDATION: Routine screening mammogram in 1 year. ~ * The patient with a palpable abnormality, unexplained by breast imaging, should be managed on clinical basis by the attending physician. * Breast imaging has a false negative rate of 15%. * The patient was notified by mail of the results of this examination. *The patient's information was entered into a reminder system with a target due date for the next mammogram. The mammogram was reviewed by a Radiologist and CAD. Narrative 01/31/2013 4:26 PM EDT Procedure:MM MOBILE MAMMO DIGITAL SCREEN W CAD KRISTIN ~ Reason for exam: screening (asymptomatic). ~ MM MOBILE MAMMO DIGITAL SCREEN W CAD KRISTIN Bilateral CC and MLO view(s) were taken. There are scattered fibroglandular densities. ~ Procedure Note Kiana Stratton MD - 01/31/2013 Procedure:MM MOBILE MAMMO DIGITAL SCREEN W CAD KRISTIN ~ Reason for exam: screening (asymptomatic). ~ MM MOBILE MAMMO DIGITAL SCREEN W CAD KRISTIN Bilateral CC and MLO view(s) were taken. There are scattered fibroglandular densities. ~ IMPRESSION: Negative ([id number]) ~ RECOMMENDATION: Routine screening mammogram in 1 year. ~ * The patient with a palpable abnormality, unexplained by breast imaging, should be managed on clinical basis by the attending physician. * Breast imaging has a false negative rate of 15%. * The patient was notified by mail of the results of this examination. *The patient's information was entered into a reminder system with atarget due date for the next mammogram. The mammogram was reviewed by a Radiologist and CAD. Alberto Carter MD IMG MAMMOGRAPHY ORDERABLES Fin al Result from Last 3 Months or Most Recently Relevant to Health Maintenance Insurance [place] [address] MED[place] [address] [place] [address] Care Teams Lunchroom Attendant Relationship Specialty Start Date End Date Maximo Leos MD Orthopaedic Surgery 11/12/11 Andre Tanner MD Psychiatry & Neurology-Neurology 10/26/14
--- OUTSIDE RECORDS SUMMARY | 2024-10-30 16:09 | XMS_ITS | Clinical Summary ---
Author Organization [facility] Address [address] [place] [id number] Care Team Providers Care Land Appraiser Name Role Phone Nemo Sethi NP Primary Care Provider [phone] Allergies Active Allergy Reactions Criticality Noted Date Comments Chocolate Flavor 08/21/2021 Codeine Itching 08/21/2021 Duloxetine 03/31/2014 Penicillins 08/21/2021 Promethazine 08/21/2021 Medications meloxicam (MOBIC) 15 mg tablet Take 1 Tablet (15 mg total) by mouth daily. 30 Tablet 2 Active albuterol (VENTOLIN/PROAI R/PROVENTIL HFA) 90 mcg/actuation HFA Aerosol Inhaler Take 2 Puffs by inhalation every 4 hours as needed for Wheezing. 1 Each 2 Active traZODone (DESYREL) 50 mg tablet Take 1 Tablet (50 mg total) by mouth nightly. 15 Tablet 2 Active atorvastatin (LIPITOR) 20 mg Tablet TAKE 1 TABLET BY MOUTH DAILY. 90 Tablet 2 Active Active Problems Problem Noted Date Diagnosed Date Insomnia, unspecified type 09/02/2021 Chronic bilateral low back pain with right-sided sciatica 09/02/2021 Restless leg syndrome 09/02/2021 Hyperlipidemia, unspecified hyperlipidemia type 09/02/2021 Gastroesophageal reflux dise ase with esophagitis without hemorrhage 09/02/2021 Bipolar affective disorder, currently manic, moderate ([facility] 12/28/2020 Narcotic dependence ([facility] 12/28/2020 Tobacco use disorder 12/28/2020 Osteoarthritis of left sacroiliac joint ([facility] ) 12/28/2020 Immunizations Immunization Administration Dates Next Due SARS-Cov-2 Vaccine Red Top 1 2+yrs Old (MODERNA) 04/05/2021,09/17/2020,08/20/2020,2020 Td 07/23/1996 Tdap 04/10/2015 Family History Medical History Relation Name Comments Lung Cancer Father Asbestos Heart Disease Maternal Grandmother High Blood Pressure Mother High Cholesterol Mother Diabetes Paternal Grandmother Relation Name Status Comments Father Maternal Grandfather Maternal Grandmother Mother Paternal Grandfather Alive Paternal Grandmother Social History Tobacco Use Types Packs/Day Years Used Date Smoking Tobacco: Every Day Cigarettes 1 40 Smokeless Tobacco: Never Alcohol Use Standard Drinks/Week Comments Yes 0 (1 standard drink = 0.6 oz pur e alcohol) PHQ-2 Answer Date Recorded PHQ-9 Auto Total 17 08/21/2021 Comments No Sex and Gender Information Value Date Recorded Sex Assigned at Not on file Legal Sex Female 3:03 PM EDT Gender Identity Not on file Sexual Orientation Not on file Last Filed Vital Signs Vital Sign Reading Time Taken Comments Blood Pressure 122/88 09/25/2021 10:00 AM EDT Pulse 75 09/25/2021 10:00 AM EDT Temperature 36.8 C (98.3 F) 09/25/2021 10:00 AM EDT Respiratory Rate - - Oxygen Saturation 96% 09/25/2021 10:00 AM EDT Inhaled Oxygen Concentration - - Weight 47.9 kg (105 lb 9.6 oz) 09/25/2021 10:00 AM EDT Height 150.5 cm (4' 11.25 ) 09/25/2021 10:00 AM EDT Body Mass Index 21.15 09/25/2021 10:00 AM EDT Plan of Treatment Health Maintenance Due Date Last Done Comments Annual Care Visit for Contra ct Coordination 1959 Cologuard 1959 Colonoscopy 1959 Colorectal Cancer Screening 1960 FIT 1959 Hepatitis C Virus (HCV) Screening 07/17/1980 Breast Cancer Screening 07/17/2009 Pneumococcal Vaccine: 50+ Ye ars (1 of 1 - PCV) 07/17/2009 Zoster-RZV(Shingrix) (1 of 2) 07/17/2009 COVID-19 Vaccine (5 - 2023-2 5 season) 2024 04/05/2021, 09/17/2020, 08/20/2020, Additional history exists Advance Care Planning 07/17/2024 Fall Risk Assessment 07/17/2024 Osteoporosis Screening 07/17/2024 Influenza Vaccination (Seaso n Ended) 2025 Tetanus Vaccination (Every 1 0 Years) 04/10/2025 04/10/2015, 07/23/1996 Lipid Screening 08/21/2026 08/21/2021 RSV Vaccines (1 - 1-dose 75+ series) 07/17/2034 Procedures Procedure Name Priority Date/Time Associated Diagnosis Comments LIPID PROFILE Routine 08/21/2021 10:26 AM EDT Hyperlipidemia, unspecified hyperlipidemia type from Last 3 Months or Most Recently Relevant to Health Maintenance Results * (ABNORMAL) LIPID PROFILE (08/21/2021 10:26 AM EDT) Chol/HDL Ratio 2.4 0 - 5 [facility] XTERNAL LAB Cholesterol 215(H) 125 - 199 mg/dL [facility] EXTERNAL LAB Comment: TOTAL CHOLESTEROL INTERPRETATION: Less than 200 mg/dL Desireable 200-239 mg/dL Borderline Greater or Equal to 240 mg/dL High LDL Calculated 112(H) 0 - 100 mg/dL [facility] EXTERNAL LAB Comment: LDL CHOLESTEROL INTERPRETATION: Less than 100 mg/dL Optimal 100-129 mg/dL Near optimal/above optimal 130-159 mg/dL Borderline High 160-189 mg/dL High Greater or Equal to 190 mg/dL Very High HDL 88 40 - 180 mg/dL [facility] EXTERNAL LAB Comment: HDL CHOLESTEROL INTERPRETATION: Less than 40 mg/dL Low Greater than 60 mg/dL Desirable Triglycerides 77 0 - 149 mg/dL [facility] EXTERNAL LAB Comment: TOTAL TRIGLYCERIDE INTERPRETATION: Less than 150 mg/dL Normal 150-199 mg/dL Borderline HIgh 200-499 mg/dL High Greater or Equal to 500 mg/dL Very High Serum (Serum) 08/21/2021 10: 26 AM EDT 08/21/2021 4:27 PM EDT Nemo Sethi NP CHEMISTRY ORDERABLES Shanti l Result [facility] EXTER[facility] [address] from Last 3 Months or Most Recently Relevant to Health Maintenance Insurance MEDICARE [place]ICAID [place] Care Teams Land Appraiser Relationship Specialty Start Date End Date Nemo Sethi NP PCP - General Family Medicine 08/21/21
[2024-10-30 16:21] VITALS: BP 167/88; PULSE 84; RESP 18; TEMP 36.6; O2SAT 96; BMI 17.6
--- NOTE | 2024-10-30 16:40 | ED_ITS ---
Discharge Plan Disposition Patient Disposition: Home, Self-Care Prescriptions Prescriptions: No Action sennosides [Senna Lax] 8.6 mg tablet 8.6 mg PO HS Qty: 30 10RF gabapentin 300 mg capsule 300 mg PO BID Qty: 60 3RF hydrocodone-acetaminophen 7.5-325 mg tablet 1 tab PO DAILYP PRN (Reason: Moderate Pain (Scale Score 5-6)) atorvastatin 40 mg Tablet 80 mg PO HS 30 Days Qty: 60 0RF clopidogrel 75 mg Tablet 75 mg PO DAILY 21 Days Qty: 21 0RF aspirin 81 mg Tablet,Chewable 81 mg PO DAILY 30 Days Qty: 30 0RF polyethylene glycol 3350 [HealthyLax] 17 gram Powder In Packet 17 g PO DAILY 30 Days Qty: 30 0RF Referrals Follow up/Referrals: Zia Joseph MD [Primary Care Provider, Family Practice] - See instructions Activity Restrictions/Add. Instructions Additional Instructions/Restrictions: Call your family doctor to establish care for this visit to the emergency department and schedule follow-up within 48 hours to ensure improvement. If you have any worsening of your condition or any other concerning signs or symptoms, return to the emergency department or your primary care doctor for further evaluation. Redness will continue to remain for about 72 hours. If you start having spreading redness after Thursday, 11/02, return to the emergency department or your family doctor for further evaluation. Clinical Impressions Clinical Impression: Cellulitis of right lower leg Print Language Print Language: Ukrainian Discharge ED Provider: Terrence Abrams General Adult HPI General Chief complaint: Extremity Injury, Lower Stated complaint: right foot swollen and red Time Seen by Provider: 10/30/24 15:58 Mode of Arrival: Wheelchair Source of Information: Patient Description of Symptoms (Recalled from ER Triage Doc. by RN): Patient states she noticed some redness and swelling to right foot. Denies any injury History of Present Illness HPI narrative: Please note that above description of symptoms, in this electronic medical record under categorization of recalled from ER triage doctor by RN are reflective of an initial nursing assessment, however, is not reflective of my full history and physical exam that was personally taken and clarified. Consequentially, this preceding description of symptoms, which may include the patient's categorized chief complaint in the EMR, do not reflect my personal clinical impression, and the ultimate description of history of present illness and patient stated complaints should be deferred to this section of the note. Unless stated otherwise or congruent with this section of the note, additional signs, symptoms, or incongruence should be interpreted as inaccurate with my clinical impression. Related Data Home Medications ?Medication ?Instructions ?Recorded ?Confirmed hydrocodone 7.5 mg-acetaminophen 1 tab PO DAILYP PRN M oderate Pain 10/14/24 10/14/24 325 mg tablet (Scale Score 5-6) Previous Rx's ?Medication ?Instructions ?Recorded polyethylene glycol 3350 17 gram 17 g PO DAILY 30 days #30 ea 10/06/24 oral powder packet (HealthyLax) gabapentin 300 mg capsule 300 mg PO BID #60 caps 10/07 sennosides 8.6 mg tablet (Senna 8.6 mg PO HS #30 tabs 10/07/24 Lax) aspirin 81 mg chewable tablet 81 mg PO DAILY 30 days # 30 tabs 10/14/24 atorvastatin 40 mg tablet 80 mg (2 x 40 mg) PO HS 30 d ays 10/14/24 #60 tabs clopidogrel 75 mg tablet 75 mg PO DAILY 21 days #21 t abs 10/14/24 Allergies Allergy/AdvReac Type Severity Reaction Status Date / Time chocolate flavor Allergy Intermediate rash Verified 10/30/24 16:25 Penicillins Allergy Intermediate Rash Verified 10/30/24 16:25 Influenza Virus Vaccines Allergy Blister Verified 10/30/24 16:25 morphine Allergy Unknown Verified 10/30/24 16:25 allergy reaction PFSH [facility] Disclaimer: The information contained in this section may have been updated after the patient was seen, as this information can be updated by other users. Medical History (Updated 10/30/24 @ 17:57 by Terrence Abrams MD) Fibromyalgia Bowel obstruction GERD (gastroesophageal reflux disease) Lumbar spinal stenosis Lumbar radicular pain DDD (degenerative disc disease), lumbar Dog bite Surgical History No history of previous surgery Family History Other No significant family history Social History Smoking Status: Current every day smoker tobacco type: cigarettes packs per day: 2 alcohol intake: current alcohol intake frequency: a few times a month substance use type: former substance user current occupational status: disabled Travel in the last 8 weeks?: None Have you lived/traveled outside [place] in past 30 days?: No Contact w/someone who lives/traveled outside [place] past 30 days?: No Exposure to someone with infectious disease in past 14 days?: No Do you have a fever (greater than 100.4 F or 38 C)?: No Have you tested positive for COVID-19?: No Exposed to someone with COVID-19 in past 14 days?: No Do you have a sore throat?: No Do you have a cough?: No Do you have any weakness?: No Do you have any diarrhea?: No Are you experiencing any unusual bleeding?: No Do you have any muscle aches/pain?: No Do you have any abdominal pain?: No Are you experiencing loss of taste or smell?: No Other Medical History Have you received the Flu Vaccine for this season: No Have you received the Pneumonia Vaccine: No ROS Obtained: Yes All systems reviewed & no additional complaints except as documented Physical Exam General General appearance: alert Head Head exam: atraumatic and normocephalic Eye Eye exam: Present normal appearance, PERRL and EOMI Neck Neck exam: Present normal inspection, full ROM and trachea midline Respiratory Respiratory exam: Absent respiratory distress, wheezes, stridor, accessory muscle use or prolonged expiratory phase Cardiovascular Cardiovascular exam: Present other (Pulses equal symmetric in upper and lower extremities) Abdominal Exam Abdominal exam: Present soft; Absent distention, tenderness or pulsatile mass Extremities Exam Extremities exam: Present edema and other (pitting edema, erythema, tenderness and swelling right ankle to the end of the digits. Small skin defect on the dorsal aspect of midfoot likely source of cellulitis) Neurological Exam Neurological exam: Present alert, oriented X3 and CN II-XII intact; Absent motor sensory deficit Skin Skin exam: Present warm and dry; Absent diaphoresis or erythema Medical Decision Making Medical Records Medical records reviewed: Yes I reviewed the patient's medical records. Screening: Per USPSTF and CDC recommendations, given the prevalence of disease in our region, it is our hospital?s policy to screen for HIV and viral Hepatitis for all patients aged 18 and over and those with ongoing risk factors. Jose F Inquiry Pt receiving controlled substance: No Jose F was queried for this patient: No Vital Signs: 10/30/24 16:21 10/30/24 17:00 Temperature 97.8 F Temperature Source Oral Pulse Rate 72 Pulse Rate [Right Radial] 84 Respiratory Rate 18 18 Blood Pressure 174/95 H Blood Pressure [Right Arm] 167/88 H Blood Pressure Mean 112 Blood Pressure Mean [Right Arm] 114 Blood Pressure Source [Right Arm] Automatic Cuff Blood Pressure Position [Right Arm] Sitting 02 Sat by Pulse Oximetry 96 97 Oxygen Delivery Method Room Air Lab Data Lab Results 10/30/24 16:37: WBC 9.7, RBC 3.68 L, Hgb 11.5 L, Hct 33.8 L, MCV 91.8, MCH 31.3 H, MCHC 34.0, RDW 15.9, Plt Count 308, MPV 9.2, Neut % (Auto) 80.0, Lymph % (Auto) 11.8, Sumner % (Auto) 7.2, Eos % (Auto) 0.2, Baso % (Auto) 0.5, Neut # (Auto) 7.7, Lymph # (Auto) 1.1, Sumner # (Auto) 0.7, Eos # (Auto) 0.0, Baso # (Auto) 0.1, Sodium 131 L, Potassium 4.2, Chloride 98, Carbon Dioxide 28, Anion Gap 9.2, BUN 10, Creatinine 0.80, Estimated Creat Clear 40, Estimated GFR 72, Est GFR ( Amer) 87, Glucose 108 H, Hemoglobin A1c 4.9, Calcium 9.5, Total Bilirubin 0.4, AST 40 H, ALT 19, Alkaline Phosphatase 147 H, Total Protein 8.0, Albumin 4.2, Globulin 3.8 H, Albumin/Globulin Ratio 1.1, Triglycerides 62, Cholesterol 173, LDL Cholesterol Direct 48.85 L, VLDL Cholesterol 12, HDL Cholesterol 92 H, Cholesterol/HDL Ratio 1.9 10/30/24 16:37 10/30/24 16:37 Orders (Tests/Meds): ED MEDICATIONS Discontinued Medications Generic Name Dose Route Start Last Admin Trade Name Freq PRN Reason Stop Dose Admin Dalbavancin 1,500 mg/ Dextrose 250 mls @ 500 mls/hr 10/30/24 17:20 10/30/24 17:39 IV 10/30/24 17:21 500 mls/hr ONCE ONE Administration ORDERS Category Date Time Status CBC w/Auto Diff [Complete Blood Count Auto Diff] Stat Lab 10/30/24 16:37 Completed CMP [Comprehensive Metabolic Panel] Stat Lab 10/30/24 16:37 Completed Hemoglobin A1C Stat Lab 10/30/24 16:37 Completed Lipid Panel Stat Lab 10/30/24 16:37 Completed Blood Culture Stat Micro 10/30/24 17:08 Received Medical Decision Narrative: 64-year-old female history of hypertension, CVA with no residual deficits presenting with right foot pain and swelling. She states that it started today, 10/30. No fevers or chills, nausea or vomiting, systemic signs or symptoms. Looked down, noticed that the foot was swollen, red, warm, came in for further evaluation. No history of diabetes, reportedly. No trauma that she knows of. States that she has had some tick bites, but of pulled them off when they have been small and not engorged. Does not believe any have been on her for any prolonged period of time. History was obtained via conversation with patient and son. On arrival, patient hemodynamically stable, alert, [oriented x4, ][appropriate, ]GCS [15], moving all extremities spontaneously, pupils equal and reactive to light. Full physical exam performed and significant for well- appearing female no acute distress. pitting edema, erythema, tenderness and swelling right ankle to the end of the digits. Small skin defect on the dorsal aspect of midfoot likely source of cellulitis. No evidence of erythema, pain, or any other concerns in the calf. Low concern for DVT given distribution. differential includes cellulitis, among others. Patient placed on continuous cardiac monitoring and continuous pulse ox with initial blood pressure 167/88, heart rate 84, saturation 96% on room air. Patient was given Dalvance for symptomatic management[ and correction of underlying abnormalities]. Workup independently interpreted and significant for nonactionable CBC or chemistry. Patient has what appears to be a chronic hyponatremia sodium 131. A1c normal. Because kidney function normal, extensive lower extremity cellulitis, Dalvance 1500 mg was ordered and administered. Close return precautions were discussed. It was explained to patient that redness will probably not subside for about 3 days. She voiced understanding. She does have a family doctor appointment on Thursday, 48 hours for now, I feel this is appropriate follow-up. Because patient at baseline without signs or symptoms of clinical decompensation, deemed appropriate for discharge. Results were relayed to patient and correction of underlying abnormalities 15 appropriate, oriented x4, who voiced understanding and were agreeable to outpatient management and follow up. I discussed my clinical impression with patient[] and answered all questions. At this time, the evidence for any other entities in the differential is insufficient to warrant any further testing or ED observation. This was explained as well. Advisory was given that persistent or worsening symptoms require further evaluation. I confirmed the understanding of this discussion. Nursery Attendant disclaimer Much of this encounter note is an electronic stoker installation mechanic spoken language to printed text. Electronic stoker installation mechanic of the spoken language may permit errors. Although I have reviewed the note, some errors may still exist. Critical Care Critical Care Time Critical Care Time: No
[2024-10-30 16:48] LABS: Basophils # 0.1 K/mm3 (0-0.2); Basophils % 0.5 % (0.1-2.0); Eosinophils % 0.2 % (0.1-12.0); Hematocrit 33.8 % (37.0-47.0); Hemoglobin 11.5 g/dL (12.2-16.2); Immature Granulocytes # 0.03 10^3uL; Immature Granulocytes % 0.3 %; Lymphocytes # 1.1 K/mm3 (0.7-4.5); Lymphocytes % 11.8 % (10-50); Mean Corpuscular Hemoglobin 31.3 pg (27.0-31.2); Mean Corpuscular Volume 91.8 fl (81-99); Mean Platelet Volume 9.2 fl (7.4-10.4); Monocytes # 0.7 K/mm3 (0.1-1.0); Monocytes % 7.2 % (1.7-9.3); Neutrophils # 7.7 K/mm3 (1.8-7.8); Nucleated Red Blood Cells # 0 10^3/uL; Nucleated Red Blood Cells % 0 %; Platelet Count 308 K/mm3 (142-424); Red Blood Count 3.68 M/mm3 (4.20-5.40); Red Cell Distribution Width 15.9 % (11.5-17.5); Red Cell Distribution Width-SD 53.3 fL; White Blood Count 9.7 K/mm3 (4.8-10.8)
[2024-10-30 17:00] VITALS: BP 174/95; PULSE 72; RESP 18; O2SAT 97
[2024-10-30 17:06] LABS: Albumin Level 4.2 g/dl (3.5-5.0); Chloride 98 mmol/L (98-107); Potassium 4.2 mmoL/L (3.5-5.1)
[2024-10-30 17:09] LABS: Alanine Aminotransferase 19 U/L (12-78); Albumin/Globulin Ratio 1.1 (1.1-1.8); Alkaline Phosphatase 147 U/L (38-126); Aspartate Amino Transferase 40 U/L (14-36); Bilirubin,Total 0.4 mg/dl (0.2-1.3); Blood Urea Nitrogen 10 mg/dl (7-17); Calcium 9.5 mg/dl (8.4-10.2); Carbon Dioxide 28 mmol/L (22.0-30.0); Chol/HDL Ratio 1.9 (1-3.5); Cholesterol 173 mg/dl (140-200); Creatinine Clearance Estimated 40 mL/min (50-200); Estimated Glomerular Filt Rate 72 ml/min (>60); GFR (African American) 87 ML/MIN (>60); Globulin 3.8 g/dL (1.3-3.2); Glucose 108 mg/dl (74-100); HDL Cholesterol 92 mg/dl (40-60); Triglycerides 62 mg/dl (30-150); VLDL Cholesterol 12 mg/dL (0-40)
[2024-10-30 17:20] LABS: Direct LDL Cholesterol 48.85 mg/dL (100-129)
[2024-10-30 17:24] LABS: Anion Gap 9.2 mEq/L (5-15); Hemoglobin A1C 4.9 % (4.0-6.0); Sodium 131 mmol/L (136-145)
[2024-10-30] MEDS: DALBAVANCIN HCL 1,500 MG in DEXTROSE 5 % IN WATER 250 ML 500 MG IV (17:39)
[2024-10-30 18:00] VITALS: BP 160/96; PULSE 65; O2SAT 96
[2024-10-30 18:08] VITALS: BP 116/76; PULSE 89; RESP 16; TEMP 36.6; O2SAT 97
--- NOTE | 2024-11-01 10:08 | EXP.EVENT.NO ---
I was notified of positive blood cultures for Acinetobacter. I attempted call the phone number that we have on file, which is the send number, but I did not get an answer. I left a voicemail instructing the patient to call the emergency department for test results.
--- NOTE | 2024-11-01 10:09 | PC.NURSE ---
attempted to call the pt about her positive culture results. unable to reach the pt at this time.
--- NOTE | 2024-11-01 16:31 | PC.NURSE ---
The pt and her son returned call. I spoke with them relaying the message that recommends returning for repeat blood cultures due to the current results. The son and pt became unpleasant and stated she will not be coming back here. They inquired further I provided the bacteria per their request. She states she has an appointment with tomorrow and will follow with him. They then hung up the phone.
--- NOTE | 2024-11-23 09:43 | PC.NURSE ---
Blood culture results reviewed by Dr. Dias. Patient was contacted on 10/31/[address] Reeves and refused re-eval. Patient referred to PCP.
== END 2024-10-30 18:28 | disposition home or self-care (01) ==
PROVIDERS: Emergency Provider Emergency Medicine; PCP Family Medicine
DX: L03.115 Cellulitis of right lower limb (principal); F17.210 Nicotine dependence, cigarettes, uncomplicated
CPT/HCPCS: 80053; 80061; 83036; 85025; 87040; 87077; 87186; 96374; 99284; J0875; J7060

== ENCOUNTER 2024-11-30 23:07 | Observation (INO) | payer MEDICARE, MEDICAID, SELFPAY ==
--- OUTSIDE RECORDS SUMMARY | 2024-10-22 20:00 | XMS_ITS | Clinical Summary ---
Author Organization Unknown Care Team Providers Care Methods Specialist Name Role Phone SOFIYA RICHMOND, NICHO Unavailable Unavailable ARIANNE PT, ADILSON Unavailable Unavailable LEDMARIE LEAF COVERER, AMANDA Unavailable Unavailable CLOS OT, PENNE Unavailable Unavailable EGLIAN LAURA/PIERCE, NGUYEN Unavailable Unavaila ble Payers Payer Name Policy Type Policy Number Effective Date Expira tion Date CARELODavid.RITIKA.NARENDRAAUTH [id number] KEVEN.NARENDRAAUTH [id number] Problems Condition Name Condition Details Condition Category Status Onset Date Resolution Date Last Treatment Date Treating Clinician Comments 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 Active 10-13 00:00: 00 OCCLUSION AND STENOSIS OF RIGHT CAROTID ARTERY Active 10-14 00:00: 00 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], RIGHT KNEE Active 10-14 00:00: 00 ACUTE KIDNEY FAILURE, UNSPECIFIED Active 10-14 00:00: 00 ESSENTIAL (PRIMARY) HYPERTENSION Active 10-14 00:00: 00 SPINAL STENOSIS, LUMBAR REGION WITHOUT NEUROGENIC NATHANIEL Active 05-18 00:00: 00 GASTRO-ESOPH AGEAL REFLUX DISEASE WITHOUT ESOPHAGITIS Active 05-18 00:00: 00 PERIPHERAL VASCULAR DISEASE, UNSPECIFIED Active 05-18 00:00: 00 ANEMIA, UNSPECIFIED Active 05-18 00:00: 00 PRSNL HX OF TIA (TIA), AND CEREB INFRC W/O RESID DEFICITS Active 10-14 00:00: 00 Allergies, Adverse Reactions, Alerts Allergy Name Allergy Type Status Severity Reaction(s) Onset Date Inactive Date Treating Clinician Comments PENICILLINS Propensity to adverse reactions Active 10-18 21:09: 38 Medications Ordered Medication Name Filled Medication Name Start Date Stop Date Current Medication? Ordering Clinician Indication Dosage Frequency Signature (SIG) Comments Components atorvastati n 80 mg tablet 10-14 00:00: 00 Yes [id number] CHOLESTEROL Per instruc tions DAILY Per instructio ns DAILY (route: oral) Med Classific ation: Cardiovas cular Therapy Agents clopidogrel 75 mg tablet 10-14 00:00: 00 Yes [id number] PREVENT STROKES Per instruc tions DAILY Per instructio ns DAILY (route: oral) Med Classific ation: Hematolog ical Agents hydrocodone 7.5 mg-acetamin ophen 325 mg tablet 10-08 00:00: 00 Yes [id number] PAIN Per instruc tions ONCE NEEDED Per instructio ns ONCE NEEDED (route: oral) Med Classific ation: Analgesic , Anti-infl ammatory or Antipyret ic gabapentin 300 mg capsule 10-07 00:00: 00 Yes [id number] PAIN Per instruc tions TWICE DAILY Per instructio ns TWICE DAILY (route: oral) Med Classific ation: Central Nervous System Agents doxycycline hyclate 100 mg tablet 09-15 00:00: 00 10-18 00:00 :00 No [id number] Per instruc tions TWICE DAILY Per instructio ns TWICE DAILY (route: oral) Med Classific ation: Anti-Infe ctive Agents Aspirin Childrens 81 mg chewable tablet 10-14 00:00: 00 Yes [id number] ANTIPLATELE T Per instruc tions DAILY Per instructio ns DAILY (route: oral) Med Classific ation: Hematolog ical Agents ondansetron HCl 8 mg tablet 09-29 00:00: 00 Yes [id number] NAUSEA 1 tablet DAILY 1 tablet DAILY (route: oral) Med Classific ation: Gastroint estinal Therapy Agents Vital Signs Vital Name Observation Time Observation [...] (OT/LAURA) [code = ACTIVITIES OF DAILY LIVING (OT/LAURA)] Future Scheduled Test MEAL PREPA RATION AND CLEANUP (OT/LAURA) [code = MEAL PREPARATION AND CLEANUP (OT/LAURA)] Future Scheduled Test TOILET TRA NSFER (OT/LAURA) [code = TOILET TRANSFER (OT/LAURA)] Future Scheduled Test BATH/SHOWE R TRANSFER (OT/LAURA) [code = BATH/SHOWER TRANSFER (OT/CUTTER GRINDER)] Future Scheduled Test ADAPTIVE E QUIPMENT/DURABLE MEDICAL EQUIPMENT MANAGEMENT(OT/CUTTER GRINDER) [code = ADAPTIVE EQUIPMENT/DURABLE MEDICAL EQUIPMENT MANAGEMENT(OT/LAURA)] Future Scheduled Test POSTURAL C ONTROL/BALANCE (OT/CUTTER GRINDER) [code = POSTURAL CONTROL/BALANCE (OT/CUTTER GRINDER)] Future Scheduled Test THERAPEUTI C EXERCISE (OT/CUTTER GRINDER) [code = THERAPEUTIC EXERCISE (OT/CUTTER GRINDER)] Future Scheduled Test OT / LAURA T O IDENTIFY FALL RISK FACTORS; EDUCATE THE PATIENT/CAREGIVER ON WAYS TO REDUCE FALL RISK FACTORS AND ESTABLISH HOME EXERCISE PROGRAM TO MINIMIZE FALL RISK. MAY TEACH THE PATIENT FLOOR RECOVERY WHEN CLINICALLY APPROPRIATE. [code = OT / LUARA TO IDENTIFY FALL RISK FACTORS; EDUCATE THE PATIENT/CAREGIVER ON WAYS TO REDUCE FALL RISK FACTORS AND ESTABLISH HOME EXERCISE PROGRAM TO MINIMIZE FALL RISK. MAY TEACH THE PATIENT FLOOR RECOVERY WHEN CLINICALLY APPROPRIATE.] Future Scheduled Test OT / CUTTER GRINDER T O EDUCATE ON CVA SELF-MANAGEMENT [code = OT / CUTTER GRINDER TO EDUCATE ON CVA SELF-MANAGEMENT] Future Scheduled Test OT/CUTTER GRINDER TO MONITOR FOR SIGNS AND SYMPTOMS OF UTI AND EDUCATE PATIENT/CAREGIVER TO MINIMIZE RISK OF DEVELOPING A UTI. [code = OT/CUTTER GRINDER TO MONITOR FOR SIGNS AND SYMPTOMS OF UTI AND EDUCATE PATIENT/CAREGIVER TO MINIMIZE RISK OF DEVELOPING A UTI.] Future Scheduled Test OT/LAURA TO INSTRUCT PATIENT/CAREGIVER ON RISK FOR HOSPITALIZATION/EMERGENCY ROOM VISITS, TEACH SIGNS AND SYMPTOMS THAT PUT PATIENT AT RISK, WHEN TO NOTIFY NURSE/PHYSICIAN OF COMPLICATIONS/DECLINE, AND WHEN TO CALL 911. [code = OT/CUTTER GRINDER TO INSTRUCT PATIENT/CAREGIVER ON RISK FOR HOSPITALIZATION/EMERGENCY [...] Reason for Visit [facility] Encounters Start Date/Time End Date/Time Encounter Type Admission Type Attending [facility] Care Department Encounter ID Discharge Date Discharge Status Discharge Condition Discharge Reason Percent Goals Met 2024-10-18 00:00:00 2024-10-23 00:00:00 Outpatient NEW ADMISSION ADILSON ACUÑA [facility] [id number] 2024-10-23 00:00:00 DISCHARGE TO HOME OR SELF CARE ACQUSITION - TRANSFER TO [facility] HH - OTHER (PROVIDE DETAILS IN COORD NOTE)
--- OUTSIDE RECORDS SUMMARY | 2024-10-22 20:00 | XMS_ITS | Clinical Summary ---
Author Organization Unknown Care Team Providers Care Utilities Manager Name Role Phone SOFIYA RICHMOND, NICHO Unavailable Unavailable ARIANNE PT, ADILSON Unavailable Unavailable LEDMARIE FIELD CROP FARM WORKER, AMANDA Unavailable Unavailable CLOS OT, PENNE Unavailable Unavailable EGLIAN LAURA/PIERCE, NGUYEN Unavailable Unavaila ble Payers Payer Name Policy Type Policy Number Effective Date Expira tion Date CARELODavid.RITIKA.NARENDRAAUTH [id number] KEVEN.NARENDRAAUTH [id number] Problems Condition Name Condition Details Condition Category [...] 80 mg tablet 10-14 00:00: 00 Yes [id number] CHOLESTEROL Per instruc tions DAILY Per instructio ns DAILY (route: oral) Med Classific ation: Cardiovas cular Therapy Agents clopidogrel 75 mg tablet 10-14 00:00: 00 Yes [id number] PREVENT STROKES Per instruc tions DAILY Per instructio ns DAILY (route: oral) Med Classific ation: Hematolog ical Agents hydrocodone 7.5 mg-acetamin ophen 325 mg tablet 10-08 00:00: 00 Yes [id number] PAIN Per instruc tions ONCE NEEDED Per instructio ns ONCE NEEDED (route: oral) Med Classific ation: Analgesic , Anti-infl ammatory or Antipyret ic gabapentin 300 mg capsule 10-07 00:00: 00 Yes [id number] PAIN Per instruc tions TWICE DAILY Per instructio ns TWICE DAILY (route: oral) Med Classific ation: Central Nervous System Agents doxycycline hyclate 100 mg tablet 09-15 00:00: 00 10-18 00:00 :00 No [id number] Per instruc tions TWICE DAILY Per instructio ns TWICE DAILY (route: oral) Med Classific ation: Anti-Infe ctive Agents Aspirin Childrens 81 mg chewable tablet 10-14 00:00: 00 Yes [id number] ANTIPLATELE T Per instruc tions DAILY Per instructio ns DAILY (route: oral) Med Classific ation: Hematolog ical Agents ondansetron HCl 8 mg tablet 09-29 00:00: 00 Yes [id number] NAUSEA 1 tablet DAILY 1 tablet DAILY [...] R TRANSFER (OT/LAURA) [code = BATH/SHOWER TRANSFER (OT/ASPARAGUS BUNCHER)] Future Scheduled Test ADAPTIVE E QUIPMENT/DURABLE MEDICAL EQUIPMENT MANAGEMENT(OT/ASPARAGUS BUNCHER) [code = ADAPTIVE EQUIPMENT/DURABLE MEDICAL EQUIPMENT MANAGEMENT(OT/LAURA)] Future Scheduled Test POSTURAL C ONTROL/BALANCE (OT/ASPARAGUS BUNCHER) [code = POSTURAL CONTROL/BALANCE (OT/ASPARAGUS BUNCHER)] Future Scheduled Test THERAPEUTI C EXERCISE (OT/ASPARAGUS BUNCHER) [code = THERAPEUTIC EXERCISE (OT/ASPARAGUS BUNCHER)] Future Scheduled Test OT / LAURA T O IDENTIFY FALL RISK FACTORS; EDUCATE THE PATIENT/CAREGIVER ON WAYS TO REDUCE FALL RISK FACTORS AND ESTABLISH HOME EXERCISE PROGRAM TO MINIMIZE FALL RISK. MAY TEACH THE PATIENT FLOOR RECOVERY WHEN CLINICALLY APPROPRIATE. [code = OT / LAURA TO IDENTIFY FALL RISK FACTORS; EDUCATE THE PATIENT/CAREGIVER ON WAYS TO REDUCE FALL RISK FACTORS AND ESTABLISH HOME EXERCISE PROGRAM TO MINIMIZE FALL RISK. MAY TEACH THE PATIENT FLOOR RECOVERY WHEN CLINICALLY APPROPRIATE.] Future Scheduled Test OT / ASPARAGUS BUNCHER T O EDUCATE ON CVA SELF-MANAGEMENT [code = OT / ASPARAGUS BUNCHER TO EDUCATE ON CVA SELF-MANAGEMENT] Future Scheduled Test OT/ASPARAGUS BUNCHER TO MONITOR FOR SIGNS AND SYMPTOMS OF UTI AND EDUCATE PATIENT/CAREGIVER TO MINIMIZE RISK OF DEVELOPING A UTI. [code = OT/ASPARAGUS BUNCHER TO MONITOR FOR SIGNS AND SYMPTOMS OF UTI AND EDUCATE PATIENT/CAREGIVER TO MINIMIZE RISK OF DEVELOPING A UTI.] Future Scheduled Test OT/LAURA TO INSTRUCT PATIENT/CAREGIVER ON RISK FOR HOSPITALIZATION/EMERGENCY ROOM VISITS, TEACH SIGNS AND SYMPTOMS THAT PUT PATIENT AT RISK, WHEN TO NOTIFY NURSE/PHYSICIAN OF COMPLICATIONS/DECLINE, AND WHEN TO CALL 911. [code = OT/ASPARAGUS BUNCHER TO INSTRUCT PATIENT/CAREGIVER ON RISK FOR HOSPITALIZATION/EMERGENCY [...] Reason for Visit [facility] Encounters Start Date/Time End Date/Time Encounter Type Admission Type Attending [facility] Care Department Encounter ID Discharge Date Discharge Status Discharge Condition Discharge Reason Percent Goals Met 2024-10-18 00:00:00 2024-10-23 00:00:00 Outpatient NEW ADMISSION ADILSON ACUÑ[facility] [id number] 2024-10-23 00:00:00 DISCHARGE TO HOME OR SELF CARE ACQUSITION - TRANSFER TO [facility] HH - OTHER (PROVIDE DETAILS IN COORD NOTE)
--- OUTSIDE RECORDS SUMMARY | 2024-11-03 09:56 | XMS_ITS | Encounter Summary ---
Author Organization [place] [address] Care Team Providers Care Upsetting Machine Operator Name Role Phone Maximo Leos MD Unavailable [phone] Andre Tanner MD Unavailable Reason for Visit * Reason Comments Other To ed with c.o. blo od infection and stated sent from PCP. + blood culture results from [facility] Encounter Details Date Type Department Care Team (Late st Contact Info) Description 11/03/2024 9:56 AM EDT - 11/03/2024 12:01 PM EDT [facility] [address] [place] [address] Garrett Frias MD [address] [place] [id number] Positive blood culture (Primary Dx) Discharge Disposition: Home or Self Care Social History Tobacco Use Types Packs/Day Years Used Date Smoking Tobacco: Every Day Cigarettes Smokeless Tobacco: Never Alcohol Use Standard Drinks/Week [...] on file Sexual Orientation Not on file documented as of this encounter Last Filed Vital Signs Vital Sign Reading Time Taken Comments Blood Pressure 145/80 11/03/2024 11:30 AM EDT Pulse 90 11/03/2024 10:03 AM EDT Temperature 36.7 C (98 F) 11/03/2024 10:03 AM EDT Respiratory Rate 18 11/03/2024 10:03 AM EDT Oxygen Saturation 98% 11/03/2024 11:45 AM EDT Inhaled Oxygen Concentration - - Weight 45.1 kg (99 lb 8 oz) 11/03/2024 9:55 AM E DT Height 160 cm (5' 3 ) 11/03/2024 9:55 AM EDT Body Mass Index 17.63 11/03/2024 9:55 AM EDT documented in this encounter Functional Status * Is the person deaf or does he/she have serious difficulty hearing? Answer Date of Assessment Author No 08/06/2020 1:19 PM EDT Eircka Chaves CCMA * Is the person blind or does he/she have serious difficulty seeing even when wearing glasses? Answer Date of Assessment Author No 08/06/2020 1:19 PM EDT Ericka Chaves CCMA * Does this person have serious difficulty walking or climbing stairs? Answer Date of Assessment Author No 08/06/2020 1:19 PM EDT Ericka Chaves CCMA * Does this person have difficulty dressing or bathing? Answer Date of Assessment Author No 08/06/2020 1:19 PM EDT Ericka Chaves CCMA * Because of a physical, mental or emotional condition, does this person have difficulty doing errands alone such as visiting a doctor's office or shopping? Answer Date of Assessment Author No 08/06/2020 1:19 PM EDT Ericka Chaves CCMA * Suicide Severity Rating Answer Date of Assessment Author No Risk 11/03/2024 10:04 AM EDT Zakiya Membreno RN * [place] Suicide Severity Rating Scale (Q shift for moderate and high) Question Answer Date of Assessment Author 1. In the past month, have y ou wished you were or wished you could go to sleep and not wake up? 0 11/03/2024 10:04 AM ELISABETT Zakiya Albarran RN 2. In the past month, have y ou actually had any thoughts of killing yourself? (If no, skip to question 6) 0 11/03/2024 10:04 AM EDT Zakiya Albarran RN 6. Have you ever done anythi ng, started to do anything, or prepared to do anything to end your life? 0 11/03/2024 10:04 AM EDT Zakiya Albarran RN documented as of this encounter Mental Status * Because of a physical, mental or emotional condition, does this person have serious difficulty concentrating, remembering or making decisions? Answer Entry Date Author No 08/06/2020 1:19 PM EDT Ericka Chaves CCMA documented in this encounter Discharge Instructions * Discharge Instructions* Garrett Frias MD - 11/03/2024 10:18 AM EDT Cipro, as prescribed documented in this encounter Medications at Time of Discharge atorvastatin (LIPITOR) 80 mg Oral Tablet Take 80 mg by mouth nightly. at bedtime cariprazine (VRAYLAR) 1.5 mg Oral CapsuleIndication s:Bipolar disorder, in full remission, most recent episode manic Take 1 Cap by mouth daily. 21 Cap 12/11/2020 gabapentin (NEURONTIN) 300 mg Oral CapsuleIndication s:Chronic bilateral low back pain with bilateral sciatica Take 1 Capsule by mouth 3 times daily. 90 Capsule 2 03/29/2021 HYDROcodone-aceta minophen (NORCO) 7.5-325 mg Oral Tablet TAKE 1 TABLET BY MOUTH TWICE A DAY NEEDED FOR MODERATE PAIN (SCALE SCORE 5-6) 11/02/2024 ibuprofen (ADVIL;MOTRIN) 800 mg Oral Tablet TAKE 1 TAB BY MOUTH EVERY 8 HOURS NEEDED FOR PAIN. 90 Tablet 2 03/06/2021 nabumetone (RELAFEN) 750 mg Oral Tablet Take 1 Tablet by mouth daily. 30 Tablet 2 03/29/2021 omeprazole (PRILOSEC) 40 mg Oral Capsule, Delayed Release(E.C.)Mi cations:Gastroeso phageal reflux disease with esophagitis without hemorrhage Take 1 Capsule by mouth daily. 30 Capsule 2 03/29/2021 ondansetron (ZOFRAN) 4 mg Oral Tablet 8 mg. 09/08/2024 ciprofloxacin HCl (CIPRO) 500 mg Oral Tablet Take 1 Tablet by mouth 2 times daily for 7 days. 14 Tablet 11/03/2024 documented as of this encounter Ordered Prescriptions Prescription Sig Dispense Quantity Refills Last Filled Start Date End Date ciprofloxacin HCl (CIPRO) 500 mg Oral Tablet Take 1 Tablet by mouth 2 times daily for 7 days. 14 Tablet 11/03/2024 11/10/2024 documented in this encounter Discharge Disposition Disposition Code Departure Means Destination Comment s Home or Self Fpc documented in this encounter ED Notes * Garrett Frias MD - 11/03/2024 9:52 AM EDT Chief Complaint Patient presents with Other To ed with c.o. blood infection and stated sent from PCP. + blood culture results from [facility] 64-year-old female, presents with positive blood cultures from outside facility and directed to theemergency department by primary care provider. Patient is here with her son who assists with history. Patient states seen at outlying emergency department, [facility], 4 days ago for infection of the right foot. Given dose of IV antibiotic and laboratories obtained. Subsequently had positive blood cultures and directed to the emergency department by her primary care provider for a single dose of IV antibiotic and prescription for oral antibiotic. Blood cultures show sensitivity to Cipro, paperwork from outside hospital, provided by his son while here. Right foot is no longer swollen or painful. SHe is feeling well with no recent fever since seen 4 days ago. Patient History Allergies Allergen Reactions Chocolate Flavor Codeine Cymbalta [Duloxetine] Flagyl [Metronidazole] Hives Penicillins Phenergan [Promethazine] Home Medications: Prior to Admission medications Medication Sig Start Date End Date Last Dose Authorizing Provider cariprazine (VRAYLAR) 1.5 mg Oral Capsule Take 1 Cap by mouth daily. 12/11/20 Alberto Carter MD gabapentin (NEURONTIN) 300 mg Oral Capsule Take 1 Capsule by mouth 3 times daily. 03/29/21 Alberto Carter MD ibuprofen (ADVIL;MOTRIN) 800 mg Oral Tablet TAKE 1 TAB BY MOUTH EVERY 8 HOURS NEEDED FOR PAIN. 03/06/21 Alberto Carter MD nabumetone (RELAFEN) 750 mg Oral Tablet Take 1 Tablet by mouth daily. 03/29/21 Alberto Carter MD omeprazole (PRILOSEC) 40 mg Oral Capsule, Delayed Release(E.C.) Take 1 Capsule by mouth daily. 03/29/21 Alberto Carter MD Past Medical History: Past Medical History: Diagnosis Date Anxiety disorder Arthritis of left sacroiliac joint 03/30/2018 Social History: reports that she has been smoking cigarettes. She has never used smokeless tobacco.She reports current alcohol use. She reports that she is not currently sexually active. E-Cigarettes (such as Vapes or Juul) Family History: No family history on file. Surgical History: No past surgical history on file. Review of Systems Review of Systems All other systems reviewed and are negative. Physical Exam There were no vitals taken for this visit. Physical Exam Vitals and nursing note reviewed. Constitutional: Comments: Ambulatory with her cane HENT: Head: Normocephalic. Nose: Nose normal. Mouth/Throat: Mouth: Mucous membranes are moist. Eyes: Extraocular Movements: Extraocular movements intact. Conjunctiva/sclera: Conjunctivae normal. Pupils: Pupils are equal, round, and reactive to light. Cardiovascular: Rate and Rhythm: Normal rate and regular rhythm. Pulmonary: Effort: Pulmonary effort is normal. Breath sounds: Normal breath sounds. Abdominal: General: Bowel sounds are normal. There is no distension. Palpations: Abdomen is soft. Tenderness: There is no abdominal tenderness. Musculoskeletal: General: No swelling or tenderness. Cervical back: Normal range of motion. Comments: Small abrasion to the dorsum of the right foot with no significant erythema or edema or tenderness of the right foot. Right foot is warm and well-perfused. Skin: General: Skin is warm. Neurological: Mental Status: She is alert and oriented to person, place, and time. Comments: Ambulatory with her own cane Psychiatric: Mood and Affect: Mood normal. Procedures Radiology/EKG/Labs: ED Course/MDM: Appropriate laboratory and radiology studies reviewed 64-year-old female, presents with positive blood cultures, from an outside facility and directed tot emergency department by primary care provider. History assisted by patient's son who is here with her. Son states the [facility], 4 days ago for right foot infection. Received a dose of IVantibiotic and laboratories obtained then. Is not on any oral antibiotic currently. Patient states her foot is no longer painful or bothering her but she received a report of positiveblood culture and directed to the emergency department for dose of IV antibiotic by her primary care provider. Son has paperwork showing sensitivity to Cipro on recent blood culture from outlying hospital. I Reviewed recent external records. Patient and son wish to receive a single dose of IV antibiotic here and prescription for oral antibiotic. Patient is adamant about not being admitted to the hospital today. IV is established and laboratories obtained. Given dose of IV Cipro. Patient is observed, reassessed and updated on results. Results for orders placed or performed during the hospital encounter of 11/03/24 CBC WITH DIFF Result Value Ref Range WBC 6.1 3.7 - 10.3 x10(3)/mcL RBC 4.00 3.90 - 5.20 x10(6)/mcL Hgb 12.4 11.2 - 15.7 g/dL Hct 37.3 34.0 - 45.0 % MCV 93.3 80.0 - 100.0 fL MCH 31.0 26.0 - 34.0 pg MCHC 33.2 30.7 - 35.5 g/dL RDW 15.5 (H) <=14.9 % Platelet 317 155 - 369 x10(3)/mcL MPV 8.8 8.8 - 12.5 fL Neut Percent 73.2 % Imm Gran% 0.2 % Lymph Percent 17.6 % Young Percent 7.7 % Eos Percent 1.0 % Baso Percent 0.3 % Neut # 4.5 1.6 - 6.1 x10(3)/mcL IMMGRAN# 0.0 0.0 - 0.1 x10(3)/mcL Lymph # 1.1 (L) 1.2 - 3.9 x10(3)/mcL Young # 0.5 0.3 - 0.9 x10(3)/mcL Eos# 0.1 0.0 - 0.5 x10(3)/mcL Baso # 0.0 0.0 - 0.1 x10(3)/mcL COMPREHENSIVE METABOLIC PANEL Result Value Ref Range Sodium 133 (L) 136 - 145 mmol/L Potassium 4.0 3.5 - 5.0 mmol/L Chloride 94 (L) 98 - 107 mmol/L Total CO2 26 22 - 29 mmol/L Anion Gap 13 7 - 16 mmol/L Calcium 9.8 8.8 - 10.4 mg/dL Glucose Lvl 91 70 - 99 mg/dL BUN 9 8 - 23 mg/dL Creatinine 0.91 0.51 - 1.30 mg/dL Albumin 4.3 3.2 - 4.6 gm/dL Total Protein 8.2 6.4 - 8.3 gm/dL Bili Total 0.3 0.2 - 1.3 mg/dL ALT 14 <=41 U/L AST 32 <=40 U/L Alk Phos 135 (H) 36 - 123 U/L eGFR (CKD-EPIcr 2020) 70 >=60 mL/min/1.73 m2 LACTIC ACID Result Value Ref Range Lactic Acid 0.9 0.5 - 1.9 mmol/L Sepsis markers unremarkable although procalcitonin has not resulted at the time of this note. Patient is afebrile with no signs of active infection on physical exam. No evidence of severe sepsis or septic shock. Patient and patient's son wish to be discharged home with oral antibiotic. Given prescription for Cipro and encouraged close follow-up and to return as needed. ED Clinical Impression: Recent right foot infection Positive blood culture Critical Care time Condition at Discharge/Transfer from Department: Stable This chart was completed using voice recognition technology and may contain unintended errors Garrett Frias MD 11/03/24 1158 documented in this encounter Plan of Treatment Not on file documented as of this encounter Goals Goal Patient Goal Type Associated Problems Recent Progress Patient-Stated? Author Eat better, exercise, reach an ideal body weight General No Monserrat Chaves CCMA Stay Tobacco Free Lifestyle No Monserrat Chaves CCMA documented as of this encounter Procedures Procedure Name Priority Date/Time Associated Diagnosis Comments PROCALCITONIN STAT 11/03/2024 10:34 AM EDT BLOOD CULTURE (NO STAIN) STAT 11/03/2024 10:34 AM EDT BLOOD CULTURE (NO STAIN) STAT 11/03/2024 10:34 AM EDT CBC WITH DIFF STAT 11/03/2024 10:34 AM EDT LACTIC ACID STAT 11/03/2024 10:34 AM EDT COMPREHENSIVE METABOLIC PANEL STAT 11/03/2024 10:34 AM EDT SALINE LOCK IV STAT 11/03/2024 9:55 AM EDT documented in this encounter Results * PROCALCITONIN (11/03/2024 10:34 AM EDT) Procalcitonin 0.07 <=0.49 ng/mL 11/03/2024 5:02 PM EDT [facility] Blood VENOUS BLOOD / Unknown Venipuncture / Unknown 11/03/2024 10:34 AM EDT 11/03/2024 10:39 AM EDT Narrative [facility] - 11/03/2024 5:02 PM EDT Procalcitonin <0.50 ng/mL: Procalcitonin levels below 0.50 ng/mL on the first day of ICU admission represent a low risk for progression to severe sepsis and/or septic shock Procalcitonin >=0.50 ng/mL and <=2.00 ng/mL: If the procalcitonin measurement is performed shortly after the systemic infection process has started (usually less than 6 hours), this value may still be low. As various non-infectious conditions are known to induce procalcitonin as well, procalcitonin levels between 0.50 ng/mL and 2.00 ng/mL should be reviewed carefully to take into account the specific clinical background and condition(s) of the patient. Procalcitonin >2.00 ng/mL: Procalcitonin levels above 2.00 ng/mL on the first day of ICU admission represent a high risk for progression to severe sepsis and/or septic shock. us Garrett Frias MD CHEMISTRY ORDERABLES Final Result [facility] [address] [facility] , [address] [place] [id number] * BLOOD CULTURE (NO STAIN) (11/03/2024 10:34 AM EDT) Culture Result No Growth at 120 hours. BLOOD CULTURE (NO STAIN) 11/08/2024 4:00 PM EDT [facility] Blood VENOUS BLOOD / Unknown Venipuncture / Unknown 11/03/2024 10:34 AM EDT 11/03/2024 10:39 AM EDT Garrett Frias MD MICROBIOLOGY - GENERAL TARUN JUAREZ Final Result Performing Organization Address [facility] Co de Phone Number [facility] [employer] , [place] [address] * BLOOD CULTURE (NO STAIN) (11/03/2024 10:34 AM EDT) Culture Result No Growth at 120 hours. BLOOD CULTURE (NO STAIN) 11/08/2024 4:00 PM EDT [facility] Blood VENOUS BLOOD / Unknown Venipuncture / Unknown 11/03/2024 10:34 AM EDT 11/03/2024 10:39 AM EDT Garrett Frias MD MICROBIOLOGY - GENERAL TARUN JUAREZ Final Result Performing Organization Address [facility] de Phone Number [facility] [employer] , [place] [address] * LACTIC ACID (11/03/2024 10:34 AM EDT) Lactic Acid 0.9 0.5 - 1.9 mmol/L 11/03/2024 10:52 AM EDT [facility] Blood VENOUS BLOOD / Unknown Venipuncture / Unknown 11/03/2024 10:34 AM EDT 11/03/2024 10:38 AM EDT Garrett Frias MD CHEMISTRY ORDERABLES Final Result Performing Organization Address [facility] Co de Phone Number [facility] [address] [place] [address] * (ABNORMAL) COMPREHENSIVE METABOLIC PANEL (11/03/2024 10:34 AM EDT) Sodium 133(L) 136 - 145 mmol/L 11/03/2024 10:57 AM [facility] Potassium 4.0 3.5 - 5.0 mmol/L 11/03/2024 10:57 AM [facility] Chloride 94(L) 98 - 107 mmol/L 11/03/2024 10:57 AM [facility] Total CO2 26 22 - 29 mmol/L 11/03/2024 10:57 AM [facility] Anion Gap 13 7 - 16 mmol/L 11/03/2024 10:57 AM [facility] Calcium 9.8 8.8 - 10.4 mg/dL 11/03/2024 10:57 AM [facility] Glucose Lvl 91 70 - 99 mg/dL 11/03/2024 10:57 AM [facility] BUN 9 8 - 23 mg/dL 11/03/2024 10:57 AM [facility] Creatinine 0.91 0.51 - 1.30 mg/dL 11/03/2024 10:57 AM [facility] Albumin 4.3 3.2 - 4.6 gm/dL 11/03/2024 10:57 AM [facility] Total Protein 8.2 6.4 - 8.3 gm/dL 11/03/2024 10:57 AM [facility] Bili Total 0.3 0.2 - 1.3 mg/dL 11/03/2024 10:57 AM [facility] ALT 14 <=41 U/L 11/03/2024 10:57 AM [facility] AST 32 <=40 U/L 11/03/2024 10:57 AM [facility] Alk Phos 135(H) 36 - 123 U/L 11/03/2024 10:57 AM [facility] eGFR (CKD-EPIcr 2020) 70 >=60 mL/min/1.7 3 m2 11/03/2024 10:57 AM [facility] Comment:Estimated GFR was ca lculated using the CKD-EPIcr (2020) equation refit without race. The equation is recommended by the [employer] - [place] [employer] of Nephrology Task Force. Blood VENOUS BLOOD / Unknown Venipuncture / Unknown 11/03/2024 10:34 AM EDT 11/03/2024 10:39 AM EDT Garrett Frias MD CHEMISTRY ORDERABLES Final Result [facility] [address] [place] [address] * (ABNORMAL) CBC WITH DIFF (11/03/2024 10:34 AM EDT) WBC 6.1 3.7 - 10.3 x10(3)/mcL 11/03/2024 10:43 AM EDT [facility] RBC 4.00 3.90 - 5.20 x10(6)/mcL 11/03/2024 10:43 AM EDT [facility] Hgb 12.4 11.2 - 15.7 g/dL 11/03/2024 10:43 AM EDT [facility] Hct 37.3 34.0 - 45.0 % 11/03/2024 10:43 AM EDT [facility] MCV 93.3 80.0 - 100.0 fL 11/03/2024 10:43 AM EDT [facility] MCH 31.0 26.0 - 34.0 pg 11/03/2024 10:43 AM EDT [facility] MCHC 33.2 30.7 - 35.5 g/dL 11/03/2024 10:43 AM EDT [facility] RDW 15.5(H) <=14.9 % 11/03/2024 10:43 AM EDT [facility] Platelet 317 155 - 369 x10(3)/mcL 11/03/2024 10:43 AM EDT [facility] MPV 8.8 8.8 - 12.5 fL 11/03/2024 10:43 AM EDT [facility] Neut Percent 73.2 % 11/03/2024 10:43 AM EDT [facility] Comment:Neutrophils equals s egs plus bands Imm Gran% 0.2 % 11/03/2024 10:43 AM EDT [facility] Comment:Automated count of m etamyelocytes, myelocytes and promyelocytes. Lymph Percent 17.6 % 11/03/2024 10:43 AM EDT [facility] Young Percent 7.7 % 11/03/2024 10:43 AM EDT [facility] Eos Percent 1.0 % 11/03/2024 10:43 AM EDT [facility] Baso Percent 0.3 % 11/03/2024 10:43 AM EDT [facility] Neut # 4.5 1.6 - 6.1 x10(3)/[facility] 11/03/2024 10:43 AM T [facility] Comment:Neutrophils equals s egs plus bands IMMGRAN# 0.0 0.0 - 0.1 x10(3)/[facility] 11/03/2024 10:43 AM [facility] Comment:Automated count of m etamyelocytes, myelocytes and promyelocytes. An absolute IG <0.1 is reported as 0.0. Lymph # 1.1(L) 1.2 - 3.9 x10(3)/[facility] 11/03/2024 10:43 AM EDT [facility] Young # 0.5 0.3 - 0.9 x10(3)/[facility] 11/03/2024 10:43 AM EDT [facility] Eos# 0.1 0.0 - 0.5 x10(3)/[facility] 11/03/2024 10:43 AM [facility] Baso # 0.0 0.0 - 0.1 x10(3)/[facility] 11/03/2024 10:43 AM [facility] Blood VENOUS BLOOD / Unknown Venipuncture / Unknown 11/03/2024 10:34 AM EDT 11/03/2024 10:39 AM EDT Garrett Frias MD HEMATOLOGY ORDERABLES Final Result [facility] [address] [place] [address] documented in this encounter Visit Diagnoses Diagnosis Positive blood culture- Primary Bacteremia documented in this encounter Administered Medications Inactive Administered Medications - up to 1 most recent administrations Medication Order MAR Action Action Date Dose Rate Site ciprofloxacin in 5 % dextrose (CIPRO) IVPB 400 mg 400 mg, Intravenous, ONCE, 1 dose, On Lin 11/03/24 at 1015, Administer over 60 Minutes, Reason for Therapy: Infection Suspected, Indication: Skin/soft tissue IV Started 11/03/2024 10:49 AM EDT 400 mg 200 mL/hr sodium chloride 0.9% IV line flush 50 mL 50 mL, Intravenous, at 999 mL/hr, PRN, Starting on Lin 11/03/24 at 0955, Until Lin 11/03/24 at 1601, Line Care, Flush with 50 mL after IVPB to insure complete administration of the dose. May use the saline infusion to back flush IVPB tubing as needed., Use this order to document priming and flushing IV line after medication administration. sodium chloride 0.9% syringe 5-10 mL 5-10 mL, Intravenous, PRN, Starting on Lin 11/03/24 at 0955, Until Lin 11/03/24 at 1601, Line Care, Flush with 5 mL saline pre/post IVP, and 5 mL prior to IVPB or blood product administration. Protocol for PERIPHERAL IV saline lock maintenance, flush with 3-5 mL saline syringe every 8 hours., Flush peripheral lines every 12 hours, central lines every 8 hours, and after IV medication documented in this encounter Historical Medications * This list may reflect changes made after this encounter. ondansetron (ZOFRAN) 4 mg Oral Tablet 8 mg. 09/08/2024 HYDROcodone-aceta minophen (NORCO) 7.5-325 mg Oral Tablet TAKE 1 TABLET BY MOUTH TWICE A DAY NEEDED FOR MODERATE PAIN (SCALE SCORE 5-6) 11/02/2024 atorvastatin (LIPITOR) 80 mg Oral Tablet Take 80 mg by mouth nightly. at bedtime added in this encounter Active and Recently Administered Medications Times are shown in EDT. Scheduled Medication Order 11/01/2024 11/02/2024 11/03/2024 ciprofloxacin in 5 % dextrose (CIPRO) IVPB 400 mg (COMPLETED) 400 mg, Intravenous, ONCE, 1 dose, On Lin 11/03/24 at 1015, Administer over 60 Minutes, Reason for Therapy: Infection Suspected, Indication: Skin/soft tissue 1049 (IV Started - P rovider: Zakiya Albarran RN)1149 (Stopped - Provider: Zakiya Albarran RN) PRN Medication Order 11/01/2024 11/02/2024 11/03/2024 sodium chloride 0.9% IV line flush 50 mL 50 mL, Intravenous, at 999 mL/hr, PRN, Starting on Lin 11/03/24 at 0955, Until Lin 11/03/24 at 1601, Line Care, Flush with 50 mL after IVPB to insure complete administration of the dose. May use the saline infusion to back flush IVPB tubing as needed., Use this order to document priming and flushing IV line after medication administration. sodium chloride 0.9% syringe 5-10 mL 5-10 mL, Intravenous, PRN, Starting on Lin 11/03/24 at 0955, Until Lin 11/03/24 at 1601, Line Care, Flush with 5 mL saline pre/post IVP, and 5 mL prior to IVPB or blood product administration. Protocol for PERIPHERAL IV saline lock maintenance, flush with 3-5 mL saline syringe every 8 hours., Flush peripheral lines every 12 hours, central lines every 8 hours, and after IV medication documented in this encounter Orders Medications Ordered That Jamie ht Not Have Been Administered Count Last Ordered Date First Ordered Date sodium chloride 0.9% IV line flush 50 mL 1 11/03/2024 sodium chloride 0.9% syringe 5-10 mL 1 10/16 IV Count Last Ordered Date First Orde red Date SALINE LOCK IV 1 11/03/2024 documented in this encounter Care Teams Upsetting Machine Operator Relationship Specialty Start Date End Date Maximo Leos MD Orthopaedic Surgery 11/12/11 Andre Tanner MD Psychiatry & Neurology-Neurology 10/26/14 documented as of this encounter
--- NOTE | 2024-11-30 23:11 | CT_ITS ---
PROCEDURE INFORMATION: Exam: CT Abdomen And Pelvis With Contrast Exam date and time: 12/01/2024 12:11 AM Age: 64 years old Clinical indication: Abdominal pain; Additional info: Abd pain, no bm x4 days, HX obstruction TECHNIQUE: Imaging protocol: Computed tomography of the abdomen and pelvis with contrast. Radiation optimization: All CT scans at this facility use at least one of these dose optimization techniques: automated exposure control; mA and/or kV adjustment per patient size (includes targeted exams where dose is matched to clinical indication); or iterative reconstruction. Contrast material: ISOVUE; Contrast volume: 75 ml; Contrast route: IV; COMPARISON: CT LUMBAR SPINE WO CON 10/13/2024 5:21 PM FINDINGS: Liver: Normal. No mass. Gallbladder and biliary ducts: Mild intrahepatic biliary ductal dilatation. No choledocholithiasis. Pancreas: Diffuse atrophy. No ductal dilatation or obvious mass. Spleen: Unremarkable. No splenomegaly. Adrenal glands: Unremarkable. No mass. Kidneys and ureters: No nephroureterolithiasis. No hydronephrosis. Stomach and bowel: Large nonobstructive colonic stool burden. Conspicuously dilated sigmoid colon abrupt convergence and narrowing along with mesenteric vessel convergence (series 3 image 46; series 1001, image 19). Proximal bowel loop dilatation sigmoid colon with mass effect and compression on duodenum. No small bowel dilatation. Appendix: No evidence of appendicitis. Intraperitoneal space: No free fluid. No free air. Impression: Vasculature: Atherosclerotic calcification of aortoiliac arteries. Extensive atherosclerotic calcification of aortoiliac arteries without aneurysm. Ostial atherosclerotic calcification of celiac, superior mesenteric, renal arteries with chronic moderate to high-grade superior mesenteric, celiac, both renal arteries. Lymph nodes: Unremarkable. No enlarged lymph nodes. Urinary bladder: Unremarkable as visualized. Reproductive: Unremarkable as visualized. Bones/joints: Unremarkable. No acute fracture. Soft tissues: Unremarkable. IMPRESSION: 1. Pronounced dilatation of sigmoid colon with abrupt narrowing and convergence of mesentery arteries suspicious for sigmoid colonic volvulus. 2. Dilated bowel mass effect on duodenum with secondary impression on extrahepatic biliary duct and upstream ductal dilatation. No choledocholithiasis. 3. Chronic osseous stenoses of celiac, superior mesenteric, renal arteries.
--- NOTE | 2024-11-30 23:11 | XR_ITS ---
PROCEDURE INFORMATION: Exam: XR Chest Exam date and time: 12/01/2024 12:14 AM Age: 64 years old Clinical indication: Other: Abd pain TECHNIQUE: Imaging protocol: Radiologic exam of the chest. Views: 1 view. COMPARISON: CT ABDOMEN PELVIS W CON 12/01/2024 12:11 AM FINDINGS: Lungs: Unremarkable. No consolidation. Pleural spaces: Unremarkable. No pleural effusion. No pneumothorax. Heart/Mediastinum: Unremarkable. No cardiomegaly. Bones/joints: Unremarkable. IMPRESSION: No acute findings.
[2024-11-30 23:15] VITALS: BP 174/96; PULSE 68; O2SAT 96
[2024-11-30 23:17] VITALS: BP 174/96; PULSE 70; RESP 18; TEMP 37.2; O2SAT 94; BMI 20.2
--- NOTE | 2024-11-30 23:19 | ECG_ITS ---
APPROVED REPORT Exam: Resting ECG HR:106 bpm ECG Measurements Heart Rate 106 AXES QRSd 92 QRS 71 QT 348 T 64 QTc 410 Conclusion Sinus rhythm with frequent premature supraventricular contractions ABNORMAL RHYTHM ECG No STEMI Electronically signed by : NILO GALICIA, 12/01/2024 04:17:55
[2024-11-30 23:23] LABS: Microscopic, Urine URINE MICROSCOPIC (MICROSCOPIC)
[2024-11-30 23:24] LABS: Bilirubin,Urine Negative (Negative); Color,Urine YELLOW (Yellow); Glucose,Urine (UA) Negative (Negative); Ketones,Urine Negative (Negative); Leukocyte Esterase,Urine Negative (Negative); PH,Urine 6.0 (5.0-8.5); Protein,Urine Negative (Negative); Specific Gravity, Urine 1.010 (1.005-1.030); Urobilinogen,Urine 0.2 EU/dl (0.2)
--- OUTSIDE RECORDS SUMMARY | 2024-11-30 23:30 | XMS_ITS | Clinical Summary ---
Author Organization [facility] Address [address] [place] [address] Care Team Providers Care Assistant Professor Of Forestry Name Role Phone Nemo Sethi NP Primary Care Provider [phone] Allergies Active Allergy Reactions Criticality Noted Date [...] 09/02/2021 Bipolar affective disorder, currently manic, moderate ([facility]) 12/28/2020 Narcotic dependence ([facility]) 12/28/2020 Tobacco use disorder 12/28/2020 Osteoarthritis of left sacroiliac joint ([facility] ) 12/28/2020 Immunizations Immunization Administration Dates Next [...] Assessment 07/17/2024 Osteoporosis Screening 07/17/2024 Influenza Vaccination (#1) 2025 Tetanus Vaccination (Every 1 0 Years) [...] EDT) Chol/HDL Ratio 2.4 0 - 5 TC E XTERNAL LAB Cholesterol 215(H) 125 - [...] Sethi NP CHEMISTRY ORDERABLES Shanti l Result [facility] [address] from Last 3 Months or Most Recently Relevant to Health Maintenance Insurance MEDICARE MEDICAID [place] Care Teams Assistant Professor Of Forestry Relationship Specialty Start Date End Date Nemo Sethi NP PCP - General Family Medicine 08/21/21
--- OUTSIDE RECORDS SUMMARY | 2024-11-30 23:30 | XMS_ITS | Clinical Summary ---
Author Organization [facility] Address [address] [place] [address] Phone Care Team Providers Care Wireless Sales Representative Name Role Phone Maximo Leos MD Unavailable [phone] Andre Tanner MD Unavailable Allergies Active Allergy Reactions Criticality Noted Date Comments Chocolate Flavor Codeine Duloxetine 03/31/2014 Metronidazole Hives 11/03/2024 Penicillins Promethazine Medications * This document contains information received from the source organization and may not represent a complete record from that organization. cariprazine (VRAYLAR) 1.5 mg Oral CapsuleIndicati ons:Bipolar disorder, in full remission, most recent episode manic Take 1 Cap by mouth daily. 21 Cap 1 Active Additional Information Patient not taking.Reported on 11/03/2024 ibuprofen (ADVIL;MOTRIN) 800 mg Oral Tablet TAKE 1 TAB BY MOUTH EVERY 8 HOURS NEEDED FOR PAIN. 90 Tablet 2 1 Active omeprazole (PRILOSEC) 40 mg Oral Capsule, Delayed Release(E.C.)In dications:Gastr oesophageal reflux disease with esophagitis without hemorrhage Take 1 Capsule by mouth daily. 30 Capsule 2 1 Active Additional Information Patient not taking.Reported on 11/03/2024 gabapentin (NEURONTIN) 300 mg Oral CapsuleIndicati ons:Chronic bilateral low back pain with bilateral sciatica Take 1 Capsule by mouth 3 times daily. 90 Capsule 2 1 Active nabumetone (RELAFEN) 750 mg Oral Tablet Take 1 Tablet by mouth daily. 30 Tablet 2 1 Active Additional Information Patient not taking.Reported on 11/03/2024 atorvastatin (LIPITOR) 80 mg Oral Tablet Take 80 mg by mouth nightly. at bedtime Active HYDROcodone-marilu taminophen (NORCO) 7.5-325 mg Oral Tablet TAKE 1 TABLET BY MOUTH TWICE A DAY NEEDED FOR MODERATE PAIN (SCALE SCORE 5-6) 5 Active ondansetron (ZOFRAN) 4 mg Oral Tablet 8 mg. 5 Active ciprofloxacin HCl (CIPRO) 500 mg Oral Tablet Take 1 Tablet by mouth 2 times daily for 7 days. 14 Tablet 5 11/11/19 25 Active Problems Patient Care Coordination No te Formatting of this note migh t be different from the original. SWITCHED PCP NO LONGER AT [facility] 04/15/2021 Problem Noted Date Diagnosed Date Narcotic [...] Up to date on HB 1 requirements. Encounters Date Type Department Care Team Description 11/03/2024 9:56 AM EDT - 11/03/2024 12:01 PM EDT [facility] [address] [facility] [place] [address] Garrett Frias MD Positive blood culture (Primary Dx) Discharge Disposition: Home or Self Care from Last 3 Months Immunizations Immunization Administration Dates Next Due Tdap [...] Mass Index 17.63 11/03/2024 9:55 AM EDT Plan of Treatment Health Maintenance Due Date Last Done Comments Wellness Exam Medicare 07/17/1962 Hepatitis C Screening 07/17/1977 Pneumococcal Vaccine 50+ (1 of 2 - PCV) 07/17/1978 HPV/Pap Cotest 07/17/1989 Colonoscopy 07/17/2004 FIT 07/17/2004 Sigmoidoscopy 07/17/2004 Virtual Colonography 07/17/2004 Zoster (1 of 2) 07/17/2009 Cervical Cancer Screening 11/10/2014 Pap Smear 11/10/2014 11/11/2011 (Not Entered) Breast Cancer Screening 06/11/2018 06/11/19 17 (Declined), 01/28/2013 Cologuard 12/09/2021 12/09/2018 Colon Cancer Screening 12/09/2021 COVID-19 Vaccine ( season) 2024 04/05/2021, 09/17/2020, 08/20/2020, Additional history exists Bone Density Screening 07/17/2024 Influenza Vaccine (#1) 2025 6 (Declined), 04/10/2015 (Declined) DTaP/TDaP/Td (2 - Td or Tdap) 04/10/2025 04/10/2015, 07/23/1996 Hepatitis B Vaccine Aged Out No [...] Comments PROCALCITONIN STAT 11/03/2024 10:34 AM EDT LACTIC ACID STAT 11/03/2024 10:34 AM EDT COMPREHENSIVE METABOLIC PANEL STAT 11/03/2024 10:34 AM EDT CBC WITH DIFF STAT 11/03/2024 10:34 AM EDT BLOOD CULTURE (NO STAIN) STAT 11/03/2024 10:34 AM EDT BLOOD CULTURE (NO STAIN) STAT 11/03/2024 10:34 AM EDT SALINE LOCK IV STAT 11/03/2024 9:55 AM EDT COLOGUARD Routine 12/09/2018 1:55 PM EDT Screening for colon cancer MM MOBILE MAMMO DIGITAL SCREEN W CAD KRISTIN Routine 01/28/2013 2:40 PM EDT Other screening mammogram from Last 3 Months or Most Recently Relevant to Health Maintenance Results * PROCALCITONIN (11/03/2024 10:34 AM EDT) Procalcitonin 0.07 <=0.49 ng/mL 11/03/2024 5:02 PM EDT [facility] [employer] Blood VENOUS BLOOD / Unknown Venipuncture / Unknown 11/03/2024 10:34 AM EDT 11/03/2024 10:39 AM EDT Narrative [facility] [employer] - 11/03/2024 5:02 PM EDT Procalcitonin <0.50 [...] progression to severe sepsis and/or septic shock. Garrett Frias MD CHEMISTRY ORDERABLES Final Result Performing Organization Address [facility] Co de Phone Number [employer] [address] [place] [address] , [place] [address] * BLOOD CULTURE (NO STAIN) (11/03/2024 10:34 AM EDT) Only the most recent of2 resultswithin the time period is included. Pathologist [facility] Culture Result No Growth at 120 hours. BLOOD CULTURE (NO STAIN) 11/08/2024 4:00 PM EDT [employer] Blood VENOUS BLOOD / Unknown Venipuncture / Unknown 11/03/2024 10:34 AM EDT 11/03/2024 10:39 AM EDT Garrett Frias MD [facility] Final Result Performing Organization Address [facility] Co de Phone Number [employer] [address] [place] [address] , [place] [address] * (ABNORMAL) CBC WITH DIFF (11/03/2024 10:34 AM EDT) WBC 6.1 3.7 - 10.3 x10(3)/mcL 11/03/2024 10:43 AM EDT [facility] RBC 4.00 3.90 - 5.20 x10(6)/[facility] 11/03/2024 10:43 AM [facility] Hgb 12.4 11.2 - 15.7 g/dL 11/03/2024 10:43 AM [facility] Hct 37.3 34.0 - 45.0 % 11/03/2024 10:43 AM [facility] MCV 93.3 80.0 - 100.0 fL 11/03/2024 10:43 AM [facility] MCH 31.0 26.0 - 34.0 pg 11/03/2024 10:43 AM [facility] MCHC 33.2 30.7 - 35.5 g/dL 11/03/2024 10:43 AM [facility] RDW 15.5(H) <=14.9 % 11/03/2024 10:43 AM [facility] Platelet 317 155 - 369 x10(3)/[facility] 11/03/2024 10:43 AM [facility] MPV 8.8 8.8 - 12.5 fL 11/03/2024 10:43 AM [facility] Neut Percent 73.2 % 11/03/2024 10:43 AM [facility] Comment:Neutrophils equals s egs plus bands Imm Gran% 0.2 % 11/03/2024 10:43 AM [facility] Comment:Automated count of m etamyelocytes, myelocytes and promyelocytes. Lymph Percent 17.6 % 11/03/2024 10:43 AM [facility] Saline Percent 7.7 % 11/03/2024 10:43 AM [facility] Eos Percent 1.0 % 11/03/2024 10:43 AM [facility] Baso Percent 0.3 % 11/03/2024 10:43 AM [facility] Neut # 4.5 1.6 - 6.1 x10(3)/[facility] 11/03/2024 10:43 AM [facility] Comment:Neutrophils equals s egs plus bands IMMGRAN# 0.0 0.0 - 0.1 x10(3)/[facility] 11/03/2024 10:43 AM [facility] Comment:Automated count of m etamyelocytes, myelocytes and promyelocytes. An absolute IG <0.1 is reported as 0.0. Lymph # 1.1(L) 1.2 - 3.9 x10(3)/[facility] 11/03/2024 10:43 AM EDT [facility] Saline # 0.5 0.3 - 0.9 x10(3)/[facility] 11/03/2024 10:43 AM EDT [facility] Eos# 0.1 0.0 - 0.5 x10(3)/[facility] 11/03/2024 10:43 AM EDT [facility] Baso # 0.0 0.0 - 0.1 x10(3)/[facility] 11/03/2024 10:43 AM EDT [facility] Blood VENOUS BLOOD / Unknown Venipuncture / Unknown 11/03/2024 10:34 AM EDT 11/03/2024 10:39 AM EDT Garrett Frias MD HEMATOLOGY ORDERABLES Final Result Performing Organization Address [facility] Co de Phone Number [facility] [address] [place] [address] * LACTIC ACID (11/03/2024 10:34 AM EDT) Lactic Acid 0.9 0.5 - 1.9 mmol/L 11/03/2024 10:52 AM EDT [facility] Blood VENOUS BLOOD / Unknown Venipuncture / Unknown 11/03/2024 10:34 AM EDT 11/03/2024 10:38 AM EDT Garrett Frias MD CHEMISTRY ORDERABLES Final Result Performing Organization Address [facility] Co de Phone Number [facility] [address] [place] [address] * (ABNORMAL) COMPREHENSIVE METABOLIC PANEL (11/03/2024 10:34 AM EDT) Sodium 133(L) 136 - 145 mmol/L 11/03/2024 10:57 AM [facility] Potassium 4.0 3.5 - 5.0 mmol/L 11/03/2024 10:57 AM [facility] Chloride 94(L) 98 - 107 mmol/L 11/03/2024 10:57 AM [facility] Total CO2 26 22 - 29 mmol/L 11/03/2024 10:57 AM [facility] Anion Gap 13 7 - 16 mmol/L 11/03/2024 10:57 AM [facility] Calcium 9.8 8.8 - 10.4 mg/dL 11/03/2024 10:57 AM [facility] Glucose Lvl 91 70 - 99 mg/dL 11/03/2024 10:57 AM [facility] BUN 9 8 - 23 mg/dL 11/03/2024 10:57 AM [facility] Creatinine 0.91 0.51 - 1.30 mg/dL 11/03/2024 10:57 AM [facility] Albumin 4.3 3.2 - 4.6 gm/dL 11/03/2024 10:57 AM [facility] Total Protein 8.2 6.4 - 8.3 gm/dL 11/03/2024 10:57 AM [facility] Bili Total 0.3 0.2 - 1.3 mg/dL 11/03/2024 10:57 AM [facility] ALT 14 <=41 U/L 11/03/2024 10:57 AM [facility] AST 32 <=40 U/L 11/03/2024 10:57 AM [facility] Alk Phos 135(H) 36 - 123 U/L 11/03/2024 10:57 AM [facility] eGFR (CKD-EPIcr 2020) 70 >=60 mL/min/1.7 3 m2 11/03/2024 10:57 AM [facility] Comment:Estimated GFR was ca lculated using the CKD-EPIcr (2020) equation refit without race. The equation is recommended by the National Kidney Foundation - Citizen [place] Society of Nephrology Task Force. Blood VENOUS BLOOD / Unknown Venipuncture / Unknown 11/03/2024 10:34 AM EDT 11/03/2024 10:39 AM EDT Garrett Frias MD CHEMISTRY ORDERABLES Final Result [facility] [address] [place] [address] * COLOGUARD (12/09/2018 1:55 PM EDT) COLOGUARD CLINICAL REPORT Negative Not Applicable [facility] Comment: A negative result indicates [...] (Rashid Maldonado al, N Engl J Med 2014;370(14):5126-8231) COLOGUARD RE-SCREENING RECOMMENDATION: Periodic routine colorectal cancer screening is an important part of preventive healthcare for asymptomatic persons at average risk for colorectal cancer. Following a negative Cologuard result, the [place] Cancer Society and U.S. Multi-Society Task Force screening guidelines recommend a Cologuard re-screening interval of 3 years. References: [place] Cancer Society (ACS). Colorectal cancer prevention and early detection. [place], [place]: [place] Cancer Society; [updated 2015Sep 08]. https://www.cancer.org/cancer/bnswo-rflesn-akiifq/yrzpdriiv-tdrisibff-dgiqwab/ac s-rec ommendations.html. Accessed January 15, 2018; Alexx DK, Dalila OSUNA, Wilber VaughnK, Colorectal Cancer Screening: Recommendations for Physicians and Patients from the U.S. Multi-Society Task Force on Colorectal Cancer Screening, Am J Gastroenterology 2017; 112:9172-6659. Test Type: Composite algorithmic analysis of stool [...] can be accessed at the following location: www.As[employer]vest.CardiOx/results. Additional description of the Cologuard test process, warnings and precautions can be found at www.cologuardtest.com. Rx Only. Stool specimen (specimen) 12/09/2018 1:55 PM EDT 12/10/2018 11:30 PM EDT Alberto Carter MD [employer] SCIENCE - ORDERABLES Fin al Result Performing Organization Address City/State/[facility] Co de Phone Number [employer] [place] [address], [facility] [employer] [address] [place] [address] * MM MOBILE MAMMO DIGITAL SCREEN W CAD KRISTIN (01/28/2013 2:40 PM EDT) Anatomical Region Laterality Modality Breast Mammography 01/31/2013 8:48 AM EDT Impressions 01/31/2013 4:26 PM EDT : Negative ([id number]) ~ RECOMMENDATION: Routine screening mammogram in 1 [...] are scattered fibroglandular densities. ~ IMPRESSION: Negative ([id number]) ~ RECOMMENDATION: Routine screening mammogram in 1 [...] Most Recently Relevant to Health Maintenance Insurance MEDICAID [place] [facility] [place] Care Teams Wireless Sales Representative Relationship Specialty Start Date End Date Maximo Leos MD Orthopaedic Surgery 11/12/11 Andre Tanner MD Psychiatry & Neurology-Neurology 10/26/14
--- OUTSIDE RECORDS SUMMARY | 2024-11-30 23:30 | XMS_ITS | Clinical Summary ---
Author Organization [facility] Address [address] [facility] [address] [place] [address] Phone Care Team Providers Care Traffic Expert Name Role Phone Unavailable Unavailable Conditions or Problems No information available. Medications No information available. Medications Administered No information available. Allergies, Adverse Reactions, Alerts No information available. Results No information available. Plan of Care No information available. Procedures No information available. Vital Signs No information available. Immunizations No information available. Advance Directives No information available.
[2024-11-30 23:33] LABS: Hematocrit 33.8 % (37.0-47.0); Hemoglobin 11.8 g/dL (12.2-16.2); Immature Granulocytes % 0.3 %; Mean Corpuscular HGB Conc 34.9 g/dL (31.8-35.4); Mean Corpuscular Hemoglobin 30.6 pg (27.0-31.2); Mean Corpuscular Volume 87.8 fl (81-99); Nucleated Red Blood Cells % 0 %; Platelet Count 275 K/mm3 (142-424); Red Blood Count 3.85 M/mm3 (4.20-5.40); Red Cell Distribution Width-SD 49.0 fL; White Blood Count 7.9 K/mm3 (4.8-10.8)
[2024-11-30] MEDS: LACTATED RINGERS 1000ML 1,000 ML 999 ML IV (23:34)
[2024-11-30] MEDS: KETOROLAC 30MG/ML VIAL 15 MG IV (23:34)
[2024-11-30 23:40] LABS: Bacteria,Urine 1+ /lpf; WBC,Urine Occasional #/hpf (0-3)
[2024-11-30 23:42] LABS: Lipase 31 U/L (23-300)
[2024-11-30 23:44] LABS: Alanine Aminotransferase 22 U/L (12-78); Albumin Level 4.7 g/dl (3.5-5.0); Albumin/Globulin Ratio 1.2 (1.1-1.8); Alkaline Phosphatase 110 U/L (38-126); Anion Gap 13.8 mEq/L (5-15); Aspartate Amino Transferase 49 U/L (14-36); Bilirubin,Total 0.9 mg/dl (0.2-1.3); Blood Urea Nitrogen 11 mg/dl (7-17); Calcium 9.7 mg/dl (8.4-10.2); Carbon Dioxide 24 mmol/L (22.0-30.0); Chloride 95 mmol/L (98-107); Creatinine Clearance Estimated 40 mL/min (50-200); Creatinine,Serum 0.70 mg/dl (0.52-1.04); Estimated Glomerular Filt Rate 84 ml/min (>60); GFR (African American) 102 ML/MIN (>60); Globulin 4.0 g/dL (1.3-3.2); Glucose 118 mg/dl (74-100); INR 0.98 (0.9-1.1); Potassium 3.8 mmoL/L (3.5-5.1); Prothrombin Time 10.9 seconds (10.1-12.5); Sodium 129 mmol/L (136-145); Total Protein,Serum 8.7 g/dl (6.3-8.2)
--- NOTE | 2024-11-30 23:55 | ED_ITS ---
Discharge Plan Disposition Patient Disposition: Admitted Condition: Good Prescriptions Prescriptions: No Action sennosides [Senna Lax] 8.6 mg tablet 8.6 mg PO HS Qty: 30 10RF gabapentin 300 mg capsule 300 mg PO BID Qty: 60 3RF aspirin 81 mg tablet,chewable 81 mg PO DAILY 30 Days Qty: 100 3RF atorvastatin 80 mg tablet 80 mg PO QHS Qty: 90 3RF hydrocodone-acetaminophen 7.5-325 mg tablet 1 tab PO BID PRN (Reason: Moderate Pain (Scale Score 5-6)) Qty: 60 0RF Rx Instructions: okay to fill today clopidogrel 75 mg tablet 75 mg PO DAILY 21 Days Qty: 30 3RF ondansetron HCl 8 mg tablet 8 mg PO Q8H Qty: 90 0RF Referrals Follow up/Referrals: Andre Sepulveda MD [Staff Physician, Urology] - See instructions Referral Note: slight hematuria Zia Joseph MD [Primary Care Provider, Family Practice] - See instructions Clinical Impressions Clinical Impression: Constipation, Hematuria, Hyponatremia, Abdominal pain Instructions Patient Instructions: DI for Acute Abdominal Pain Print Language Print Language: Chinese Discharge ED Provider: Sly Andrade General Adult HPI General Chief complaint: Abdominal Pain Stated complaint: abdominal pain 4 days Time Seen by Provider: 11/30/24 23:10 Mode of Arrival: Ambulatory Source of Information: Patient Description of Symptoms (Recalled from ER Triage Doc. by RN): Pt presents with reports of mid to lower abd pain that began approx 4 days ago with worsesning today. Pt reports associated slight constipation that began then as well. Pt reports history of bowel obstruction. History of Present Illness HPI narrative: 64-year-old female presents to the ER complaining of mid lower abdominal pain that began 4 days ago and has been progressively worsening. She also reports she has not had a good bowel movement in the last 4 days, she had a very small bowel movement today but states it was hard to go. Patient does report a history of bowel obstruction that never required surgery. She has no fevers or chills, she denies dysuria or hematuria. She states she is not having any nausea or vomiting. Patient denies headache, dizziness, chest pain, difficulty breathing, cough, congestion, or other associated symptoms. Patient's adult son pulled me aside separately and expressed concern for kratom use. I understand his concerns but explained that we cannot specifically test for kratom. Related Data Previous Rx's ?Medication ?Instructions ?Recorded gabapentin 300 mg capsule 300 mg PO BID #60 caps 10/07 sennosides 8.6 mg tablet (Senna 8.6 mg PO HS #30 tabs 10/07/24 Lax) aspirin 81 mg chewable tablet 81 mg PO DAILY 30 days # 100 tabs 11/02/24 atorvastatin 80 mg tablet 80 mg PO QHS #90 tabs hydrocodone 7.5 mg-acetaminophen 1 tab PO BID PRN Mode rate Pain 11/02/24 325 mg tablet (Scale Score 5-6) #60 tabs clopidogrel 75 mg tablet 75 mg PO DAILY 21 days #30 t abs 11/03/24 ondansetron HCl 8 mg tablet 8 mg PO Q8H #90 tabs 11/16 Allergies Allergy/AdvReac Type Severity Reaction Status Date / Time chocolate flavor Allergy Intermediate rash Verified 11/02/24 13:49 Penicillins Allergy Intermediate Rash Verified 11/02/24 13:49 Influenza Virus Vaccines Allergy Blister Verified 11/02/24 13:49 morphine Allergy Unknown Verified 11/02/24 13:49 allergy reaction PFSH PFS Disclaimer: The information contained in this section may have been updated after the patient was seen, as this information can be updated by other users. Medical History Fibromyalgia Bowel obstruction GERD (gastroesophageal reflux disease) Lumbar spinal stenosis Lumbar radicular pain DDD (degenerative disc disease), lumbar Dog bite Surgical History No history of previous surgery Family History Other No significant family history Social History Smoking Status: Current every day smoker tobacco type: cigarettes packs per day: 2 alcohol intake: current alcohol intake frequency: a few times a month substance use type: former substance user current occupational status: disabled Travel in the last 8 weeks?: None Do you have any abdominal pain?: Yes Other Medical History Have you received the Flu Vaccine for this season: No Have you received the Pneumonia Vaccine: No ROS Obtained: Yes Systems reviewed as appropriate & no additional complaints except as documented Per HPI Physical Exam General General appearance: alert and in no apparent distress Comment: Chronically ill-appearing, appears older than stated age Head Head exam: atraumatic and normocephalic Eye Eye exam: Present PERRL and EOMI ENT ENT exam: Present mucous membranes moist Neck Neck exam: Present normal inspection and full ROM Chest Chest inspection: Present symmetric chest wall rise Respiratory Respiratory exam: Present normal lung sounds bilaterally; Absent respiratory distress, wheezes or stridor Cardiovascular Cardiovascular exam: Present regular rate and normal rhythm Abdominal Exam Abdominal exam: Present soft, distention (Mild lower abdominal distention) and tenderness (Diffuse low abdomen without focal tenderness); Absent guarding, rebound or rigidity Comment: Mildly tympanitic across the low abdomen; no peritonitis on exam Extremities Exam Extremities exam: Present full ROM Neurological Exam Neurological exam: Present alert and oriented X3; Absent motor sensory deficit Psychiatric Psychiatric exam: Present normal affect and normal mood Skin Skin exam: Present warm and dry Medical Decision Making Medical Records Medical records reviewed: Yes I reviewed the patient's medical records. Screening: Per USPSTF and CDC recommendations, given the prevalence of disease in our region, it is our hospital?s policy to screen for HIV and viral Hepatitis for all patients aged 18 and over and those with ongoing risk factors. Jose F Inquiry Pt receiving controlled substance: No Vital Signs: 11/30/24 23:15 11/30/24 23:17 12/01/24 00:00 Temperature 98.9 F Temperature Source Oral Pulse Rate 68 75 Pulse Rate [Radial] 70 Respiratory Rate 18 8 L Blood Pressure 174/96 H 177/107 H Blood Pressure [Right Arm] 174/96 H Blood Pressure Mean [Right Arm] 122 Blood Pressure Position [Right Arm] Sitting 02 Sat by Pulse Oximetry 96 94 L 96 Oxygen Delivery Method Room Air Room Air Room Air 12/01/24 00:30 12/01/24 00:38 12/01/24 00:39 Temperature Temperature Source Pulse Rate 84 84 84 Pulse Rate [Radial] Respiratory Rate 15 13 14 Blood Pressure 162/124 H 157/100 H 170/103 H Blood Pressure [Right Arm] Blood Pressure Mean [Right Arm] Blood Pressure Position [Right Arm] 02 Sat by Pulse Oximetry 97 98 99 Oxygen Delivery Method Room Air 12/01/24 01:00 12/01/24 01:30 Temperature Temperature Source Pulse Rate 74 64 Pulse Rate [Radial] Respiratory Rate 12 11 L Blood Pressure 179/97 H 161/95 H Blood Pressure [Right Arm] Blood Pressure Mean [Right Arm] Blood Pressure Position [Right Arm] 02 Sat by Pulse Oximetry 95 97 Oxygen Delivery Method Lab Data Lab Results 11/30/24 00:00: Plasma/Serum Alcohol < 10 11/30/24 23:14: Urine Color Yellow, Urine Appearance Clear, Urine pH 6.0, Ur Specific [place] 1.010, Urine Protein Negative, Urine Glucose (UA) Negative, Urine Ketones Negative, Urine Blood Negative, Urine Nitrate Negative, Urine Bilirubin Negative, Urine Urobilinogen 0.2, Ur Leukocyte Esterase Negative, Urine RBC 5-10, Urine WBC Occasional, Ur Squamous Epith Cells 5-10, Urine Bacteria 1+ 11/30/24 23:22: WBC 7.9, RBC 3.85 L, Hgb 11.8 L, Hct 33.8 L, MCV 87.8, MCH 30.6, MCHC 34.9, RDW 15.2, Plt Count 275, MPV 9.0, Neut % (Auto) 71.6, Lymph % (Auto) 18.8, [place] % (Auto) 8.6, Eos % (Auto) 0.3, Baso % (Auto) 0.4, Neut # (Auto) 5.7, Lymph # (Auto) 1.5, [place] # (Auto) 0.7, Eos # (Auto) 0.0, Baso # (Auto) 0.0, PT 10.9, INR 0.98, Sodium 129 L, Potassium 3.8, Chloride 95 L, Carbon Dioxide 24, Anion Gap 13.8, BUN 11, Creatinine 0.70, Estimated Creat Clear 40, Estimated GFR 84, Est GFR ( Amer) 102, Glucose 118 H, Calcium 9.7, Total Bilirubin 0.9, AST 49 H, ALT 22, Alkaline Phosphatase 110, Total Protein 8.7 H, Albumin 4.7, G lobulin 4.0 H, Albumin/Globulin Ratio 1.2, Lipase 31 11/30/24 23:57: Urine Opiates Screen Negative, Urine Methadone Screen Positive H , Ur Barbituates Screen Negative, Ur Phencyclidine Scrn Negative, Ur Amphetamines Screen Negative, U Benzodiazepines Scrn Negative, Urine Cocaine Screen Negative, U Marijuana (THC) Screen Negative 12/01/24 00:22: Lactate 1.0 11/30/24 23:22 11/30/24 23:22 Orders (Tests/Meds): ED MEDICATIONS Generic Name Dose Route Start Last Admin Trade Name Dane PRN Reason Stop Dose Admin Sodium Chloride 1,000 mls @ 75 mls/hr 12/01/24 02:45 Sod Chlor 0.9% 1000ml Bag IV 12/31/24 02:44 .[id number] YOU Lactulose 20 gm 12/01/24 09:00 Lactulose 20gm/30ml Udc PO 12/31/24 08:59 BID YOU Senna/Docusate Sodium 1 tab 12/01/24 02:45 Sennosides 8.6mg/Docusate 50mg Tablet PO 12/31/24 02:44 BIDP YOU Sodium Chloride 10 ml 12/01/24 00:17 12/01/24 00:18 Sodium Chloride 0.9% 10ml Syr (Rad Only) IV 12/31/24 00:16 10 ml NEEDED PRN Administration Maintain IV Site Discontinued Medications Generic Name Dose Route Start Last Admin Trade Name Dane PRN Reason Stop Dose Admin Lactated Ringer's 1,000 mls @ 999 mls/hr 11/30/24 23:15 11/30/24 23:34 Lactated Ringer's 1000 Ml Bag IV 12/01/24 00:15 999 mls/hr .Q1H1M ONE Administration Iopamidol 75 ml 12/01/24 00:17 12/01/24 00:17 Iopamidol-370 (76%);100ml Bottle IV 12/01/24 00:18 75 ml ONCE ONE Administration Ketorolac Tromethamine 15 mg 11/30/24 23:15 11/30/24 23:34 Ketorolac 30mg/Ml Vial IV 11/30/24 23:16 15 mg ONCE ONE Administration ORDERS Category Date Time Status CT abdomen pelvis w con Stat Cat Scan 11/30/24 23:11 Completed XR chest portable Stat Exams 11/30/24 23:11 Completed Basic Metabolic Panel AMLAB Lab 12/01/24 06:00 Ordered Complete Blood Count Auto Diff AMLAB Lab 12/01/24 06:00 Ordered Complete Blood Count Auto Diff Stat Lab 11/30/24 23:22 Completed Comprehensive Metabolic Panel Stat Lab 11/30/24 23:22 Completed Ethanol [Ethyl Alcohol] Stat Lab 11/30/24 23:55 Completed Lactic Acid Stat Lab 11/30/24 23:11 Completed Lipase Stat Lab 11/30/24 23:22 Completed Prothrombin Time INR Stat Lab 11/30/24 23:22 Completed UDS [Drug Screen,Urine] Stat Lab 11/30/24 23:57 Completed Urinalysis and Microscopic Stat Lab 11/30/24 23:14 Completed Medical Decision Narrative: In summary, this 64-year-old female with comorbidities described in the HPI presents to the emergency department today with low abdominal pain that has been progressive for the last 4 days as well as poor bowel movement output. On initial evaluation patient is hemodynamically stable, afebrile, she appears chronically ill but not acutely ill or toxic, physical exam only notable for lower abdominal mild distention, moderate tenderness with no rebound or guarding, no peritonitic findings, mildly tympanitic. Differential diagnosis includes but is not limited to constipation, bowel obstruction, mass, urinary tract infection, electrolyte abnormality, dysmotility, atypical presentation of ACS, patient's family expressed concerns for substance use as well so I considered this though I explained to him I cannot test for kratom. Based on these concerns, I ordered serum labs, cardiac workup, CT abdomen pelvis, urine studies. ECG personally interpreted demonstrates sinus rhythm with frequent PACs, rate 106, normal axis, normal QTc, no STEMI. Patient received Toradol, IV fluids initially for treatment. Labs personally reviewed demonstrate no leukocytosis, anemia stable from previous labs, PT/INR normal, CMP with hyponatremia that is slightly worsened than it was in the middle of October the last time she had labs, normal anion gap, mild AST elevation only slightly worse than previous, no other transaminitis, normal bilirubin, UA with few RBCs but no findings of infection or other abnormalities. I was called in the room by the son who was angry about the patient's blood pressure. Patient was moderately hypertensive but has no symptoms of hypertension. She has no headache or strokelike symptoms, no vision changes, no chest pain or difficulty breathing, no changes in urination. Son was very mad that the oil field technician had explained that the patient has a history of high blood pressure which is documented in the chart. They called me to bedside because they were mad about the text stating this. They reported that the patient has never been diagnosed with high blood pressure so I do not know where they came up with that . I explained to them that hypertension is a documented problem in the chart and previous diagnosis. Further review of records demonstrates this was documented by Dr. Montano. I explained that regardless of the family being aware of this, it is a previously known problem for the patient and I also explained that I am not specifically concerned with her hypertension at this time since it is a previously known problem and she is not having symptoms of it. They are reassured by this. CT abdomen pelvis personally interpreted demonstrates significant colonic stool burden throughout, but does not appear to be bowel obstruction or mass. Dilation of bowel indicates to me that patient likely has a history of chronic constipation. See radiology read for final interpretation. I received a phone call from the reading radiologist about the findings on the CT. We discussed this at length including the fact the patient has been having symptoms for the last 4 days but has a normal white count and normal lactic as well as a relatively unimpressive abdominal exam. I explained to him that I had very low suspicion for volvulus and also do not appreciate the volvulus myself on the CT. After discussing all this and reevaluating his images, he agrees that it is less likely for patient to have volvulus and considered the possibility for large bowel obstruction secondary to significant stool burden. I appreciate his thoughts and discussion. Based on this radiology read, I discussed this case at length with Dr. Cintron on- call for general surgery. We discussed this patient's presentation, multiple days of symptoms, labs, and the imaging results. After long discussion with him, he agrees that with 4 days of symptoms he would expect a volvulus to have caused significant lab derangements and for the patient to be more clinically ill-appearing than she is at this time. She is actively drinking an energy drink in the room and resting comfortably currently. He recommends treating the patient with soapsuds enema preferring to use a red rubber catheter to try and get as proximal as possible with minimal risk of perforation. He recommended that if the patient does not have a large bowel movement after the enema to admit the patient for bowel regimen and cleanout. He did suggest that after she has a large bowel movement to repeat CT and further evaluate the potential for volvulus though he has very low suspicion for it. I appreciate all his recommendations. Endings and recommendations were discussed with the patient. She is agreeable to the plan for soapsuds enema and potential admission if needed. Enema was administered, patient only had scant production of stool and mostly produced the enema that had just been administered. She continues to be very well-appearing vitals are stable so I recommended admission to the hospital for bowel cleanout. Unfortunately because she has had enema at home and now in the ER and her rectum is already decompressed I do not believe she would be a good candidate for manual disimpaction because there is not stool within the area that I can reach manually. I discussed this case with the hospitalist including recommendations from the general surgeon for treatment and follow-up imaging. Patient was graciously accepted and admitted in stable condition. Critical Care Critical Care Time Critical Care Time: No
[2024-12-01] VITALS (14 sets, daily range): BP systolic 149–186; BP diastolic 80–124; PULSE 64–96; RESP 8–18; TEMP 36.6–37.2; O2SAT 92–99; BMI 20.2
[2024-12-01] MEDS: IOPAMIDOL-370 (76%);100ML BOTTLE 75 ML IV (00:17)
[2024-12-01] MEDS: SODIUM CHLORIDE 0.9% 10ML SYR (RAD ONLY) 10 ML IV (00:18)
[2024-12-01 00:21] LABS: Amphetamine/Metha Screen,Urine Negative ng/ml (<1000); Barbiturates Screen,Urine Negative ng/ml (<200)
[2024-12-01 00:22] LABS: Benzodiazepines Screen,Urine Negative ng/ml (<200)
[2024-12-01 00:24] LABS: Methadone Screen,Urine Positive ng/ml (<300); Opiate Screen,Urine Negative ng/ml (<300)
--- NOTE | 2024-12-01 00:24 | PC.NURSE ---
pt returned from ct scan, requesting to go to bathroom, assisted with slow steady gait.
--- NOTE | 2024-12-01 00:24 | PC.NURSE ---
LA drawn and sent to the lab at this time.
[2024-12-01 00:25] LABS: Phencyclidine Screen,Urine Negative ng/ml (<25)
--- NOTE | 2024-12-01 00:40 | PC.NURSE ---
pt family concerned regarding BP, multiple checks and cuff switches still showing BP reading high. Dr Andrade aware and at the bedside speaking with patient and family at this time.
--- NOTE | 2024-12-01 01:40 | PC.NURSE ---
Tech at the bedside to obtain repeat EKG. ED provider on the phone with general surgeon at this time.
--- NOTE | 2024-12-01 01:44 | ECG_ITS ---
APPROVED REPORT Exam: Resting ECG HR:70 bpm ECG Measurements Heart Rate 70 AXES DE 140 P 56 QRSd 93 QRS 85 QT 444 T 74 QTc 464 Conclusion SINUS RHYTHM NORMAL ECG Electronically signed by : NILO GALICIA, 12/02/2024 01:41:00
--- NOTE | 2024-12-01 01:49 | PC.NURSE ---
Family comes to the nurses station to request update, made aware that ed provider is speaking with surgeon and will be in the room to discuss POC.
--- NOTE | 2024-12-01 01:52 | PC.NURSE ---
ed provider at the bedside at this time.
--- NOTE | 2024-12-01 02:47 | PC.NURSE ---
Report given to Barbara HERNANDEZ on the floor.
--- NOTE | 2024-12-01 02:56 | EXP.HP ---
History of Present Illness *Admission Date: 12/01/24 *Reason for visit:: Abdominal pain *History of present illness: This is a 64-year-old female with past medical history of recently lacunar stroke, obstipation secondary to opioid usage, scoliosis and recent bowel obstruction who presents emergency department today with complaints of abdominal pain. She reports ongoing constipation issues and recent hospitalization for a bowel obstruction in September. States that she developed mid to lower abdominal pain began about 4 days ago. She denies any nausea or vomiting. Denies any fever or chills. States that she took MiraLAX yesterday and gave her self a fleets enema and had a good sized bowel movement. States that she would have stayed home this evening if it went for her son's concerns for her having another bowel obstruction. Due to this she presented to the emergency department. Emergency department workup notable for acute on chronic findings on CT abdomen. Initial read concerning for volvulus and narrowing of the mesenteric arteries. After further review with radiologist, it was felt that patient likely has significant acute on chronic constipation. Given laboratory findings it is likely that patient just has her worsening chronic obstipation/constipation. Lactic acid negative. Labs are otherwise stable. She is nontoxic on exam no significant distention but mildly tense. Does not appear peritonitic at this time. Findings were discussed by ED provider and Dr. Cintron. Given patient's chronic history it is reasonable to admit for robust bowel regimen and serial abdominal exams. She is admitted to hospital service at this time. [facility] Disclaimer: The information contained in this section may have been updated after the patient was seen, as this information can be updated by other users. Medical History Fibromyalgia Bowel obstruction GERD (gastroesophageal reflux disease) Lumbar spinal stenosis Lumbar radicular pain DDD (degenerative disc disease), lumbar Dog bite Surgical History No history of previous surgery Family History Other No significant family history Social History Smoking Status: Current every day smoker tobacco type: cigarettes packs per day: 2 alcohol intake: current alcohol intake frequency: a few times a month substance use type: former substance user current occupational status: disabled Travel in the last 8 weeks?: None Do you have any abdominal pain?: Yes Other Medical History Have you received the Flu Vaccine for this season: No Have you received the Pneumonia Vaccine: No Review of Systems Review of Systems Review of systems:: pertinent systems reviewed and negative unless documented below Review of systems (narrative): Negative except for HPI Meds Home Medications and Allergies Home Medications ?Medication ?Instructions ?Recorded ?Confirmed ?Type gabapentin 300 mg capsule 300 mg PO BID #60 caps 10/07/24 11/02/24 Rx sennosides 8.6 mg tablet (Senna 8.6 mg PO HS #30 tabs 10/07/24 11/02/24 Rx Lax) aspirin 81 mg chewable tablet 81 mg PO DAILY 30 days #100 tabs 11/02/24 Rx atorvastatin 80 mg tablet 80 mg PO QHS #90 tabs 11/02/24 Rx hydrocodone 7.5 mg-acetaminophen 1 tab PO BID PRN Moderate Pain 11/02/24 Rx 325 mg tablet (Scale Score 5-6) #60 tabs clopidogrel 75 mg tablet 75 mg PO DAILY 21 days #30 tabs 11/03/24 Rx ondansetron HCl 8 mg tablet 8 mg PO Q8H #90 tabs 11/16/24 Rx New Prescriptions to Start Prescriptions: Allergies Allergy/AdvReac Type Severity Reaction Status Date / Time chocolate flavor Allergy Intermediate rash Verified 11/02/24 13:49 Penicillins Allergy Intermediate Rash Verified 11/02/24 13:49 Influenza Virus Vaccines Allergy Blister Verified 11/02/24 13:49 morphine Allergy Unknown Verified 11/02/24 13:49 allergy reaction Exam Data for Last 24 hours Vital signs and Labs for Last 24 Hours: Temp Pulse Resp BP Pulse Ox O2 Del Method 98.9 F 91 H 12 162/108 H 95 Room Air 12/01/24 02:48 12/01/24 02:48 12/01/24 02:48 12/01/24 02:48 12/01/24 02:30 12/01/24 02:48 Laboratory Results - last 24 hr 11/30/24 00:00: Plasma/Serum Alcohol < 10 11/30/24 23:14: Urine Color Yellow, Urine Appearance Clear, Urine pH 6.0, Ur Specific [place] 1.010, Urine Protein Negative, Urine Glucose (UA) Negative, Urine Ketones Negative, Urine Blood Negative, Urine Nitrate Negative, Urine Bilirubin Negative, Urine Urobilinogen 0.2, Ur Leukocyte Esterase Negative, Urine RBC 5-10, Urine WBC Occasional, Ur Squamous Epith Cells 5-10, Urine Bacteria 1+ 11/30/24 23:22: WBC 7.9, RBC 3.85 L, Hgb 11.8 L, Hct 33.8 L, MCV 87.8, MCH 30.6, MCHC 34.9, RDW 15.2, Plt Count 275, MPV 9.0, Neut % (Auto) 71.6, Lymph % (Auto) 18.8, [place] % (Auto) 8.6, Eos % (Auto) 0.3, Baso % (Auto) 0.4, Neut # (Auto) 5.7, Lymph # (Auto) 1.5, [place] # (Auto) 0.7, Eos # (Auto) 0.0, Baso # (Auto) 0.0, PT 10.9, INR 0.98, Sodium 129 L, Potassium 3.8, Chloride 95 L, Carbon Dioxide 24, Anion Gap 13.8, BUN 11, Creatinine 0.70, Estimated Creat Clear 40, Estimated GFR 84, Est GFR ( Amer) 102, Glucose 118 H, Calcium 9.7, Total Bilirubin 0.9, AST 49 H, ALT 22, Alkaline Phosphatase 110, Total Protein 8.7 H, Albumin 4.7, Globulin 4.0 H, Albumin/Globulin Ratio 1.2, Lipase 31 11/30/24 23:57: Urine Opiates Screen Negative, Urine Methadone Screen Positive H, Ur Barbituates Screen Negative, Ur Phencyclidine Scrn Negative, Ur Amphetamines Screen Negative, U Benzodiazepines Scrn Negative, Urine Cocaine Screen Negative, U Marijuana (THC) Screen Negative 12/01/24 00:22: Lactate 1.0 I & O for Last 24 hours: Intake & Output 11/28/24 11/29/24 11/30/24 12/01/24 23:59 23:59 23:59 23:59 Weight 45.359 kg Constitutional Constitutional: no acute distress *Routine HEENT Exam Head: Present normocephalic Eye: Present EOMI and PERRL ENT: Present mucous membranes moist *Routine Neck Exam Neck: Present supple; Absent lymphadenopathy *Routine Respiratory Exam Respiratory: Present CTA bilaterally *Routine Cardiovascular Exam Cardiovascular: Present RRR *Routine Abdominal Exam Abdominal: Present tenderness (Generalized TTP to left lower quadrant) and firm *Routine Rectal Exam Rectal:: deferred *Routine Genitalia Exam Genitalia:: deferred *Routine Extremities Exam Extremities: Absent cyanosis, clubbing or edema Routine Back/Spine/Pelvis Exam Comments: Scoliosis noted *Routine Skin Exam Skin: Present warm; Absent rash *Routine Neurological Exam Neurological: Present alert and oriented X3 Assessment and Plan *Assessment and plan (1) Abdominal pain: Status: Acute Category: Medical Code(s): R10.9 - Unspecified abdominal pain (2) Constipation: Status: Acute Category: Medical Code(s): K59.00 - Constipation, unspecified (3) History of CVA (cerebrovascular accident): Status: Acute Category: Medical Code(s): Z86.73 - Personal history of transient ischemic attack (TIA), and cerebral infarction without residual deficits Plan #Abdominal pain Constipation versus ileus. Chronic findings on CT abdomen. Initial concerns for mesenteric ischemia and volvulus. After further review it appears patient has worsening constipation and possible ileus. Addendum Per radiology concerning for ileus versus pseudo colonic obstruction or partial intermittent large bowel obstruction. Dr. Cintron consulted, will follow. Continue aggressive bowel regimen and serial abdominal exam Minimize use of narcotics as it can worsen obstipation. Patient does require intermittent doses of Dilaudid for episodes of pain N.p.o. for now, okay for ice chips Antiemetics if needed Continue maintenance IV fluids #History of lacunar infarct No residual deficits noted Continue statin, aspirin and Plavix #Hyponatremia Mild with a sodium of 129 Likely secondary to poor p.o. intake given abdominal pain Continue maintenance IV fluids
[2024-12-01] MEDS: HYDROMORPHONE 2MG/ML SYRINGE 0.25 MG IV ×2 (03:35→20:32)
[2024-12-01] MEDS: SENNOSIDES 8.6MG/DOCUSATE 50MG TABLET 1 TAB PO ×3 (03:35→20:33)
[2024-12-01] MEDS: 0.9 % SODIUM CHLORIDE 1000ML 1,000 ML 75 ML IV (03:36)
[2024-12-01 06:10] LABS: Hematocrit 33.8 % (37.0-47.0); Hemoglobin 11.3 g/dL (12.2-16.2); Immature Granulocytes % 0.5 %; Mean Corpuscular HGB Conc 33.4 g/dL (31.8-35.4); Mean Corpuscular Hemoglobin 29.5 pg (27.0-31.2); Mean Corpuscular Volume 88.3 fl (81-99); Nucleated Red Blood Cells % 0 %; Platelet Count 266 K/mm3 (142-424); Red Blood Count 3.83 M/mm3 (4.20-5.40); Red Cell Distribution Width-SD 48.8 fL; White Blood Count 6.2 K/mm3 (4.8-10.8)
[2024-12-01 06:25] LABS: Anion Gap 9.9 mEq/L (5-15); Blood Urea Nitrogen 10 mg/dl (7-17); Calcium 9.1 mg/dl (8.4-10.2); Carbon Dioxide 27 mmol/L (22.0-30.0); Chloride 96 mmol/L (98-107); Creatinine Clearance Estimated 40 mL/min (50-200); Creatinine,Serum 0.60 mg/dl (0.52-1.04); Estimated Glomerular Filt Rate 100 ml/min (>60); GFR (African American) 121 ML/MIN (>60); Glucose 93 mg/dl (74-100); Sodium 130 mmol/L (136-145)
--- NOTE | 2024-12-01 07:02 | EXP.SURG.CON ---
History of Present Illness *Admission Date: 12/01/24 *Reason for visit:: Radiographic concern for sigmoid volvulus *History of present illness: This is a 64-year-old female seen in consultation after evaluation emergency department for abdominal pain and severe constipation. As part of her evaluation a CT scan was obtained that showed profound constipation. Concern for possible sigmoid volvulus also noted. The patient states that she currently feels fine . She states that her pain has resolved. Reported from admission H&P/emergency department valuation This is a 64-year-old female with past medical history of recently lacunar stroke, obstipation secondary to opioid usage, scoliosis and recent bowel obstruction who presents emergency department today with complaints of abdominal pain. She reports ongoing constipation issues and recent hospitalization for a bowel obstruction in September. States that she developed mid to lower abdominal pain began about 4 days ago. She denies any nausea or vomiting. Denies any fever or chills. States that she took MiraLAX yesterday and gave her self a fleets enema and had a good sized bowel movement. States that she would have stayed home this evening if it went for her son's concerns for her having another bowel obstruction. Due to this she presented to the emergency department. Emergency department workup notable for acute on chronic findings on CT abdomen. Initial read concerning for volvulus and narrowing of the mesenteric arteries. After further review with radiologist, it was felt that patient likely has significant acute on chronic constipation. Given laboratory findings it is likely that patient just has her worsening chronic obstipation/constipation. Lactic acid negative. Labs are otherwise stable. She is nontoxic on exam no significant distention but mildly tense. Does not appear peritonitic at this time. Findings were discussed by ED provider and Dr. Cintron. Given patient's chronic history it is reasonable to admit for robust bowel regimen and serial abdominal exams. She is admitted to hospital service at this time. [facility] Disclaimer: The information contained in this section may have been updated after the patient was seen, as this information can be updated by other users. Medical History Fibromyalgia Bowel obstruction GERD (gastroesophageal reflux disease) Lumbar spinal stenosis Lumbar radicular pain DDD (degenerative disc disease), lumbar Dog bite Surgical History No history of previous surgery Family History Other No significant family history Social History (Updated 12/01/24 @ 03:22 by Barbara Ocampo RN) Smoking Status: Current every day smoker tobacco type: cigarettes packs per day: 2 alcohol intake: current alcohol intake frequency: a few times a month substance use type: former substance user current occupational status: disabled Travel in the last 8 weeks?: None Contact w/someone who lives/traveled outside [place] past 30 days?: No Exposure to someone with infectious disease in past 14 days?: No Do you have any abdominal pain?: Yes Meds Home Medications and Allergies Home Medications ?Medication ?Instructions ?Recorded ?Confirmed ?Type gabapentin 300 mg capsule 300 mg PO BID #60 caps 10/07/24 12/01/24 Rx aspirin 81 mg chewable tablet 81 mg PO DAILY 30 days #100 tabs 11/02/24 12/01/24 Rx atorvastatin 80 mg tablet 80 mg PO QHS #90 tabs 11/02/24 12/01/24 Rx hydrocodone 7.5 mg-acetaminophen 1 tab PO BID PRN Moderate Pain 11/02/24 12/01/24 Rx 325 mg tablet (Scale Score 5-6) #60 tabs clopidogrel 75 mg tablet 75 mg PO DAILY 21 days #30 tabs 11/03/24 12/01/24 Rx ondansetron HCl 8 mg tablet 8 mg PO Q8H #90 tabs 11/16/24 12/01/24 Rx omeprazole 40 mg capsule,delayed 40 mg PO DAILY 12/01/24 12/01/24 History release New Prescriptions to Start Prescriptions: Allergies Allergy/AdvReac Type Severity Reaction Status Date / Time chocolate flavor Allergy Intermediate rash Verified 11/02/24 13:49 Penicillins Allergy Intermediate Rash Verified 11/02/24 13:49 Influenza Virus Vaccines Allergy Blister Verified 11/02/24 13:49 morphine Allergy Unknown Verified 11/02/24 13:49 allergy reaction Exam (Inpt) Vital signs and Labs for Last 24 Hours: Temp Pulse Resp BP Pulse Ox O2 Del Method 97.9 F 79 16 186/97 H 99 Room Air 12/01/24 04:00 12/01/24 04:00 12/01/24 04:00 12/01/24 04:00 12/01/24 04:00 12/01/24 05:00 Laboratory Results - last 24 hr 11/30/24 00:00: Plasma/Serum Alcohol < 10 11/30/24 23:14: Urine Color Yellow, Urine Appearance Clear, Urine pH 6.0, Ur Specific [place] 1.010, Urine Protein Negative, Urine Glucose (UA) Negative, Urine Ketones Negative, Urine Blood Negative, Urine Nitrate Negative, Urine Bilirubin Negative, Urine Urobilinogen 0.2, Ur Leukocyte Esterase Negative, Urine RBC 5-10, Urine WBC Occasional, Ur Squamous Epith Cells 5-10, Urine Bacteria 1+ 11/30/24 23:22: WBC 7.9, RBC 3.85 L, Hgb 11.8 L, Hct 33.8 L, MCV 87.8, MCH 30.6, MCHC 34.9, RDW 15.2, Plt Count 275, MPV 9.0, Neut % (Auto) 71.6, Lymph % (Auto) 18.8, [place] % (Auto) 8.6, Eos % (Auto) 0.3, Baso % (Auto) 0.4, Neut # (Auto) 5.7, Lymph # (Auto) 1.5, [place] # (Auto) 0.7, Eos # (Auto) 0.0, Baso # (Auto) 0.0, PT 10.9, INR 0.98, Sodium 129 L, Potassium 3.8, Chloride 95 L, Carbon Dioxide 24, Anion Gap 13.8, BUN 11, Creatinine 0.70, Estimated Creat Clear 40, Estimated GFR 84, Est GFR ( Amer) 102, Glucose 118 H, Calcium 9.7, Total Bilirubin 0.9, AST 49 H, ALT 22, Alkaline Phosphatase 110, Total Protein 8.7 H, Albumin 4.7, Globulin 4.0 H, Albumin/Globulin Ratio 1.2, Lipase 31 11/30/24 23:57: Urine Opiates Screen Negative, Urine Methadone Screen Positive H, Ur Barbituates Screen Negative, Ur Phencyclidine Scrn Negative, Ur Amphetamines Screen Negative, U Benzodiazepines Scrn Negative, Urine Cocaine Screen Negative, U Marijuana (THC) Screen Negative 12/01/24 00:22: Lactate 1.0 12/01/24 05:23: WBC 6.2, RBC 3.83 L, Hgb 11.3 L, Hct 33.8 L, MCV 88.3, MCH 29.5, MCHC 33.4, RDW 15.1, Plt Count 266, MPV 9.2, Neut % (Auto) 69.4, Lymph % (Auto) 17.1, [place] % (Auto) 11.0 H, Eos % (Auto) 1.5, Baso % (Auto) 0.5, Neut # (Auto) 4.3, Lymph # (Auto) 1.1, [place] # (Auto) 0.7, Eos # (Auto) 0.1, Baso # (Auto) 0.0 I & O for Labs for Last 24 Hours: Intake & Output 11/28/24 11/29/24 11/30/24 12/01/24 11:59 11:59 11:59 11:59 Output Total 350 / 350 Balance -350 / -350 Weight 100 lb 6.4 oz Constitutional: no acute distress Respiratory: Absent respiratory distress Cardiac: Absent Tachycardia Comments:: Palpable formed stool throughout. Currently without significant tenderness to palpation. Results Labs 12/01/24 05:23 11/30/24 23:22 Labs: Laboratory Results - last 24 hr 11/30/24 00:00: Plasma/Serum Alcohol < 10 11/30/24 23:14: Urine Color Yellow, Urine Appearance Clear, Urine pH 6.0, Ur Specific [place] 1.010, Urine Protein Negative, Urine Glucose (UA) Negative, Urine Ketones Negative, Urine Blood Negative, Urine Nitrate Negative, Urine Bilirubin Negative, Urine Urobilinogen 0.2, Ur Leukocyte Esterase Negative, Urine RBC 5-10, Urine WBC Occasional, Ur Squamous Epith Cells 5-10, Urine Bacteria 1+ 11/30/24 23:22: WBC 7.9, RBC 3.85 L, Hgb 11.8 L, Hct 33.8 L, MCV 87.8, MCH 30.6, MCHC 34.9, RDW 15.2, Plt Count 275, MPV 9.0, Neut % (Auto) 71.6, Lymph % (Auto) 18.8, [place] % (Auto) 8.6, Eos % (Auto) 0.3, Baso % (Auto) 0.4, Neut # (Auto) 5.7, Lymph # (Auto) 1.5, [place] # (Auto) 0.7, Eos # (Auto) 0.0, Baso # (Auto) 0.0, PT 10.9, INR 0.98, Sodium 129 L, Potassium 3.8, Chloride 95 L, Carbon Dioxide 24, Anion Gap 13.8, BUN 11, Creatinine 0.70, Estimated Creat Clear 40, Estimated GFR 84, Est GFR ( Amer) 102, Glucose 118 H, Calcium 9.7, Total Bilirubin 0.9, AST 49 H, ALT 22, Alkaline Phosphatase 110, Total Protein 8.7 H, Albumin 4.7, Globulin 4.0 H, Albumin/Globulin Ratio 1.2, Lipase 31 11/30/24 23:57: Urine Opiates Screen Negative, Urine Methadone Screen Positive H, Ur Barbituates Screen Negative, Ur Phencyclidine Scrn Negative, Ur Amphetamines Screen Negative, U Benzodiazepines Scrn Negative, Urine Cocaine Screen Negative, U Marijuana (THC) Screen Negative 12/01/24 00:22: Lactate 1.0 12/01/24 05:23: WBC 6.2, RBC 3.83 L, Hgb 11.3 L, Hct 33.8 L, MCV 88.3, MCH 29.5, MCHC 33.4, RDW 15.1, Plt Count 266, MPV 9.2, Neut % (Auto) 69.4, Lymph % (Auto) 17.1, [place] % (Auto) 11.0 H, Eos % (Auto) 1.5, Baso % (Auto) 0.5, Neut # (Auto) 4.3, Lymph # (Auto) 1.1, [place] # (Auto) 0.7, Eos # (Auto) 0.1, Baso # (Auto) 0.0 Assessment and Plan *Assessment and plan (1) Constipation: Status: Chronic Qualifiers: Constipation type: unspecified constipation type Qualified Code(s): K59.00 - Constipation, unspecified Category: Medical Code(s): K59.00 - Constipation, unspecified Plan: Profound chronic constipation. Continue overall management as per primary service. Gastroenterology evaluation in near future reasonable. (2) Abdominal pain: Status: Resolved Qualifiers: Abdominal location: generalized Qualified Code(s): R10.84 - Generalized abdominal pain Category: Medical Code(s): R10.9 - Unspecified abdominal pain Plan: The patient states that her pain has resolved. She states that she feels fine . She wishes to be discharged home. Plan The abrupt narrowing and convergence of mesenteric arteries suspicious for sigmoid colonic volvulus noted per CT scan is possibly secondary to acute distal decompression with enema. The patient does not clinically have evidence consistent with volvulus/ischemia. She is not tachycardic. She has a normal white blood cell count with no left shift. Her initial lactate was normal. Her presenting symptoms have resolved. I discussed with the patient the findings on her CT scan. She understands the possibility of concomitant volvulus (in addition to severe chronic constipation). Additionally, I discussed the risks and benefits of endoscopic evaluation for possible detorsion of any potential volvulus. The patient does not wish to undergo procedural intervention. She states that she feels fine and is hopeful that she will be discharged home. A repeat lactate has been ordered.
--- NOTE | 2024-12-01 07:17 | HMH.PHAINT1 ---
Pharmacy Intervention Comments: MEDICATION RECONCILIATION COMPLETED ON PATIENT USING EXTERNAL FILL HISTORY FROM PHARMACY, KARRIE REPORT, AND LIST FROM PCP OFFICE. -NIMA KINGD
[2024-12-01 07:23] LABS: Potassium 2.9 mmoL/L (3.5-5.1)
[2024-12-01 08:09] LABS: Magnesium 1.8 mg/dl (1.6-2.3)
[2024-12-01] MEDS: POTASSIUM CHLORIDE 20MEQ TAB 40 MEQ PO (09:04)
[2024-12-01] MEDS: POLYETHYLENE GLYCOL 3350 17 GM PACKET PO (09:04)
[2024-12-01] MEDS: ONDANSETRON 4MG/2ML VIAL 4 MG IV ×2 (11:28→16:48)
[2024-12-01] MEDS: METOCLOPRAMIDE HCL 10MG/2ML VIAL 10 MG IVP (12:40)
[2024-12-01] MEDS: POTASSIUM CHLORIDE 20MEQ/15ML UDC 40 MEQ PO (14:21)
--- NOTE | 2024-12-01 17:46 | PC.NURSE ---
AOX4, NOT REQUIRING O2 SUPPORT. PT REQUESTED TO ADVANCE DIET FOR DINNER. HAS C/O N/V INTERMITTENTLY THAT IS RESOLVED WITH PRN MEDICATIONS. AMBULATES IN ROOM WITH STANDBY ASSIST.
[2024-12-02] VITALS: BP 166/102; PULSE 82; RESP 16; TEMP 37.1; O2SAT 95
--- NOTE | 2024-12-02 02:09 | PC.NURSE ---
Pt AOx4. Reported some abd pain earlier in shift that was relieved with pain medication. Pt had elevated BP 166/102, notified provider and did not receive any new orders at the time of the call. Pt asymptomatic, resting in bed with eyes closed. Easily arousable. Respirations even and unlabored. Bed is low, locked, and call light is in reach.
[2024-12-02] MEDS: HYDROMORPHONE 2MG/ML SYRINGE 0.25 MG IV (03:01)
[2024-12-02 04:00] VITALS: BP 160/95; PULSE 93; RESP 18; TEMP 36.9; O2SAT 93; BMI 19.3
[2024-12-02] MEDS: POLYETHYLENE GLYCOL 3350 17 GM PACKET PO (04:44)
[2024-12-02] MEDS: SENNOSIDES 8.6MG/DOCUSATE 50MG TABLET 1 TAB PO (04:44)
[2024-12-02 06:21] LABS: Hematocrit 32.5 % (37.0-47.0); Hemoglobin 10.7 g/dL (12.2-16.2); Immature Granulocytes % 0.8 %; Mean Corpuscular HGB Conc 32.9 g/dL (31.8-35.4); Mean Corpuscular Hemoglobin 29.2 pg (27.0-31.2); Mean Corpuscular Volume 88.6 fl (81-99); Nucleated Red Blood Cells % 0 %; Platelet Count 272 K/mm3 (142-424); Red Blood Count 3.67 M/mm3 (4.20-5.40); Red Cell Distribution Width-SD 48.8 fL; White Blood Count 6.4 K/mm3 (4.8-10.8)
[2024-12-02 06:23] LABS: Alanine Aminotransferase 17 U/L (12-78); Albumin Level 4.0 g/dl (3.5-5.0); Albumin/Globulin Ratio 1.3 (1.1-1.8); Alkaline Phosphatase 91 U/L (38-126); Anion Gap 13.8 mEq/L (5-15); Aspartate Amino Transferase 33 U/L (14-36); Bilirubin,Total 0.6 mg/dl (0.2-1.3); Blood Urea Nitrogen 9 mg/dl (7-17); Calcium 9.4 mg/dl (8.4-10.2); Carbon Dioxide 28 mmol/L (22.0-30.0); Chloride 91 mmol/L (98-107); Creatinine Clearance Estimated 38 mL/min (50-200); Creatinine,Serum 0.70 mg/dl (0.52-1.04); Estimated Glomerular Filt Rate 84 ml/min (>60); GFR (African American) 102 ML/MIN (>60); Globulin 3.1 g/dL (1.3-3.2); Glucose 118 mg/dl (74-100); Sodium 130 mmol/L (136-145); Total Protein,Serum 7.1 g/dl (6.3-8.2)
[2024-12-02 06:28] LABS: Potassium 2.8 mmoL/L (3.5-5.1)
[2024-12-02] MEDS: POTASSIUM CHLORIDE 20MEQ TAB 40 MEQ PO (06:59)
[2024-12-02 08:00] VITALS: BP 164/95; PULSE 81; RESP 18; TEMP 37.1; O2SAT 95
[2024-12-02] MEDS: GABAPENTIN 300MG CAPSULE 300 MG PO (08:02)
[2024-12-02] MEDS: APAP/HYDROCODONE 325MG/7.5MG TAB 1 TAB PO (08:02)
[2024-12-02] MEDS: ASPIRIN 81MG CHEWABLE TABLET 81 MG PO (08:02)
[2024-12-02] MEDS: CLOPIDOGREL 75MG TAB 75 MG PO (08:02)
--- NOTE | 2024-12-02 08:55 | P.PN_ITS ---
Subjective Narrative: Spoke with RN via phone. The patient is continuing to have small intermittent BMs . The patient states that she is fine and wants to go home . Exam Data for Last 24 hours Vital signs and Labs for Last 24 Hours: Temp Pulse Resp BP Pulse Ox O2 Del Method 98.5 F 93 H 18 160/95 H 93 L Room Air 12/02/24 04:00 12/02/24 04:00 12/02/24 04:00 12/02/24 04:00 12/02/24 04:00 12/02/24 06:52 Laboratory Results - last 24 hr 12/02/24 05:36: WBC 6.4, RBC 3.67 L, Hgb 10.7 L, Hct 32.5 L, MCV 88.6, MCH 29.2, MCHC 32.9, RDW 15.0, Plt Count 272, MPV 9.3, Neut % (Auto) 69.6, Lymph % (Auto) 16.5, [place] % (Auto) 12.0 H, Eos % (Auto) 0.6, Baso % (Auto) 0.5, Neut # (Auto) 4.5, Lymph # (Auto) 1.1, [place] # (Auto) 0.8, Eos # (Auto) 0.0, Baso # (Auto) 0.0, Sodium 130 L, Potassium 2.8 L*, Chloride 91 L, Carbon Dioxide 28, Anion Gap 13.8, BUN 9, Creatinine 0.70, Estimated Creat Clear 38, Estimated GFR 84, Est GFR ( Amer) 102, Glucose 118 H, Calcium 9.4, Total Bilirubin 0.6, AST 33 D, ALT 17, Alkaline Phosphatase 91, Total Protein 7.1, Albumin 4.0 D, Globulin 3.1, Albumin/Globulin Ratio 1.3 I & O for Last 24 hours: Intake & Output 11/29/24 11/30/24 12/01/24 12/02/24 11:59 11:59 11:59 11:59 Intake Total 1030 / 1030 Output Total 350 / 950 1500 / 1500 Balance -350 / -950 -470 / -470 Weight 100 lb 6.4 oz 95 lb 9.6 oz Constitutional Comments: deferred (spoke via phone) Progress Note: A&P Assessment and plan (1) Constipation: Status: Chronic (2) Abdominal pain: Status: Resolved Assessment and Plan Assessment and Plan for All Diagnoses:: No convincing evidence of volvulus. Profound chronic constipation noted. She has improved since admission. She is continuing to have BMs and states that she wants to go home . OK from surgical standpoint for DC home with close follow-up Continue bowel regimen Outpatient GI consult reasonable
--- NOTE | 2024-12-02 10:20 | EXP.DC.SUM ---
General Admission date:: 12/01/24 HPI HPI HPI: This is a 64-year-old female seen in consultation after evaluation emergency department for abdominal pain and severe constipation. As part of her evaluation a CT scan was obtained that showed profound constipation. Concern for possible sigmoid volvulus also noted. The patient states that she currently feels fine . She states that her pain has resolved. Reported from admission H&P/emergency department valuation This is a 64-year-old female with past medical history of recently lacunar stroke, obstipation secondary to opioid usage, scoliosis and recent bowel obstruction who presents emergency department today with complaints of abdominal pain. She reports ongoing constipation issues and recent hospitalization for a bowel obstruction in September. States that she developed mid to lower abdominal pain began about 4 days ago. She denies any nausea or vomiting. Denies any fever or chills. States that she took MiraLAX yesterday and gave her self a fleets enema and had a good sized bowel movement. States that she would have stayed home this evening if it went for her son's concerns for her having another bowel obstruction. Due to this she presented to the emergency department. Emergency department workup notable for acute on chronic findings on CT abdomen. Initial read concerning for volvulus and narrowing of the mesenteric arteries. After further review with radiologist, it was felt that patient likely has significant acute on chronic constipation. Given laboratory findings it is likely that patient just has her worsening chronic obstipation/constipation. Lactic acid negative. Labs are otherwise stable. She is nontoxic on exam no significant distention but mildly tense. Does not appear peritonitic at this time. Findings were discussed by ED provider and Dr. Cintron. Given patient's chronic history it is reasonable to admit for robust bowel regimen and serial abdominal exams. She is admitted to hospital service at this time. Hospital Course Hospital Course Hospital Course: Ginette Salazar is a 64-year-old female who presents with abdominal pain. Initial CT concerning for mesenteric volvulus, but general surgery felt this was more consistent with decompression after enema at home. #Abdominal pain #Opioid-induced constipation ? Takes hydrocodone for low back pain. Has had issues with constipation since. Uses stool softeners, enemas at home. ? Abdominal pain improved with bowel rest and advancement in diet. Patient is having bowel movements. ? General Surgery consulted for possible mesenteric volvulus, no surgical intervention recommended as this most likely represents decompression from enema at home. - Discharged with lubiprostone 24 mcg twice daily. #History of lacunar infarct - No residual deficits noted. - Continue statin, aspirin and Plavix. Exam Data for Last 24 hours Vital signs and Labs for Last 24 Hours: Temp Pulse Resp BP Pulse Ox O2 Del Method 98.8 F 81 18 164/95 H 95 Room Air 12/02/24 08:00 12/02/24 08:00 12/02/24 08:00 12/02/24 08:00 12/02/24 08:00 12/02/24 09:00 Laboratory Results - last 24 hr 12/02/24 05:36: WBC 6.4, RBC 3.67 L, Hgb 10.7 L, Hct 32.5 L, MCV 88.6, MCH 29.2, MCHC 32.9, RDW 15.0, Plt Count 272, MPV 9.3, Neut % (Auto) 69.6, Lymph % (Auto) 16.5, [place] % (Auto) 12.0 H, Eos % (Auto) 0.6, Baso % (Auto) 0.5, Neut # (Auto) 4.5, Lymph # (Auto) 1.1, [place] # (Auto) 0.8, Eos # (Auto) 0.0, Baso # (Auto) 0.0, Sodium 130 L, Potassium 2.8 L*, Chloride 91 L, Carbon Dioxide 28, Anion Gap 13.8, BUN 9, Creatinine 0.70, Estimated Creat Clear 38, Estimated GFR 84, Est GFR ( Amer) 102, Glucose 118 H, Calcium 9.4, Total Bilirubin 0.6, AST 33 D, ALT 17, Alkaline Phosphatase 91, Total Protein 7.1, Albumin 4.0 D, Globulin 3.1, Albumin/Globulin Ratio 1.3 I & O for Last 24 hours: Intake & Output 11/29/24 11/30/24 12/01/24 12/02/24 23:59 23:59 23:59 23:59 Intake Total 120 / 1030 1180 / 1180 Output Total 950 / 1450 900 / 900 Balance -830 / -420 280 / 280 Weight 45.359 kg 45.541 kg 43.363 kg Constitutional Constitutional: no acute distress *Routine HEENT Exam Head: Present normocephalic Eye: Present EOMI and PERRL ENT: Present mucous membranes moist *Routine Neck Exam Neck: Present supple; Absent lymphadenopathy *Routine Respiratory Exam Respiratory: Present CTA bilaterally *Routine Cardiovascular Exam Cardiovascular: Present RRR *Routine Abdominal Exam Abdominal: Present soft and normoactive bowel sounds; Absent tenderness *Routine Extremities Exam Extremities: Absent cyanosis, clubbing or edema *Routine Skin Exam Skin: Present warm; Absent rash *Routine Neurological Exam Neurological: Present alert and oriented X3 Results Data Completed and Pending Labs on day of discharge: Labs from last 24 hours 12/02/24 05:36 WBC 6.4 RBC 3.67 L Hgb 10.7 L Hct 32.5 L MCV 88.6 MCH 29.2 MCHC 32.9 RDW 15.0 Plt Count 272 MPV 9.3 Neut % (Auto) 69.6 Lymph % (Auto) 16.5 [place] % (Auto) 12.0 H Eos % (Auto) 0.6 Baso % (Auto) 0.5 Neut # (Auto) 4.5 Lymph # (Auto) 1.1 [place] # (Auto) 0.8 Eos # (Auto) 0.0 Baso # (Auto) 0.0 Sodium 130 L Potassium 2.8 L* Chloride 91 L Carbon Dioxide 28 Anion Gap 13.8 BUN 9 Creatinine 0.70 Estimated Creat Clear 38 Estimated GFR 84 Est GFR ( Amer) 102 Glucose 118 H Calcium 9.4 Total Bilirubin 0.6 AST 33 D ALT 17 Alkaline Phosphatase 91 Total Protein 7.1 Albumin 4.0 D Globulin 3.1 Albumin/Globulin Ratio 1.3 DS: Diagnosis Discharge Diagnosis (1) Constipation: Status: Chronic Code(s): K59.00 - Constipation, unspecified Qualifiers: Constipation type: unspecified constipation type Qualified Code(s): K59.00 - Constipation, unspecified (2) Abdominal pain: Status: Resolved Code(s): R10.9 - Unspecified abdominal pain Qualifiers: Abdominal location: generalized Qualified Code(s): R10.84 - Generalized abdominal pain Meds Home Medications and Allergies Home Medications ?Medication ?Instructions ?Recorded ?Confirmed ?Type omeprazole 40 mg capsule,delayed 40 mg PO DAILY 12/01/24 12/09/24 History release lubiprostone 24 mcg capsule 24 mcg PO BID 30 days #60 caps 12/02/24 12/09/24 Rx alendronate 70 mg tablet (Fosamax) 70 mg PO WEEKLY #5 tabs 12/09/24 12/09/24 Rx aspirin 81 mg chewable tablet 81 mg PO DAILY 30 days #100 tabs 12/09/24 12/09/24 Rx atorvastatin 80 mg tablet 80 mg PO HS #90 tabs 12/09/24 12/09/24 Rx clopidogrel 75 mg tablet 75 mg PO DAILY 21 days #30 tabs 12/09/24 12/09/24 Rx gabapentin 300 mg capsule 300 mg PO BID #60 caps 12/09/24 12/09/24 Rx hydrocodone 7.5 mg-acetaminophen 1 tab PO BIDP PRN Moderate Pain 12/09/24 12/09/24 Rx 325 mg tablet (Scale Score 5-6) 5 days #60 tabs ondansetron HCl 8 mg tablet 8 mg PO Q8H #90 tabs 12/09/24 12/09/24 Rx New Prescriptions to Start Prescriptions: Andre Garcia Allergies Allergy/AdvReac Type Severity Reaction Status Date / Time chocolate flavor Allergy Intermediate rash Verified 12/09/24 13:34 Penicillins Allergy Intermediate Rash Verified 12/09/24 13:34 Influenza Virus Vaccines Allergy Blister Verified 12/09/24 13:34 morphine Allergy Unknown Verified 12/09/24 13:34 allergy reaction Discharge Plan Disposition Patient Disposition: Home, Self-Care Condition: Fair Follow up Plan Follow up with: Zen Cintron MD [Staff Physician, General Surgery] - 12/07/24 9:00 am Prescriptions/Medication Reconciliation: New lubiprostone 24 mcg capsule 24 mcg PO BID 30 Days Qty: 60 0RF Continued omeprazole 40 mg capsule,delayed release(DR/EC) 40 mg PO DAILY Patient Comments: TAKE 1 CAPSULE BY MOUTH ONCE DAILY. Discontinued hydrocodone-acetaminophen 7.5-325 mg tablet 1 tab PO BIDP PRN (Reason: Moderate Pain (Scale Score 5-6)) Rx Instructions: okay to fill today No Action aspirin 81 mg tablet,chewable 81 mg PO DAILY 30 Days Qty: 100 3RF atorvastatin 80 mg tablet 80 mg PO HS Qty: 90 3RF clopidogrel 75 mg tablet 75 mg PO DAILY 21 Days Qty: 30 3RF gabapentin 300 mg capsule 300 mg PO BID Qty: 60 3RF ondansetron HCl 8 mg tablet 8 mg PO Q8H Qty: 90 0RF alendronate [Fosamax] 70 mg tablet 70 mg PO WEEKLY Qty: 5 3RF hydrocodone-acetaminophen 7.5-325 mg tablet 1 tab PO BIDP PRN (Reason: Moderate Pain (Scale Score 5-6)) 5 Days Qty: 60 0RF Rx Instructions: okay to fill today Problem Reconciliation Problems Reviewed?: Yes Patient Discharge Instructions Patient Instructions: DI for Abdominal Pain-Adult, DI for Constipation, DI for Hypokalemia Print Language: Hungarian Providers Primary Care Provider: Zia Joseph Admit Provider: Andre Landaverde Attending Provider: Andre Landaverde
--- NOTE | 2024-12-06 11:31 | SW/DCPLANNER ---
Phoned patient x2. Left message with name and call back number. Nadia العلي
== END 2024-12-02 10:02 | disposition home or self-care (01) ==
LOC: ER 12-01 02:44 → 2ND 12-01 03:32
PROVIDERS: Nurse Practitioner Acute Care; Surgery; Admitting Provider Student in an Organized Health Care Education/Training Program; Emergency Provider Emergency Medicine; PCP Family Medicine; Visit Provider Student in an Organized Health Care Education/Training Program
DX: R10.84 Generalized abdominal pain (principal); K59.00 Constipation, unspecified; M41.9 Scoliosis, unspecified; K21.9 Gastro-esophageal reflux disease without esophagitis; E87.1 Hypo-osmolality and hyponatremia; M79.7 Fibromyalgia; F17.210 Nicotine dependence, cigarettes, uncomplicated; Z86.73 Personal history of transient ischemic attack (TIA), and cerebral infarction without residual deficits; Z79.899 Other long term (current) drug therapy; Z79.82 Long term (current) use of aspirin; Z79.02 Long term (current) use of antithrombotics/antiplatelets; I77.4 Celiac artery compression syndrome; I70.1 Atherosclerosis of renal artery; M51.369 Other intervertebral disc degeneration, lumbar region without mention of lumbar back pain or lower extremity pain; Z88.0 Allergy status to penicillin; Z88.5 Allergy status to narcotic agent; Z88.7 Allergy status to serum and vaccine; Z91.018 Allergy to other foods
CPT/HCPCS: 36415; 71045; 74177; 80048; 80053; 80307; 80320; 81001; 83605; 83690; 83735; 85025; 85610; 93005; 96361; 96374; 96375; 99285; G0378; J1171; J1885; J2405; J2765; J7030; J7120; Q9967

== ENCOUNTER 2025-05-14 14:35 | Observation (INO) | payer MEDICARE, MEDICAID, SELFPAY ==
--- OUTSIDE RECORDS SUMMARY | 2025-05-11 14:29 | XMS_ITS | Encounter Summary ---
Author Organization [place] [address] Care Team Providers Care Customer Project Manager Name Role Phone Maximo Leos MD Unavailable [phone] Andre Tanner MD Unavailable Reason for Visit * Reason Comments Leg Swelling Right lower leg swel ling. Hx cellulitis in same leg Encounter Details Date Type Department Care Team (Late st Contact Info) Description 05/11/2025 2:29 PM EST - 05/11/2025 4:07 PM EST [facility] [address] [facility] [place] [address] Adele Sewell MD [address] [place] [id number] Cornelio Mejia MD [address] [place] [id number] Leg edema (Primary Dx); Anemia, unspecified type; Elevated d-dimer Discharge Disposition: Left Against Medical Advice Social History Tobacco Use Types Packs/Day Years [...] Sign Reading Time Taken Comments Blood Pressure 140/71 05/11/2025 3:54 PM EST Pulse 89 05/11/2025 3:54 PM EST Temperature 36.8 C (98.3 F) 05/11/2025 2:33 PM EST Respiratory Rate 16 05/11/2025 3:54 PM EST Oxygen Saturation 98% 05/11/2025 3:54 PM EST Inhaled Oxygen Concentration - - Weight 49.9 kg (110 lb) 05/11/2025 2:26 PM EST Height 160 cm (5' 3 ) 05/11/2025 2:26 PM EST Body Mass Index 19.49 05/11/2025 2:26 PM EST documented in this encounter Functional Status * Is the person deaf or does he/she have serious difficulty hearing? Answer Date of Assessment Author No 08/06/2020 1:19 PM Ericka Hernandez CCMA * Is the person blind or does he/she have serious difficulty seeing even when wearing glasses? Answer Date of Assessment Author No 08/06/2020 1:19 PM Ericka Hernandez CCMA * Does this person have serious difficulty walking or climbing stairs? Answer Date of Assessment Author No 08/06/2020 1:19 PM Ericka Hernandez CCMA * Does this person have difficulty dressing or bathing? Answer Date of Assessment Author No 08/06/2020 1:19 PM Ericka Hernandez CCMA * Because of a physical, mental or emotional condition, does this person have difficulty doing errands alone such as visiting a doctor's office or shopping? Answer Date of Assessment Author No 08/06/2020 1:19 PM Ericka Hernandez CCMA documented as of this encounter Mental Status * Because of a physical, mental or emotional condition, does this person have serious difficulty concentrating, remembering or making decisions? Answer Entry Date Author No 08/06/2020 1:19 PM Ericka Hernandez CCMA documented in this encounter Discharge Instructions * Discharge Instructions* Cornelio Mejia MD - 05/11/2025 3:53 PM EST You must be seen in the next 24 hours for repeat evaluation, repeat blood count check to get a ultrasound of your leg and to discuss transfusion and evaluation of anemia. If you have chest pain shortness of breath feel like you are going to pass out or any passing out spells fever or worsening leg swelling or leg pain or any other concerns you should call 911 and return immediately. * Attachments The following attachments cannot be sent through Care Everywhere. * Anemia overview (Ethiopian) * Swelling (Ethiopian) documented in this encounter Medications at Time of Discharge atorvastatin (LIPITOR) 80 mg Oral Tablet Take 80 mg by mouth nightly. at bedtime cariprazine (VRAYLAR) 1.5 mg Oral CapsuleIndication s:Bipolar disorder, in full remission, most recent episode manic Take 1 Cap by mouth daily. 21 Cap 12/11/2020 cephALEXin (KEFLEX) 500 mg Oral Capsule Take 1 Capsule by mouth 4 times daily for 7 days. 28 Capsule 05/11/2025 gabapentin (NEURONTIN) 300 mg Oral CapsuleIndication s:Chronic [...] 4 mg Oral Tablet 8 mg. 09/08/2024 documented as of this encounter Ordered Prescriptions Prescription Sig Dispense Quantity Refills Last Filled Start Date End Date cephALEXin (KEFLEX) 500 mg Oral Capsule Take 1 Capsule by mouth 4 times daily for 7 days. 28 Capsule 05/11/2025 6 documented in this encounter Discharge Disposition Disposition Code Departure Means Destination Comment s Left Against Medical Advice Home documented in this encounter ED Notes * Adele Sewell MD - 05/11/2025 2:25 PM EST Chief Complaint Patient presents with Leg Swelling Right lower leg swelling. Hx cellulitis in same leg History provided by: Patient Leg Swelling History of Present Illness The patient is a 64-year-old female who presents to the emergency room for evaluation of leg swelling. She reports experiencing edema in her legs, which has been progressively worsening since last night. She does not report any associated erythema. It is noted that she has a habit of sleeping with herright leg hanging over the side of the bed, which may contribute to the swelling. Despite attempts to alleviate the condition by elevating the leg over the past two days, the swelling persists. She had a consultation with her primary care physician on Thursday but did not discuss the leg swelling at that time. She has no known history of cardiac failure or thromboembolic events. Her current medication regimen includes aspirin and Plavix, with no other anticoagulants. She also takes atorvastatin. Review of records shows that patient had similar symptoms in October of this year, at which time she was treated with oral antibiotics. That presentation was complicated by positive blood cultures. MEDICATIONS Aspirin, Plavix, atorvastatin Patient History Allergies[1] Home Medications: Prior to Admission medications Medication Sig Start Date End Date Last Dose Authorizing Provider atorvastatin (LIPITOR) 80 mg Oral Tablet Take 80 mg by mouth nightly. at bedtime Provider, Historical cariprazine (VRAYLAR) 1.5 mg Oral Capsule Take 1 Cap by mouth daily. Patient not taking: Reported on 11/03/2024 12/11/20 Alberto Carter MD gabapentin (NEURONTIN) 300 mg Oral Capsule Take 1 Capsule by mouth 3 times daily. 03/29/21 Alberto Carter MD HYDROcodone-acetaminophen (NORCO) 7.5-325 mg Oral Tablet TAKE 1 TABLET BY MOUTH TWICE A DAY NEEDED FOR MODERATE PAIN (SCALE SCORE 5-6) 11/02/24 Provider, Historical ibuprofen (ADVIL;MOTRIN) 800 mg Oral Tablet TAKE 1 TAB BY MOUTH EVERY 8 HOURS NEEDED FOR PAIN. 03/06/21 Alberto Carter MD nabumetone (RELAFEN) 750 mg Oral Tablet Take 1 Tablet by mouth daily. Patient not taking: Reported on 11/03/2024 03/29/21 Alberto Carter MD omeprazole (PRILOSEC) 40 mg Oral Capsule, Delayed Release(E.C.) Take 1 Capsule by mouth daily. Patient not taking: Reported on 11/03/2024 03/29/21 Alberto Catrer MD ondansetron (ZOFRAN) 4 mg Oral Tablet 8 mg. 09/08/24 Provider, Historical Past Medical History: Past Medical History[2] Social History: reports that she has been smoking cigarettes. She has never used smokeless tobacco.She reports current alcohol use. She reports that she is not currently sexually active. E-Cigarettes (such as Vapes or Juul) Family History: Family History[3] Surgical History: Surgical History[4] Review of Systems Review of Systems Skin: Lower extremity swelling All other systems reviewed and are negative. Physical Exam Blood pressure 143/69, pulse 101, temperature 98.3 ??F (36.8 ??C), temperature source Oral, resp. rate 16, height 5' 3 (1.6 m), weight 110 lb (49.9 kg), SpO2 97%. Physical Exam Integumentary: No significant redness noted in the legs. Musculoskeletal: Mild water retention noted in both legs, with the right leg appearing more swollenthan the left. Physical Exam Constitutional: General: She is not in acute distress. Appearance: Normal appearance. She is not ill-appearing. Cardiovascular: Rate and Rhythm: Normal rate and regular rhythm. Pulses: Normal pulses. Pulmonary: Effort: Pulmonary effort is normal. No respiratory distress. Breath sounds: No wheezing, rhonchi or rales. Musculoskeletal: General: Swelling present. Comments: 2+ pitting edema to the bilateral lower extremities, right lower extremity with greater degree of swelling compared to the left lower extremity Skin: General: Skin is warm and dry. Neurological: Mental Status: She is alert. Procedures Radiology/EKG/Labs: Labs Reviewed BLOOD CULTURE (NO STAIN) BLOOD CULTURE (NO STAIN) CBC WITH DIFF BASIC METABOLIC PANEL NT PROBNP D-DIMER Results ED Course: Appropriate laboratory and radiology studies reviewed ED Clinical Impression: Lower extremity swelling Assessment & Plan 1. Bilateral lower extremity edema. The patient reports significant swelling in her legs, which worsened since last night. There is no history of heart failure or blood clots. She is currently on aspirin and Plavix. The swelling appears more pronounced in the right leg compared to the left. There is no significant redness observed. Blood work will be conducted to rule out potential causes such as blood clots or heart issues. If theresults are normal, oral antibiotics will be prescribed. She is advised to follow up closely with her primary care doctor. Differential diagnosis includes dependent edema, CHF, DVT, early cellulitis. Patient was signed outto oncoming provider pending completion of laboratory workup and clinical reevaluation. Suspect that she can be discharged home with close follow-up with her PCP. Critical Care time MDM Medical Decision Making Amount and/or Complexity of Data Reviewed Labs: ordered. Medical Decision Making Condition at Discharge/Transfer from Department: Stable This chart was completed using voice recognition technology and may contain unintended errors The provider educated the patient (or legal civil rights representative) on the use of the ambient listening artificial intelligence tool, [employer]. They were informed that this AI tool processes the conversation to generate a clinical note with the expected benefit of improved accuracy while achieving an improved encounter experience for the patient and provider.?The provider explained that the medical information captured by the AI tool including, but not limited to, diagnoses and treatment plan would be protected in accordance with applicable privacy laws and that all diagnoses and treatment decisions would be made by the provider. The provider explained that the note generated will be reviewed bythe provider for accuracy to minimize potential errors.? The patient was given an opportunity to ask questions and opt out of proceeding with the use of the AI tool. After being informed of such information, the patient (or legal civil rights representative), and each individual in attendance with the patient, verbally consented to the use of the AI tool. [1] Allergies Allergen Reactions Chocolate Flavor Codeine Cymbalta [Duloxetine] Flagyl [Metronidazole] Hives Penicillins Phenergan [Promethazine] [2] Past Medical History: Diagnosis Date Anxiety disorder Arthritis of left sacroiliac joint 03/30/2018 [3] No family history on file. [4] History reviewed. No pertinent surgical history. Adele Sewell MD 05/11/25 [id number] * Cornelio Mejia MD - 05/11/2025 2:25 PM EST 3:40 PM care turned over to me to follow-up on patient's labs which have resulted with an elevated proBNP elevated D-dimer and significant anemia. Patient denies a prior history of anemia she has nothad a period for decades, denies any rectal bleeding or bloody stool, bleeding or hematuria. Denieschest pain or shortness of breath. I discussed her elevated proBNP her leg swelling her elevated D-dimer and anemia discussed that we do not have blood at this facility recommended admission for transfusion at a minimum as well as evaluation for DVT cellulitis and because of her leg swelling/rule out cardiogenic cause. Patient is refusing admission. I discussed we cannot empirically treat her forDVT as an outpatient because of her anemia if the potential cause of anemia is from bleeding (she does deny any bleeding). I did discuss the risks of injury fall. Patient is requesting I speak to her son. 3:54 PM I spoke to the patient and her son again discussed my concerns about an elevated D-dimer, undiagnosed DVT as well as her significant anemia requiring blood transfusion and evaluation of anemia. He is agreeable to have her seen tomorrow he is abiding by the patient's wishes do not be admitted today. They understand the risk that anemia could cause issues with the heart heart attack syncopeand , undiagnosed DVT could lead to a PE and or disability or as well as the evaluation for her elevated proBNP is cardiogenic cause of her leg swelling. I will empirically treat her with Keflex in the meantime also discussed return precautions in regards to cellulitis. She is awake and alert confident in her decision does not appear to lack capacity to make decisions. They state they are going to take her to an outlying facility tomorrow to be evaluated. Return precautions were discussed at length. This chart was completed using voice recognition technology and may contain unintended errors Cornelio Mejia MD 05/11/25 [id number] documented in this encounter Plan of Treatment Pending Results Name Type Priority Associated Diagnoses Date /Time BLOOD CULTURE (NO STAIN) Microbiology STAT 05/11/2025 2:45 PM EST BLOOD CULTURE (NO STAIN) Microbiology STAT 05/11/2025 2:59 PM EST documented as of this encounter Goals Goal Patient Goal Type Associated Problems Recent Progress Patient-Stated? Author Eat better, exercise, reach an ideal body weight General No Monserrat Chaves CCMA Stay Tobacco Free Lifestyle No Monserrat Chaves CCMA documented as of this encounter Procedures Procedure Name Priority Date/Time Associated Diagnosis Comments BLOOD CULTURE (NO STAIN) STAT 05/11/2025 2:59 PM EST BLOOD CULTURE (NO STAIN) STAT 05/11/2025 2:45 PM EST D-DIMER STAT 05/11/2025 2:45 PM EST CBC WITH DIFF STAT 05/11/2025 2:45 PM EST NT PROBNP STAT 05/11/2025 2:45 PM EST BASIC METABOLIC PANEL STAT 05/11/2025 2:45 PM EST documented in this encounter Results * (ABNORMAL) D-DIMER (05/11/2025 2:45 PM EST) D-Dimer 972(H) <=650 ng/mL FEU 05/11/2025 3:18 PM EST [facility] Comment:For exclusion of rachana ous thromboembolism, the D dimer test should only be used in patients with a non-high clinical pretest probability. An age-adjusted threshold has been applied to this test result. Blood VENOUS BLOOD / Unknown Venipuncture / Unknown 05/11/2025 2:45 PM EST 05/11/2025 3:05 PM EST Adele Sewell MD HEMATOLOGY ORDERABLES Fin al Result [facility] [address] [place] [address] * (ABNORMAL) NT PROBNP (05/11/2025 2:45 PM EST) NT Pro-BNP 1,030(H) <=353 pg/mL 05/11/2025 3:33 PM EST [facility] Blood VENOUS BLOOD / Unknown Venipuncture / Unknown 05/11/2025 2:45 PM EST 05/11/2025 3:05 PM EST Narrative [facility] - 05/11/2025 3:33 PM EST An NT pro-BNP level less than 300 pg/mL in any patient, regardless of age, effectively rules out acute CHF with a 99% negative predictive value. Ingestion of liz doses of biotin (>5 mg/day) taken within 8 hours of drawing blood sample can interfere with this immunoassay test. us Adele Sewell MD CHEMISTRY ORDERABLES Shanti ortiz Result [facility] [address] [place] [address] * (ABNORMAL) BASIC METABOLIC PANEL (05/11/2025 2:45 PM EST) Sodium 135(L) 136 - 145 mmol/L 05/11/2025 3:24 PM [facility] Potassium 3.3(L) 3.5 - 5.0 mmol/L 05/11/2025 3:24 PM [facility] Chloride 98 98 - 107 mmol/L 05/11/2025 3:24 PM [facility] Total CO2 26 22 - 29 mmol/L 05/11/2025 3:24 PM [facility] Anion Gap 11 7 - 16 mmol/L 05/11/2025 3:24 PM [facility] Calcium 8.2(L) 8.8 - 10.4 mg/dL 05/11/2025 3:24 PM [facility] Glucose Lvl 68(L) 70 - 99 mg/dL 05/11/2025 3:24 PM [facility] BUN 13 8 - 23 mg/dL 05/11/2025 3:24 PM [facility] Creatinine 0.78 0.51 - 1.30 mg/dL 05/11/2025 3:24 PM [facility] eGFR (CKD-EPIcr 2020) 83 >=60 mL/min/1.7 3 m2 05/11/2025 3:24 PM [facility] Comment:Estimated GFR was ca lculated using the CKD-EPIcr (2020) equation refit without race. The equation is recommended by the National Kid[employer] - [place] [employer] Nephrology Task Force. Blood VENOUS BLOOD / Unknown Venipuncture / Unknown 05/11/2025 2:45 PM EST 05/11/2025 3:05 PM EST Adele Sewell MD CHEMISTRY ORDERABLES Shanti l Result [facility] [address] [place] [address] * (ABNORMAL) CBC WITH DIFF (05/11/2025 2:45 PM EST) WBC 5.4 3.7 - 10.3 x10(3)/mcL 05/11/2025 3:30 PM EST [facility] RBC 2.22(L) 3.90 - 5.20 x10(6)/mcL 05/11/2025 3:30 PM EST [facility] Hgb 6.1(LL) 11.2 - 15.7 g/dL 05/11/2025 3:30 PM EST [facility] Hct 20.5(LL) 34.0 - 45.0 % 05/11/2025 3:30 PM EST [facility] MCV 92.3 80.0 - 100.0 fL 05/11/2025 3:30 PM EST [facility] MCH 27.5 26.0 - 34.0 pg 05/11/2025 3:30 PM EST [facility] MCHC 29.8(L) 30.7 - 35.5 g/dL 05/11/2025 3:30 PM EST [facility] RDW 19.6(H) <=14.9 % 05/11/2025 3:30 PM [facility] Platelet 316 155 - 369 x10(3)/mcL 05/11/2025 3:30 PM [facility] MPV 8.7(L) 8.8 - 12.5 fL 05/11/2025 3:30 PM [facility] Neut Percent 57.3 % 05/11/2025 3:30 PM [facility] Comment:Neutrophils equals s egs plus bands Imm Gran% 0.2 % 05/11/2025 3:30 PM [facility] Comment:Automated count of m etamyelocytes, myelocytes and promyelocytes. Lymph Percent 30.4 % 05/11/2025 3:30 PM EST [facility] Baker Percent 9.3 % 05/11/2025 3:30 PM [facility] Eos Percent 2.2 % 05/11/2025 3:30 PM [facility] Baso Percent 0.6 % 05/11/2025 3:30 PM [facility] Neut # 3.1 1.6 - 6.1 x10(3)/[facility] 05/11/2025 3:30 PM [facility] Comment:Neutrophils equals s egs plus bands IMMGRAN# 0.0 0.0 - 0.1 x10(3)/mcL 05/11/2025 3:30 PM [facility] Comment:Automated count of m etamyelocytes, myelocytes and promyelocytes. An absolute IG <0.1 is reported as 0.0. Lymph # 1.6 1.2 - 3.9 x10(3)/[facility] 05/11/2025 3:30 PM EST [facility] Baker # 0.5 0.3 - 0.9 x10(3)/mcL 05/11/2025 3:30 PM [facility] Eos# 0.1 0.0 - 0.5 x10(3)/[facility] 05/11/2025 3:30 PM [facility] Baso # 0.0 0.0 - 0.1 x10(3)/[facility] 05/11/2025 3:30 PM [facility] Hypochrom Slight 05/11/2025 3:30 PM [facility] Blood VENOUS BLOOD / Unknown Venipuncture / Unknown 05/11/2025 2:45 PM EST 05/11/2025 3:04 PM EST Adele Sewell MD HEMATOLOGY ORDERABLES Fin al Result [facility] [address] [place] [address] documented in this encounter Visit Diagnoses Diagnosis Leg edema- Primary Edema Anemia, unspecified type Elevated d-dimer Abnormal coagulation profile documented in this encounter Administered Medications Inactive Administered Medications - up to 1 most recent administrations Medication Order MAR Action Action Date Dose Rate Site cephALEXin (KEFLEX) capsule 500 mg 500 mg, Oral, ONCE, 1 dose, On Lin 05/11/25 at 1600, Reason for Therapy: Infection Suspected, Indication: Skin/soft tissue Given 05/11/2025 4:03 PM EST 500 mg documented in this encounter Active and Recently Administered Medications Times are shown in EST. Scheduled Medication Order 05/09/2025 05/10/2025 05/11/2025 cephALEXin (KEFLEX) capsule 500 mg (COMPLETED) 500 mg, Oral, ONCE, 1 dose, On Lin 05/11/25 at 1600, Reason for Therapy: Infection Suspected, Indication: Skin/soft tissue 1603 (Given - Provid er: Jazmyne Santillan RN) documented in this encounter Orders Medications Ordered That Jamie ht Not Have Been Administered Count Last Ordered Date First Ordered Date cephALEXin (KEFLEX) capsule 500 mg 1 2024 documented in this encounter Care Teams Customer Project Manager Relationship Specialty Start Date End Date Maximo Leos MD Orthopaedic Surgery 11/12/11 Andre Tanner MD Psychiatry & Neurology-Neurology 10/26/14 documented as of this encounter
--- OUTSIDE RECORDS SUMMARY | 2025-05-11 14:29 | XMS_ITS | Encounter Summary ---
Author Organization [facility] [place] [address] Care Team Providers Care Pull Worker Name Role Phone Maximo Leos MD Unavailable [phone] Andre Tanner MD Unavailable Reason for Visit * Reason Comments Leg Swelling Right lower leg swel ling. Hx cellulitis in same leg Encounter Details Date Type Department Care Team (Late st Contact Info) Description 05/11/2025 2:29 PM EST - 05/11/2025 4:07 PM EST [facility] [address] [facility] [place] [address] Adele Sewell MD [address] [place] [id number] Cornelio Mejia MD [address] [place] [id number] Leg edema (Primary Dx); Anemia, unspecified [...] of Assessment Author No 08/06/2020 1:19 PM Monserrat Hernandez CCMA * Does this person have [...] sent through Care Everywhere. 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 They were informed that this AI tool [...] of such information, the patient (or legal aircraft sales representative), and each individual in attendance with [...] pertinent surgical history. Adele Sewell MD 05/11/25 [id number] * Cornelio Mejia MD - 05/11/2025 2:25 [...] contain unintended errors Cornelio Mejia MD 05/11/25 1556 documented in this encounter Plan of Treatment [...] <=650 ng/mL FEU 05/11/2025 3:18 PM EST [facility] Comment:For exclusion of rachana ous thromboembolism, the D dimer test should only be used in patients with a non-high clinical pretest probability. An age-adjusted threshold has been applied to this test result. Blood VENOUS BLOOD / Unknown Venipuncture / Unknown 05/11/2025 2:45 PM EST 05/11/2025 3:05 PM EST Adele Sewell MD HEMATOLOGY ORDERABLES Fin al Result [facility] [address] [place] [address] * (ABNORMAL) NT PROBNP (05/11/2025 2:45 PM EST) NT Pro-BNP 1,030(H) <=353 pg/mL 05/11/2025 3:33 PM EST [facility] Blood VENOUS BLOOD / Unknown Venipuncture / Unknown 05/11/2025 2:45 PM EST 05/11/2025 3:05 PM EST Narrative [facility] - 05/11/2025 3:33 PM EST An NT pro-BNP level less than 300 pg/mL in any patient, regardless of age, effectively rules out acute CHF with a 99% negative predictive value. Ingestion of liz doses of biotin (>5 mg/day) taken within 8 hours of drawing blood sample can interfere with this immunoassay test. us Adele Sewell MD CHEMISTRY ORDERABLES Shanti ortiz Result [facility] [address] [place] [address] * (ABNORMAL) BASIC METABOLIC PANEL (05/11/2025 2:45 PM EST) Sodium 135(L) 136 - 145 mmol/L 05/11/2025 3:24 PM [facility] Potassium 3.3(L) 3.5 - 5.0 mmol/L 05/11/2025 3:24 PM [facility] Chloride 98 98 - 107 mmol/L 05/11/2025 3:24 PM [facility] Total CO2 26 22 - 29 mmol/L 05/11/2025 3:24 PM [facility] Anion Gap 11 7 - 16 mmol/L 05/11/2025 3:24 PM [facility] Calcium 8.2(L) 8.8 - 10.4 mg/dL 05/11/2025 3:24 PM [facility] Glucose Lvl 68(L) 70 - 99 mg/dL 05/11/2025 3:24 PM [facility] BUN 13 8 - 23 mg/dL 05/11/2025 3:24 PM [facility] Creatinine 0.78 0.51 - 1.30 mg/dL 05/11/2025 3:24 PM [facility] eGFR (CKD-EPIcr 2020) 83 >=60 mL/min/1.7 3 m2 05/11/2025 3:24 PM [facility] Comment:Estimated GFR was ca lculated using the CKD-EPIcr (2020) equation refit without race. The equation is recommended by the National Kidney Foundation - [place] [employer] Neph[employer] Task Force. Blood VENOUS BLOOD / Unknown Venipuncture / Unknown 05/11/2025 2:45 PM EST 05/11/2025 3:05 PM EST Adele Sewell MD CHEMISTRY ORDERABLES Shanti l Result [facility] [address] [place] [address] * (ABNORMAL) CBC WITH DIFF (05/11/2025 2:45 PM EST) WBC 5.4 3.7 - 10.3 x10(3)/mcL 05/11/2025 3:30 PM EST [facility] RBC 2.22(L) 3.90 - 5.20 x10(6)/mcL 05/11/2025 3:30 PM EST [facility] Hgb 6.1(LL) 11.2 - 15.7 g/dL 05/11/2025 3:30 PM [facility] Hct 20.5(LL) 34.0 - 45.0 % 05/11/2025 3:30 PM EST [facility] MCV 92.3 80.0 - 100.0 fL 05/11/2025 3:30 PM EST [facility] MCH 27.5 26.0 - 34.0 pg 05/11/2025 3:30 PM EST [facility] MCHC 29.8(L) 30.7 - 35.5 g/dL 05/11/2025 3:30 PM EST [facility] RDW 19.6(H) <=14.9 % 05/11/2025 3:30 PM [facility] Platelet 316 155 - 369 x10(3)/mcL 05/11/2025 3:30 PM [facility] MPV 8.7(L) 8.8 - 12.5 fL 05/11/2025 3:30 PM [facility] Neut Percent 57.3 % 05/11/2025 3:30 PM [facility] Comment:Neutrophils equals s egs plus bands Imm Gran% 0.2 % 05/11/2025 3:30 PM [facility] Comment:Automated count of m etamyelocytes, myelocytes and promyelocytes. Lymph Percent 30.4 % 05/11/2025 3:30 PM EST [facility] [place] Percent 9.3 % 05/11/2025 3:30 PM EST [facility] Eos Percent 2.2 % 05/11/2025 3:30 PM [facility] Baso Percent 0.6 % 05/11/2025 3:30 PM [facility] Neut # 3.1 1.6 - 6.1 x10(3)/[facility] 05/11/2025 3:30 PM [facility] Comment:Neutrophils equals s egs plus bands IMMGRAN# 0.0 0.0 - 0.1 x10(3)/mcL 05/11/2025 3:30 PM [facility] Comment:Automated count of m etamyelocytes, myelocytes and promyelocytes. An absolute IG <0.1 is reported as 0.0. Lymph # 1.6 1.2 - 3.9 x10(3)/[facility] 05/11/2025 3:30 PM EST [facility] [place] # 0.5 0.3 - 0.9 x10(3)/[facility] 05/11/2025 3:30 PM [facility] Eos# 0.1 0.0 - 0.5 x10(3)/[facility] 05/11/2025 3:30 PM [facility] Baso # 0.0 0.0 - 0.1 x10(3)/[facility] 05/11/2025 3:30 PM [facility] Hypochrom Slight 05/11/2025 3:30 PM [facility] Blood VENOUS BLOOD / Unknown Venipuncture / Unknown 05/11/2025 2:45 PM EST 05/11/2025 3:04 PM EST Adele Sewell MD HEMATOLOGY ORDERABLES Fin al Result [facility] [address] [place] [address] documented in this encounter Visit [...] 2024 documented in this encounter Care Teams Pull Worker Relationship Specialty Start Date End Date Maximo Leos MD Orthopaedic Surgery 11/12/11 Andre Tanner MD Psychiatry & Neurology-Neurology 10/26/14 documented as of this encounter
[2025-05-14] VITALS (31 sets, daily range): BP systolic 115–151; BP diastolic 62–84; PULSE 7–90; RESP 13–20; TEMP 36.7–36.8; O2SAT 9–98; BMI 17.6; BMI 21.4
--- OUTSIDE RECORDS SUMMARY | 2025-05-14 12:01 | XMS_ITS | Encounter Summary ---
Author Organization [place] [address] Care Team Providers Care Customer Expert Name Role Phone Maximo Leos MD Unavailable [phone] Andre Tanner MD Unavailable Reason for Visit * Reason Comments Leg Pain SEEN AT [facility] ON [place] ADVISED ADMISSION FOR BLOOD TRANSFUSION AND POSSIBLE BLOOD CLOT PATIENT REFUSED ADMISSION Encounter Details Date Type Department Care Team (Late st Contact Info) Description 05/14/2025 12:01 PM EST - 05/14/2025 12:45 [place] [address] Discharge Disposition: Left Without Being Seen Social History Tobacco Use Types Packs/Day Years [...] Sign Reading Time Taken Comments Blood Pressure 138/62 05/14/2025 12:38 PM EST Pulse 72 05/14/2025 12:38 PM EST Temperature 36.7 C (98.1 F) 05/14/2025 12:36 PM EST Respiratory Rate 16 05/14/2025 12:0 3 PM EST Oxygen Saturation 99% 05/14/2025 12: 38 PM EST Inhaled Oxygen Concentration - - Weight 54.3 kg (119 lb 11.2 oz) 025 12:38 PM EST Height - - Body Mass Index 21.2 05/11/2025 2:26 PM EST documented in this [...] Ericka Hernandez CCMA documented in this encounter Medications at Time [...] mg. 09/08/2024 documented as of this encounter Discharge Disposition Disposition Code Departure Means Destination Comment s Left Without Being Seen Car Home PATIENT STATES GOING TO GO TO HOSPITAL IN [place] WHERE HER DOCTOR WILL KNOW ALLO HER INFORMATION. [facility] WITH [facility] documented in this encounter Plan of Treatment Not on file documented as of this encounter Goals Goal Patient Goal Type Associated Problems Recent Progress Patient-Stated? Author Eat better, exercise, reach an ideal body weight General No Monserrat Chaves CCMA Stay Tobacco Free Lifestyle No Monserrat Chaves CCMA documented as of this encounter Visit Diagnoses Not on filedocumented in this encounter Care Teams Customer Expert Relationship Specialty Start Date End Date Maximo Leos MD Orthopaedic Surgery 11/12/11 Andre Tanner MD Psychiatry & Neurology-Neurology 10/26/14 documented as of this encounter
--- OUTSIDE RECORDS SUMMARY | 2025-05-14 12:01 | XMS_ITS | Encounter Summary ---
Author Organization [place] [address] Care Team Providers Care Sales Property Manager Name Role Phone Maximo Leos MD Unavailable [phone] Andre Tanner MD Unavailable Reason for Visit * Reason Comments Leg Pain SEEN AT [facility] ON [place] ADVISED ADMISSION FOR BLOOD TRANSFUSION AND POSSIBLE BLOOD CLOT PATIENT REFUSED ADMISSION Encounter Details Date Type Department Care Team (Late st Contact Info) Description 05/14/2025 12:01 PM EST - 05/14/2025 12:45 [place] [address] Discharge Disposition: Home or Self Care Social [...] Means Destination Comment s Home or Self Care Car Home PATIENT STATES GOING TO GO TO HOSPITAL IN [place] WHERE HER DOCTOR WILL KNOW ALLO HER [...] on filedocumented in this encounter Care Teams Sales Property Manager Relationship Specialty Start Date End Date Maximo Leos MD Orthopaedic Surgery 11/12/11 Andre Tanner MD Psychiatry & Neurology-Neurology 10/26/14 documented as of this encounter
--- NOTE | 2025-05-14 15:50 | HMH.EDGENADL ---
Discharge Plan Disposition Patient Disposition: Admitted Prescriptions Prescriptions: No Action aspirin 81 mg tablet,chewable 81 mg PO DAILY 30 Days Qty: 100 3RF lubiprostone 24 mcg capsule 24 mcg PO BID 30 Days Qty: 60 10RF gabapentin 600 mg tablet 600 mg PO BID Qty: 60 3RF oxycodone-acetaminophen [Percocet] 7.5-325 mg tablet 1 tab PO BID PRN (Reason: pain) Qty: 60 0RF sennosides [Senna Lax] 8.6 mg tablet 8.6 mg PO HS Qty: 30 10RF naloxone [Narcan] 4 mg/actuation spray,non-aerosol 4 mg intranasal Q3M PRN (Reason: opioid overdose) Qty: 2 0RF Rx Instructions: spray 1 dose into ONE nostril; alternate nostrils w each dose until help arrives atorvastatin 80 mg tablet 80 mg PO HS Qty: 90 3RF alendronate [Fosamax] 70 mg tablet 70 mg PO WEEKLY Qty: 5 3RF ondansetron HCl 4 mg tablet 4 mg PO Q8H PRN (Reason: nausea and vomiting) Qty: 90 0RF clopidogrel 75 mg tablet 75 mg PO DAILY 21 Days Qty: 30 3RF omeprazole 40 mg capsule,delayed release(DR/EC) 40 mg PO DAILY Patient Comments: TAKE 1 CAPSULE BY MOUTH ONCE DAILY. Referrals Follow up/Referrals: Zia Joseph MD [Primary Care Provider, Family Practice] - See instructions Clinical Impressions Clinical Impression: Anemia, Cellulitis, Aortic aneurysm, Dilated pancreatic duct, Anasarca, Incidental lung nodule Print Language Print Language: Honduran Discharge ED Provider: Mike Ying General Adult HPI General Chief complaint: Extremity Problem,Nontraumatic Stated complaint: Swelling in R & L legs, fluid retention Time Seen by Provider: 05/14/25 15:38 Mode of Arrival: Ambulatory Source of Information: Patient and Relative Description of Symptoms (Recalled from ER Triage Doc. by RN): Reports going to the ER in [facility] on related to swelling in bilateral legs. Son states that they told her she needed to admitted and needed a blood transfusion but she refused to stay and signed out AMA. Presents today with worsening swelling in her legs with pain. History of Present Illness HPI narrative: Ginette Salazar is a 64y female with history of CVA on aspirin and Plavix, tobacco use, degenerative disc disease, GERD, hypertension who presents to the emergency department for complaints of bilateral lower extremity swelling. Patient states that for approximately a week, she has had swelling that started off in her distal right lower extremity and is now spreading to her distal left lower extremity. She states that this is painful. She was seen at outside hospital where she had elevated D-dimer and they wanted to admit her for treatment of blood clots and said that she was anemic and needed a blood transfusion. She states that she left AGAINST MEDICAL ADVICE. She states that they did not do any imaging to confirm if she had blood clots. She has never had blood clots in her legs before. She denies any chest pain or shortness of breath. Related Data Home Medications ?Medication ?Instructions ?Recorded ?Confirmed omeprazole 40 mg capsule,delayed 40 mg PO DAILY 12/01/24 05/08/25 release Previous Rx's ?Medication ?Instructions ?Recorded alendronate 70 mg tablet (Fosamax) 70 mg PO WEEKLY #5 tabs 12/09/24 atorvastatin 80 mg tablet 80 mg PO HS #90 tabs 12/09/24 aspirin 81 mg chewable tablet 81 mg PO DAILY 30 days #100 tabs 03/16/25 gabapentin 600 mg tablet 600 mg PO BID #60 tabs 03/16/25 lubiprostone 24 mcg capsule 24 mcg PO BID 30 days #60 caps 03/16/25 ondansetron HCl 4 mg tablet 4 mg PO Q8H PRN nausea and 04/10/25 vomiting #90 tabs clopidogrel 75 mg tablet 75 mg PO DAILY 21 days #30 tabs 04/26/25 naloxone 4 mg/actuation nasal 4 mg intranasal Q3M PRN opioid 05/08/25 spray (Narcan) overdose #2 ea oxycodone-acetaminophen 7.5 mg-325 1 tab PO BID PRN pain #60 tabs 05/08/25 mg tablet (Percocet) sennosides 8.6 mg tablet (Senna 8.6 mg PO HS #30 tabs 05/08/25 Lax) Allergies Allergy/AdvReac Type Severity Reaction Status Date / Time chocolate flavor Allergy Intermediate rash Verified 05/08/25 12:02 Penicillins Allergy Intermediate Rash Verified 05/08/25 12:02 Influenza Virus Vaccines Allergy Blister Verified 05/08/25 12:02 morphine Allergy Unknown Verified 05/08/25 12:02 allergy reaction [facility] Disclaimer: The information contained in this section may have been updated after the patient was seen, as this information can be updated by other users. Medical History Fibromyalgia Bowel obstruction GERD (gastroesophageal reflux disease) Lumbar spinal stenosis Lumbar radicular pain DDD (degenerative disc disease), lumbar Dog bite Surgical History No history of previous surgery Family History Other No significant family history Social History Smoking Status: Current every day smoker tobacco type: cigarettes packs per day: 2 pack-years: 10 alcohol intake: current alcohol intake frequency: a few times a month substance use type: former substance user current occupational status: disabled Travel in the last 8 weeks?: None Have you lived/traveled outside [place] in past 30 days?: No Contact w/someone who lives/traveled outside US past 30 days?: No Exposure to someone with infectious disease in past 14 days?: No Do you have a fever (greater than 100.4 F or 38 C)?: No Have you tested positive for COVID-19?: No Exposed to someone with COVID-19 in past 14 days?: No Do you have a sore throat?: No Do you have a cough?: No Do you have any weakness?: No Do you have any diarrhea?: No Are you experiencing any unusual bleeding?: No Do you have any muscle aches/pain?: No Do you have any abdominal pain?: No Are you experiencing loss of taste or smell?: No Other Medical History Have you received the Flu Vaccine for this season: No Have you received the Pneumonia Vaccine: No ROS Obtained: Yes Systems reviewed as appropriate & no additional complaints except as documented Physical Exam General General appearance: alert and in no apparent distress Head Head exam: atraumatic Eye Eye exam: Present normal appearance ENT ENT exam: Present normal external ear exam Neck Neck exam: Present full ROM Chest Chest inspection: Present symmetric chest wall rise Respiratory Respiratory exam: Present normal lung sounds bilaterally; Absent respiratory distress Cardiovascular Cardiovascular exam: Present regular rate and normal rhythm Abdominal Exam Abdominal exam: Present soft; Absent tenderness or guarding Extremities Exam Extremities exam: Present normal inspection and edema (4+ pitting edema to the right distal lower extremity extending from the mid schwarz to the foot. Increased diameter of right calf compared to left calf. Left significant pitting edema to the distal left lower extremity but still present. 2+ DP and PT pulses bilaterally.) Back Exam Back exam: Present normal inspection Neurological Exam Neurological exam: Present alert and oriented X3 Psychiatric Psychiatric exam: Present normal affect Skin Skin exam: Present warm and dry Medical Decision Making Medical Records Screening: Per USPSTF and CDC recommendations, given the prevalence of disease in our region, it is our hospital?s policy to screen for HIV and viral Hepatitis for all patients aged 18 and over and those with ongoing risk factors. Jose F Inquiry Pt receiving controlled substance: No Vital Signs: 05/14/25 15:15 05/14/25 16:00 05/14/25 16:15 Temperature 98.0 F Temperature Source Oral Pulse Rate 82 79 Pulse Rate [Radial] 83 Respiratory Rate 20 Blood Pressure 136/72 Blood Pressure [Right Arm] 140/72 Blood Pressure Mean [Right Arm] 94 Blood Pressure Source [Right Arm] Automatic Cuff Blood Pressure Position [Right Arm] Sitting 02 Sat by Pulse Oximetry 97 97 98 Oxygen Delivery Method Room Air Room Air 05/14/25 16:31 05/14/25 16:45 05/14/25 17:00 Temperature Temperature Source Pulse Rate 72 85 81 Pulse Rate [Radial] Respiratory Rate Blood Pressure 151/79 H Blood Pressure [Right Arm] Blood Pressure Mean [Right Arm] Blood Pressure Source [Right Arm] Blood Pressure Position [Right Arm] 02 Sat by Pulse Oximetry 94 L 94 L 95 Oxygen Delivery Method 05/14/25 17:15 05/14/25 17:30 05/14/25 18:05 Temperature Temperature Source Pulse Rate 72 83 90 Pulse Rate [Radial] Respiratory Rate Blood Pressure 148/83 H 144/77 H Blood Pressure [Right Arm] Blood Pressure Mean [Right Arm] Blood Pressure Source [Right Arm] Blood Pressure Position [Right Arm] 02 Sat by Pulse Oximetry 92 L 93 L 94 L Oxygen Delivery Method Lab Data Lab Results 05/14/25 16:58: WBC 4.9, RBC 2.16 L, Hgb 5.8 L*, Hct 19.0 L*, MCV 88.4, MCH 26.9 L, MCHC 30.4 L, RDW 19.5 H, Plt Count 292, MPV 9.0, Neut % (Auto) 50.8, Lymph % (Auto) 32.2, Ocean % (Auto) 13.0 H, Eos % (Auto) 3.2, Baso % (Auto) 0.4, Neut # (Auto) 2.5, Lymph # (Auto) 1.6, Ocean # (Auto) 0.6, Eos # (Auto) 0.2, Baso # (Auto) 0.0, PT 10.9, INR 0.98, APTT 23.8, D-Dimer 0.81 H, Sodium 135 L, Potassium 4.0, Chloride 102, Carbon Dioxide 31 H, Anion Gap 6.0, BUN 18 H, Creatinine 1.00, Estimated Creat Clear 40, Estimated GFR 56 L, Est GFR ( Amer) 67, Glucose 78, Calcium 8.5, Total Bilirubin 0.3, AST 46 H, ALT 20, Alkaline Phosphatase 126, C-Reactive Protein 3.3, NT-Pro-B Natriuret Pep 1950 H, Total Protein 6.6, Albumin 3.2 L, Globulin 3.4 H, Albumin/Globulin Ratio 0.9 L 05/14/25 17:30: Blood Type B Positive, Blood Type Confirm B Positive, Antibody Screen Negative, Crossmatch (AHG) See Detail 05/14/25 : Urine Color Yellow, Urine Appearance Sl cloudy, Urine pH 6.0, Ur Specific [place] 1.020, Urine Protein Negative, Urine Glucose (UA) Negative, Urine Ketones Negative, Urine Blood Negative, Urine Nitrate Negative, Urine Bilirubin Negative, Urine Urobilinogen 0.2, Ur Leukocyte Esterase Negative, Urine RBC 3-5, Urine WBC 5-10, Ur Squamous Epith Cells 20-50, Urine Bacteria 3+ 05/14/25 16:58 05/14/25 16:58 Orders (Tests/Meds): ED MEDICATIONS Generic Name Dose Route Start Last Admin Trade Name Freq PRN Reason Stop Dose Admin Sodium Chloride 250 mls @ 25 mls/hr 05/14/25 17:30 Sod Chlor 0.9% 250ml Bag IV 05/15/25 17:29 .Q10H YOU Discontinued Medications Generic Name Dose Route Start Last Admin Trade Name Freq PRN Reason Stop Dose Admin Clindamycin HCl 450 mg 05/14/25 17:07 05/14/25 18:02 Clindamycin 150mg Capsule PO 05/14/25 17:08 450 mg ONCE ONE Administration Iopamidol 80 ml 05/14/25 18:03 05/14/25 18:04 Iopamidol-370 (76%);100ml Bottle IV 05/14/25 18:04 80 ml ONCE ONE Administration Sodium Chloride 10 ml 05/14/25 18:03 05/14/25 18:04 Sodium Chloride 0.9% 10ml Syr (Rad Only) IV 05/14/25 18:04 10 ml ONCE ONE Administration Sodium Chloride 50 ml 05/14/25 18:03 05/14/25 18:04 0.9 % Sodium Chloride 50 Ml Vial IV 05/14/25 18:04 50 ml ONCE ONE Administration ORDERS Category Date Time Status Blood transfusion [Red Blood Cells] Stat BBK 05/14/25 17:30 Results Type and Screen Stat BBK 05/14/25 17:[address] angio abd/pel - GI Bleed Stat Cat Scan 05/14/25 17:19 Completed POCUS Point of Care (ER Only) Stat Exams 05/14/25 15:53 Completed BNP [NT Pro Brain Natriuretic Pep.] Stat Lab 05/14/25 16:58 Completed CBC w/Auto Diff [Complete Blood Count Auto Diff] Stat Lab 05/14/25 16:58 Completed CMP [Comprehensive Metabolic Panel] Stat Lab 05/14/25 16:58 Completed CRP [C-Reactive Protein] Stat Lab 05/14/25 16:58 Completed D-Dimer Stat Lab 05/14/25 16:58 Completed PT INR [Prothrombin Time INR] Stat Lab 05/14/25 16:58 Completed PTT [Activated Partial Thrombo Time] Stat Lab 05/14/25 16:58 Completed UA [Urinalysis and Microscopic] Stat Lab 05/14/25 Completed Urine Culture Stat Micro 05/14/25 Received CA venous doppler LE BI Routine Y 05/14/25 15:46 Stop Req Medical Decision Narrative: Ginette Salazar is a 64y female with history of CVA on aspirin and Plavix, tobacco use, degenerative disc disease, GERD, hypertension who presents to the emergency department for complaints of bilateral lower extremity swelling. Patient states that for approximately a week, she has had swelling that started off in her distal right lower extremity and is now spreading to her distal left lower extremity. She states that this is painful. She was seen at outside hospital where she had elevated D-dimer and they wanted to admit her for treatment of blood clots and said that she was anemic and needed a blood transfusion. She states that she left AGAINST MEDICAL ADVICE. She states that they did not do any imaging to confirm if she had blood clots. She has never had blood clots in her legs before. She denies any chest pain or shortness of breath. She denies any abdominal pain. On arrival, patient is normotensive, heart rate within normal limits, afebrile, room comfortably on room air. Physical exam, stated above, revealed nontoxic-appearing female in no distress. She does have pitting edema to the distal bilateral lower extremities with redness and warmth to these areas. Is somewhat tender. She has palpable pulses in her lower extremities. Differential diagnosis includes, but is not limited to: DVT, cellulitis, heart failure, lymphedema, among others. The most morbid conditions were considered and workup was based on these. Initial workup in the emerged part included: Hematologic labs, [id number] DVT and soft tissue ultrasound given formal ultrasound capabilities are not available today as it is the weekend. Ultrasounds were performed by me personally. No evidence of DVT to the bilateral lower extremities. Patient does have significant cobblestoning without evidence of necrotizing infection. This is consistent with cellulitis. Will administer 4 to 50 mg of clindamycin. Patient's workup shows significant anemia with hemoglobin of 5.8, hematocrit of 19, which is significantly abnormal from her baseline of 10-11 back in November of this year. Patient states that she is not having any black or tarry stools. She is not have any diarrhea. She is not having any bloody cough or vomit or blood in her urine. She is not having any vaginal bleeding. She states that she has never been told that she is anemic before. She does note that she stays cold all the time and her hands are cold often. Will type and screen and add additional hematologic labs and plan to transfuse 1 unit PRBCs. Platelets are normal at 292. D-dimer is 0.81 but negative per years criteria. Coagulation studies within normal limits. Mild hyponatremia of 135 but electrolytes otherwise within norm limits. No ADAM. Mildly elevated AST of 46 but liver enzymes bilirubin otherwise within normal limits. NT proBNP mildly elevated 1950. CRP normal at 3.3. CT abdomen pelvis was interpreted by me personally. There are multiple significant findings but no evidence of active extravasation to suggest GI bleeding. See full report below, IMPRESSION: 1. Interlobular septal thickening noted in both lung bases compatible with interstitial edema. Bibasilar bandlike densities compatible with fibro atelectatic changes. 2. Interval development of a 12 mm ovoid subpleural nodular appearing density in the right lower lobe adjacent to the posterolateral dome of the diaphragm. I suspect this is a pseudo nodule related to fibro atelectatic changes. As a true nodule can not be totally excluded advise a follow-up CT in 3 months to ensure resolution or assess for progression. 3. [id number] body wall edema compatible with anasarca. 4. Dilated CBD measuring up to 11 mm similar to previous. Diffusely dilated pancreatic duct measuring up to 6 mm with interval increase in caliber. Consider further assessment with nonemergent MRI of the abdomen with and without contrast. 5. Extensive atherosclerotic changes including [id number] atherosclerotic narrowing of the SMA and both renal arteries. Ydzyfaee-[id number] narrowing of the origin of the left common iliac artery. A 13 mm saccular aneurysm arises off of the anterior abdominal aorta. I do feel the patient will require admission for continued monitoring of her hemoglobin and further workup regarding these findings and likely MRI. I discussed this with family and they are in agreement with this plan. I then discussed patient's case with Dr. Montano of the hospital medicine service who agreed to admit the patient for further management. Procedures Limited Ultrasound Indication:: Indication: Limited compression ultrasonography of the bilateral lower extremity was performed to evaluate for non-compressibility of the deep veins in the patient. The ultrasound was performed with the following indications, as noted in the H&P: Bilateral lower extremity swelling and redness and warmth Identified structures: BILATERAL common femoral vein, femoral vein, popliteal vein were examined. Findings: Lower Extremity: Right CFV: Good compressibility Right FV: Good compressibility Right Popliteal vein: Good compressibility Left CFV: Good compressibility Left FV good compressibility Left Popliteal vein: Good compressibility Impression: Normal DVT ultrasound Images were saved to permanent archive The study was technically adequate CPT: 56186-09-HX 35517-15-DP 22397-04 (complete bilateral study) This study was performed by Mike cleveland MD, and I personally interpreted all images/videos. Based on my clinical judgement, these images were adequate and did not necessitate further imaging. Limited MSK/soft tissue ultrasound Indication: Soft tissue swelling, redness Identified structures: Location: Distal bilateral lower extremities Findings: Cellulitis Impression: Cellulitis of soft tissue Images [were saved] to permanent archive The study [was] technically adequate Soft Tissue CPT Codes: CPT Neck: 08384-53 CPT Upper extremity: 10087-97 CPT Axilla: 47573-75 CPT Chest wall: 98397-55 CPT Breast: 15116-66-EI/LT (complete), 27860-87-XN/LT (limited), CPT Upper Back: 51582-17 CPT Lower Back: 61643-28 CPT Abdominal Wall: 35552-31 CPT Pelvic Wall: 98946-69 CPT Lower Extremity: 74432-13 CPT Other Soft Tissue: 78111-00 This study was performed by Mike cleveland MD, and I personally interpreted all images/videos. Based on my clinical judgement, these images were adequate and did not necessitate further imaging. Critical Care Critical Care Time Critical Care Time: No
--- OUTSIDE RECORDS SUMMARY | 2025-05-14 15:53 | XMS_ITS | Clinical Summary ---
Author Organization [facility] Address [address] [place] [address] Phone Care Team Providers Care Software Sales Executive Name Role Phone Maximo Leos MD Unavailable [phone] Andre Tanner MD Unavailable Allergies Active [...] on 11/03/2024 gabapentin (NEURONTIN) 300 mg Oral CapsuleIndicatio ns:Chronic [...] mg by mouth nightly. at bedtime Active HYDROcodone-acet aminophen (NORCO) 7.5-325 mg Oral Tablet TAKE 1 TABLET BY MOUTH TWICE A DAY NEEDED FOR MODERATE PAIN (SCALE SCORE 5-6) 5 Active ondansetron (ZOFRAN) 4 mg Oral Tablet 8 mg. 5 Active cephALEXin (KEFLEX) 500 mg Oral Capsule Take 1 Capsule by mouth 4 times daily for 7 days. 28 Capsule 5 05/18/19 26 Active Active Problems Patient Care Coordination No [...] Encounters Date Type Department Care Team Description 05/14/2025 12:01 PM EST - 05/14/2025 12:45 PM EST Emergency [facility] [place] [address] Discharge Disposition: Home or Self Care 05/11/2025 2:29 PM EST - 05/11/2025 4:07 PM EST Emergency [facility] [address] [facility] [place] [address] Adele Sewell MD Geiger, William F, MD Leg edema (Primary Dx); Anemia, unspecified type; Elevated d-dimer Discharge Disposition: Left Against Medical Advice from Last 3 Months Immunizations Immunization Administration [...] 11.2 oz) 025 12:38 PM EST Height 160 cm (5' 3 ) 05/11/2025 2:26 PM EST Body Mass Index 21.2 05/11/2025 2:26 PM EST Plan of Treatment Health Maintenance Due [...] Cologuard 12/09/2021 12/09/2018 Colon Cancer Screening 12/09/2021 Bone Density Screening 07/17/2024 COVID-19 Vaccine ( season) 2025 04/05/2021, 09/17/2020, 08/20/2020, Additional history exists Influenza Vaccine (#1) 2025 6 (Declined), 04/10/2015 [...] reach an ideal body weight General No Grooms, Monserrat, CCMA Stay Tobacco Free Lifestyle No Grooms, Monserrat, CCMA Procedures Procedure Name Priority Date/Time Associated Diagnosis Comments BLOOD CULTURE (NO STAIN) STAT 05/11/2025 2:59 PM EST D-DIMER STAT 05/11/2025 2:45 PM EST NT PROBNP STAT 05/11/2025 2:45 PM EST BASIC METABOLIC PANEL STAT 05/11/2025 2:45 PM EST CBC WITH DIFF STAT 05/11/2025 2:45 PM EST BLOOD CULTURE (NO STAIN) STAT 05/11/2025 2:45 PM EST COLOGUARD Routine 12/09/2018 1:55 PM EDT Screening for colon cancer MM MOBILE MAMMO DIGITAL SCREEN W CAD KRISTIN Routine 01/28/2013 2:40 PM EDT Other screening mammogram from Last 3 Months or Most Recently Relevant to Health Maintenance Results * (ABNORMAL) D-DIMER (05/11/2025 2:45 PM EST) D-Dimer 972(H) <=650 ng/mL FEU 05/11/2025 3:18 PM EST [facility] Comment:For exclusion of rachana ous thromboembolism, the D dimer test should only be used in patients with a non-high clinical pretest probability. An age-adjusted threshold has been applied to this test result. Blood VENOUS BLOOD / Unknown Venipuncture / Unknown 05/11/2025 2:45 PM EST 05/11/2025 3:05 PM EST us Adele Sewell MD HEMATOLOGY ORDERABLES Fin al Result [facility] [address] [place] [address] * (ABNORMAL) CBC WITH DIFF (05/11/2025 2:45 PM EST) WBC 5.4 3.7 - 10.3 x10(3)/mcL 05/11/2025 3:30 PM EST [facility] RBC 2.22(L) 3.90 - 5.20 x10(6)/mcL 05/11/2025 3:30 PM [facility] Hgb 6.1(LL) 11.2 - 15.7 g/dL 05/11/2025 3:30 PM [facility] Hct 20.5(LL) 34.0 - 45.0 % 05/11/2025 3:30 PM [facility] MCV 92.3 80.0 - 100.0 fL 05/11/2025 3:30 PM EST [facility] MCH 27.5 26.0 - 34.0 pg 05/11/2025 3:30 PM [facility] MCHC 29.8(L) 30.7 - 35.5 g/dL 05/11/2025 3:30 PM [facility] RDW 19.6(H) <=14.9 % 05/11/2025 3:30 PM [facility] Platelet 316 155 - 369 x10(3)/mcL 05/11/2025 3:30 PM [facility] MPV 8.7(L) 8.8 - 12.5 fL 05/11/2025 3:30 PM [facility] Neut Percent 57.3 % 05/11/2025 3:30 PM [facility] Comment:Neutrophils equals s egs plus bands Imm Gran% 0.2 % 05/11/2025 3:30 PM [facility] Comment:Automated count of m etamyelocytes, myelocytes and promyelocytes. Lymph Percent 30.4 % 05/11/2025 3:30 PM EST [facility] Sublette Percent 9.3 % 05/11/2025 3:30 PM EST [facility] Eos Percent 2.2 % 05/11/2025 3:30 PM EST [facility] Baso Percent 0.6 % 05/11/2025 3:30 PM EST [facility] Neut # 3.1 1.6 - 6.1 x10(3)/[facility] 05/11/2025 3:30 PM [facility] Comment:Neutrophils equals s egs plus bands IMMGRAN# 0.0 0.0 - 0.1 x10(3)/mcL 05/11/2025 3:30 PM EST [facility] Comment:Automated count of m etamyelocytes, myelocytes and promyelocytes. An absolute IG <0.1 is reported as 0.0. Lymph # 1.6 1.2 - 3.9 x10(3)/mcL 05/11/2025 3:30 PM EST [facility] Sublette # 0.5 0.3 - 0.9 x10(3)/mcL 05/11/2025 3:30 PM EST [facility] Eos# 0.1 0.0 - 0.5 x10(3)/mcL 05/11/2025 3:30 PM EST [facility] Baso # 0.0 0.0 - 0.1 x10(3)/[facility] 05/11/2025 3:30 PM [facility] Hypochrom Slight 05/11/2025 3:30 PM [facility] Blood VENOUS BLOOD / Unknown Venipuncture / Unknown 05/11/2025 2:45 PM EST 05/11/2025 3:04 PM EST us Adele Sewell MD HEMATOLOGY ORDERABLES Fin al Result [facility] [address] [place] [address] * (ABNORMAL) NT PROBNP (05/11/2025 2:45 PM EST) NT Pro-BNP 1,030(H) <=353 pg/mL 05/11/2025 3:33 PM EST [facility] Blood VENOUS BLOOD / Unknown Venipuncture / Unknown 05/11/2025 2:45 PM EST 05/11/2025 3:05 PM EST Narrative [facility] - 05/11/2025 3:33 PM EST An NT pro-BNP level less than 300 pg/mL in any patient, regardless of age, effectively rules out acute CHF with a 99% negative predictive value. Ingestion of liz doses of biotin (>5 mg/day) taken within 8 hours of drawing blood sample can interfere with this immunoassay test. Adele Sewell MD CHEMISTRY ORDERABLES Shanti l Result [facility] [address] [place] [address] * (ABNORMAL) BASIC METABOLIC PANEL (05/11/2025 2:45 PM EST) Sodium 135(L) 136 - 145 mmol/L 05/11/2025 3:24 PM EST [facility] Potassium 3.3(L) 3.5 - 5.0 mmol/L 05/11/2025 3:24 PM [facility] Chloride 98 98 - 107 mmol/L 05/11/2025 3:24 PM [facility] Total CO2 26 22 - 29 mmol/L 05/11/2025 3:24 PM [facility] Anion Gap 11 7 - 16 mmol/L 05/11/2025 3:24 PM [facility] Calcium 8.2(L) 8.8 - 10.4 mg/dL 05/11/2025 3:24 PM [facility] Glucose Lvl 68(L) 70 - 99 mg/dL 05/11/2025 3:24 PM [facility] BUN 13 8 - 23 mg/dL 05/11/2025 3:24 PM [facility] Creatinine 0.78 0.51 - 1.30 mg/dL 05/11/2025 3:24 PM [facility] eGFR (CKD-EPIcr 2020) 83 >=60 mL/min/1.7 3 m2 05/11/2025 3:24 PM EST [facility] Comment:Estimated GFR was ca lculated using the CKD-EPIcr (2020) equation refit without race. The equation is recommended by the National Kidney Foundation - [place] Society of Nephrology Task Force. Blood VENOUS BLOOD / Unknown Venipuncture / Unknown 05/11/2025 2:45 PM EST 05/11/2025 3:05 PM EST Adele Sewell MD CHEMISTRY ORDERABLES Shanti l Result [facility] [address] [id number] * COLOGUARD (12/09/2018 1:55 PM EDT) COLOGUARD [...] screened with both Cologuard and colonoscopy. (Rashid Gardner et al, N Engl J Med 2014;370(14):6221-7533) COLOGUARD RE-SCREENING RECOMMENDATION: Periodic routine colorectal cancer screening is an important part of preventive healthcare for asymptomatic persons at average risk for colorectal cancer. Following a negative Cologuard result, the [place] Cancer Society and U.S. Multi-Society Task Force screening guidelines recommend a Cologuard re-screening interval of 3 years. References: [place] Cancer Society (ACS). Colorectal cancer prevention and early detection. [place], [place]: [place] Cancer Society; [updated 2015Sep 08]. https://www.cancer.org/cancer/fkrkk-yvivmg-tbrkbr/aurdpnmmo-vvxdkommi-qxbzdwh/ac s-rec ommendations.html. Accessed January 15, 2018; Alexx FONG, Dalila OSUNA, Wilber VaughnK, Colorectal Cancer Screening: Recommendations for Physicians and Patients from the U.S. Multi-Society Task Force on Colorectal Cancer Screening, Am J Gastroenterology 2017; 112:7414-1223. Test Type: Composite algorithmic analysis of stool [...] can be accessed at the following location: www.[employer].Speedshape/results. Additional description of the Cologuard test process, warnings and precautions can be found at www.cologuardtest.com. Rx Only. Stool specimen (specimen) 12/09/2018 1:55 PM EDT 12/10/2018 11:30 PM EDT us Alberto Carter MD [employer] SCIENCE - ORDERABLES Fin al Result [employer] [facility] [place] [address], [facility] [employer] [address] [place] [address]. [place] [address] * MM MOBILE MAMMO DIGITAL SCREEN W CAD KRISTIN (01/28/2013 2:40 PM EDT) Anatomical Region Laterality Modality Breast Mammography 01/31/2013 8:48 AM EDT Impressions 01/31/2013 4:26 PM EDT : Negative ([id number]-1) ~ RECOMMENDATION: Routine screening mammogram in 1 [...] are scattered fibroglandular densities. ~ IMPRESSION: Negative ([id number]-[id number]-3) ~ RECOMMENDATION: Routine screening mammogram in 1 [...] Recently Relevant to Health Maintenance Insurance MEDICAID [place] Care Teams Software Sales Executive Relationship Specialty Start Date End Date Maximo Leos MD Orthopaedic Surgery 11/12/11 Andre Tanner MD Psychiatry & Neurology-Neurology 10/26/14
--- OUTSIDE RECORDS SUMMARY | 2025-05-14 15:54 | XMS_ITS | Clinical Summary ---
Author Organization [facility] Address [address] [place] [id number] Care Team Providers Care Freight Car Repairer Name Role Phone Unavailable Primary Care Provider Unavailabl e Allergies Active Allergy Reactions Criticality Noted Date [...] hemorrhage 09/02/2021 Bipolar affective disorder, currently manic, mod erate 12/28/2020 Narcotic dependence 12/28/2020 Tobacco use disorder 12/28/2020 Osteoarthritis of left sacroiliac joint 12/29/19 21 Immunizations Immunization Administration Dates Next Due SARS-Cov-2 [...] PCV) 07/17/2009 Zoster-RZV(Shingrix) (1 of 2) 07/17/2009 Advance Care Planning 07/17/2024 Fall Risk Assessment 07/17/2024 Osteoporosis Screening 07/17/2024 COVID-19 Vaccine (5 - 2024-2 6 season) 2025 04/05/2021, 09/17/2020, 08/20/2020, Additional history exists Influenza Vaccination (#1) 2025 Tetanus Vaccination (Every [...] AM EDT 08/21/2021 4:27 PM EDT Nemo A. Navdeep CLEANER ASSISTANT CHEMISTRY ORDERABLES Shanti ortiz Result [facility] [address] from Last 3 Months or Most Recently Relevant to Health Maintenance Insurance MEDICARE MEDICAID [place]
[2025-05-14 17:13] LABS: Immature Granulocytes % 0.4 %; Mean Corpuscular HGB Conc 30.4 g/dL (31.8-35.4); Mean Corpuscular Hemoglobin 26.9 pg (27.0-31.2); Mean Corpuscular Volume 88.4 fl (81-99); Nucleated Red Blood Cells % 0 %; Platelet Count 292 K/mm3 (142-424); Red Blood Count 2.16 M/mm3 (4.20-5.40); Red Cell Distribution Width-SD 62.8 fL; White Blood Count 4.9 K/mm3 (4.8-10.8)
--- NOTE | 2025-05-14 17:19 | CT_ITS ---
PROCEDURE INFORMATION: Exam: CTA Abdomen and Pelvis With Contrast Exam date and time: 05/14/2025 5:54 PM Age: 64 years old Clinical indication: Other: Anemia, possible gi bleed TECHNIQUE: Imaging protocol: Computed tomographic angiography of the abdomen and pelvis with contrast. Exam focused on the arteries. 3D rendering (Not supervised by radiologist): MIP and/or 3D reconstructed images were created by the technologist. Radiation optimization: All CT scans at this facility use at least one of these dose optimization techniques: automated exposure control; mA and/or kV adjustment per patient size (includes targeted exams where dose is matched to clinical indication); or iterative reconstruction. Contrast material: ISOVUE; Contrast volume: 80 ml; Contrast route: INTRAVENOUS (IV); COMPARISON: 1. CT ABDOMEN PELVIS W CON 12/01/2024 12:[address] ABDOMEN PELVIS W CON 10/03/2024 3:45 PM FINDINGS: Lungs: Interlobular septal thickening noted in both lung bases compatible with interstitial edema. Bibasilar bandlike densities compatible with fibro atelectatic changes. Interval development of a ovoid subpleural nodular appearing density adjacent to the posterolateral dome of the diaphragm measuring 12 mm centered on axial image 21 of series 3 and coronal image 73 of series 1001. Aorta: Extensive atherosclerotic changes of the aorta and iliacs. A 13 mm thrombosed saccular aneurysm projects off of the anterior mid abdominal aorta. Celiac and mesenteric arteries: Htcaudeu-dk-lpafsa atherosclerotic narrowing of the origin of the SMA. Celiac is patent without significant narrowing. VIC is patent. Renal arteries: Qbisglbg-iq-vjkrys narrowing of the origins of the renal arteries. Right iliac arteries: Ikem-on-gptuiylo multifocal narrowing of the right common iliac artery with mild narrowing of the external iliac artery. Left iliac arteries: Uaisojoo-kv-soiexv narrowing of the proximal left common iliac artery with mild multifocal narrowing of the remainder of the left common iliac and portions of the left internal iliac artery. Liver: Unremarkable. Gallbladder and biliary ducts: Gallbladder nondistended which limits assessment. Dilated extrahepatic CBD measuring up to 11 mm with associated dilated intrahepatic bile ducts similar to prior CTs of 12/01/2024 and 10/03/2024. Pancreas: Pancreas otherwise unremarkable. Diffusely dilated pancreatic duct measuring up to 6 mm in the pancreatic head that previously measuring up to 4 mm. Spleen: Unremarkable. No splenomegaly. Adrenal glands: Unremarkable. No mass. Kidneys and ureters: Unremarkable. No solid mass. No hydronephrosis. Stomach and bowel: No abnormal contrast extravasation to suggest active GI tract bleeding. Appendix: No evidence of appendicitis. Intraperitoneal space: Unremarkable. No free air. No significant fluid collection. Lymph nodes: Unremarkable. No enlarged lymph nodes. Urinary bladder: Unremarkable. No mass. Reproductive: Unremarkable as visualized. Bones/joints: No acute fracture. Soft tissues: Xgqxfpgj-le-dubcpj body wall edema compatible with anasarca. IMPRESSION: 1. Interlobular septal thickening noted in both lung bases compatible with interstitial edema. Bibasilar bandlike densities compatible with fibro atelectatic changes. 2. Interval development of a 12 mm ovoid subpleural nodular appearing density in the right lower lobe adjacent to the posterolateral dome of the diaphragm. I suspect this is a pseudo nodule related to fibro atelectatic changes. As a true nodule can not be totally excluded advise a follow-up CT in 3 months to ensure resolution or assess for progression. 3. Sbwfdcuv-dr-ubsnkn body wall edema compatible with anasarca. 4. Dilated CBD measuring up to 11 mm similar to previous. Diffusely dilated pancreatic duct measuring up to 6 mm with interval increase in caliber. Consider further assessment with nonemergent MRI of the abdomen with and without contrast. 5. Extensive atherosclerotic changes including dnpwehnt-sb-cttotr atherosclerotic narrowing of the SMA and both renal arteries. Znauxspc-fm-bhexiv narrowing of the origin of the left common iliac artery. A 13 mm saccular aneurysm arises off of the anterior abdominal aorta.
[2025-05-14 17:20] LABS: Hematocrit 19.0 % (37.0-47.0); Hemoglobin 5.8 g/dL (12.2-16.2)
[2025-05-14 17:32] LABS: Alanine Aminotransferase 20 U/L (12-78); Albumin Level 3.2 g/dl (3.5-5.0); Albumin/Globulin Ratio 0.9 (1.1-1.8); Alkaline Phosphatase 126 U/L (38-126); Anion Gap 6.0 mEq/L (5-15); Aspartate Amino Transferase 46 U/L (14-36); Bilirubin,Total 0.3 mg/dl (0.2-1.3); Blood Urea Nitrogen 18 mg/dl (7-17); Calcium 8.5 mg/dl (8.4-10.2); Carbon Dioxide 31 mmol/L (22.0-30.0); Chloride 102 mmol/L (98-107); Creatinine Clearance Estimated 40 mL/min (50-200); Creatinine,Serum 1.00 mg/dl (0.52-1.04); Estimated Glomerular Filt Rate 56 ml/min (>60); GFR (African American) 67 ML/MIN (>60); Globulin 3.4 g/dL (1.3-3.2); Glucose 78 mg/dl (74-100); Potassium 4.0 mmoL/L (3.5-5.1); Sodium 135 mmol/L (136-145); Total Protein,Serum 6.6 g/dl (6.3-8.2)
[2025-05-14 17:37] LABS: C-Reactive Protein 3.3 mg/L (0-4); D-Dimer 0.81 ug/mL (0.0-0.5)
[2025-05-14 17:38] LABS: Activated Partial Thrombo Time 23.8 seconds (22.8-30.6); INR 0.98 (0.9-1.1); Prothrombin Time 10.9 seconds (10.1-12.5)
[2025-05-14 17:41] LABS: NT Pro Brain Natriuretic Pep. 1950 pg/mL (0-125)
[2025-05-14 17:55] LABS: Bilirubin,Urine Negative (Negative); Color,Urine YELLOW (Yellow); Glucose,Urine (UA) Negative (Negative); Ketones,Urine Negative (Negative); Leukocyte Esterase,Urine Negative (Negative); Microscopic, Urine URINE MICROSCOPIC (MICROSCOPIC); PH,Urine 6.0 (5.0-8.5); Protein,Urine Negative (Negative); Specific Gravity, Urine 1.020 (1.005-1.030); Urobilinogen,Urine 0.2 EU/dl (0.2)
[2025-05-14] MEDS: CLINDAMYCIN 150MG CAPSULE 450 MG PO (18:02)
[2025-05-14] MEDS: SODIUM CHLORIDE 0.9% 10ML SYR (RAD ONLY) 10 ML IV (18:04)
[2025-05-14] MEDS: 0.9 % SODIUM CHLORIDE 50 ML VIAL IV (18:04)
[2025-05-14] MEDS: IOPAMIDOL-370 (76%);100ML BOTTLE 80 ML IV (18:04)
[2025-05-14 18:05] LABS: Bacteria,Urine 3+ /lpf; Squamous Epithelial Cell,Urine 20-50 #/hpf (0-5)
--- NOTE | 2025-05-14 20:01 | EXP.HP ---
History of Present Illness *Admission Date: 05/14/25 *Reason for visit:: Fatigue *History of present illness: Ginette Salazar is a 64y female with history of CVA on aspirin and Plavix, tobacco use, degenerative disc disease, GERD, hypertension who presents to the emergency department for complaints of bilateral lower extremity swelling. 1 week duration Started in right lower extremity then spread to left lower extremity. It is painful. Evaluated on an outpatient setting with elevated D-dimer and was recommended to look for DVT however left AMA In emergency department, physician performed ultrasound of lower extremity. No DVT located. However formal ordered and pending. Started on clindamycin for lower extremity cellulitis Noted to be profoundly anemic hemoglobin of 5.8. Denies any active blood loss from rectum mouth or anywhere noticeable Received 1 unit packed red blood cells in ED Currently fatigued and minimally conversant however does not endorse any other concerns at this time History obtained by myself and discussed case with ER physician and personally reviewed data. [facility] Disclaimer: The information contained in this section may have been updated after the patient was seen, as this information can be updated by other users. Medical History Fibromyalgia Bowel obstruction GERD (gastroesophageal reflux disease) Lumbar spinal stenosis Lumbar radicular pain DDD (degenerative disc disease), lumbar Dog bite Surgical History No history of previous surgery Family History Other No significant family history Social History Smoking Status: Current every day smoker tobacco type: cigarettes packs per day: 2 pack-years: 10 alcohol intake: current alcohol intake frequency: a few times a month substance use type: former substance user current occupational status: disabled Travel in the last 8 weeks?: None Have you lived/traveled outside US in past 30 days?: No Contact w/someone who lives/traveled outside US past 30 days?: No Exposure to someone with infectious disease in past 14 days?: No Do you have a fever (greater than 100.4 F or 38 C)?: No Have you tested positive for COVID-19?: No Exposed to someone with COVID-19 in past 14 days?: No Do you have a sore throat?: No Do you have a cough?: No Do you have any weakness?: No Do you have any diarrhea?: No Are you experiencing any unusual bleeding?: No Do you have any muscle aches/pain?: No Do you have any abdominal pain?: No Are you experiencing loss of taste or smell?: No Other Medical History Have you received the Flu Vaccine for this season: No Have you received the Pneumonia Vaccine: No Review of Systems Review of Systems Review of systems:: pertinent systems reviewed and negative unless documented below Constitutional Constitutional: Reports system reviewed and no additional complaints, except as documented Eyes Eyes: Reports system reviewed and no additional complaints, except as documented ENT Ears, Nose, Mouth, and Throat: Reports system reviewed and no additional complaints, except as documented *Cardiovascular Cardiovascular: Reports system reviewed and no additional complaints, except as documented *Respiratory Respiratory: Reports system reviewed and no additional complaints, except as documented *Gastrointestinal Gastrointestinal: Reports system reviewed and no additional complaints, except as documented *Genitourinary Genitourinary: Reports system reviewed and no additional complaints, except as documented *Musculoskeletal Musculoskeletal: Reports system reviewed and no additional complaints, except as documented *Neurologic Neurologic: Reports system reviewed and no additional complaints, except as documented Meds Home Medications and Allergies Home Medications ?Medication ?Instructions ?Recorded ?Confirmed ?Type omeprazole 40 mg capsule,delayed 40 mg PO DAILY 12/01/24 05/08/25 History release alendronate 70 mg tablet (Fosamax) 70 mg PO WEEKLY #5 tabs 12/09/24 05/08/25 Rx atorvastatin 80 mg tablet 80 mg PO HS #90 tabs 12/09/24 05/08/25 Rx aspirin 81 mg chewable tablet 81 mg PO DAILY 30 days #100 tabs 03/16/25 05/08/25 Rx gabapentin 600 mg tablet 600 mg PO BID #60 tabs 03/16/25 05/08/25 Rx lubiprostone 24 mcg capsule 24 mcg PO BID 30 days #60 caps 03/16/25 05/08/25 Rx ondansetron HCl 4 mg tablet 4 mg PO Q8H PRN nausea and 04/10/25 05/08/25 Rx vomiting #90 tabs clopidogrel 75 mg tablet 75 mg PO DAILY 21 days #30 tabs 04/26/25 05/08/25 Rx naloxone 4 mg/actuation nasal 4 mg intranasal Q3M PRN opioid 05/08/25 05/08/25 Rx spray (Narcan) overdose #2 ea oxycodone-acetaminophen 7.5 mg-325 1 tab PO BID PRN pain #60 tabs 05/08/25 05/08/25 Rx mg tablet (Percocet) sennosides 8.6 mg tablet (Senna 8.6 mg PO HS #30 tabs 05/08/25 05/08/25 Rx Lax) New Prescriptions to Start Prescriptions: Allergies Allergy/AdvReac Type Severity Reaction Status Date / Time chocolate flavor Allergy Intermediate rash Verified 05/08/25 12:02 Penicillins Allergy Intermediate Rash Verified 05/08/25 12:02 Influenza Virus Vaccines Allergy Blister Verified 05/08/25 12:02 morphine Allergy Unknown Verified 05/08/25 12:02 allergy reaction Exam Data for Last 24 hours Vital signs and Labs for Last 24 Hours: Temp Pulse Resp BP Pulse Ox O2 Del Method 98.3 F 74 14 134/67 94 L Room Air 05/14/25 20:00 05/14/25 20:00 05/14/25 20:00 05/14/25 20:00 05/14/25 20:00 05/14/25 19:30 Laboratory Results - last 24 hr 05/14/25 16:58: WBC 4.9, RBC 2.16 L, Hgb 5.8 L*, Hct 19.0 L*, MCV 88.4, MCH 26.9 L, MCHC 30.4 L, RDW 19.5 H, Plt Count 292, MPV 9.0, Neut % (Auto) 50.8, Lymph % (Auto) 32.2, [place] % (Auto) 13.0 H, Eos % (Auto) 3.2, Baso % (Auto) 0.4, Neut # (Auto) 2.5, Lymph # (Auto) 1.6, [place] # (Auto) 0.6, Eos # (Auto) 0.2, Baso # (Auto) 0.0, PT 10.9, INR 0.98, APTT 23.8, D-Dimer 0.81 H, Sodium 135 L, Potassium 4.0, Chloride 102, Carbon Dioxide 31 H, Anion Gap 6.0, BUN 18 H, Creatinine 1.00, Estimated Creat Clear 40, Estimated GFR 56 L, Est GFR ( Amer) 67, Glucose 78, Calcium 8.5, Total Bilirubin 0.3, AST 46 H, ALT 20, Alkaline Phosphatase 126, C-Reactive Protein 3.3, NT-Pro-B Natriuret Pep 1950 H, Total Protein 6.6, Albumin 3.2 L, Globulin 3.4 H, Albumin/Globulin Ratio 0.9 L 05/14/25 17:30: Blood Type B Positive, Blood Type Confirm B Positive, Antibody Screen Negative, Crossmatch (AHG) See Detail 05/14/25 : Urine Color Yellow, Urine Appearance Sl cloudy, Urine pH 6.0, Ur Specific [place] 1.020, Urine Protein Negative, Urine Glucose (UA) Negative, Urine Ketones Negative, Urine Blood Negative, Urine Nitrate Negative, Urine Bilirubin Negative, Urine Urobilinogen 0.2, Ur Leukocyte Esterase Negative, Urine RBC 3-5, Urine WBC 5-10, Ur Squamous Epith Cells 20-50, Urine Bacteria 3+ I & O for Last 24 hours: Intake & Output 05/11/25 05/12/25 05/13/25 05/14/25 23:59 23:59 23:59 23:59 Intake Total 0 / 0 Balance 0 / 0 Weight 45.359 kg Constitutional Constitutional: no acute distress *Routine HEENT Exam Head: Present normocephalic Eye: Present EOMI and PERRL ENT: Present mucous membranes moist *Routine Neck Exam Neck: Present supple; Absent lymphadenopathy *Routine Respiratory Exam Respiratory: Present CTA bilaterally *Routine Cardiovascular Exam Cardiovascular: Present RRR *Routine Abdominal Exam Abdominal: Present soft and normoactive bowel sounds; Absent tenderness *Routine Rectal Exam Rectal:: deferred *Routine Genitalia Exam Genitalia:: deferred *Routine Extremities Exam Extremities: Present edema; Absent cyanosis or clubbing Comments: Erythematous *Routine Skin Exam Skin: Present warm; Absent rash *Routine Neurological Exam Neurological: Present alert and oriented X3 Assessment and Plan *Assessment and plan (1) Incidental lung nodule: Status: Acute Category: Medical Code(s): R91.1 - Solitary pulmonary nodule (2) Anasarca: Status: Acute Category: Medical Code(s): R60.1 - Generalized edema (3) Dilated pancreatic duct: Status: Acute Category: Medical Code(s): K86.89 - Other specified diseases of pancreas (4) Aortic aneurysm: Status: Acute Category: Medical Code(s): I71.9 - Aortic aneurysm of unspecified site, without rupture (5) Cellulitis: Status: Acute Category: Medical Code(s): L03.90 - Cellulitis, unspecified (6) Anemia: Status: Acute Category: Medical Code(s): D64.9 - Anemia, unspecified (7) History of CVA (cerebrovascular accident): Status: Acute Category: Medical Code(s): Z86.73 - Personal history of transient ischemic attack (TIA), and cerebral infarction without residual deficits (8) Constipation: Status: Chronic Qualifiers: Constipation type: unspecified constipation type Qualified Code(s): K59.00 - Constipation, unspecified Category: Medical Code(s): K59.00 - Constipation, unspecified (9) Hyponatremia: Status: Acute Category: Medical Code(s): E87.1 - Hypo-osmolality and hyponatremia (10) Hematuria: Status: Acute Category: Medical Code(s): R31.9 - Hematuria, unspecified (11) Cellulitis of right lower leg: Status: Acute Category: Medical Code(s): L03.115 - Cellulitis of right lower limb Plan CC 4-year-old female admitted for multiple medical problems but most concerning these acute anemia and also lower extremity edema. I think this is likely due to a DVT that is unrecognized at this time, given the constellation of slowly worsening anemia and new edema. In the setting of anasarca and multiple gastrointestinal and pulmonary findings on CT scan I am concerned for new malignancy. Will need further evaluation Anasarca Lower extremity Cellulitis - DVT duplex ordered - Cefuroxime 500 twice daily - Will likely need diuretics, will give one-time dose now - Echo - Resume home meds once reconciled Anemia, unknown etiology - Received 1 unit packed red blood cells in ER - Concern for new malignancy, will likely need GI evaluation Pancreatic duct dilatation Common bile duct dilatation - GI consult Subpleural nodule - Monitor Peripheral artery disease Renal artery disease Aortic aneurysm - Cardiology consult - Echo
[2025-05-14] MEDS: FUROSEMIDE 40MG/4ML VIAL 40 MG IV (22:06)
[2025-05-14] MEDS: PANTOPRAZOLE 40MG TABLET 40 MG PO (22:06)
[2025-05-15] MEDS: HYDROCODONE/APAP 5/325 MG TABLET 1 TAB PO ×3 (00:57→12:03)
[2025-05-15 00:58] LABS: POC Glucose,Bedside 97 gm/dL (70-110)
[2025-05-15 01:00] VITALS: BP 124/68; PULSE 73; RESP 16; TEMP 36.9; O2SAT 93
[2025-05-15 01:01] LABS: Hematocrit 23.3 % (37.0-47.0)
[2025-05-15 01:09] LABS: Hemoglobin 7.3 g/dL (12.2-16.2)
--- NOTE | 2025-05-15 03:25 | PC.NURSE ---
Pt does not know home meds, unable to complete med rec
[2025-05-15 04:00] VITALS: BP 130/65; PULSE 79; RESP 16; TEMP 36.9; O2SAT 92; BMI 20.9
[2025-05-15 05:19] LABS: POC Glucose,Bedside 114 gm/dL (70-110)
--- NOTE | 2025-05-15 06:00 | CA_ITS ---
APPROVED REPORT EXAM: Comprehensive 2D, Doppler, and color-flow Echocardiogram Usability Architect: Alexandra Washington RT(R) Ht: 5 ft 3 in Wt: 121lbs BSA: 1.56 BP: 134/67 mmHg Indications: hx TIA, edema lower extremities, shortness of breath. 2D Dimensions LVEF (Milligan's) 63.70 % F: 54 - 74 LV Volume 103.60 mL F: 46 - 106 LV Volume Index 66.4 mL/m2 F: 29 - 61 LA Volume 17.50 mL LA Volume Index 11.22 mL/m2 (M/F) 16-34 EF AP4 65.20 % EF AP2 61.5 % EF BP 63.7 % GL Strain -22.6 % M-Mode Dimensions RVDd 1.96 cm (0.9-2.6) LA Diam 3.52 cm (1.9-4.0) LVDd 4.96 cm (3.5-5.7) LVDs 3.60 cm (3.5-5.7) IVSd 0.78 cm (0.6-1.1) PWd 0.82 cm (0.6-1.1) EF (Teich) 53.10% FS 27.40% EDV (Teich) 116.10 mL ESV (Teich) 54.40 mL LV Diastology E Decel Time 137 (160-240 msec) E/A Ratio 0.9 Mitral Valve MV E Max Igor. 86.0 (40-130 cm/s) MV A Velocity 95.0 (40-130 cm/s) E/A Ratio 0.91 MV PHT 40.0 ms Tricuspid Valve TR P. Velocity 278.00 cm/s Left Ventricle The left ventricle is normal size. Left ventricular systolic function is normal. The left ventricular ejection fraction is within the normal range. There is increased left ventricular wall thickness. There is normal LV segmental wall motion. The left ventricular diastolic function is normal. LVEF is 55% Right Ventricle The right ventricle is normal size. The right ventricular systolic function is normal. Atria The left atrium size is normal. The right atrium size is normal. There is possible color Doppler evidence of interatrial shunt. Aortic Valve The aortic valve opens well. There is no hemodynamically significant aortic valvular stenosis. No aortic regurgitation is present. Mitral Valve The mitral valve is normal in structure. No evidence of mitral valve stenosis. Trace mitral regurgitation is present. Tricuspid Valve The tricuspid valve leaflets are thin and pliable. Mild tricuspid regurgitation. RVSP is 20-25 mmHg. Pulmonic Valve The pulmonary valve is grossly normal in structure. Trace pulmonic valve regurgitation is present. Great Vessels The aortic root is normal in size. IVC is normal in size and collapses >50% with inspiration. Pericardium There is no pericardial effusion. Other Information Study Quality: Fair Conclusion Normal biventricular systolic function. Mild TR. There is possible color Doppler evidence of interatrial shunt. In the setting of prior TIA and possible interatrial shunt, further evaluation with limited TTE + agitated saline administration is suggested. Electronically signed by : Diana Hewitt MD 05/15/2025 14:22:57
[2025-05-15 06:39] LABS: Hematocrit 23.6 % (37.0-47.0); Hemoglobin 7.7 g/dL (12.2-16.2); Immature Granulocytes % 0.5 %; Mean Corpuscular HGB Conc 32.6 g/dL (31.8-35.4); Mean Corpuscular Hemoglobin 27.4 pg (27.0-31.2); Mean Corpuscular Volume 84.0 fl (81-99); Nucleated Red Blood Cells % 0 %; Platelet Count 306 K/mm3 (142-424); Red Blood Count 2.81 M/mm3 (4.20-5.40); Red Cell Distribution Width-SD 53.7 fL; White Blood Count 4.0 K/mm3 (4.8-10.8)
[2025-05-15 06:56] LABS: Albumin Level 3.1 g/dl (3.5-5.0); Chloride 100 mmol/L (98-107); Sodium 136 mmol/L (136-145)
[2025-05-15 06:57] LABS: Potassium 3.2 mmoL/L (3.5-5.1)
[2025-05-15 06:59] LABS: Alanine Aminotransferase 19 U/L (12-78); Albumin/Globulin Ratio 0.9 (1.1-1.8); Alkaline Phosphatase 118 U/L (38-126); Anion Gap 7.2 mEq/L (5-15); Aspartate Amino Transferase 48 U/L (14-36); Bilirubin,Total 0.4 mg/dl (0.2-1.3); Blood Urea Nitrogen 16 mg/dl (7-17); Carbon Dioxide 32 mmol/L (22.0-30.0); Cholesterol 145 mg/dl (140-200); Creatinine Clearance Estimated 48 mL/min (50-200); Creatinine,Serum 0.90 mg/dl (0.52-1.04); Estimated Glomerular Filt Rate 63 ml/min (>60); GFR (African American) 76 ML/MIN (>60); Globulin 3.3 g/dL (1.3-3.2); Total Protein,Serum 6.4 g/dl (6.3-8.2); Triglycerides 56 mg/dl (30-150)
[2025-05-15 07:00] LABS: Calcium 8.8 mg/dl (8.4-10.2); Glucose 92 mg/dl (74-100); HDL Cholesterol 104 mg/dl (40-60); Magnesium 1.8 mg/dl (1.6-2.3); Phosphorous 3.2 mg/dl (2.5-4.5)
[2025-05-15 08:00] VITALS: BP 164/83; PULSE 101; RESP 18; TEMP 37.3; O2SAT 94
[2025-05-15] MEDS: FUROSEMIDE 40MG/4ML VIAL 40 MG IV (08:14)
--- NOTE | 2025-05-15 09:17 | EXP.ACUTE.PN ---
Subjective *Date: 05/15/25 *Time: 14:53 Interval history: Patient stable on room air. No nausea or vomiting. Responded well to transfusion yesterday. Responding to diuresis. States legs are less swollen but they are still significantly edematous today to the knee bilaterally. Making good urine. Denies black stool. GI evaluating today Medical Exam Vital signs and Labs for Last 24 Hours: Vital Signs Temp Pulse Pulse Resp BP BP Pulse Ox 05/15/25 09:00 05/15/25 08:00 99.1 F 101 H 18 164/83 H 94 L 05/15/25 08:00 05/15/25 06:44 05/15/25 04:53 05/15/25 04:00 98.5 F 79 16 130/65 92 L 05/15/25 03:00 05/15/25 01:00 98.4 F 73 16 124/68 93 L 05/15/25 01:00 05/14/25 23:05 70 15 148/84 H 96 05/14/25 23:00 05/14/25 22:14 98 05/14/25 21:59 65 13 144/83 H 98 05/14/25 21:03 98.3 F 68 16 139/78 05/14/25 21:00 05/14/25 20:50 98.3 F 69 16 139/78 94 L 05/14/25 20:40 130/69 96 05/14/25 20:35 124/71 05/14/25 20:30 69 98 05/14/25 20:30 131/71 05/14/25 20:29 98.2 F 69 16 131/71 97 05/14/25 20:20 73 140/72 94 L 05/14/25 20:15 134/69 93 L 05/14/25 20:14 98.2 F 77 16 134/69 93 L 05/14/25 20:10 73 127/76 93 L 05/14/25 20:09 98.3 F 75 14 127/76 94 L 05/14/25 20:05 7 L 135/73 94 L 05/14/25 20:04 98.3 F 71 14 135/73 93 L 05/14/25 20:00 75 123/69 9 L 05/14/25 20:00 98.3 F 74 14 134/67 94 L 05/14/25 19:59 73 134/67 94 L 05/14/25 19:55 98.3 F 76 14 121/73 94 L 05/14/25 19:35 98.3 F 74 16 124/71 96 05/14/25 19:30 121/73 95 05/14/25 19:01 73 115/62 94 L 05/14/25 18:05 90 144/77 H 94 L 05/14/25 17:30 83 148/83 H 93 L 05/14/25 17:15 72 92 L 05/14/25 17:00 81 95 05/14/25 16:45 85 94 L 05/14/25 16:31 72 151/79 H 94 L 05/14/25 16:15 79 98 05/14/25 16:00 82 136/72 97 05/14/25 15:15 98.0 F 83 20 140/72 97 O2 Del Method 05/15/25 09:00 Room Air 05/15/25 08:00 Room Air 05/15/25 08:00 Room Air 05/15/25 06:44 Room Air 05/15/25 04:53 Room Air 05/15/25 04:00 Room Air 05/15/25 03:00 Room Air 05/15/25 01:00 05/15/25 01:00 Room Air 05/14/25 23:05 05/14/25 23:00 Room Air 05/14/25 22:14 Room Air 05/14/25 21:59 05/14/25 21:03 Room Air 05/14/25 21:00 Room Air 05/14/25 20:50 05/14/25 20:40 Room Air 05/14/25 20:35 05/14/25 20:30 Room Air 05/14/25 20:30 05/14/25 20:29 05/14/25 20:20 Room Air 05/14/25 20:15 Room Air 05/14/25 20:14 05/14/25 20:10 Room Air 05/14/25 20:09 05/14/25 20:05 Room Air 05/14/25 20:04 05/14/25 20:00 Room Air 05/14/25 20:00 05/14/25 19:59 Room Air 05/14/25 19:55 05/14/25 19:35 05/14/25 19:30 Room Air 05/14/25 19:01 Room Air 05/14/25 18:05 05/14/25 17:30 05/14/25 17:15 05/14/25 17:00 05/14/25 16:45 05/14/25 16:31 05/14/25 16:15 05/14/25 16:00 Room Air 05/14/25 15:15 Room Air Intake and Output 05/14/25 05/15/25 05/15/25 23:59 07:59 15:59 Intake Total 250 / 250 120 / 120 Output Total 200 / 200 Balance 250 / 250 -200 / -80 120 / -80 Intake: Intake, Oral Amount 120 / 120 Intake (Blood Product) Amt 250 / 250 Red Blood Cells Unit 250 / 250 [id number] Output: Output, Urine Amount 200 / 200 Other: Number of Unmeasured Voids 3 Number of Bowel Movements 1 Weight 54.975 kg 53.66 kg Patient Weight 05/15/25 23:59 Weight 53.66 kg Laboratory Results - last 24 hr 05/14/25 16:58: WBC 4.9, RBC 2.16 L, Hgb 5.8 L*, Hct 19.0 L*, MCV 88.4, MCH 26.9 L, MCHC 30.4 L, RDW 19.5 H, Plt Count 292, MPV 9.0, Neut % (Auto) 50.8, Lymph % (Auto) 32.2, [place] % (Auto) 13.0 H, Eos % (Auto) 3.2, Baso % (Auto) 0.4, Neut # (Auto) 2.5, Lymph # (Auto) 1.6, [place] # (Auto) 0.6, Eos # (Auto) 0.2, Baso # (Auto) 0.0, PT 10.9, INR 0.98, APTT 23.8, D-Dimer 0.81 H, Sodium 135 L, Potassium 4.0, Chloride 102, Carbon Dioxide 31 H, Anion Gap 6.0, BUN 18 H, Creatinine 1.00, Estimated Creat Clear 40, Estimated GFR 56 L, Est GFR ( Amer) 67, Glucose 78, Calcium 8.5, Total Bilirubin 0.3, AST 46 H, ALT 20, Alkaline Phosphatase 126, C-Reactive Protein 3.3, NT-Pro-B Natriuret Pep 1950 H, Total Protein 6.6, Albumin 3.2 L, Globulin 3.4 H, Albumin/Globulin Ratio 0.9 L 05/14/25 17:30: Blood Type B Positive, Blood Type Confirm B Positive, Antibody Screen Negative, Crossmatch (AHG) See Detail 05/14/25 : Urine Color Yellow, Urine Appearance Sl cloudy, Urine pH 6.0, Ur Specific [place] 1.020, Urine Protein Negative, Urine Glucose (UA) Negative, Urine Ketones Negative, Urine Blood Negative, Urine Nitrate Negative, Urine Bilirubin Negative, Urine Urobilinogen 0.2, Ur Leukocyte Esterase Negative, Urine RBC 3-5, Urine WBC 5-10, Ur Squamous Epith Cells 20-50, Urine Bacteria 3+ 05/15/25 00:50: Hgb 7.3 L D, Hct 23.3 L, POC Glucose 97 05/15/25 05:12: POC Glucose 114 H 05/15/25 05:27: WBC 4.0 L, RBC 2.81 L D, Hgb 7.7 L, Hct 23.6 L, MCV 84.0, MCH 27.4, MCHC 32.6, RDW 17.7 H, Plt Count 306, MPV 9.4, Neut % (Auto) 67.3, Lymph % (Auto) 16.8, [place] % (Auto) 14.1 H, Eos % (Auto) 0.8, Baso % (Auto) 0.5, Neut # (Auto) 2.7, Lymph # (Auto) 0.7, [place] # (Auto) 0.6, Eos # (Auto) 0.0, Baso # (Auto) 0.0, Sodium 136, Potassium 3.2 L, Chloride 100, Carbon Dioxide 32 H, Anion Gap 7.2, BUN 16, Creatinine 0.90, Estimated Creat Clear 48, Estimated GFR 63, Est GFR ( Amer) 76, Glucose 92, Calcium 8.8, Phosphorus 3.2, Magnesium 1.8, Total Bilirubin 0.4, AST 48 H, ALT 19, Alkaline Phosphatase 118, Total Protein 6.4, Albumin 3.1 L, Globulin 3.3 H, Albumin/Globulin Ratio 0.9 L, Triglycerides 56, Cholesterol 145, LDL Cholesterol Direct 47.31 L, VLDL Cholesterol 11, HDL Cholesterol 104 H, Cholesterol/HDL Ratio 1.4 I & O for Labs for Last 24 Hours: Intake & Output 05/12/25 05/13/25 05/14/25 05/15/25 23:59 23:59 23:59 23:59 Intake Total 250 / 250 120 / 120 Output Total 200 / 200 Balance 250 / 250 -80 / -80 Weight 54.975 kg 53.66 kg Constitutional: Present no acute distress, thin, chronically ill appearing and cooperative Head: Present atraumatic and normocephalic Respiratory: Present normal respiratory effort; Absent rhonchi or crackles Cardiac: Present Reg Rate and Rhythm GI: Present soft and normal bowel sounds; Absent distention or tenderness Extremities: Present normal inspection, full ROM and edema (3+ to knees) Skin: Present intact; Absent erythema Neuro: Present Grossly Intact, alert, awake, oriented x 3 and moves all extremities Assessment and Plan *Assessment and plan (1) Anasarca: Status: Acute Category: Medical Code(s): R60.1 - Generalized edema (2) Incidental lung nodule: Status: Acute Category: Medical Code(s): R91.1 - Solitary pulmonary nodule (3) Dilated pancreatic duct: Status: Acute Category: Medical Code(s): K86.89 - Other specified diseases of pancreas (4) Aortic aneurysm: Status: Acute Qualifiers: Abdominal aorta location: unspecified Aortic location: abdominal aorta Presence of rupture: without rupture Qualified Code(s): I71.40 - Abdominal aortic aneurysm, without rupture, unspecified Category: Medical Code(s): I71.9 - Aortic aneurysm of unspecified site, without rupture (5) Cellulitis: Status: Acute Category: Medical Code(s): L03.90 - Cellulitis, unspecified (6) Anemia: Status: Acute Category: Medical Code(s): D64.9 - Anemia, unspecified (7) History of CVA (cerebrovascular accident): Status: Acute Category: Medical Code(s): Z86.73 - Personal history of transient ischemic attack (TIA), and cerebral infarction without residual deficits (8) Constipation: Status: Chronic Qualifiers: Constipation type: unspecified constipation type Qualified Code(s): K59.00 - Constipation, unspecified Category: Medical Code(s): K59.00 - Constipation, unspecified (9) Hyponatremia: Status: Acute Category: Medical Code(s): E87.1 - Hypo-osmolality and hyponatremia (10) Hematuria: Status: Acute Category: Medical Code(s): R31.9 - Hematuria, unspecified (11) Cellulitis of right lower leg: Status: Acute Category: Medical Code(s): L03.115 - Cellulitis of right lower limb Plan 64-year-old female admitted for multiple medical problems but most concerning these acute anemia and also lower extremity edema. Responded to transfusion overnight. [id number] ultrasound in the ER showing no lower extremity DVT. Edema improving with diuresis. Hemoglobin better at 7.7 this morning. GI and cardiology to evaluate. Problems addressed as follows: Anasarca Lower extremity Cellulitis - [id number] ultrasound negative in the ER - Transition to Keflex 3 times daily for cellulitis. Will complete 5 days. - Echo obtained showing normal BiV systolic function. - Abdomen and pelvis CTA per my review with edema of body wall. Dilated common bile duct of 11 mm. Small 13 mm aneurysm off the anterior abdominal aorta, no contrast extravasation. - Gresser diuresis with Lasix 80 mg IV twice daily. - Initiate multivitamin due to concern for nutritional deficiency. Albumin 3.0. - Vitamin C and folate pending Anemia, unknown etiology - Status posttransfusion with 1 unit, improved from 5.8-7.7 this morning. - Repeat CBC, CMP, magnesium ordered for the morning. -GI consulted to evaluate, recommend colonoscopy, patient refuses any colonoscopy or workup at this time. Does not want to know per her report -Hemoccult ordered. Pending - BUN normal at 16, creatinine 0.9. Not consistent with upper GI source of blood loss - Potassium 3.2, magnesium 1.8. Pancreatic duct dilatation Common bile duct dilatation - GI consulted, recommends MRI of abdomen. Will discuss with patient if she wants to proceed. Has no pain at this time. LFTs normal Subpleural nodule - Monitor Peripheral artery disease Renal artery disease Aortic aneurysm - Cardiology consulted to evaluate. Appreciate their recommendations. Continue statin, hold Plavix. Continue aspirin 81 mg daily Regular diet Full code Holding anticoagulation in the setting of unknown source of anemia
--- NOTE | 2025-05-15 09:41 | [facility].PHAAMS2 ---
- Antimicrobial Stewardship Review culture & sensitivity review Stewardship interventions: culture & sensitivity review, de-escalation/chg therapy Comments: URINE CX NO GROWTH, ORDERED CEFTIN FOR CELLULITIS, CHECKING WITH HOSPITALIST ABOUT CHANGING THERAPY TO KEFLEX OR BACTRIM.
[2025-05-15 11:27] LABS: Folate 13.30 ng/mL
[2025-05-15 12:00] VITALS: BP 142/84; PULSE 94; RESP 16; TEMP 36.8; O2SAT 98
[2025-05-15] MEDS: POTASSIUM CHLORIDE 20MEQ TAB 40 MEQ PO ×2 (12:05→15:17)
[2025-05-15 13:06] VITALS: BMI 20.9
--- NOTE | 2025-05-15 13:31 | EXP.GE.CONS ---
History of Present Illness *Admission Date: 05/14/25 *History of present illness: Ginette Salazar is a 64y female with history of CVA on aspirin and Plavix, tobacco use, degenerative disc disease, GERD, hypertension who presents to the emergency department for complaints of bilateral lower extremity swelling. 1 week duration Started in right lower extremity then spread to left lower extremity. It is painful. Evaluated on an outpatient setting with elevated D-dimer and was recommended to look for DVT however left AMA In emergency department, physician performed ultrasound of lower extremity. No DVT located. However formal ordered and pending. Started on clindamycin for lower extremity cellulitis Noted to be profoundly anemic hemoglobin of 5.8. Denies any active blood loss from rectum mouth or anywhere noticeable Received 1 unit packed red blood cells in ED Per H&P This is a 64-year-old female with the above history. Hemoglobin found to be 5.8 upon arrival status post packed red blood cell infusion in a patient on chronic aspirin and Plavix. She denies any melena or hematochezia. Her last hemoglobin was 10.7 in November. She denies known blood loss. Unknown when last colonoscopy. CTA showed no finding of extravasation. It did show dilated common bile duct at 11 mm which is similar to previous imaging. She did have a dilated pancreatic duct 6 mm. Previously was 4 mm. She denies any right upper quadrant abdominal pain. Normal bilirubin 0.3. Normal alk phos at 126. Only mild elevation of AST at 46. Patient is on chronic opioid therapy for chronic back and neck pain. She does have chronic constipation related to her chronic opioid use. Gastroenterology was consulted for both anemia and dilated pancreatic duct. The patient is alert and oriented and ambulatory in the room. She reports chronic back and neck pain. She reports she does not want anything else looked out or investigated. She denies that she is actively suicidal but does not want to live a long life. She reports that she will not have a procedure and will not have surgery. She does not want to go undergo any further imaging or investigation for the dilated pancreatic duct or the anemia. She does not want to follow-up with our office as an outpatient to investigate any of these findings. She reports that she lost her 4 years ago and since then has not wanted to care for herself. She reports that she does not want me to discuss any of these issues with her son. [facility] Disclaimer: The information contained in this section may have been updated after the patient was seen, as this information can be updated by other users. Medical History Fibromyalgia Bowel obstruction GERD (gastroesophageal reflux disease) Lumbar spinal stenosis Lumbar radicular pain DDD (degenerative disc disease), lumbar Dog bite Surgical History No history of previous surgery Family History Other No significant family history Social History Smoking Status: Current every day smoker tobacco type: cigarettes packs per day: 2 pack-years: 10 alcohol intake: current alcohol intake frequency: a few times a month substance use type: former substance user current occupational status: disabled Travel in the last 8 weeks?: None Have you lived/traveled outside [place] in past 30 days?: No Contact w/someone who lives/traveled outside [place] past 30 days?: No Exposure to someone with infectious disease in past 14 days?: No Do you have a fever (greater than 100.4 F or 38 C)?: No Have you tested positive for COVID-19?: No Exposed to someone with COVID-19 in past 14 days?: No Do you have a sore throat?: No Do you have a cough?: No Do you have any weakness?: No Do you have any diarrhea?: No Are you experiencing any unusual bleeding?: No Do you have any muscle aches/pain?: No Do you have any abdominal pain?: No Are you experiencing loss of taste or smell?: No Review of Systems Review of Systems Review of systems:: pertinent systems reviewed and negative unless documented below Constitutional Constitutional: Reports system reviewed and no additional complaints, except as documented Eyes Eyes: Reports system reviewed and no additional complaints, except as documented ENT Ears, Nose, Mouth, and Throat: Reports system reviewed and no additional complaints, except as documented and Reports neck pain *Cardiovascular Cardiovascular: Reports system reviewed and no additional complaints, except as documented *Respiratory Respiratory: Reports system reviewed and no additional complaints, except as documented *Gastrointestinal Gastrointestinal: Reports system reviewed and no additional complaints, except as documented *Musculoskeletal Musculoskeletal: Reports back pain and Reports neck pain *Neurologic Neurologic: Reports system reviewed and no additional complaints, except as documented Meds Home Medications and Allergies Home Medications ?Medication ?Instructions ?Recorded ?Confirmed ?Type atorvastatin 80 mg tablet 80 mg PO HS #90 tabs 12/09/24 05/15/25 Rx aspirin 81 mg chewable tablet 81 mg PO DAILY 30 days #100 tabs 03/16/25 05/15/25 Rx gabapentin 600 mg tablet 600 mg PO BID #60 tabs 03/16/25 05/15/25 Rx lubiprostone 24 mcg capsule 24 mcg PO BID 30 days #60 caps 03/16/25 05/15/25 Rx ondansetron HCl 4 mg tablet 4 mg PO Q8H PRN nausea and 04/10/25 05/15/25 Rx vomiting #90 tabs clopidogrel 75 mg tablet 75 mg PO DAILY 21 days #30 tabs 04/26/25 05/15/25 Rx oxycodone-acetaminophen 7.5 mg-325 1 tab PO BID PRN pain #60 tabs 05/08/25 05/15/25 Rx mg tablet (Percocet) sennosides 8.6 mg tablet (Senna 8.6 mg PO HS #30 tabs 05/08/25 05/15/25 Rx Lax) New Prescriptions to Start Prescriptions: Allergies Allergy/AdvReac Type Severity Reaction Status Date / Time chocolate flavor Allergy Intermediate rash Verified 05/08/25 12:02 Penicillins Allergy Intermediate Rash Verified 05/08/25 12:02 Influenza Virus Vaccines Allergy Blister Verified 05/08/25 12:02 morphine Allergy Unknown Verified 05/08/25 12:02 allergy reaction Exam (Inpt) Vital signs and Labs for Last 24 Hours: Temp Pulse Resp BP Pulse Ox O2 Del Method 98.2 F 94 H 16 142/84 H 98 Room Air 05/15/25 12:00 05/15/25 12:00 05/15/25 12:00 05/15/25 12:00 05/15/25 12:00 05/15/25 12:00 Laboratory Results - last 24 hr 05/14/25 16:58: WBC 4.9, RBC 2.16 L, Hgb 5.8 L*, Hct 19.0 L*, MCV 88.4, MCH 26.9 L, MCHC 30.4 L, RDW 19.5 H, Plt Count 292, MPV 9.0, Neut % (Auto) 50.8, Lymph % (Auto) 32.2, [place] % (Auto) 13.0 H, Eos % (Auto) 3.2, Baso % (Auto) 0.4, Neut # (Auto) 2.5, Lymph # (Auto) 1.6, [place] # (Auto) 0.6, Eos # (Auto) 0.2, Baso # (Auto) 0.0, PT 10.9, INR 0.98, APTT 23.8, D-Dimer 0.81 H, Sodium 135 L, Potassium 4.0, Chloride 102, Carbon Dioxide 31 H, Anion Gap 6.0, BUN 18 H, Creatinine 1.00, Estimated Creat Clear 40, Estimated GFR 56 L, Est GFR ( Amer) 67, Glucose 78, Calcium 8.5, Total Bilirubin 0.3, AST 46 H, ALT 20, Alkaline Phosphatase 126, C-Reactive Protein 3.3, NT-Pro-B Natriuret Pep 1950 H, Total Protein 6.6, Albumin 3.2 L, Globulin 3.4 H, Albumin/Globulin Ratio 0.9 L 05/14/25 17:30: Blood Type B Positive, Blood Type Confirm B Positive, Antibody Screen Negative, Crossmatch (AHG) See Detail 05/14/25 : Urine Color Yellow, Urine Appearance Sl cloudy, Urine pH 6.0, Ur Specific [place] 1.020, Urine Protein Negative, Urine Glucose (UA) Negative, Urine Ketones Negative, Urine Blood Negative, Urine Nitrate Negative, Urine Bilirubin Negative, Urine Urobilinogen 0.2, Ur Leukocyte Esterase Negative, Urine RBC 3-5, Urine WBC 5-10, Ur Squamous Epith Cells 20-50, Urine Bacteria 3+ 05/15/25 00:50: Hgb 7.3 L D, Hct 23.3 L, POC Glucose 97 05/15/25 05:12: POC Glucose 114 H 05/15/25 05:27: WBC 4.0 L, RBC 2.81 L D, Hgb 7.7 L, Hct 23.6 L, MCV 84.0, MCH 27.4, MCHC 32.6, RDW 17.7 H, Plt Count 306, MPV 9.4, Neut % (Auto) 67.3, Lymph % (Auto) 16.8, [place] % (Auto) 14.1 H, Eos % (Auto) 0.8, Baso % (Auto) 0.5, Neut # (Auto) 2.7, Lymph # (Auto) 0.7, [place] # (Auto) 0.6, Eos # (Auto) 0.0, Baso # (Auto) 0.0, Sodium 136, Potassium 3.2 L, Chloride 100, Carbon Dioxide 32 H, Anion Gap 7.2, BUN 16, Creatinine 0.90, Estimated Creat Clear 48, Estimated GFR 63, Est GFR ( Amer) 76, Glucose 92, Calcium 8.8, Phosphorus 3.2, Magnesium 1.8, Total Bilirubin 0.4, AST 48 H, ALT 19, Alkaline Phosphatase 118, Total Protein 6.4, Albumin 3.1 L, Globulin 3.3 H, Albumin/Globulin Ratio 0.9 L, Triglycerides 56, Cholesterol 145, LDL Cholesterol Direct 47.31 L, VLDL Cholesterol 11, HDL Cholesterol 104 H, Cholesterol/HDL Ratio 1.4 05/15/25 09:30: Folate 13.30 I & O for Labs for Last 24 Hours: Intake & Output 05/13/25 05/14/25 05/15/25 05/16/25 11:59 11:59 11:59 11:59 Intake Total 370 400 Output Total 400 Balance -30 400 Weight 53.66 kg 53.66 kg Constitutional: no acute distress and agitated Head: Present normocephalic and atraumatic Neck: Present other (Neck held tilted to the right due to pain) Respiratory: Present CTA bilaterally Comment:: Patient refused evaluation Comments:: Patient refused evaluation Extremities: Present edema Neuro: Present alert, awake and oriented x 3 Results Labs 05/15/25 05:27 05/15/25 05:27 Labs: Laboratory Results - last 24 hr 05/14/25 16:58: WBC 4.9, RBC 2.16 L, Hgb 5.8 L*, Hct 19.0 L*, MCV 88.4, MCH 26.9 L, MCHC 30.4 L, RDW 19.5 H, Plt Count 292, MPV 9.0, Neut % (Auto) 50.8, Lymph % (Auto) 32.2, [place] % (Auto) 13.0 H, Eos % (Auto) 3.2, Baso % (Auto) 0.4, Neut # (Auto) 2.5, Lymph # (Auto) 1.6, [place] # (Auto) 0.6, Eos # (Auto) 0.2, Baso # (Auto) 0.0, PT 10.9, INR 0.98, APTT 23.8, D-Dimer 0.81 H, Sodium 135 L, Potassium 4.0, Chloride 102, Carbon Dioxide 31 H, Anion Gap 6.0, BUN 18 H, Creatinine 1.00, Estimated Creat Clear 40, Estimated GFR 56 L, Est GFR ( Amer) 67, Glucose 78, Calcium 8.5, Total Bilirubin 0.3, AST 46 H, ALT 20, Alkaline Phosphatase 126, C-Reactive Protein 3.3, NT-Pro-B Natriuret Pep 1950 H, Total Protein 6.6, Albumin 3.2 L, Globulin 3.4 H, Albumin/Globulin Ratio 0.9 L 05/14/25 17:30: Blood Type B Positive, Blood Type Confirm B Positive, Antibody Screen Negative, Crossmatch (AHG) See Detail 05/14/25 : Urine Color Yellow, Urine Appearance Sl cloudy, Urine pH 6.0, Ur Specific [place] 1.020, Urine Protein Negative, Urine Glucose (UA) Negative, Urine Ketones Negative, Urine Blood Negative, Urine Nitrate Negative, Urine Bilirubin Negative, Urine Urobilinogen 0.2, Ur Leukocyte Esterase Negative, Urine RBC 3-5, Urine WBC 5-10, Ur Squamous Epith Cells 20-50, Urine Bacteria 3+ 05/15/25 00:50: Hgb 7.3 L D, Hct 23.3 L, POC Glucose 97 05/15/25 05:12: POC Glucose 114 H 05/15/25 05:27: WBC 4.0 L, RBC 2.81 L D, Hgb 7.7 L, Hct 23.6 L, MCV 84.0, MCH 27.4, MCHC 32.6, RDW 17.7 H, Plt Count 306, MPV 9.4, Neut % (Auto) 67.3, Lymph % (Auto) 16.8, [place] % (Auto) 14.1 H, Eos % (Auto) 0.8, Baso % (Auto) 0.5, Neut # (Auto) 2.7, Lymph # (Auto) 0.7, [place] # (Auto) 0.6, Eos # (Auto) 0.0, Baso # (Auto) 0.0, Sodium 136, Potassium 3.2 L, Chloride 100, Carbon Dioxide 32 H, Anion Gap 7.2, BUN 16, Creatinine 0.90, Estimated Creat Clear 48, Estimated GFR 63, Est GFR ( Amer) 76, Glucose 92, Calcium 8.8, Phosphorus 3.2, Magnesium 1.8, Total Bilirubin 0.4, AST 48 H, ALT 19, Alkaline Phosphatase 118, Total Protein 6.4, Albumin 3.1 L, Globulin 3.3 H, Albumin/Globulin Ratio 0.9 L, Triglycerides 56, Cholesterol 145, LDL Cholesterol Direct 47.31 L, VLDL Cholesterol 11, HDL Cholesterol 104 H, Cholesterol/HDL Ratio 1.4 05/15/25 09:30: Folate 13.30 Assessment and Plan *Assessment and plan (1) Dilated pancreatic duct: Status: Acute Category: Medical Code(s): K86.89 - Other specified diseases of pancreas (2) GERD (gastroesophageal reflux disease): Status: Acute Category: Medical Code(s): K21.9 - Gastro-esophageal reflux disease without esophagitis (3) Chronic constipation: Status: Acute Category: Medical Code(s): K59.09 - Other constipation (4) Anemia: Status: Acute Category: Medical Code(s): D64.9 - Anemia, unspecified Plan 1. dilated pancreatic duct No elevations in bilirubin or alk phos. Patient denies any right upper quadrant pain but unable to get a full assessment. CBD mildly elevated at 11 mm. Pancreatic duct has gone from 4 mm to 6 mm. I recommend MRCP and MR pancreas with and without contrast for pompa investigation. I recommend CA 19?9. Patient has declined to do any further testing. She reports she would not have surgery she would not treat cancerous process or any other abnormality if something was found. She appears alert and oriented. Per nursing this is where she has been, refusing further care. This dilation may be from chronic opioid use in a 64-year-old female. 2. Anemia Hemoglobin is low was 5.8, status post packed red blood cell infusion. It was 10.7 in November. She denies melena or hematochezia. She has a history of CVA and is on aspirin and Plavix. Possibly related to malnutrition issue as well. I recommend checking a Hemoccult and iron levels. If positive, then recommend EGD but the patient has refused consideration of a procedure. She is actively refusing investigation or treatment. She reports she expects to go home today. If the patient changes her mind I am happy to see her at an outpatient visit and we can do investigation as an outpatient if she continues to refuse as an inpatient.
--- NOTE | 2025-05-15 14:38 | P.CONCA_ITS ---
History of Present Illness History of Present Illness Consult date: 05/15/25 Requesting physician: Kuldeep Hagen Consult reason: shortness of breath Chief complaint: edema Additional Medical History:: 1. Chronic pain secondary to degenerative disc disease of the back and neck 2. Greater than 65-[id number]-gtaz tobacco 3. 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 PAD with bilateral renal artery stenosis and left common iliac stenosis abdominal/pelvis CTA, 05/14/2025 5. Severe anemia with hemoglobin 5.8, felt to be due to nutritional deficit 6. Ongoing grief related to of spouse approximately 2020 7. Remote history of CVA for which she is on aspirin and Plavix 8. Lower extremity edema felt secondary to severe anemia and nutritional deficit, 04/2025 History of present illness: 64-year-old white female with longtime tobacco use, remote history of CVA, chronic pain from degenerative disc disease, GERD and hypertension presented to the emergency department at the insistence of her son due to bilateral lower extremity swelling of 1 week duration. Rqsom-gv-efpi ultrasound in the ER was negative for DVT. She was started on clindamycin for lower extremity cellulitis. Labs returned showing severe anemia 5.8 without any reported history of blood loss. She did receive blood transfusion in the emergency department. Patient relates she has lost they will to take care of herself or live after the of her spouse 4 years ago. Her son lives with her. Cardiology consulted for evaluation of lower extremity edema and PAD with renal artery stenosis and saccular aneurysm off the anterior abdominal aorta. Echocardiogram today shows normal biventricular systolic function with mild TR. There is possible evidence of interatrial shunt with recommendation for limited TTE and agitated saline due to history of prior TIA. During the course of my discussion with the patient she repeatedly states she d oes not wish to proceed with any testing and does not care if she lives or dies. She is profoundly sad at the loss of her 4 years ago and the amount of pain she has endured from her degenerative disc disease. She does not wish to prolong her life in any manner. [facility] Disclaimer: The information contained in this section may have been updated after the patient was seen, as this information can be updated by other users. Medical History Fibromyalgia Bowel obstruction GERD (gastroesophageal reflux disease) Lumbar spinal stenosis Lumbar radicular pain DDD (degenerative disc disease), lumbar Dog bite Surgical History No history of previous surgery Family History Other No significant family history Social History Smoking Status: Current every day smoker tobacco type: cigarettes packs per day: 2 pack-years: 10 alcohol intake: current alcohol intake frequency: a few times a month substance use type: former substance user current occupational status: disabled Travel in the last 8 weeks?: None Have you lived/traveled outside US in past 30 days?: No Contact w/someone who lives/traveled outside US past 30 days?: No Exposure to someone with infectious disease in past 14 days?: No Do you have a fever (greater than 100.4 F or 38 C)?: No Have you tested positive for COVID-19?: No Exposed to someone with COVID-19 in past 14 days?: No Do you have a sore throat?: No Do you have a cough?: No Do you have any weakness?: No Do you have any diarrhea?: No Are you experiencing any unusual bleeding?: No Do you have any muscle aches/pain?: No Do you have any abdominal pain?: No Are you experiencing loss of taste or smell?: No Review of Systems Review of Systems Review of systems:: pertinent systems reviewed and negative unless documented below *Cardiovascular Cardiovascular: Denies chest pain and Reports dyspnea on exertion *Respiratory Respiratory: Reports dyspnea on exertion *Neurologic Neurologic: Reports system reviewed and no additional complaints, except as documented Exam Data for Last 24 hours Vital signs and Labs for Last 24 Hours: Temp Pulse Resp BP Pulse Ox O2 Del Method 98.2 F 94 H 16 142/84 H 98 Room Air 05/15/25 12:00 05/15/25 12:00 05/15/25 12:00 05/15/25 12:00 05/15/25 12:00 05/15/25 13:00 Laboratory Results - last 24 hr 05/14/25 16:58: WBC 4.9, RBC 2.16 L, Hgb 5.8 L*, Hct 19.0 L*, MCV 88.4, MCH 26.9 L, MCHC 30.4 L, RDW 19.5 H, Plt Count 292, MPV 9.0, Neut % (Auto) 50.8, Lymph % (Auto) 32.2, [place] % (Auto) 13.0 H, Eos % (Auto) 3.2, Baso % (Auto) 0.4, Neut # (Auto) 2.5, Lymph # (Auto) 1.6, [place] # (Auto) 0.6, Eos # (Auto) 0.2, Baso # (Auto) 0.0, PT 10.9, INR 0.98, APTT 23.8, D-Dimer 0.81 H, Sodium 135 L, Potassium 4.0, Chloride 102, Carbon Dioxide 31 H, Anion Gap 6.0, BUN 18 H, Creatinine 1.00, Estimated Creat Clear 40, Estimated GFR 56 L, Est GFR ( Amer) 67, Glucose 78, Calcium 8.5, Total Bilirubin 0.3, AST 46 H, ALT 20, Alkaline Phosphatase 126, C-Reactive Protein 3.3, NT-Pro-B Natriuret Pep 1950 H, Total Protein 6.6, Albumin 3.2 L, Globulin 3.4 H, Albumin/Globulin Ratio 0.9 L 05/14/25 17:30: Blood Type B Positive, Blood Type Confirm B Positive, Antibody Screen Negative, Crossmatch (AHG) See Detail 05/14/25 : Urine Color Yellow, Urine Appearance Sl cloudy, Urine pH 6.0, Ur Specific [place] 1.020, Urine Protein Negative, Urine Glucose (UA) Negative, Urine Ketones Negative, Urine Blood Negative, Urine Nitrate Negative, Urine Bilirubin Negative, Urine Urobilinogen 0.2, Ur Leukocyte Esterase Negative, Urine RBC 3-5, Urine WBC 5-10, Ur Squamous Epith Cells 20-50, Urine Bacteria 3+ 05/15/25 00:50: Hgb 7.3 L D, Hct 23.3 L, POC Glucose 97 05/15/25 05:12: POC Glucose 114 H 05/15/25 05:27: WBC 4.0 L, RBC 2.81 L D, Hgb 7.7 L, Hct 23.6 L, MCV 84.0, MCH 27.4, MCHC 32.6, RDW 17.7 H, Plt Count 306, MPV 9.4, Neut % (Auto) 67.3, Lymph % (Auto) 16.8, [place] % (Auto) 14.1 H, Eos % (Auto) 0.8, Baso % (Auto) 0.5, Neut # (Auto) 2.7, Lymph # (Auto) 0.7, [place] # (Auto) 0.6, Eos # (Auto) 0.0, Baso # (Auto) 0.0, Sodium 136, Potassium 3.2 L, Chloride 100, Carbon Dioxide 32 H, Anion Gap 7.2, BUN 16, Creatinine 0.90, Estimated Creat Clear 48, Estimated GFR 63, Est GFR ( Amer) 76, Glucose 92, Calcium 8.8, Phosphorus 3.2, Magnesium 1.8, Total Bilirubin 0.4, AST 48 H, ALT 19, Alkaline Phosphatase 118, Total Protein 6.4, Albumin 3.1 L, Globulin 3.3 H, Albumin/Globulin Ratio 0.9 L, Triglycerides 56, Cholesterol 145, LDL Cholesterol Direct 47.31 L, VLDL Cholesterol 11, HDL Cholesterol 104 H, Cholesterol/HDL Ratio 1.4 05/15/25 09:30: Folate 13.30 I & O for Last 24 hours: Intake & Output 05/13/25 05/14/25 05/15/25 05/16/25 11:59 11:59 11:59 11:59 Intake Total 370 / 370 400 / 400 Output Total 400 / 400 Balance - 400 / 400 Weight 118 lb 4.8 oz 118 lb 4.8 oz Constitutional Constitutional: mild distress *Routine Respiratory Exam Respiratory: Present CTA bilaterally; Absent rales, rhonchi or wheezes *Routine Cardiovascular Exam Cardiovascular: Present RRR; Absent murmur, gallop or rubs *Routine Extremities Exam Extremities: Present edema *Routine Neurological Exam Neurological: Present alert, oriented X3 and CN II-XII intact Meds Home Medications and Allergies Home Medications ?Medication ?Instructions ?Recorded ?Confirmed ?Type atorvastatin 80 mg tablet 80 mg PO HS #90 tabs 12/09/2 5 05/15/25 Rx aspirin 81 mg chewable tablet 81 mg PO DAILY 30 days # 100 tabs 03/16/25 05/15/25 Rx gabapentin 600 mg tablet 600 mg PO BID #60 tabs 03/1605/15/25 Rx lubiprostone 24 mcg capsule 24 mcg PO BID 30 days #60 caps 03/16/25 05/15/25 Rx ondansetron HCl 4 mg tablet 4 mg PO Q8H PRN nausea and 04/10/25 05/15/25 Rx vomiting #90 tabs clopidogrel 75 mg tablet 75 mg PO DAILY 21 days #30 t abs 04/26/25 05/15/25 Rx oxycodone-acetaminophen 7.5 mg-325 1 tab PO BID PRN pa in #60 tabs 05/08/25 05/15/25 Rx mg tablet (Percocet) sennosides 8.6 mg tablet (Senna 8.6 mg PO HS #30 tabs 05/08/25 05/15/25 Rx Lax) New Prescriptions to Start Prescriptions: Allergies Allergy/AdvReac Type Severity Reaction Status Date / Time chocolate flavor Allergy Intermediate rash Verified 05/08/25 12:02 Penicillins Allergy Intermediate Rash Verified 05/08/25 12:02 Influenza Virus Vaccines Allergy Blister Verified 05/08/25 12:02 morphine Allergy Unknown Verified 05/08/25 12:02 allergy reaction Assessment and Plan *Assessment and plan (1) Anasarca: Status: Acute Category: Medical Code(s): R60.1 - Generalized edema (2) Aortic aneurysm: Status: Acute Qualifiers: Abdominal aorta location: unspecified Aortic location: abdominal aorta Presence of rupture: without rupture Qualified Code(s): I71.40 - Abdominal aortic aneurysm, without rupture, unspecified Category: Medical Code(s): I71.9 - Aortic aneurysm of unspecified site, without rupture (3) History of CVA (cerebrovascular accident): Status: Acute Category: Medical Code(s): Z86.73 - Personal history of transient ischemic attack (TIA), and cerebral infarction without residual deficits (4) Tobacco use: Status: Acute Category: Social Hx Code(s): Z72.0 - Tobacco use (5) DDD (degenerative disc disease), lumbar: Status: Acute Qualifiers: Disc-related pain type: unspecified whether pain present Qualified Code(s): M51.369 - Other intervertebral disc degeneration, lumbar region without mention of lumbar back pain or lower extremity pain Category: Medical Code(s): M51.369 - Other intervertebral disc degeneration, lumbar region without mention of lumbar back pain or lower extremity pain (6) GERD (gastroesophageal reflux disease): Status: Acute Qualifiers: Esophagitis presence: esophagitis presence not specified Qualified Code(s): K21.9 - Gastro-esophageal reflux disease without esophagitis Category: Medical Code(s): K21.9 - Gastro-esophageal reflux disease without esophagitis (7) Hypertension: Status: Acute Qualifiers: Hypertension type: renovascular hypertension Qualified Code(s): I15.0 - Renovascular hypertension Category: Medical Code(s): I10 - Essential (primary) hypertension (8) Renal artery stenosis, [place], bilateral: Status: Acute Category: Medical Code(s): I70.1 - Atherosclerosis of renal artery (9) PAD (peripheral artery disease): Status: Acute Category: Medical Code(s): I73.9 - Peripheral vascular disease, unspecified Plan 1. Anasarca -[place] secondary to nutritional deficiency -Improving with IV diuretics -Echo shows normal BiV systolic function with mild TR. Possible interatrial shunt noted. 2. History of CVA -On aspirin, statin and Plavix -Possible interatrial shunt noted on echo with recommendation for TTE with agitated saline 3. Abdominal saccular aneurysm with thrombosis 4. Bilateral renal artery disease, moderate to severe 5. Celiac and mesenteric artery atherosclerosis, moderate to severe 6. Bilateral iliac artery stenosis left greater than right 7. Severe grief related to spousal demise 4 years ago Will discuss results of echo and possible repeat study with patient tomorrow, but she undoubtedly will decline any intervention.
--- OUTSIDE RECORDS SUMMARY | 2025-05-15 14:53 | XMS_ITS | Clinical Summary ---
Author Organization [facility] Address [address] [place] [address] Phone Care Team Providers Care Security Program Manager Name Role Phone Maximo Leos MD Unavailable [phone] Andre Tanner MD Unavailable Allergies Active [...] EST - 05/14/2025 12:45 PM EST Emergency [facility] [place] [address] Discharge Disposition: Left Without Being Seen 05/11/2025 2:29 PM EST - 05/11/2025 4:07 PM EST Emergency [facility] [address] [place] [address] Adele Sewell MD Geiger, William [...] <=650 ng/mL FEU 05/11/2025 3:18 PM EST [facility] Comment:For exclusion of rachana ous thromboembolism, the D dimer test should only be used in patients with a non-high clinical pretest probability. An age-adjusted threshold has been applied to this test result. Blood VENOUS BLOOD / Unknown Venipuncture / Unknown 05/11/2025 2:45 PM EST 05/11/2025 3:05 PM EST us Adele Sewell MD HEMATOLOGY ORDERABLES Fin al Result [facility] [address] [place] [address] * (ABNORMAL) CBC WITH DIFF (05/11/2025 2:45 PM EST) WBC 5.4 3.7 - 10.3 x10(3)/mcL 05/11/2025 3:30 PM EST [facility] RBC 2.22(L) 3.90 - 5.20 x10(6)/mcL 05/11/2025 3:30 PM [facility] Hgb 6.1(LL) 11.2 - 15.7 g/dL 05/11/2025 3:30 PM [facility] Hct 20.5(LL) 34.0 - 45.0 % 05/11/2025 3:30 PM [facility] MCV 92.3 80.0 - 100.0 fL 05/11/2025 3:30 PM EST [facility] MCH 27.5 26.0 - 34.0 pg 05/11/2025 3:30 PM [facility] MCHC 29.8(L) 30.7 - 35.5 g/dL 05/11/2025 3:30 PM [facility] RDW 19.6(H) <=14.9 % 05/11/2025 3:30 PM [facility] Platelet 316 155 - 369 x10(3)/mcL 05/11/2025 3:30 PM [facility] MPV 8.7(L) 8.8 - 12.5 fL 05/11/2025 3:30 PM [facility] Neut Percent 57.3 % 05/11/2025 3:30 PM [facility] Comment:Neutrophils equals s egs plus bands Imm Gran% 0.2 % 05/11/2025 3:30 PM [facility] Comment:Automated count of m etamyelocytes, myelocytes and promyelocytes. Lymph Percent 30.4 % 05/11/2025 3:30 PM EST [facility] [place] Percent 9.3 % 05/11/2025 3:30 PM EST [facility] Eos Percent 2.2 % 05/11/2025 3:30 PM EST [facility] Baso Percent 0.6 % 05/11/2025 3:30 PM EST [facility] Neut # 3.1 1.6 - 6.1 x10(3)/[facility] 05/11/2025 3:30 PM [facility] Comment:Neutrophils equals s egs plus bands IMMGRAN# 0.0 0.0 - 0.1 x10(3)/mcL 05/11/2025 3:30 PM EST [facility] Comment:Automated count of m etamyelocytes, myelocytes and promyelocytes. An absolute IG <0.1 is reported as 0.0. Lymph # 1.6 1.2 - 3.9 x10(3)/mcL 05/11/2025 3:30 PM EST [facility] [place] # 0.5 0.3 - 0.9 x10(3)/mcL 05/11/2025 3:30 PM EST [facility] Eos# 0.1 0.0 - 0.5 x10(3)/mcL 05/11/2025 3:30 PM EST [facility] Baso # 0.0 0.0 - 0.1 x10(3)/[facility] 05/11/2025 3:30 PM [facility] Hypochrom Slight 05/11/2025 3:30 PM [facility] Blood VENOUS BLOOD / Unknown Venipuncture / Unknown 05/11/2025 2:45 PM EST 05/11/2025 3:04 PM EST us Adele Sewell MD HEMATOLOGY ORDERABLES Fin al Result [facility] [address] [place] [address] * (ABNORMAL) NT PROBNP (05/11/2025 2:45 PM EST) NT Pro-BNP 1,030(H) <=353 pg/mL 05/11/2025 3:33 PM EST [facility] Blood VENOUS BLOOD / Unknown Venipuncture / Unknown 05/11/2025 2:45 PM EST 05/11/2025 3:05 PM EST Narrative [facility] - 05/11/2025 3:33 PM EST An NT pro-BNP level less than 300 pg/mL in any patient, regardless of age, effectively rules out acute CHF with a 99% negative predictive value. Ingestion of liz doses of biotin (>5 mg/day) taken within 8 hours of drawing blood sample can interfere with this immunoassay test. Adele Sewell MD CHEMISTRY ORDERABLES Shanti l Result [facility] [address] [place] [address] * (ABNORMAL) BASIC METABOLIC PANEL (05/11/2025 2:45 PM EST) Sodium 135(L) 136 - 145 mmol/L 05/11/2025 3:24 PM EST [facility] Potassium 3.3(L) 3.5 - 5.0 mmol/L 05/11/2025 3:24 PM [facility] Chloride 98 98 - 107 mmol/L 05/11/2025 3:24 PM [facility] Total CO2 26 22 - 29 mmol/L 05/11/2025 3:24 PM [facility] Anion Gap 11 7 - 16 mmol/L 05/11/2025 3:24 PM [facility] Calcium 8.2(L) 8.8 - 10.4 mg/dL 05/11/2025 3:24 PM [facility] Glucose Lvl 68(L) 70 - 99 mg/dL 05/11/2025 3:24 PM [facility] BUN 13 8 - 23 mg/dL 05/11/2025 3:24 PM [facility] Creatinine 0.78 0.51 - 1.30 mg/dL 05/11/2025 3:24 PM [facility] eGFR (CKD-EPIcr 2020) 83 >=60 mL/min/1.7 3 m2 05/11/2025 3:24 PM EST [facility] Comment:Estimated GFR was ca lculated using the CKD-EPIcr (2020) equation refit without race. The equation is recommended by the National Kidney Foundation - [place] Society of Nephrology Task Force. Blood VENOUS BLOOD / Unknown Venipuncture / Unknown 05/11/2025 2:45 PM EST 05/11/2025 3:05 PM EST Adele Sewell MD CHEMISTRY ORDERABLES Shanti l Result [facility] [address] [id number] * COLOGUARD (12/09/2018 1:55 PM EDT) COLOGUARD [...] Gardner et al, N Engl J Med 2014;370(14):7060-4872) COLOGUARD RE-SCREENING RECOMMENDATION: Periodic routine colorectal cancer screening is an important part of preventive healthcare for asymptomatic persons at average risk for colorectal cancer. Following a negative Cologuard result, the [place] Cancer Society and U.S. Multi-Society Task Force screening guidelines recommend a Cologuard re-screening interval of 3 years. References: [place] Cancer Society (ACS). Colorectal cancer prevention and early detection. [place], [place]: [place] Cancer Society; [updated 2015Sep 08]. https://www.cancer.org/cancer/nzxsk-tgosfk-uszbik/agqsieuve-vvvhxkryd-yjwhhfi/ac s-rec ommendations.html. Accessed January 15, 2018; Alexx FONG, Dalila OSUNA, Wilber VaughnK, Colorectal Cancer Screening: Recommendations for Physicians and Patients from the U.S. Multi-Society Task Force on Colorectal Cancer Screening, Am J Gastroenterology 2017; 112:2779-7796. Test Type: Composite algorithmic analysis of stool [...] can be accessed at the following location: www.[employer].ThoughtBox/results. Additional description of the Cologuard test process, warnings and precautions can be found at www.cologuardtest.com. Rx Only. Stool specimen (specimen) 12/09/2018 1:55 PM EDT 12/10/2018 11:30 PM EDT us Alberto Carter MD [employer] SCIENCE - ORDERABLES Fin al Result [employer] [facility] [place] [address], [facility] [employer] [address] [place] [address]. [place] [address] * MM MOBILE MAMMO DIGITAL SCREEN W CAD KRISTIN (01/28/2013 2:40 PM EDT) Anatomical Region Laterality Modality Breast Mammography 01/31/2013 8:48 AM EDT Impressions 01/31/2013 4:26 PM EDT : Negative ([id number]) ~ RECOMMENDATION: Routine screening mammogram in 1 [...] are scattered fibroglandular densities. ~ IMPRESSION: Negative ([id number]) ~ RECOMMENDATION: Routine screening mammogram in 1 [...] Most Recently Relevant to Health Maintenance Insurance [address] [place] [address] [facility] [address] [facility] [address] [place] [id number] Care Teams Security Program Manager Relationship Specialty Start Date End Date Maximo Leos MD Orthopaedic Surgery 11/12/11 Andre Tanner MD Psychiatry & Neurology-Neurology 10/26/14
--- OUTSIDE RECORDS SUMMARY | 2025-05-15 14:53 | XMS_ITS | Clinical Summary ---
Author Organization [facility] Address [address] [place] [id number] Care Team Providers Care Licensed Insurance Agent Name Role Phone Unavailable Primary Care Provider [...] 08/21/2021 4:27 PM EDT [facility] A. Nav[employer] CHEMISTRY ORDERABLES Shanti ortiz Result [facility] [address] from Last 3 Months or Most Recently Relevant to Health Maintenance Insurance MEDICARE [place]
[2025-05-15] MEDS: OXYCODONE 7.5MG W/APAP 325MG TABLET 1 EACH PO (15:16)
[2025-05-15] MEDS: FUROSEMIDE 100MG/10ML VIAL 80 MG IV (15:18)
[2025-05-15 16:00] VITALS: BP 146/88; PULSE 86; RESP 15; TEMP 36.6; O2SAT 98
[2025-05-15] MEDS: PRENATAL MULTIVITAMIN W/IRON 1 EACH PO (16:56)
[2025-05-15 20:00] VITALS: BP 142/72; PULSE 63; RESP 16; TEMP 36.6; O2SAT 93
[2025-05-15] MEDS: SENNA 8.6MG TABLET 8.6 MG PO (21:39)
[2025-05-15] MEDS: PANTOPRAZOLE 40MG TABLET 40 MG PO (21:39)
[2025-05-15] MEDS: GABAPENTIN 600MG TABLET 600 MG PO (21:40)
[2025-05-15] MEDS: ATORVASTATIN 40MG TABLET 80 MG PO (21:40)
[2025-05-15] MEDS: HYDROMORPHONE 2MG/ML SYRINGE 1 MG IV (22:15)
[2025-05-16] VITALS: BP 140/96; PULSE 71; RESP 17; TEMP 36.7; O2SAT 94
[2025-05-16 04:00] VITALS: BP 158/82; PULSE 73; RESP 18; TEMP 36.8; O2SAT 94; BMI 21.3
[2025-05-16 05:53] LABS: Hematocrit 24.7 % (37.0-47.0); Hemoglobin 7.6 g/dL (12.2-16.2); Immature Granulocytes % 0.2 %; Mean Corpuscular HGB Conc 30.8 g/dL (31.8-35.4); Mean Corpuscular Hemoglobin 26.4 pg (27.0-31.2); Mean Corpuscular Volume 85.8 fl (81-99); Nucleated Red Blood Cells % 0 %; Platelet Count 310 K/mm3 (142-424); Red Blood Count 2.88 M/mm3 (4.20-5.40); Red Cell Distribution Width-SD 57.2 fL; White Blood Count 4.3 K/mm3 (4.8-10.8)
[2025-05-16 06:05] LABS: Albumin Level 3.3 g/dl (3.5-5.0); Chloride 98 mmol/L (98-107); Potassium 3.9 mmoL/L (3.5-5.1); Sodium 136 mmol/L (136-145)
[2025-05-16 06:08] LABS: Alanine Aminotransferase 19 U/L (12-78); Albumin/Globulin Ratio 0.9 (1.1-1.8); Alkaline Phosphatase 111 U/L (38-126); Anion Gap 6.9 mEq/L (5-15); Aspartate Amino Transferase 40 U/L (14-36); Bilirubin,Total 0.2 mg/dl (0.2-1.3); Blood Urea Nitrogen 19 mg/dl (7-17); Calcium 9.1 mg/dl (8.4-10.2); Carbon Dioxide 35 mmol/L (22.0-30.0); Creatinine Clearance Estimated 44 mL/min (50-200); Creatinine,Serum 1.10 mg/dl (0.52-1.04); Estimated Glomerular Filt Rate 50 ml/min (>60); GFR (African American) 60 ML/MIN (>60); Globulin 3.5 g/dL (1.3-3.2); Glucose 88 mg/dl (74-100); Total Protein,Serum 6.8 g/dl (6.3-8.2)
[2025-05-16 06:09] LABS: Magnesium 2.0 mg/dl (1.6-2.3)
[2025-05-16] MEDS: OXYCODONE 7.5MG W/APAP 325MG TABLET 1 EACH PO ×2 (06:25→10:20)
[2025-05-16 08:00] VITALS: BP 153/80; PULSE 80; RESP 20; TEMP 36.8; O2SAT 100
--- NOTE | 2025-05-16 08:57 | HMH.PHAAMS2 ---
- Antimicrobial Stewardship Review culture & sensitivity review Stewardship interventions: culture & sensitivity review, reviewed - no change Comments: PATIENT ON KEFLEX FOR CELLULITIS, URINE CX PENDING. WBC 4.3 K/mm3, AFEBRILE OVER 24 HR.
[2025-05-16] MEDS: ASPIRIN EC 81MG TABLET 81 MG PO (10:15)
[2025-05-16] MEDS: GABAPENTIN 600MG TABLET 600 MG PO (10:16)
[2025-05-16] MEDS: FUROSEMIDE 100MG/10ML VIAL 80 MG IV (10:26)
--- NOTE | 2025-05-16 10:42 | P.DS_ITS ---
General Admission date:: 05/14/25 Discharge date: 05/16/25 HPI HPI HPI: Ginette Salazar is a 64y female with history of CVA on aspirin and Plavix, tobacco use, degenerative disc disease, GERD, hypertension who presents to the emergency department for complaints of bilateral lower extremity swelling. 1 week duration Started in right lower extremity then spread to left lower extremity. It is painful. Evaluated on an outpatient setting with elevated D-dimer and was recommended to look for DVT however left AMA In emergency department, physician performed ultrasound of lower extremity. No DVT located. However formal ordered and pending. Started on clindamycin for lower extremity cellulitis Noted to be profoundly anemic hemoglobin of 5.8. Denies any active blood loss from rectum mouth or anywhere noticeable Received 1 unit packed red blood cells in ED Per H&P This is a 64-year-old female with the above history. Hemoglobin found to be 5.8 upon arrival status post packed red blood cell infusion in a patient on chronic aspirin and Plavix. She denies any melena or hematochezia. Her last hemoglobin was 10.7 in November. She denies known blood loss. Unknown when last colonoscopy. CTA showed no finding of extravasation. It did show dilated common bile duct at 11 mm which is similar to previous imaging. She did have a dilated pancreatic duct 6 mm. Previously was 4 mm. She denies any right upper quadrant abdominal pain. Normal bilirubin 0.3. Normal alk phos at 126. Only mild elevation of AST at 46. Patient is on chronic opioid therapy for chronic back and neck pain. She does have chronic constipation related to her chronic opioid use. Gastroenterology was consulted for both anemia and dilated pancreatic duct. The patient is alert and oriented and ambulatory in the room. She reports chronic back and neck pain. She reports she does not want anything else looked out or investigated. She denies that she is actively suicidal but does not want to live a long life. She reports that she will not have a procedure and will not have surgery. She does not want to go undergo any further imaging or investigation for the dilated pancreatic duct or the anemia. She does not want to follow-up with our office as an outpatient to investigate any of these findings. She reports that she lost her 4 years ago and since then has not wanted to care for herself. She reports that she does not want me to discuss any of these issues with her son. Hospital Course Hospital Course Hospital Course: 64-year-old female admitted for multiple medical problems but most concerning these acute anemia and also lower extremity edema. Initiated on diet reticulocyte's. Transfused during admission. GI was consulted to evaluate for possible blood loss and source of anemia along with common bile duct dilation. Patient did not want to pursue further workup. Was feeling better after diuresis and transfusion. Given her clinical stability, was discharged home with plan for outpatient follow-up. Multiple discussions with patient, stated she was not interested in knowing if something further was wrong. As she felt better, was comfortable going home. Strongly encouraged to follow-up for further evaluation. Concern for nutritional deficiencies and possible source of blood loss from GI tract. Discharged home with family. Problems addressed as follows: Anasarca Lower extremity Cellulitis - [id number] ultrasound negative in the ER. Started on broad-spectrum antibiotics, transitioned to Keflex to complete 5 days of therapy. Redness appeared better with diuresis. Normal white count during admission. Patient had an echo obtained during admission showing normal BiV systolic function. Abdomen and pelvic CTA with anasarca/body wall edema. Dilated common bile duct of 11 mm. Small 13 mm aneurysm off the anterior abdominal aorta, no contrast extravasation. Responded well to diuresis with IV Lasix. Will continue p.o. Lasix at discharge. Was also initiated on multivitamin due to concern for nutritional deficiency. Albumin of 3.0 during admission. States she has a diet low in protein, high in carbs, poor nutritional content. Vitamin C was obtained and found to be low after discharge. Clinically concerning for scurvy. Recommend continuing dietary supplementation at discharge. Anemia, unknown etiology - Status posttransfusion with 1 unit, improved from 5.8-7.7. Hemoglobin remained stable above 7 during admission. GI was consulted to evaluate, recommend colonoscopy, patient refuses any colonoscopy or workup at this time. Does not want to know per her report. Peripheral smear obtained showing normocytic normochromic anemia. No blasts identified. Pancreatic duct dilatation Common bile duct dilatation - GI consulted, recommends MRI of abdomen. Did not want further imaging or workup. Has no pain. Liver function test within normal range. - Follow GI recommendations as follows: 1. dilated pancreatic duct No elevations in bilirubin or alk phos. Patient denies any right upper quadrant pain but unable to get a full assessment. CBD mildly elevated at 11 mm. Pancreatic duct has gone from 4 mm to 6 mm. I recommend MRCP and MR pancreas with and without contrast for pompa investigation. I recommend CA 19?9. Patient has declined to do any further testing. She reports she would not have surgery she would not treat cancerous process or any other abnormality if something was found. She appears alert and oriented. Per nursing this is where she has been, refusing further care. This dilation may be from chronic opioid use in a 64-year-old female. 2. Anemia Hemoglobin is low was 5.8, status post packed red blood cell infusion. It was 10.7 in November. She denies melena or hematochezia. She has a history of CVA and is on aspirin and Plavix. Possibly related to malnutrition issue as well. I recommend checking a Hemoccult and iron levels. If positive, then recommend EGD but the patient has refused consideration of a procedure. She is actively refusing investigation or treatment. Peripheral artery disease Renal artery disease Aortic aneurysm - Cardiology consulted to evaluate. Her aspirin and Plavix use which was started earlier this year for history of CVA could be culprit in her blood loss. Will stop her Plavix. Resume home medication of aspirin 81 mg daily, atorvastatin 80 mg daily, Lasix 40 mg daily. Recommend outpatient follow-up at patient's discretion with cardiology Total time spent on discharge 32 minutes in counseling, documentation, chart review, and direct care with patient. Exam Data for Last 24 hours Vital signs and Labs for Last 24 Hours: Temp Pulse Resp BP Pulse Ox O2 Del Method 98.2 F 80 20 153/80 H 100 Room Air 05/16/25 08:00 05/16/25 08:00 05/16/25 08:00 05/16/25 08:00 05/16/25 08:00 05/16/25 08:00 Laboratory Results - last 24 hr 05/14/25 : Urine Color Yellow, Urine Appearance Sl cloudy, Urine pH 6.0, Ur Specific [place] 1.020, Urine Protein Negative, Urine Glucose (UA) Negative, Urine Ketones Negative, Urine Blood Negative, Urine Nitrate Negative, Urine Bili claudio Negative, Urine Urobilinogen 0.2, Ur Leukocyte Esterase Negative, Urine RBC 3-5, Urine WBC 5-10, Ur Squamous Epith Cells 20-50, Urine Bacteria 3+ 05/15/25 09:30: Folate 13.30 05/16/25 05:22: WBC 4.3 L, RBC 2.88 L, Hgb 7.6 L, Hct 24.7 L, MCV 85.8, MCH 26.4 L, MCHC 30.8 L, RDW 18.5 H, Plt Count 310, MPV 9.2, Neut % (Auto) 39.1, Lymph % (Auto) 42.4, [place] % (Auto) 13.8 H, Eos % (Auto) 4.0, Baso % (Auto) 0.5, Neut # (Auto) 1.7 L, Lymph # (Auto) 1.8, [place] # (Auto) 0.6, Eos # (Auto) 0.2, Baso # (Auto) 0.0, Sodium 136, Potassium 3.9 D, Chloride 98, Carbon Dioxide 35 H, Anion Gap 6.9, BUN 19 H, Creatinine 1.10 H D, Estimated Creat Clear 44, Estimated GFR 50 L, Est GFR ( Amer) 60 D, Glucose 88, Calcium 9.1, Magnesium 2.0 D, Total Bilirubin 0.2, AST 40 H, ALT 19, Alkaline Phosphatase 111, Total Protein 6.8, Albumin 3.3 L, Globulin 3.5 H, Albumin/Globulin Ratio 0.9 L I & O for Last 24 hours: Intake & Output 05/13/25 05/14/25 05/15/25 05/16/25 23:59 23:59 23:59 23:59 Intake Total 250 / 250 920 / 1400 840 / 840 Output Total 1950 / 1950 400 / 400 Balance 250 / 250 -1030 / -550 440 / 440 Weight 54.975 kg 53.66 kg 54.703 kg Microbiology Reports for the Last 24 Hours: Microbiology 05/14/25 Unknown Urine,Clean Catch Urine Culture - Preliminary Gram Negative Rods Constitutional Constitutional: no acute distress, thin, chronically ill appearing and cooperative *Routine HEENT Exam Head: Present normocephalic Eye: Present EOMI and PERRL ENT: Present mucous membranes moist *Routine Neck Exam Neck: Absent full ROM (Chronically leans to the right) *Routine Respiratory Exam Respiratory: Present CTA bilaterally; Absent rhonchi or wheezes *Routine Cardiovascular Exam Cardiovascular: Present RRR *Routine Abdominal Exam Abdominal: Present soft and normoactive bowel sounds; Absent tenderness *Routine Rectal Exam Patient deferred: visual exam *Routine Exam Patient deferred: external exam *Routine Extremities Exam Extremities: Present edema (To knees bilaterally, 2+ right lower extremity, 1+ in left lower extremity, improving); Absent cyanosis or clubbing *Routine Skin Exam Skin: Present intact and warm; Absent erythema or rash *Routine Neurological Exam Neurological: Present alert, oriented X3 and moving all extremities Results Data Completed and Pending Labs on day of discharge: Labs from last 24 hours 05/16/25 05/15/25 05/14/25 05:22 09:30 Unknown WBC 4.3 L RBC 2.88 L Hgb 7.6 L Hct 24.7 L MCV 85.8 MCH 26.4 L MCHC 30.8 L RDW 18.5 H Plt Count 310 MPV 9.2 Neut % (Auto) 39.1 Lymph % (Auto) 42.4 [place] % (Auto) 13.8 H Eos % (Auto) 4.0 Baso % (Auto) 0.5 Neut # (Auto) 1.7 L Lymph # (Auto) 1.8 [place] # (Auto) 0.6 Eos # (Auto) 0.2 Baso # (Auto) 0.0 Sodium 136 Potassium 3.9 D Chloride 98 Carbon Dioxide 35 H Anion Gap 6.9 BUN 19 H Creatinine 1.10 H D Estimated Creat Clear 44 Estimated GFR 50 L Est GFR ( Amer) 60 D Glucose 88 Calcium 9.1 Magnesium 2.0 D Total Bilirubin 0.2 AST 40 H ALT 19 Alkaline Phosphatase 111 Total Protein 6.8 Albumin 3.3 L Globulin 3.5 H Albumin/Globulin Ratio 0.9 L Folate 13.30 Urine Color Yellow Urine Appearance Sl cloudy Urine pH 6.0 Ur Specific [place] 1.020 Urine Protein Negative Urine Glucose (UA) Negative Urine Ketones Negative Urine Blood Negative Urine Nitrate Negative Urine Bilirubin Negative Urine Urobilinogen 0.2 Ur Leukocyte Esterase Negative Urine RBC 3-5 Urine WBC 5-10 Ur Squamous Epith Cells 20-50 Urine Bacteria 3+ Preliminary micro results at discharge 05/14/25 Unknown Urine Culture - Preliminary Urine,Clean Catch Gram Negative Rods DS: Diagnosis Discharge Diagnosis (1) Dilated pancreatic duct: Status: Acute Code(s): K86.89 - Other specified diseases of pancreas (2) GERD (gastroesophageal reflux disease): Status: Acute Code(s): K21.9 - Gastro-esophageal reflux disease without esophagitis Qualifiers: Esophagitis presence: esophagitis presence not specified Qualified Code(s): K21.9 - Gastro-esophageal reflux disease without esophagitis (3) Chronic constipation: Status: Acute Code(s): K59.09 - Other constipation (4) Anemia: Status: Acute Code(s): D64.9 - Anemia, unspecified (5) Tobacco use: Status: Acute Code(s): Z72.0 - Tobacco use (6) DDD (degenerative disc disease), lumbar: Status: Acute Code(s): M51.369 - Other intervertebral disc degeneration, lumbar region without mention of lumbar back pain or lower extremity pain Qualifiers: Disc-related pain type: unspecified whether pain present Qualified Code(s): M51.369 - Other intervertebral disc degeneration, lumbar region without mention of lumbar back pain or lower extremity pain (7) Hypertension: Status: Acute Code(s): I10 - Essential (primary) hypertension Qualifiers: Hypertension type: renovascular hypertension Qualified Code(s): I15.0 - Renovascular hypertension (8) Renal artery stenosis, [place], bilateral: Status: Acute Code(s): I70.1 - Atherosclerosis of renal artery (9) PAD (peripheral artery disease): Status: Acute Code(s): I73.9 - Peripheral vascular disease, unspecified (10) Vitamin C deficiency: Status: Acute Code(s): E54 - Ascorbic acid deficiency Problem details: present on admission Meds Home Medications and Allergies Home Medications ?Medication ?Instructions ?Recorded ?Confirmed ?Type atorvastatin 80 mg tablet 80 mg PO HS #90 tabs 12/09/2 5 05/15/25 Rx aspirin 81 mg chewable tablet 81 mg PO DAILY 30 days # 100 tabs 03/16/25 05/15/25 Rx gabapentin 600 mg tablet 600 mg PO BID #60 tabs 03/1605/15/25 Rx lubiprostone 24 mcg capsule 24 mcg PO BID 30 days #60 caps 03/16/25 05/15/25 Rx oxycodone-acetaminophen 7.5 mg-325 1 tab PO BID PRN pa in #60 tabs 05/08/25 05/15/25 Rx mg tablet (Percocet) sennosides 8.6 mg tablet (Senna 8.6 mg PO HS #30 tabs 05/08/25 05/15/25 Rx Lax) cephalexin 500 mg capsule 500 mg PO QID 3 days #12 cap s 05/16/25 Rx furosemide 40 mg tablet (Lasix) 40 mg PO DAILY #30 tab s 05/16/25 Rx pantoprazole 40 mg tablet,delayed 40 mg PO HS 30 days #30 tabs 05/16/25 Rx release vits 137-ferrous fumarate 1 tab PO 1700 30 da ys #30 tabs 05/16/25 Rx 27 mg iron-folic acid 0.8 mg tablet ondansetron HCl 4 mg tablet 4 mg PO Q8H PRN nausea and 05/17/25 Rx vomiting #90 tabs New Prescriptions to Start Prescriptions: Valentín Howard furosemide [Lasix] Valentín Ni pantoprValentín Neal [id number] ac Valentín Ni Allergies Allergy/AdvReac Type Severity Reaction Status Date / Time chocolate flavor Allergy Intermediate rash Verified 05/08/25 12:02 Penicillins Allergy Intermediate Rash Verified 05/08/25 12:02 Influenza Virus Vaccines Allergy Blister Verified 05/08/25 12:02 morphine Allergy Unknown Verified 05/08/25 12:02 allergy reaction Discharge Plan Disposition Patient Disposition: Home, Self-Care Condition: Fair Discharge Order Discharge Orders: Discharge Order (Routine); Ordered 05/16/25 Ordered By: Valentín Ni Follow up Plan Follow up with: Zia Joseph MD [Primary Care Provider, [facility]] - 05/25/25 10:00 am Prescriptions/Medication Reconciliation: New cephalexin 500 mg Capsule 500 mg PO QID 3 Days Qty: 12 0RF pantoprazole 40 mg Tablet,Delayed Release (Dr/Ec) 40 mg PO HS 30 Days Qty: 30 0RF [id number] ac 27mg iron- 0.8 mg Tablet 1 tab PO 1700 30 Days Qty: 30 0RF furosemide [Lasix] 40 mg tablet 40 mg PO DAILY Qty: 30 0RF Continued aspirin 81 mg tablet,chewable 81 mg PO DAILY 30 Days Qty: 100 3RF lubiprostone 24 mcg capsule 24 mcg PO BID 30 Days Qty: 60 10RF gabapentin 600 mg tablet 600 mg PO BID Qty: 60 3RF oxycodone-acetaminophen [Percocet] 7.5-325 mg tablet 1 tab PO BID PRN (Reason: pain) Qty: 60 0RF sennosides [Senna Lax] 8.6 mg tablet 8.6 mg PO HS Qty: 30 10RF atorvastatin 80 mg tablet 80 mg PO HS Qty: 90 3RF Discontinued clopidogrel 75 mg tablet 75 mg PO DAILY 21 Days Qty: 30 3RF No Action ondansetron HCl 4 mg tablet 4 mg PO Q8H PRN (Reason: nausea and vomiting) Qty: 90 0RF Problem Reconciliation Problems Reviewed?: Yes Patient Discharge Instructions ACTIVITY: Continue current activity DIET: continue same diet Additional Instructions: Avoid Ibuprofen, Aleve, Naproxen. OK to take tylenol (acetaminophen) up to 1000mg 4 times a day Patient Instructions: Anemia Print Language: [place] Providers Primary Care Provider: Zia Joseph Admit Provider: Kuldeep Hagen Attending Provider: Kuldeep Hagen
--- NOTE | 2025-05-16 12:20 | P.PN_ITS ---
Subjective Subjective Date: 05/16/25 Time: 12:20 Principal diagnosis: edema, PAD Interval history: 64-year-old white female been moving in the room no acute distress. Patient is being discharged home today. Again tried to initiate conversation regarding patient's multiple medical issues but she does not wish to discuss them at this time stating that she will follow- up with Dr. Joseph. Exam Data for Last 24 hours Vital signs and Labs for Last 24 Hours: Temp Pulse Resp BP Pulse Ox O2 Del Method 98.2 F 80 20 153/80 H 100 Room Air 05/16/25 08:00 05/16/25 08:00 05/16/25 08:00 05/16/25 08:00 05/16/25 08:00 05/16/25 08:00 Laboratory Results - last 24 hr 05/14/25 : Urine Color Yellow, Urine Appearance Sl cloudy, Urine pH 6.0, Ur Specific [place] 1.020, Urine Protein Negative, Urine Glucose (UA) Negative, Urine Ketones Negative, Urine Blood Negative, Urine Nitrate Negative, Urine Bilirubin Negative, Urine Urobilinogen 0.2, Ur Leukocyte Esterase Negative, Urine RBC 3-5, Urine WBC 5-10, Ur Squamous Epith Cells 20-50, Urine Bacteria 3+ 05/16/25 05:22: WBC 4.3 L, RBC 2.88 L, Hgb 7.6 L, Hct 24.7 L, MCV 85.8, MCH 26.4 L, MCHC 30.8 L, RDW 18.5 H, Plt Count 310, MPV 9.2, Neut % (Auto) 39.1, Lymph % (Auto) 42.4, [place] % (Auto) 13.8 H, Eos % (Auto) 4.0, Baso % (Auto) 0.5, Neut # (Auto) 1.7 L, Lymph # (Auto) 1.8, [place] # (Auto) 0.6, Eos # (Auto) 0.2, Baso # (Auto) 0.0, Sodium 136, Potassium 3.9 D, Chloride 98, Carbon Dioxide 35 H, Anion Gap 6.9, BUN 19 H, Creatinine 1.10 H D, Estimated Creat Clear 44, Estimated GFR 50 L, Est GFR ( Amer) 60 D, Glucose 88, Calcium 9.1, Magnesium 2.0 D, Total Bilirubin 0.2, AST 40 H, ALT 19, Alkaline Phosphatase 111, Total Protein 6.8, Albumin 3.3 L, Globulin 3.5 H, Albumin/Globulin Ratio 0.9 L I & O for Last 24 hours: Intake & Output 05/14/25 05/15/25 05/16/25 05/17/25 11:59 11:59 11:59 11:59 Intake Total 370 / 370 1640 / 1640 Output Total 400 / 400 1950 / 1950 0 / 0 Balance -30 / -30 -310 / -310 0 / 0 Weight 118 lb 4.8 oz 120 lb 9.6 oz Microbiology Reports for the Last 24 Hours: Microbiology 05/14/25 Unknown Urine,Clean Catch Urine Culture - Preliminary Gram Negative Rods Progress Note: A&P Assessment and plan (1) Dilated pancreatic duct: Status: Acute (2) GERD (gastroesophageal reflux disease): Status: Acute (3) Chronic constipation: Status: Acute (4) Anemia: Status: Acute (5) Tobacco use: Status: Acute (6) DDD (degenerative disc disease), lumbar: Status: Acute (7) Hypertension: Status: Acute (8) Renal artery stenosis, [place], bilateral: Status: Acute (9) PAD (peripheral artery disease): Status: Acute Assessment and Plan Assessment and Plan for All Diagnoses:: 1. Anasarca -[place] secondary to nutritional deficiency -Improved with IV diuretics -Echo shows normal BiV systolic function with mild TR. Possible interatrial shunt noted. 2. History of CVA -On aspirin, statin and Plavix -Possible interatrial shunt noted on echo with recommendation for TTE with agitated saline 3. Abdominal saccular aneurysm with thrombosis 4. Bilateral renal artery disease, moderate to severe 5. Celiac and mesenteric artery atherosclerosis, moderate to severe 6. Bilateral iliac artery stenosis left greater than right 7. Severe grief related to spousal demise 4 years ago Declines any further testing at this time. She states she will discuss with Dr. Joseph. Resume home medication of aspirin 81 mg daily, atorvastatin 80 mg daily, Lasix 40 mg daily She can follow-up in our office next month.
--- NOTE | 2025-05-17 10:51 | PC.NURSE ---
Final urine culture forwarded to the hospitalist as she was admitted.
== END 2025-05-16 13:00 | disposition home or self-care (01) ==
LOC: ER 19:35 → 2ND 05-15 06:12
PROVIDERS: Internal Medicine Adolescent Medicine; Student in an Organized Health Care Education/Training Program; Admitting Provider Internal Medicine; Emergency Provider Student in an Organized Health Care Education/Training Program; PCP Family Medicine; Visit Provider Internal Medicine
DX: L03.115 Cellulitis of right lower limb (principal); E87.1 Hypo-osmolality and hyponatremia; D64.9 Anemia, unspecified; R91.1 Solitary pulmonary nodule; K86.89 Other specified diseases of pancreas; Z86.73 Personal history of transient ischemic attack (TIA), and cerebral infarction without residual deficits; Z79.82 Long term (current) use of aspirin; Z79.02 Long term (current) use of antithrombotics/antiplatelets; I10 Essential (primary) hypertension; K83.8 Other specified diseases of biliary tract; I71.40 Abdominal aortic aneurysm, without rupture, unspecified; K21.9 Gastro-esophageal reflux disease without esophagitis; K59.09 Other constipation; T40.2X5A Adverse effect of other opioids, initial encounter; M51.369 Other intervertebral disc degeneration, lumbar region without mention of lumbar back pain or lower extremity pain; Z88.5 Allergy status to narcotic agent; Z88.0 Allergy status to penicillin; Z88.7 Allergy status to serum and vaccine; Z91.018 Allergy to other foods; F17.210 Nicotine dependence, cigarettes, uncomplicated; G89.29 Other chronic pain; F43.20 Adjustment disorder, unspecified; N28.89 Other specified disorders of kidney and ureter; I70.208 Unspecified atherosclerosis of native arteries of extremities, other extremity; R06.02 Shortness of breath; Z79.899 Other long term (current) drug therapy; Z79.891 Long term (current) use of opiate analgesic; Y92.9 Unspecified place or not applicable
CPT/HCPCS: 36415; 36430; 74174; 80053; 80061; 81001; 82180; 82746; 82962; 83735; 83880; 84100; 85014; 85018; 85025; 85378; 85610; 85730; 86140; 86850; 87086; 87088; 87186; 93306; 99285; G0378; J1171; J1938; P9016; Q9967